=== PATIENT | male | born 1940 | race Caucasian/White ===

== ENCOUNTER 2019-07-13 01:17 | Day surgery (SDC) | payer MEDICARE, SELFPAY ==
[2019-07-11 12:08] VITALS: BMI 30.6
[2019-07-13] VITALS (11 sets, daily range): BP systolic 103–160; BP diastolic 59–97; PULSE 57–80; RESP 15–24; TEMP 36.5; O2SAT 95–100
--- NOTE | 2019-07-13 09:17 | PM.HPGS ---
History of Present Illness History of Present Illness Consent: Risks, benefits, and alternatives have been discussed and questions answered. Patient agrees to proceed with procedure. Chief complaint: Rectal Bleeding Narrative: Tuan Moore is a 78 year old W male undergoing flexible sigmoidoscopy for evaluation of hematochezia. Patient did have a colonoscopy September of 2018 was found to have internal hemorrhoids in addition to radiation proctitis. radiation proctitis is not treated at that time. Patient does have some increased rectal bleeding. No clinical changes since visit in September 2018. [facility] Family History Family History Father Family history of premature coronary heart disease Hypertension Mother Hypertension Family history of coronary artery disease Sibling Malignant neoplasm of prostate Family history of lung cancer Social History Social History Smoking status: Former smoker (Quit 06/14/86) Alcohol intake: current Meds Home Medications and Allergies Home Medications Medication Instructions Recorded Confirmed Type carbamazepine 200 mg 200 mg PO Q12H 05/25/19 07/11/19 History capsule,extended release [id number] levothyroxine 100 mcg PO QAM 07/11/19 07/11/19 History rosuvastatin 20 mg tablet 20 mg PO DAILY #90 tablet 07/11/19 Rx tamsulosin 0.4 mg capsule 0.4 mg PO BID #180 cap 07/11/19 Rx Allergies Allergy/AdvReac Type Severity Reaction Status Date / Time bisacodyl AdvReac Intermediate Nausea Verified 07/13/19 09:00 codeine AdvReac Unknown Agitated Verified 07/13/19 09:00 Vital Signs Vital Signs - 24 hr 07/13/19 09:01 Temperature 36.5 C Pulse Rate 78 Respiratory Rate 16 Blood Pressure 134/68 Pulse Oximetry 98 Exam Const: Orientation/consciousness: patient oriented x3 Resp: Auscultation: clear to auscultation bilaterally Cardio: Rate: regular rate Rhythm: regular rhythm Heart sounds: no murmurs GI: GI Palp: Yes Soft to palpation, No Tenderness to palpation present (GI), Yes No hepatosplenomegaly present and No Palpable mass present Auscultation: normal bowel sounds Neuro: General: patient oriented x3 and no focal motor deficits Extrem: General: no pedal edema Assessment and Plan Additional Plan Flexible sigmoidoscopy possible ablation therapy for radiation proctitis
[2019-07-13] MEDS: LACTATED RINGERS 1,000 ML 150 ML IV CONT (09:22)
--- NOTE | 2019-07-13 09:41 | WPDANESEPPF ---
Anes - Initial Pre Proc Eval Procedure: Operation Date: 07/13/19 10:00 Proposed Procedures p Flexible Sigmoidoscopy - Florentin Perez MD Date/Time: 07/13/19 09:41 Surgeon: Florentin Perez MD Pre Op Diagnosis: Rectal Bleeding Patient Data Age: 78 Gender: M Height: 5 ft 6 in Weight: 82.5 kg Last Vital Signs Temp 97.7 F 07/13/19 09:01 Pulse 78 07/13/19 09:01 Resp 16 07/13/19 09:01 BP 134/68 07/13/19 09:01 Pulse Ox 98 07/13/19 09:01 Allergies Allergy/AdvReac Type Severity Reaction Status Date / Time bisacodyl AdvReac Intermediate Nausea Verified 07/13/19 09:24 codeine AdvReac Unknown Agitated Verified 07/13/19 09:24 Home Medications Medication Instructions Recorded Confirmed Type carbamazepine 200 mg 200 mg PO Q12H 05/25/19 07/13/19 History capsule,extended release [id number] levothyroxine 100 mcg PO QAM 07/11/19 07/13/19 History rosuvastatin 20 mg tablet 20 mg PO DAILY #90 tablet 07/11/19 07/13/19 Rx tamsulosin 0.4 mg capsule 0.4 mg PO BID #180 cap 07/11/19 07/13/19 Rx Patient hx anesthesia problems: none Family hx anesthesia problems: none PMFSH Past Medical History Medical History (Updated 07/13/19 @ 09:41 by Dominic Martin MD) H/O prostate cancer Hypothyroidism Family History Family History Father Family history of premature coronary heart disease Hypertension Mother Hypertension Family history of coronary artery disease Sibling Malignant neoplasm of prostate Family history of lung cancer Social History Social History Smoking status: Former smoker (Quit 06/14/86) Alcohol intake: current Anes - Eval Final PreProcedure Day of Procedure 07/13/19 09:41 Patient weight: obese Heart: regular rate and rhythm Lungs: clear to auscultation Airway: Mallampati scale class II Neurological: alert and oriented Last oral intake: >/= 8 hours ASA classification: III Emergent: no Anesthetic plan: proceed Anesthesia type and monitoring: general GIVS and standard monitoring Informed Consent: The patient's anesthetic plan and its attendant risks and benefits were discussed with the patient/family/POA. Questions were solicited and answers provided to the satisfaction of the patient/family/POA.
--- NOTE | 2019-07-13 11:22 | SUR.PHASEII ---
1119 - Dr. Perez in room following up and speaking with patient and spouse. Spoke with TOM Juarez to D/C patient. Patient verbalized understanding when to call Dr. Perez's office or return to the ER.
== END 2019-07-13 11:36 | disposition home or self-care (01) ==
PROVIDERS: PCP Family Medicine; Visit Provider Internal Medicine Gastroenterology
PROC: 0DJD8ZZ Inspection of Lower Intestinal Tract, Via Natural or Artificial Opening Endoscopic (ICD-10-PCS; CPT 45330; principal; 2019-07-13 10:00)
DX: K62.7 Radiation proctitis (principal); Y84.2 Radiological procedure and radiotherapy as the cause of abnormal reaction of the patient, or of later complication, without mention of misadventure at the time of the procedure; Z87.891 Personal history of nicotine dependence; E03.9 Hypothyroidism, unspecified; Z85.46 Personal history of malignant neoplasm of prostate; E66.9 Obesity, unspecified; Z68.29 Body mass index [BMI] 29.0-29.9, adult
CPT/HCPCS: 45334; J7120

== ENCOUNTER 2019-12-22 11:38 | Outpatient (CLI) | payer MEDICARE, SELFPAY ==
--- NOTE | ~2019-12-22 | XR_ITS ---
XR hip LT 2V w AP pelvis DATE: 12/22/2019 11:54 INDICATION: Left hip pain. TECHNIQUE: AP pelvis. AP and lateral views of left hip. COMPARISON: None FINDINGS: Multi-level degenerative disc disease of lumbar and lumbosacral spine. No pelvic fracture or bone destruction. The pubic symphysis and sacroiliac joints are intact. IMPRESSION: Multi-level degenerative disc disease Negative pelvis and left hip Reviewed, dictated and finalized at location B.
== END 2019-12-22 11:39 | disposition home or self-care (01) ==
PROVIDERS: PCP Family Medicine; Visit Provider Physician Assistant Medical
DX: M25.552 Pain in left hip (principal); M51.36 Other intervertebral disc degeneration, lumbar region
CPT/HCPCS: 73502

== ENCOUNTER 2020-05-05 11:33 | Emergency (ER) | payer MEDICARE, SELFPAY ==
[2020-05-05 11:34] VITALS: BP 148/68; PULSE 78; RESP 14; TEMP 36.1; O2SAT 99
--- NOTE | 2020-05-05 13:26 | ED.MALEGU ---
HPI - Male Genitourinary General Chief complaint: Urogenital-Male Stated complaint: blood in urine Time Seen by Provider: 05/05/20 11:48 Source: patient Limitations: no limitations History of Present Illness HPI Narrative: Patient is 79 years old white male presents with bloody urine since last night. Patient had similar symptoms in the past, does not know what was the underlying reason. Patient does not take blood thinner. History of prostatic cancer managed by [facility] Related Data Home Medications Medication Instructions Recorded Confirmed carbamazepine 200 mg 200 mg PO Q12H 05/25/19 04/10/20 capsule,extended release [id number] Allergies Allergy/AdvReac Type Severity Reaction Status Date / Time bisacodyl AdvReac Intermediate Nausea Verified 05/05/20 12:43 codeine AdvReac Unknown Agitated Verified 05/05/20 12:43 Review of Systems Review of Systems: Narrative: CONSTITUTIONAL: Denies fever, chills, or sweats. EYES: Denies visual changes, redness, or discharge. ENT: Denies rhinorrhea, congestion, sore throat, or otalgia. CARDIOVASCULAR: Denies chest pain, palpitations, or edema. RESPIRATORY: Denies cough or dyspnea. GASTROINTESTINAL: Denies abdominal pain, nausea, vomiting, or diarrhea. GENITOURINARY: Denies dysuria or hematuria. SKIN: Denies rash or itching. MUSCULOSKELETAL: Denies back pain, joint pain, or myalgia. NEUROLOGIC: Denies headache, numbness, or weakness. PSYCHIATRIC: Denies anxiety or depression. PMFSH Past Medical History Medical History H/O prostate cancer Hypothyroidism Family History Family History Father Family history of premature coronary heart disease Hypertension Mother Hypertension Family history of coronary artery disease Sibling Malignant neoplasm of prostate Family history of lung cancer Social History Social History Smoking status: Former smoker (quit approx 25 years ago) Alcohol intake: current Substance use: never Substance use type: does not use Gender identity (if verbalized by the patient): Male Exam Narrative: Exam Narrative: General appearance: Well-developed, well-nourished Skin: Normal color Head: Normocephalic, nontraumatic Eyes: Clear conjunctiva ENT: Oropharynx normal, ears normal, nose normal Neck: Supple, nontender Chest and respiratory: Airway patent, no respiratory distress, no accessory muscle use Heart: Regular rate/rhythm Abdomen: Soft, nontender, no organomegaly, quiet bowel sounds Vascular: Normal peripheral pulses, normal capillary refill. Musculoskeletal: Normal range of motion, nontender back Neurologic: Alert and oriented ?3, GRID TRIMMER is normal as tested, no gross motor deficit Course Course Emergency Course: Stable Vital Signs Vital signs: Vital Signs Temperature 36.1 C L 05/05/20 11:34 Pulse Rate 78 05/05/20 11:34 Respiratory Rate 14 05/05/20 11:34 Blood Pressure 148/68 H 05/05/20 11:34 Pulse Oximetry 99 05/05/20 11:34 Temperature 36.1 C L 05/05/20 11:34 Pulse Rate 78 05/05/20 13:39 Respiratory Rate 16 05/05/20 13:39 Blood Pressure 108/72 05/05/20 13:39 Pulse Oximetry 96 05/05/20 13:39 MDM - Male Genitourinary MDM Narrative Medical decision making narrative: Hematuria. UA, labs ordered. Further plan to follow Urine analysis showed urinary tract infection, Rocephin 1 g IV given, patient will be discharged on Cipro. Lab Data Result diagrams: 05/05/20 14:10 05/05/20 14:10 Labs: Lab Results 05/05/20 05/05/20 05/05/20
[2020-05-05 13:39] VITALS: BP 108/72; PULSE 78; RESP 16; O2SAT 96
[2020-05-05 14:47] LABS: Basophils Percent Auto 0.3 % (0.2-1.2); Eosinophils Absolute Auto 0.1 K/mm3 (0-0.3); Hematocrit 45.1 % (42.0-52.0); Hemoglobin 14.9 g/dL (14.0-18.0); Immature Granulocyte Absolute 0.02 K/mm3 (0.00-0.031); Immature Granulocyte Percent A 0.3 % (0-0.5); Mean Corpuscular Hemoglobin 32.2 pg (26-34); Mean Corpuscular Volume 97.4 fl (80-100); Mean Platelet Volume 10.2 fl (7.4-10.4); Monocytes Absolute Auto 0.7 K/mm3 (0.1-0.6); Monocytes Percent Auto 10.3 % (2.6-8.5); Neutrophils Absolute Auto 5.2 K/mm3 (1.3-6.7); Neutrophils Percent Auto 73.1 % (45.5-73.1); Platelet Count Result 240 k/mm3 (150-375); Red Blood Count 4.63 M/mm3 (4.6-6.20); Red Cell Distribution Width 13.3 % (11.5-14.5); White Blood Count 7.2 K/mm3 (4.5-10.0)
[2020-05-05 15:01] LABS: Alanine Aminotransferase 18 U/L (4-50); Albumin Level 4.1 g/dL (3.5-5.1); Alkaline Phosphatase 112 U/L (38-126); Anion Gap 6 mmol/L (8-16); Aspartate Amino Transferase 24 U/L (17-59); Bilirubin,Total 0.3 mg/dL (0.2-1.3); Blood Urea Nitrogen 15 mg/dL (9-20); Calcium 9.2 mg/dL (8.4-10.2); Carbon Dioxide 30 mmol/L (22-30); Chloride 104 mmol/L (98-107); Estimated CRCL calculation 54 ml/min; Estimated Glomerular Filt Rate > 60; Glucose 95 mg/dL (75-110); Sodium 140 mmol/L (137-145)
[2020-05-05 16:16] LABS: Add Urine Microscopic? YES; Appearance Urine Cloudy (Clear); Bacteria Urine Trace /hpf; Bilirubin Urine Negative (Negative); Blood Urine 3+ (Negative); Color Urine Yellow (Yellow); Glucose Urine UA Negative (Negative); Ketones Urine Negative (Negative); Leukocyte Esterase Ur 3+ LEU/UL (Negative); Nitrate Urine Negative (Negative); Protein Urine 2+ mg/dL (Negative); RBC Urine 21-50 /hpf (0-2); Renal Epithelial Cells Urine Rare /hpf (None Seen); Specific Grav Ur 1.008 (1.001-1.035); Urobilinogen Urine Negative mg/dL (<2.0); WBC Clumps Urine Present /HPF; WBC Urine >75 /hpf
[2020-05-05 16:30] VITALS: BP 139/84; PULSE 82; RESP 16; O2SAT 99
[2020-05-05 18:50] VITALS: BP 139/84; PULSE 80; RESP 16; O2SAT 99
== END 2020-05-05 18:50 | disposition home or self-care (01) ==
PROVIDERS: Emergency Provider Emergency Medicine; PCP Family Medicine
DX: N39.0 Urinary tract infection, site not specified (principal); E03.9 Hypothyroidism, unspecified; Z85.46 Personal history of malignant neoplasm of prostate; Z87.891 Personal history of nicotine dependence
CPT/HCPCS: 36415; 80053; 81001; 85025; 87077; 87086; 87088; 87186; 96365; 99284; J0696

== ENCOUNTER 2021-01-28 05:26 | Emergency (ER) | payer MEDICARE, SELFPAY ==
--- NOTE | ~2021-01-28 | XR_ITS ---
EXAMINATION: XR chest 2V 01/28/2021 06:33 INDICATION: Left-sided chest pain with cough for 2 days PROCEDURE: 2 view chest COMPARISON: Comparison to multiple prior studies sequentially, with oldest reviewed study dated 12/02. FINDINGS: The lungs are clear. The cardiomediastinal silhouette is within normal limits. There are no pleural effusions. There is no pneumothorax suspected. Calcified granuloma left midlung zone. IMPRESSION: 1: NO ACUTE CARDIOPULMONARY DISEASE. Reviewed, dictated and finalized at location A.
[2021-01-28 05:32] VITALS: BP 137/67; PULSE 80; RESP 16; TEMP 37.2; O2SAT 100
--- NOTE | 2021-01-28 05:33 | ECG_ITS ---
Measurements Intervals [place] Rate: 79 P: 36 [place]: 172 QRS: -35 QRSD: 128 T: 106 QT: 388 QTc: 447 Interpretive Statements SINUS RHYTHM LEFT AXIS DEVIATION LEFT BUNDLE BRANCH BLOCK ABNORMAL ECG Electronically Signed On 01-28-2021 5:37:37 CDT by Alexx Wright D.O.
[2021-01-28 05:57] LABS: Basophils Percent Auto 0.4 % (0.2-1.2); Eosinophils Absolute Auto 0.1 K/mm3 (0-0.3); Hematocrit 45.9 % (42.0-52.0); Hemoglobin 14.9 g/dL (14.0-18.0); Immature Granulocyte Absolute 0.01 K/mm3 (0.00-0.031); Immature Granulocyte Percent A 0.1 % (0-0.5); Lymphocytes Absolute Auto 0.74 K/mm3 (0.9-3.2); Lymphocytes Percent Auto 9.6 % (18.3-44.2); Mean Corpuscular HGB Conc 32.5 g/dl (32-36); Mean Corpuscular Hemoglobin 32.1 pg (26-34); Mean Corpuscular Volume 98.9 fl (80-100); Mean Platelet Volume 10.2 fl (7.4-10.4); Monocytes Absolute Auto 0.7 K/mm3 (0.1-0.6); Monocytes Percent Auto 9.5 % (2.6-8.5); Neutrophils Absolute Auto 6.1 K/mm3 (1.3-6.7); Neutrophils Percent Auto 79.4 % (45.5-73.1); Platelet Count Result 238 k/mm3 (150-375); Red Blood Count 4.64 M/mm3 (4.6-6.20); Red Cell Distribution Width 13.5 % (11.5-14.5); White Blood Count 7.7 K/mm3 (4.5-10.0)
--- NOTE | 2021-01-28 06:06 | ED.GENADULT ---
HPI - General Adult General Chief complaint: Chest Pain <Nils Garcia MD - Last Filed: 01/28/21 06:28> Stated complaint: CP/ Back pain <Nils Garcia MD - Last Filed: 01/28/21 06:28> Time Seen by Provider: 01/28/21 05:46 <Nils Garcia MD - Last Filed: 01/28/21 06:28> History of Present Illness HPI narrative: Patient is a 80-year-old gentleman who presents the emergency department with chief complaint of chest pain. The patient reports that he started coughing yesterday has been nonproductive denies fever but reports today that he had some discomfort in his chest. The patient reports that the tightness sensation that is feeling okay right now patient states that it has been bothering him for the last 2days patient denies shortness of breath reports that has been vaccinated for Covid. <Nils Garcia MD - Last Filed: 01/28/21 06:28> Related Data Home medications: Home Medications Medication Instructions Recorded Confirmed Centrum 01/28/21 <Nils Garcia MD - Last Filed: 01/28/21 06:28> Allergies/adverse reactions: Allergies Allergy/AdvReac Type Severity Reaction Status Date / Time bisacodyl AdvReac Intermediate Nausea Verified 01/28/21 05:42 codeine AdvReac Unknown Agitated Verified 01/28/21 05:42 <Nils Garcia MD - Last Filed: 01/28/21 06:28> Review of Systems Review of Systems: A 10 system review of systems was completed on the patient and is negative except for what is stated in the HPI. Nursing and ancillary documentation was reviewed. <Nils Garcia MD - Last Filed: 01/28/21 06:28> PMF Past Medical History Medical History: Medical History BMI (body mass index) 20.0-29.9 H/O prostate cancer Hematuria Hypothyroidism Skin cancer screening Urinary tract infection <Nils Garcia MD - Last Filed: 01/28/21 06:28> Family History Family History: Family History Father Family history of premature coronary heart disease Hypertension Mother Hypertension Family history of coronary artery disease Sibling Malignant neoplasm of prostate Family history of lung cancer <Nils Garcia MD - Last Filed: 01/28/21 06:28> Social History Social History: Social History Smoking status: Never smoker Second hand tobacco smoke exposure: No Alcohol intake: current Substance use: never Substance use type: does not use Gender identity (if verbalized by the patient): Male <Nils Garcia MD - Last Filed: 01/28/21 06:28> Exam Narrative: GENERAL: Well-appearing, well-nourished, and in no acute distress. HEAD: Normocephalic, atraumatic. EYES: PERRLA and EOMI. ENT: Nares clear, no rhinorrhea or epistaxis. Mucous membranes moist. NECK: Supple. CHEST: Clear to auscultation. No respiratory distress. HEART: Regular rate and rhythm. No murmur heard. Normal peripheral pulses. ABDOMEN: Soft, nontender, nondistended, normal active bowel sounds. EXTREMITIES: Normal range of motion. No edema. SKIN: Warm, dry, no rash. NEURO: No focal deficits. Alert and oriented x3. PSYCH: Normal mood and affect. <Nils Garcia MD - Last Filed: 01/28/21 06:28> Course Vital Signs Vital signs: Vital Signs Temperature 37.2 C 01/28/21 05:32 Pulse Rate 80 01/28/21 05:32 Respiratory Rate 16 01/28/21 05:32 Blood Pressure 137/67 01/28/21 05:32 Pulse Oximetry 100 01/28/21 05:32 Temperature 37.2 C 01/28/21 05:32 Pulse Rate 78 01/28/21 09:26 Respiratory Rate 17 01/28/21 09:26 Blood Pressure 120/64 01/28/21 09:26 Pulse Oximetry 98 01/28/21 09:26 <Nils Garcia MD - Last Filed: 01/28/21 06:28>
[2021-01-28 06:10] LABS: Anion Gap 7 mmol/L (8-16); Blood Urea Nitrogen 20 mg/dL (9-20); Calcium 9.4 mg/dL (8.4-10.2); Carbon Dioxide 24 mmol/L (22-30); Chloride 104 mmol/L (98-107); Estimated CRCL calculation 52 ml/min; Estimated Glomerular Filt Rate > 60; Glucose 105 mg/dL (65-110); Potassium 4.2 mmol/L (3.4-5.0); Sodium 135 mmol/L (137-145)
[2021-01-28 06:21] LABS: Troponin I < 0.012 ng/mL (0.000-0.034)
[2021-01-28 06:48] LABS: INR 0.9; Partial Thromboplastin Time 21.8 SECONDS (22.3-36.8); Prothrombin Time 11.9 Seconds (11.1-14.7)
[2021-01-28 06:51] VITALS: BP 135/74; PULSE 76; RESP 18; O2SAT 97
[2021-01-28 07:26] VITALS: PULSE 77
[2021-01-28 08:19] VITALS: BP 131/69; PULSE 76; RESP 22; O2SAT 98
[2021-01-28 09:12] LABS: Troponin I < 0.012 ng/mL (0.000-0.034)
[2021-01-28 09:26] VITALS: BP 120/64; PULSE 78; RESP 17; O2SAT 98
[2021-01-28 09:53] VITALS: BP 117/76; PULSE 77; RESP 16; O2SAT 96
== END 2021-01-28 09:55 | disposition home or self-care (01) ==
PROVIDERS: Emergency Medicine; Emergency Provider Emergency Medicine; PCP Family Medicine
DX: R07.89 Other chest pain (principal); E03.9 Hypothyroidism, unspecified
CPT/HCPCS: 36415; 71046; 80048; 84484; 85025; 85610; 85730; 93005; 99284

== ENCOUNTER 2021-02-28 13:34 | Outpatient (CLI) | payer MEDICARE, SELFPAY ==
--- NOTE | ~2021-02-28 | MR_ITS ---
EXAMINATION: MR brain/brain stem wo con EXAM DATE: 02/28/2021 14:44 INDICATION: G50.0 - Trigeminal neuralgia . TECHNIQUE: Multi-sequential, multiplanar MR images of the brain, brainstem, internal auditory canals were obtained without contrast. Whole brain sagittal T1, axial diffusion, gradient echo (T2*), T1, T 2, FLAIR sequences obtained. High resolution coronal 3-D FIESTA, coronal T1 FSE, axial T1 FSPGR of t he internal auditory canals. Comparison is made to prior examination from 07/09/2016. FINDINGS: No evidence of mastoid or middle ear opacification. The 7th/8th cranial nerve complexes a re symmetric, normal in course and caliber. No cerebellopontine angle masses. Posterior fossa unrem arkable. Both of the superior cerebellar arteries are contiguous to the cisternal segments of the respective t rigeminal nerves bilaterally, without exerting mass effect. Uncertain clinical significance, finding likely commonly seen in asymptomatic people. Segmental Trigeminal nerves and Meckel's caves are symme tric and unremarkable. There are no areas of restricted diffusion to suggest acute infarction. There is no acute hemorrhage seen on the T2*, a hemosiderin sensitive sequence. No intraparenchymal brain mass lesion. 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 There is periventricular and subcortical T 2/FLAIR signal hyperintensity, nonspecific but probably related to small vessel ischemic disease (greg roangiopathy). There is prominence of the sulci and ventricles related to cerebral atrophy. There are no extra-axial collections. Flow voids are seen in the cerebral arteries on the T2-weighted seq uences consistent with their expected patency. The orbits are unremarkable. Soft tissue is unremark able. IMPRESSION: 1. Mild microangiopathy. 2. 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 Reviewed, dictated and finalized at location B.
== END 2021-02-28 13:35 | disposition home or self-care (01) ==
LOC: ANHIMG 13:35
PROVIDERS: PCP Family Medicine; Visit Provider Psychiatry & Neurology Neurology
DX: G50.0 Trigeminal neuralgia (principal); R93.0 Abnormal findings on diagnostic imaging of skull and head, not elsewhere classified
CPT/HCPCS: 70551

== ENCOUNTER 2021-11-03 09:19 | Outpatient (CLI) | payer MEDICARE, SELFPAY ==
--- NOTE | ~2021-11-03 | XR_ITS ---
EXAMINATION: XR lumbar spine 6V w bending DATE: 11/03/2021 09:57 INDICATION: Lumbago with left-sided sciatica. TECHNIQUE: 7 views of lumbar spine including flexion and extension views were obtained. COMPARISON: Lumbar spine MRI 05/16/2014 FINDINGS: There is 10 degrees levoscoliosis of lumbar spine. There is mild kyphosis of upper lumbar s pine. There is no abnormal motion with flexion or extension. Vertebral body heights are normal. There is mildly decreased disc height at L1-L2, severely decreased disc height at L2-L3, mildly decreased disc height at L3-L4, moderately decreased disc height at L4-L5, and severely decreased disc height a t L5-S1 with endplate remodeling. There is multilevel severe facet joint osteoarthritis. IMPRESSION: 1. Severe lumbar spondylosis. 2. Lumbar dextroscoliosis. Reviewed, dictated and finalized at location A.
[2021-11-03 09:37] LABS: Basophils Absolute Auto 0.1 K/mm3 (0.0-0.1); Basophils Percent Auto 0.9 % (0.2-1.2); Eosinophils Absolute Auto 0.2 K/mm3 (0-0.3); Eosinophils Percent Auto 3.3 % (0-4.4); Hematocrit 43.1 % (42.0-52.0); Hemoglobin 13.8 g/dL (14.0-18.0); Immature Granulocyte Absolute 0.01 K/mm3 (0.00-0.031); Immature Granulocyte Percent A 0.2 % (0-0.5); Lymphocytes Absolute Auto 1.17 K/mm3 (0.9-3.2); Lymphocytes Percent Auto 20.4 % (18.3-44.2); Mean Corpuscular Hemoglobin 32.3 pg (26-34); Mean Corpuscular Volume 100.9 fl (80-100); Mean Platelet Volume 9.8 fl (7.4-10.4); Monocytes Absolute Auto 0.6 K/mm3 (0.1-0.6); Neutrophils Absolute Auto 3.7 K/mm3 (1.3-6.7); Neutrophils Percent Auto 64.2 % (45.5-73.1); Platelet Count Result 210 k/mm3 (150-375); Red Blood Count 4.27 M/mm3 (4.6-6.20); Red Cell Distribution Width 13.2 % (11.5-14.5); White Blood Count 5.7 K/mm3 (4.5-10.0)
[2021-11-03 09:46] LABS: Anion Gap 6 mmol/L (8-16); Blood Urea Nitrogen 25 mg/dL (9-20); Calcium 8.4 mg/dL (8.4-10.2); Carbon Dioxide 23 mmol/L (22-30); Chloride 108 mmol/L (98-107); Estimated Glomerular Filt Rate > 60; Glucose 98 mg/dL (65-110); Potassium 4.5 mmol/L (3.4-5.0); Sodium 137 mmol/L (137-145)
[2021-11-03 10:15] LABS: Thyroid Stimulating Hormone 0.875 uIU/mL (0.465-4.680)
== END 2021-11-03 09:20 | disposition home or self-care (01) ==
LOC: ANHLAB 09:22
PROVIDERS: PCP Family Medicine; Visit Provider Family Medicine
DX: M54.42 Lumbago with sciatica, left side (principal); M54.41 Lumbago with sciatica, right side; I10 Essential (primary) hypertension; M47.896 Other spondylosis, lumbar region
CPT/HCPCS: 36415; 72114; 80048; 84443; 85025

== ENCOUNTER 2022-01-27 10:43 | Outpatient (CLI) | payer MEDICARE, SELFPAY ==
--- NOTE | ~2022-01-27 | XR_ITS ---
EXAMINATION: XR shoulder RT min 2V INDICATION: Right shoulder pain TECHNIQUE: Four views of the right shoulder are submitted. COMPARISON: None FINDINGS: Normal alignment. No fracture. There is moderate osteoarthritis of the acromioclavicular yareli int and mild osteoarthritis of the glenohumeral joint. Soft tissues are unremarkable. IMPRESSION: 1. Osteoarthritis without acute osseous abnormality. Reviewed, dictated and finalized at location A.
== END 2022-01-27 10:44 | disposition home or self-care (01) ==
PROVIDERS: PCP Family Medicine; Visit Provider Physician Assistant Medical
DX: M19.011 Primary osteoarthritis, right shoulder (principal)
CPT/HCPCS: 73030

== ENCOUNTER 2022-05-12 08:51 | Outpatient (CLI) | payer MEDICARE, SELFPAY ==
[2022-05-12 09:08] LABS: Basophils Absolute Auto 0.1 K/mm3 (0.0-0.1); Basophils Percent Auto 0.9 % (0.2-1.2); Eosinophils Absolute Auto 0.1 K/mm3 (0-0.3); Eosinophils Percent Auto 2.2 % (0-4.4); Hematocrit 40.8 % (42.0-52.0); Hemoglobin 13.7 g/dL (14.0-18.0); Immature Granulocyte Absolute 0.01 K/mm3 (0.00-0.031); Immature Granulocyte Percent A 0.2 % (0-0.5); Lymphocytes Percent Auto 22.1 % (18.3-44.2); Mean Corpuscular HGB Conc 33.6 g/dl (32-36); Mean Corpuscular Hemoglobin 32.5 pg (26-34); Mean Corpuscular Volume 96.9 fl (80-100); Mean Platelet Volume 9.6 fl (7.4-10.4); Monocytes Absolute Auto 0.6 K/mm3 (0.1-0.6); Monocytes Percent Auto 10.9 % (2.6-8.5); Neutrophils Absolute Auto 3.8 K/mm3 (1.3-6.7); Neutrophils Percent Auto 63.7 % (45.5-73.1); Platelet Count Result 389 k/mm3 (150-375); Red Blood Count 4.21 M/mm3 (4.6-6.20); Red Cell Distribution Width 13.2 % (11.5-14.5); White Blood Count 5.9 K/mm3 (4.5-10.0)
[2022-05-12 09:39] LABS: LDL Cholesterol Direct 104 mg/dL
[2022-05-12 09:41] LABS: Free T4 Free Thyroxine 0.86 ng/mL (0.78-2.19)
[2022-05-12 09:54] LABS: Prostate Specific Antigen < 0.1 ng/mL (< OR = 4.0)
[2022-05-12 10:00] LABS: Alanine Aminotransferase 28 U/L (6-50); Albumin Level 4.1 g/dL (3.5-5.1); Alkaline Phosphatase 103 U/L (38-126); Anion Gap 7 mmol/L (8-16); Aspartate Amino Transferase 22 U/L (17-59); Bilirubin,Total 0.5 mg/dL (0.2-1.3); Blood Urea Nitrogen 16 mg/dL (9-20); Calcium 9.1 mg/dL (8.4-10.2); Carbon Dioxide 26 mmol/L (22-30); Chloride 107 mmol/L (98-107); Cholesterol 217 mg/dL (0-200); Estimated Glomerular Filt Rate > 60; Glucose 101 mg/dL (65-110); HDL Direct 50 mg/dL; Potassium 4.8 mmol/L (3.4-5.0); Sodium 140 mmol/L (137-145); Triglycerides 155 mg/dL (<150)
== END 2022-05-12 08:52 | disposition home or self-care (01) ==
LOC: ANHLAB 08:54
PROVIDERS: PCP Family Medicine; Visit Provider Family Medicine
DX: I10 Essential (primary) hypertension (principal); E03.9 Hypothyroidism, unspecified; E78.2 Mixed hyperlipidemia; Z13.220 Encounter for screening for lipoid disorders; C61 Malignant neoplasm of prostate
CPT/HCPCS: 36415; 80048; 80061; 80076; 84153; 84439; 84443; 85025; G0103

== ENCOUNTER 2022-10-12 08:11 | Outpatient (CLI) | payer MEDICARE, SELFPAY ==
--- NOTE | ~2022-10-12 | MR_ITS ---
EXAMINATION: MR brain/brain stem wo/w con DATE: 10/12/2022 10:04 INDICATION: Trigeminal neuralgia. Right facial pain. TECHNIQUE: Magnetic resonance imaging (MRI) of the brain and brainstem was performed without and with 15 mL MultiHance intravenous contrast. COMPARISON: Brain MRI 02/28/2021 FINDINGS: There are scattered areas of nonspecific increased T2-weighted signal intensity in the cere bral white matter. There is a small old infarct in right cerebellum. There is no intracranial hemorrh age, acute infarction, or abnormal intracranial mass lesion. The ventricles are normal in size. There is mild mucosal thickening in the paranasal sinuses. The orbits are normal. There are small bilatera l mastoid effusions. Right superior cerebellar artery exerts mass effect on the cisternal segment of right trigeminal nerve. IMPRESSION: 1. 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 2. Small old infarct in right cerebellum. 3. Worsened mild nonspecific cerebral white matter disease, which likely represents chronic small ves che ischemic disease. Reviewed, dictated and finalized at location A. IMPRESSION: 1. 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 2. Small old infarct in right cerebellum. 3. Worsened mild nonspecific cerebral white matter disease, which likely repres ents chronic small vessel ischemic disease.
== END 2022-10-12 08:12 | disposition home or self-care (01) ==
PROVIDERS: PCP Family Medicine; Visit Provider Psychiatry & Neurology Neurology
DX: G50.0 Trigeminal neuralgia (principal); R93.0 Abnormal findings on diagnostic imaging of skull and head, not elsewhere classified
CPT/HCPCS: 70553; A9577

== ENCOUNTER 2023-01-19 08:52 | Outpatient (CLI) | payer MEDICARE, SELFPAY ==
[2023-01-19 10:26] LABS: Prostate Specific Antigen < 0.1 ng/mL (< OR = 4.0)
== END 2023-01-19 08:53 | disposition home or self-care (01) ==
PROVIDERS: PCP Family Medicine
DX: C61 Malignant neoplasm of prostate (principal)
CPT/HCPCS: 36415; 84153

== ENCOUNTER 2023-05-28 09:34 | Outpatient (CLI) | payer MEDICARE, SELFPAY ==
[2023-05-28 11:09] LABS: Hematocrit 42.4 % (42.0-52.0); Hemoglobin 13.7 g/dL (14.0-18.0); Mean Corpuscular HGB Conc 32.3 g/dl (32-36); Mean Corpuscular Hemoglobin 31.5 pg (26-34); Mean Corpuscular Volume 97.5 fl (80-100); Mean Platelet Volume 10.4 fl (7.4-10.4); Platelet Count Result 230 k/mm3 (150-375); Red Blood Count 4.35 M/mm3 (4.6-6.20); White Blood Count 4.6 K/mm3 (4.5-10.0)
[2023-05-28 12:23] LABS: Alanine Aminotransferase 14 U/L (6-50); Albumin Level 3.9 g/dL (3.5-5.1); Alkaline Phosphatase 104 U/L (38-126); Anion Gap 6 mmol/L (8-16); Aspartate Amino Transferase 19 U/L (17-59); Bilirubin,Total 0.4 mg/dL (0.2-1.3); Blood Urea Nitrogen 19 mg/dL (9-20); Carbon Dioxide 24 mmol/L (22-30); Chloride 110 mmol/L (98-107); Cholesterol 192 mg/dL (0-200); Estimated Glomerular Filt Rate > 60; Glucose 97 mg/dL (65-110); HDL Direct 59 mg/dL; Potassium 4.1 mmol/L (3.4-5.0); Sodium 140 mmol/L (137-145); Triglycerides 119 mg/dL (<150)
[2023-05-28 12:35] LABS: LDL Cholesterol Direct 97 mg/dL
[2023-05-28 13:00] LABS: T4 Thyroxine 8.17 ug/dL (5.53-11.0)
[2023-05-28 13:13] LABS: Prostate Specific Antigen < 0.1 ng/mL (< OR = 4.0)
== END 2023-05-28 09:35 | disposition home or self-care (01) ==
LOC: ANHLAB 09:36
PROVIDERS: PCP Family Medicine; Visit Provider Nurse Practitioner Family
DX: C61 Malignant neoplasm of prostate (principal); Z79.899 Other long term (current) drug therapy; E03.9 Hypothyroidism, unspecified; E78.2 Mixed hyperlipidemia; I10 Essential (primary) hypertension; Z12.5 Encounter for screening for malignant neoplasm of prostate
CPT/HCPCS: 36415; 80053; 80061; 84153; 84436; 84443; 85027; G0103

== ENCOUNTER 2023-06-03 14:01 | Outpatient (CLI) | payer MEDICARE, SELFPAY ==
--- NOTE | ~2023-06-03 | MR_ITS ---
MRI of the right shoulder Technique: Axial proton-density fat-sat images, coronal proton density fat-sat and T2 fat-sat images, and sagittal T1-weighted and T2 fat-sat images were acquired. Clinical History: Pain Findings: There is severe AC joint degenerative change with bony productive change at the distal clav icle and acromion, with subacromial spur present. Coracoclavicular, coracoacromial, and coracohumeral ligaments are intact. There is moderate to advanced tendinosis of the distal supraspinatus and infraspinatus tendons, witho ut definite partial or full-thickness tear. Subscapularis tendon is intact. Tendon of long head of th e biceps is intact. No definite labral tear identified. Inferior glenohumeral ligament is intact. No significant degenerative change or effusion of the gleno humeral joint. There is minimal fluid in the subacromial/subdeltoid bursa. No muscle atrophy or edema . Impression: Severe AC joint degenerative change. Moderate to advanced rotator cuff tendinosis without definite tear. Reviewed, dictated and finalized at [facility]. 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 Moderate to advanced rotator cuff tendinosis without definite tear.
== END 2023-06-03 14:02 | disposition home or self-care (01) ==
PROVIDERS: PCP Family Medicine; Visit Provider Nurse Practitioner Family
DX: M19.011 Primary osteoarthritis, right shoulder (principal); M75.81 Other shoulder lesions, right shoulder
CPT/HCPCS: 73221

== ENCOUNTER 2023-06-10 11:12 | Inpatient (IN) | payer MEDICARE, SELFPAY ==
[2023-06-10] VITALS (28 sets, daily range): BP systolic 107–139; BP diastolic 53–95; PULSE 68–97; RESP 18–29; TEMP 37.1–38.8; O2SAT 89–97; BMI 29.7
--- NOTE | ~2023-06-10 | CT_ITS ---
EXAMINATION: CT brain wo con DATE: 06/10/2023 12:22 INDICATION: Mental status change TECHNIQUE: Computed tomography (CT) of the head was performed without intravenous contrast. Sagittal and coronal reconstructions were performed. The mA was adjusted according to patient size. Iterative reconstruction technique was employed. The dose-length product was 1362.00 mGy-cm. COMPARISON: Brain MR dated 10/12/2022 FINDINGS: Again seen is a small old infarct in the right cerebellar hemisphere. No acute intracranial hemorrhag e, acute infarction or abnormal extra axial fluid collection. There is mild scattered white matter hy poattenuation consistent with chronic small vessel ischemic disease. Ventricles are normal and symmet patrick. No mass/mass effect. Mild mucosal thickening in the bilateral maxillary sinuses. The orbits are normal. Chronic small right mastoid effusion. Intracranial calcified cerebral atherosclerosis is note d. IMPRESSION: 1. Small old right cerebellar infarct. No acute intracranial process. 2. Mild scattered periventricular predominant white matter hypoattenuation consistent with chronic sm all vessel ischemic disease. Reviewed, dictated and finalized at location [facility] IMPRESSION: 1. Small old right cerebellar infarct. No acute intracranial process. 2. Mild scattered periventricular predominant white matter hypoattenuation cons istent with chronic small vessel ischemic disease.
--- NOTE | ~2023-06-10 | XR_ITS ---
EXAMINATION: XR chest 2V DATE: 06/10/2023 12:31 INDICATION: Cough. TECHNIQUE: Frontal and lateral views of the chest were obtained. COMPARISON: Chest 2 views 01/28/2021 FINDINGS: The lung volumes are small. Calcified lung nodules are consistent with old granulomatous di sease. There are airspace opacities in right lower lung zone and all left lung zones. No pleural effu miesha or pneumothorax. The heart size is normal. IMPRESSION: 1. Small lung volumes with airspace opacities in right lower lung zone and all left lung zones, consi stent with atelectasis versus pneumonia. Reviewed, dictated and finalized at location [facility]. [facility] IMPRESSION: 1. Small lung volumes with airspace opacities in right lower lung zone and all left lung zones, consistent with atelectasis versus pneumonia.
--- NOTE | 2023-06-10 11:26 | ECG_ITS ---
Measurements Intervals [place] Rate: 84 P: 37 MS: 157 QRS: -29 QRSD: 137 T: 68 QT: 352 QTc: 417 Interpretive Statements SINUS RHYTHM LEFT BUNDLE BRANCH BLOCK [120+ ms QRS DURATION, 80+ ms Q/S IN V1/V2, 85+ ms R IN I/aVL/V5/V6] COMPARED TO ECG 01/28/2021 05:36:07 NO SIGNIFICANT CHANGES Electronically Signed On 06-10-2023 15:07:07 SIGNAL CIRCUIT DESIGNER by Jesus Rand M.D.
[2023-06-10 11:47] LABS: Basophils Percent Auto 0.2 % (0.2-1.2); Hemoglobin 13.8 g/dL (14.0-18.0); Immature Granulocyte Absolute 0.02 K/mm3 (0.00-0.031); Immature Granulocyte Percent A 0.4 % (0-0.5); Lymphocytes Absolute Auto 0.46 K/mm3 (0.9-3.2); Lymphocytes Percent Auto 9.7 % (18.3-44.2); Mean Corpuscular HGB Conc 32.9 g/dl (32-36); Mean Corpuscular Hemoglobin 31.7 pg (26-34); Mean Corpuscular Volume 96.3 fl (80-100); Mean Platelet Volume 10.4 fl (7.4-10.4); Monocytes Absolute Auto 0.5 K/mm3 (0.1-0.6); Neutrophils Absolute Auto 3.7 K/mm3 (1.3-6.7); Neutrophils Percent Auto 78.7 % (45.5-73.1); Platelet Count Result 150 k/mm3 (150-375); Red Blood Count 4.36 M/mm3 (4.6-6.20); Red Cell Distribution Width 13.4 % (11.5-14.5); White Blood Count 4.7 K/mm3 (4.5-10.0)
[2023-06-10 11:57] LABS: Prothrombin Time 13.8 Seconds (11.1-14.7)
[2023-06-10 11:58] LABS: Alanine Aminotransferase 19 U/L (6-50); Alkaline Phosphatase 110 U/L (38-126); Anion Gap 9 mmol/L (8-16); Aspartate Amino Transferase 27 U/L (17-59); Bilirubin,Total 0.4 mg/dL (0.2-1.3); Blood Urea Nitrogen 13 mg/dL (9-20); Calcium 8.9 mg/dL (8.4-10.2); Carbon Dioxide 22 mmol/L (22-30); Chloride 105 mmol/L (98-107); Estimated CRCL calculation 50 ml/min; Estimated Glomerular Filt Rate > 60; Glucose 108 mg/dL (65-110); Partial Thromboplastin Time 26.1 SECONDS (22.3-36.8); Potassium 3.7 mmol/L (3.4-5.0); Sodium 136 mmol/L (137-145)
--- NOTE | 2023-06-10 12:09 | ED.AMS ---
HPI - Altered Mental Status General Chief Complaint: Altered Mental Status Stated Complaint: found on floor in kitchen Time Seen by Provider: 06/10/23 12:03 History of Present Illness HPI narrative: Patient is an 82 year old male with history of prior CVA here with confusion and respiratory symptoms. Patient's family notes that they saw him over [place] and he seemed fine. Yesterday he talked with family over the phone and he had been complaining of a sore throat and cough. Last night him and his went to bed around 11 PM. This morning his found him down on the floor of the living room unable to get off of the floor. It is unknown how long he was on the ground for. Family note he was alert, was able to speak with family but too weak to get himself off of the floor. Family notes cough, raspy breathing and confusion. Patient unable to provide history. Related Data Home Medications Medication Instructions Recorded Confirmed vibegron 75 mg tablet (Gemtesa) 75 mg PO DAILY 02/18/21 05/20/23 oxybutynin chloride 5 mg tablet 5 mg PO DAILY 10/06/21 05/20/23 [id number] 300 mcg-K 60 1 tablet PO DAILY 05/19/22 05/20/23 mcg-lycop 600 mcg-lutein 300 mcg tablet (Centrum Silver Ultra Men's) Allergies Allergy/AdvReac Type Severity Reaction Status Date / Time bisacodyl AdvReac Intermediate Nausea Verified 05/20/23 12:55 codeine AdvReac Unknown Agitated Verified 05/20/23 12:55 Review of Systems Review of Systems: ROS unobtainable: Yes unobtainable due to mental status PMFSH Past Medical History Medical History Anemia BMI (body mass index) 20.0-29.9 BMI greater than 30 Bronchitis Dizziness H/O prostate cancer Hematuria Hypothyroidism Skin cancer screening Tinea corporis Urinary tract infection Family History Family History Father Family history of premature coronary heart disease Hypertension Tobacco abuse Mother Hypertension Family history of coronary artery disease Sibling Malignant neoplasm of prostate Family history of lung cancer COVID-19 Social History Social History Smoking status: Former smoker Tobacco type: cigarettes Second hand tobacco smoke exposure: Yes Smoking end date: 06/14/87 Alcohol intake: never Substance use: never Substance use type: does not use Lack of Transportation: No Lack of Food: Never True Current Housing: I Have Housing Concerned About Future Housing: No Difficulty Paying Gas/Electric Bills: No Difficulty Paying for Meds: No Currently Unemployed: No Education: High School Diploma/GED Difficulty w/ Childcare or Family Care: No Living arrangements: with family Occupation/Education: retired Additional occupation/education comments: [employer] Gender identity (if verbalized by the patient): Male Exam Narrative: GENERAL: Ill appearing. HEAD: Normocephalic, atraumatic. EYES: PERRLA and EOMI. ENT: Nares clear. Mucous membranes dry. NECK: Supple. CHEST: Coarse rattling respirations. Moderate increase work of breathing. HEART: Regular rate and rhythm. Normal peripheral pulses. ABDOMEN: Soft, nontender, nondistended. EXTREMITIES: Normal range of motion. No edema. SKIN: Warm, dry, no rash. NEURO: No focal deficits. Alert and oriented x1 Course Course Emergency Course: Chart review performed. Patient here from home with confusion and respiratory symptoms. Triage vitals show normotensive, febrile at 100.7 F. PCP visit note reviewed on 05/20/23, they noted history of prostate cancer, hypothyroidism. Patient seen and evaluated. History assisted by family at bedside. Patient is positive for COVID. CT brain ordered, cardiac workup, septic workup. Tylenol ordered for fever. Lab work and imaging reviewed. No leukocytosis, crea
[2023-06-10 12:24] LABS: Influenza A QL RT-PCR Negative (Negative); Influenza B QL RT-PCR Negative (Negative); RSV RNA, RT-PCR Negative (Negative); SARS-CoV-2 RNA PCR Positive (Negative)
[2023-06-10 12:34] LABS: Troponin I < 0.012 ng/mL (0.000-0.034)
[2023-06-10 12:58] LABS: Appearance Urine Clear (Clear); Bacteria Urine None Seen /hpf; Bilirubin Urine Negative (Negative); Blood Urine Negative (Negative); Color Urine Yellow (Yellow); Glucose Urine UA Negative (Negative); Ketones Urine Trace mg/dL (Negative); Leukocyte Esterase Ur Negative LEU/UL (Negative); Nitrate Urine Negative (Negative); Non Pathogenic Casts 0-2; Protein Urine 1+ mg/dL (Negative); RBC Urine 0-2 /hpf (0-2); Specific Grav Ur 1.024 (1.001-1.035); Squamous Epithelial Cell Urine None seen /hpf (Few); WBC Urine 0-5 /hpf; pH Urine 5.5 (5.0-9.0)
[2023-06-10 13:00] LABS: Add Urine Microscopic? YES
[2023-06-10 13:15] LABS: Creatine Kinase 344 U/L (55-170)
[2023-06-10 13:20] LABS: CRP 7.1 mg/dL (<1.0)
[2023-06-10 13:22] LABS: Lactic Acid Reflex 1.2 mmol/L (0.7-2.0)
[2023-06-10 13:31] LABS: NT Pro B Type Natriuretic Pept 946 pg/mL (19.9-100)
[2023-06-10] MEDS: SODIUM CHLORIDE 0.9% IV 1,000 ML 999 ML IV CONT ×2 (13:53→15:12)
[2023-06-10 14:02] LABS: Procalcitonin 0.2 ng/mL
--- NOTE | 2023-06-10 14:15 | PC.NURSE ---
Pt family called this RN into room stating his IV isn't flowing anymore . This RN adjusted patient arm to help restart flow.
[2023-06-10 14:27] LABS: Thyroid Stimulating Hormone Reflex 0.536 uIU/mL (0.465-4.68)
[2023-06-10] MEDS: REMDESIVIR 200 MG/NS 250 ML 200 MG/250 ML BAG 250 MG IVPB (15:13)
[2023-06-10] MEDS: AZITHROMYCIN 500 MG/NS 250 ML 500 MG/250 ML BAG 250 MG IVPB (15:13)
[2023-06-10 15:42] LABS: Troponin I < 0.012 ng/mL (0.000-0.034)
--- NOTE | 2023-06-10 15:49 | PC.NURSE ---
Pt able to swallow a small sip of water with the tylenol administration however pt continues to spit up pill. Attempted to redirect and educate patient without success. made aware.
[2023-06-10] MEDS: ACETAMINOPHEN 650 MG SUPPOSITORY RECTAL (15:54)
--- NOTE | 2023-06-10 18:47 | PC.NURSE ---
This RN asked patient and family for medication list. Pt does not remember all of his meds. Daughter states she will go home and find his list.
[2023-06-10 19:04] LABS: Troponin I 0.022 ng/mL (0.000-0.034)
--- NOTE | 2023-06-10 20:19 | PC.NURSE ---
Sheila, pt daughter, reachable at [phone] called to give list of patient home meds. This RN will update and enter into system.
--- NOTE | 2023-06-10 20:34 | PM.IMHP ---
H&P: HPI History of Present Illness Date/Time: 06/10/23 20:34 Chief Complaint: AMS, COVID Narrative: 82 y/o M presents here with cough, fever, and presumptive ground-level fall with PMH of anemia, prostate cancer, hypothyroidism, HTN, HLD, and CVA. Patient presented here via EMS from home after found the patient on the floor, unclear how long patient was lying there. he had gone to bed at 11:00 p.m. and he was found in the morning. Reported to his that he was too weak to get up. No obvious signs of trauma at arrival. he has a history of CVA, unclear if he had residual deficits. Arrived to the ED A&Ox1 - self and following commands. Baseline is typically A&Ox4, ambulatory, and acts as primary caregiver for his at home. Per , patient has been experiencing fever, sore throat, and productive cough for the past 2 days. Patient reports new chills, mild shortness of breath, wet upper airway sounds, fatigue, and body aches starting today. Reports cough has been productive and has been yielding white to clear colored sputum. initially reported cough for the past 2 weeks but then changed story to 2 days, also reported 2 weeks of cough to bedside RN. Family was at the bedside earlier today reported that patient seemed well on [place] (06/07) and did not have any complaints at that time. Patient reports only new complaint he has been experiencing recently was some increased right shoulder patient which he reported on 05/20 during a PCP visit. is now alert and orientated to self, type of place, year. Appears to still be experiencing some transient confusion about recent history and which hospital he is at. Review of Systems Review of Systems: Limited due to current cognition All systems reviewed & are unremarkable except as noted in HPI and below PMFSH Past Medical History Medical History Anemia CVA (cerebral vascular accident) Essential (primary) hypertension H/O prostate cancer Hematuria Hypothyroidism Mixed hyperlipidemia Primary osteoarthritis involving multiple joints Family History Family History Father Family history of premature coronary heart disease Hypertension Tobacco abuse Mother Hypertension Family history of coronary artery disease Sibling Malignant neoplasm of prostate Family history of lung cancer COVID-19 Social History Social History Smoking status: Former smoker Second hand tobacco smoke exposure: Yes Alcohol intake: never Substance use: never Substance use type: does not use Do You Feel Safe in your Home?: Yes Lack of Transportation: No Lack of Food: Never True Current Housing: I Have Housing Concerned About Future Housing: No Difficulty Paying Gas/Electric Bills: No Difficulty Paying for Meds: No Currently Unemployed: No Education: High School Diploma/GED Difficulty w/ Childcare or Family Care: No Living arrangements: with family Occupation/Education: retired Additional occupation/education comments: [employer] Gender identity (if verbalized by the patient): Male Spiritual care concerns: No Meds Home Medications and Allergies Home Medications Medication Instructions Recorded Confirmed Type vibegron 75 mg tablet (Gemtesa) 75 mg PO DAILY 02/18/21 06/10/23 History oxybutynin chloride 5 mg tablet 5 mg PO DAILY 10/06/21 06/10/23 History rosuvastatin 20 mg tablet (Crestor) 20 mg PO DAILY #90 tabs 09/28/22 06/10/23 Rx levothyroxine 100 mcg tablet 100 mcg PO DAILY #90 tabs 11/10/22 06/10/23 Rx tamsulosin 0.4 mg capsule (Flomax) 0.4 mg PO BID #180 caps 12/14/22 06/10/23 Rx carbamazepine 200 mg 200 mg PO BID 06/10/23 06/10/23 History capsule,extended release [id number] lactulose 10 gram/15 mL oral 15 ml PO BID PRN Constipation
--- NOTE | 2023-06-10 20:55 | ADMGEN ---
This patient, Tuan Moore, was admitted to 2 Medical Room 256-. Patient/family oriented to hospital policies and general routines including ID bracelet, bed and alarms, visiting hours, pain management, procedures, bathroom and other care routines, personal items, smoking policy, room service/diet, and visiting hours. Information on how to activate the Rapid Response Team has been discussed. Patient/Family are encouraged to report perceived risks to care and to ask questions if they do not understand what they are told or what they should do.
[2023-06-10 22:05] LABS: Ammonia < 9 umol/L (9-30)
[2023-06-10] MEDS: TAMSULOSIN HCL 0.4 MG CAPSULE PO (22:16)
[2023-06-10] MEDS: HEPARIN SODIUM 5,000 UNITS/ML VIAL 5000 UNITS SUB-Q (22:16)
[2023-06-10] MEDS: CARBAMAZEPINE XR 200 MG TAB.ER.12H PO (22:16)
[2023-06-10 22:31] LABS: Erythrocyte Sedimentation Rate 19 mm/hr (0-20)
[2023-06-11] VITALS (19 sets, daily range): BP systolic 118–138; BP diastolic 51–68; PULSE 59–97; RESP 16–20; TEMP 36.2–36.4; O2SAT 94–99
[2023-06-11] MEDS: ALBUTEROL SULFATE NEB 2.5 MG/3 ML INH INHALATION ×4 (02:10→21:05)
[2023-06-11] MEDS: IPRATROPIUM BR 0.02% INH SOLN 0.5 MG/2.5 ML VIAL INHALATION ×4 (02:10→21:05)
[2023-06-11 06:26] LABS: Basophils Percent Auto 0.2 % (0.2-1.2); Hematocrit 40.2 % (42.0-52.0); Hemoglobin 12.6 g/dL (14.0-18.0); Immature Granulocyte Absolute 0.01 K/mm3 (0.00-0.031); Immature Granulocyte Percent A 0.2 % (0-0.5); Lymphocytes Absolute Auto 0.58 K/mm3 (0.9-3.2); Lymphocytes Percent Auto 12.9 % (18.3-44.2); Mean Corpuscular HGB Conc 31.3 g/dl (32-36); Mean Corpuscular Hemoglobin 31.2 pg (26-34); Mean Corpuscular Volume 99.5 fl (80-100); Mean Platelet Volume 11.1 fl (7.4-10.4); Monocytes Absolute Auto 0.5 K/mm3 (0.1-0.6); Monocytes Percent Auto 11.3 % (2.6-8.5); Neutrophils Absolute Auto 3.4 K/mm3 (1.3-6.7); Neutrophils Percent Auto 75.4 % (45.5-73.1); Platelet Count Result 141 k/mm3 (150-375); Red Blood Count 4.04 M/mm3 (4.6-6.20); Red Cell Distribution Width 13.6 % (11.5-14.5); White Blood Count 4.5 K/mm3 (4.5-10.0)
[2023-06-11] MEDS: LEVOTHYROXINE SODIUM 100 MCG TABLET PO (06:32)
[2023-06-11 06:40] LABS: Alanine Aminotransferase 16 U/L (6-50); Albumin Level 3.2 g/dL (3.5-5.1); Alkaline Phosphatase 73 U/L (38-126); Anion Gap 7 mmol/L (8-16); Aspartate Amino Transferase 29 U/L (17-59); Bilirubin,Total 0.5 mg/dL (0.2-1.3); Blood Urea Nitrogen 16 mg/dL (9-20); Calcium 8.2 mg/dL (8.4-10.2); Carbon Dioxide 23 mmol/L (22-30); Chloride 108 mmol/L (98-107); Estimated CRCL calculation 64 ml/min; Estimated Glomerular Filt Rate > 60; Glucose 110 mg/dL (65-110); Magnesium 2.1 mg/dL (1.6-2.3); Potassium 4.7 mmol/L (3.4-5.0); Sodium 138 mmol/L (137-145)
[2023-06-11 06:41] LABS: Lactic Acid Reflex 1.3 mmol/L (0.7-2.0)
--- NOTE | 2023-06-11 07:20 | PM.IMPN ---
Progress Note: A&P Assessment and Plan (1) COVID: Code(s): U07.1 - COVID-19 Status: Acute Assessment and Plan: Patient is still on 2 L of oxygen, will wean oxygen as tolerated -Continue remdesivir, dexamethasone and heparin ppx -Symptom onset - 06/08/23, tested positive for COVID on - 06/10/23 -complicating comorbidities - possible small R lower lobe PNA. no hx of COPD or asthma. -Continue supportive care such as pain medications, albuterol, and zofran -Pt on ceftriaxone and azithromycin since admission to cover bacterial pna (2) Acute encephalopathy: Code(s): G93.40 - Encephalopathy, unspecified Status: Acute Assessment and Plan: Improving -Was A&o x1 at admission now improved -normally A/Ox4 at baseline -TSH and ammonia WNL -No neurological deficits -CTH NAP -likely from above, continue to monitor (3) PNA (pneumonia): Code(s): J18.9 - Pneumonia, unspecified organism Status: Acute Assessment and Plan: Unclear if cough has been present x2 weeks v 2 days -being treated for viral and bacterial as above (4) Elevated creatine kinase: Code(s): R74.8 - Abnormal levels of other serum enzymes Status: Acute Assessment and Plan: CK 344 on admission, suspect this is secondary to laying on floor through the night -Kidney fx WNL -CK slightly more elevated today. Will give 500 cc of fluid and recheck tomorrow (5) Hypothyroidism: Qualifiers: Hypothyroidism type: acquired Qualified Code(s): E03.9 - Hypothyroidism, unspecified Code(s): E03.9 - Hypothyroidism, unspecified Status: Acute Assessment and Plan: TSH at goal, continue Synthroid (6) Anemia: Qualifiers: Anemia type: unspecified type Qualified Code(s): D64.9 - Anemia, unspecified Code(s): D64.9 - Anemia, unspecified Status: Acute Assessment and Plan: Chronic and stable (7) Fall: Qualifiers: Encounter type: initial encounter Qualified Code(s): W19.XXXA - Unspecified fall, initial encounter Code(s): W19.XXXA - Unspecified fall, initial encounter Status: Acute Assessment and Plan: Likely due to weakness as above -Order PT and OT Plan Home Meds/Chronic Conditions - Prostate Cx: continued Ditropan, tamsulosin, Gemtesa - trigeminal neuralgia: continue Tegretol - HLD: hold statin, CK mildly elevated -history of old CVA. Patient will need to be on aspirin at discharge DVT Prophylaxis: Heparin SQ TID Time Spent With Patient Time with patient: 25 - 35 minutes Subjective Date/time seen: 06/11/23 07:20 Interval history: Pt is a 82-year-old male here for COVID pneumonia. Patient was seen today and states he is doing okay. He says he is feeling a little better. He has been eating and drinking without issue. He denies chest pain or shortness of breath but has not been very active admittedly. He does state that he has been told he has a history of a stroke but never had symptoms of that stroke. He is unsure if he had the COVID vaccine. Review of Systems Review of Systems: All systems reviewed & are unremarkable except as noted in HPI and below Exam Narrative: General: Well developed well nourished patient in NAD HEENT: normocephalic Neck: supple Neuro: Alert and oriented x 4 technically but seemed confused with some other questions CV:RRR Resp: Decreased breath sounds bilaterally with some rhonchi. No conversational dyspnea or wheezing Abd: Soft, non distended. No pain to palpation. Positive bowel sounds Extremities: No swelling, erythema, or pain to palpation. Objective Data Vital Signs Vital Signs: Vital Signs - 24 hr 06/10/23 11:12 06/10/23 11:35 06/10/23 11:39 Temperature 100.7 F H Pulse Rate 92 87 Respiratory Rate 20 25 H Blood Pressure 119/73 Pulse Oximetry 96 96 90 Oxygen Delivery Room Air Room
[2023-06-11 07:40] LABS: Creatine Kinase 459 U/L (55-170)
[2023-06-11] MEDS: ROSUVASTATIN 20 MG TABLET BY MOUTH (09:26)
[2023-06-11] MEDS: HEPARIN SODIUM 5,000 UNITS/ML VIAL 5000 UNITS SUB-Q ×3 (09:26→20:33)
[2023-06-11] MEDS: guaiFENesin 12 HR 600 MG TABCR PO ×2 (09:26→20:33)
[2023-06-11] MEDS: oxyBUTYnin CHLORIDE XL 5 MG TAB.ER.24 PO (09:26)
[2023-06-11] MEDS: CARBAMAZEPINE XR 200 MG TAB.ER.12H PO ×2 (09:26→20:33)
[2023-06-11] MEDS: TAMSULOSIN HCL 0.4 MG CAPSULE PO ×2 (09:26→20:34)
[2023-06-11] MEDS: AZITHROMYCIN 500 MG/NS 250 ML 500 MG/250 ML BAG 250 MG IVPB (10:22)
[2023-06-11] MEDS: REMDESIVIR 100 MG/NS 250 ML 100 MG/250 ML BAG 250 MG IVPB (11:36)
[2023-06-11] MEDS: SODIUM CHLORIDE 0.9% IV 500 ML 100 ML IV CONT (13:12)
[2023-06-12] VITALS (14 sets, daily range): BP systolic 145–146; BP diastolic 66–74; PULSE 64–103; RESP 18–20; TEMP 36.1–36.6; O2SAT 94–97
[2023-06-12 05:45] LABS: INR 1.1; Prothrombin Time 15.3 Seconds (11.1-14.7)
[2023-06-12 05:51] LABS: Alanine Aminotransferase 15 U/L (6-50); Alkaline Phosphatase 79 U/L (38-126); Anion Gap 6 mmol/L (8-16); Aspartate Amino Transferase 27 U/L (17-59); Bilirubin,Total 0.3 mg/dL (0.2-1.3); Blood Urea Nitrogen 18 mg/dL (9-20); Calcium 8.2 mg/dL (8.4-10.2); Carbon Dioxide 24 mmol/L (22-30); Chloride 110 mmol/L (98-107); Creatine Kinase 343 U/L (55-170); Estimated CRCL calculation 57 ml/min; Estimated Glomerular Filt Rate > 60; Glucose 106 mg/dL (65-110); Potassium 3.3 mmol/L (3.4-5.0); Sodium 140 mmol/L (137-145)
[2023-06-12 05:53] LABS: Hematocrit 37.9 % (42.0-52.0); Hemoglobin 12.5 g/dL (14.0-18.0); Mean Corpuscular Hemoglobin 31.6 pg (26-34); Mean Corpuscular Volume 95.7 fl (80-100); Platelet Count Result 159 k/mm3 (150-375); Red Blood Count 3.96 M/mm3 (4.6-6.20); Red Cell Distribution Width 13.2 % (11.5-14.5); White Blood Count 5.5 K/mm3 (4.5-10.0)
[2023-06-12] MEDS: LEVOTHYROXINE SODIUM 100 MCG TABLET PO (05:56)
[2023-06-12] MEDS: HEPARIN SODIUM 5,000 UNITS/ML VIAL 5000 UNITS SUB-Q ×3 (05:56→21:00)
--- NOTE | 2023-06-12 07:53 | PM.IMPN ---
Progress Note: A&P Assessment and Plan (1) COVID: Code(s): U07.1 - COVID-19 Status: Acute Assessment and Plan: Breathing easily today and now on room air. - Day 3/5 remdesivir today. - Dexamethasone day 3. - On rocephin/zithromax to cover possible superimposed bacterial pna. Procal was normal, will repeat tomorrow. Could consider early DC of abx therapy. - As improving on current therapy, will continue with vte proph dosing of heparin vs full strength anticoag. - If continues to do well consider discharge upon completion of remdesivir course. (2) Acute encephalopathy: Code(s): G93.40 - Encephalopathy, unspecified Status: Acute Assessment and Plan: Resolved ao4 today. (3) PNA (pneumonia): Code(s): J18.9 - Pneumonia, unspecified organism Status: Acute Assessment and Plan: Treating as per above. (4) Elevated creatine kinase: Code(s): R74.8 - Abnormal levels of other serum enzymes Status: Acute Assessment and Plan: Downtrending. (5) Hypothyroidism: Qualifiers: Hypothyroidism type: acquired Qualified Code(s): E03.9 - Hypothyroidism, unspecified Code(s): E03.9 - Hypothyroidism, unspecified Status: Acute Assessment and Plan: TSH at goal, continue Synthroid (6) Anemia: Qualifiers: Anemia type: unspecified type Qualified Code(s): D64.9 - Anemia, unspecified Code(s): D64.9 - Anemia, unspecified Status: Acute Assessment and Plan: Chronic and stable (7) Fall: Qualifiers: Encounter type: initial encounter Qualified Code(s): W19.XXXA - Unspecified fall, initial encounter Code(s): W19.XXXA - Unspecified fall, initial encounter Status: Acute Assessment and Plan: Likely due to weakness as above - PT/OT ordered. Plan Home Meds/Chronic Conditions - Prostate Cx: continued Ditropan, tamsulosin, Gemtesa - trigeminal neuralgia: continue Tegretol - HLD: hold statin, CK mildly elevated -history of old CVA. Patient will need to be on aspirin at discharge DVT Prophylaxis: Heparin SQ TID Time Spent With Patient Time with patient: 25 - 35 minutes Subjective Date/time seen: 12/30/23 07:53 Interval history: 82 year old male with COVID and AMS. Tuan states he is feeling good today, he has been weaned to room air. He is mentating normally. Review of Systems Review of Systems: All systems reviewed & are unremarkable except as noted in HPI and below Exam Narrative: GENERAL APPEARANCE: Appears to be in no acute distress. HEAD: normocephalic atraumatic EYES: PERRL, EOMI. Vision grossly intact. ENT: Hearing grossly intact, no nasal discharge NECK: Neck supple, trachea midline. CARDIAC: Normal S1/S2. Rhythm is regular. No murmurs, rubs, or gallops. No cyanosis or pallor. Extremities are warm and well perfused. LUNGS: Clear to auscultation without rales, rhonchi, wheezing or diminished breath sounds. Respirations even and unlabored. ABDOMEN: BS positive x 4 quadrants. Soft, nondistended, nontender. No guarding or rebound. MSK: No joint tenderness/swelling, fair strength in all extremities. PERIPHERAL VASCULAR: Peripheral pulses palpable. Normal perfusion, cap refill <2 seconds. No edema. NEURO: Follows commands. No focal deficits. SKIN: [place] without lesions or eruptions. PSYCH: Stable, no paranoia or delusional thinking. Objective Data Vital Signs Vital Signs: Vital Signs - 24 hr 06/11/23 08:20 06/11/23 08:20 06/11/23 08:33 Temperature Pulse Rate 65 97 Respiratory Rate 20 20 Blood Pressure Pulse Oximetry 95 Oxygen Delivery Nasal Cannula Oxygen Flow Rate 2 06/11/23 09:25 06/11/23 13:51 06/11/23 14:08 Temperature Pulse Rate 62 68 74 Respiratory Rate 20 20 Blood Pressure Pulse Oximetry Oxygen Delivery Oxygen Flow Rate 06/11/23 14:00 06/11/23 16:05 06/11/23
[2023-06-12] MEDS: POTASSIUM CHLORIDE 20 MEQ ER TABLET 40 MEQ PO (08:40)
[2023-06-12] MEDS: guaiFENesin 12 HR 600 MG TABCR PO ×2 (08:41→20:49)
[2023-06-12] MEDS: CARBAMAZEPINE XR 200 MG TAB.ER.12H PO ×2 (08:41→20:49)
[2023-06-12] MEDS: oxyBUTYnin CHLORIDE XL 5 MG TAB.ER.24 PO (08:41)
[2023-06-12] MEDS: TAMSULOSIN HCL 0.4 MG CAPSULE PO ×2 (08:41→20:49)
[2023-06-12] MEDS: AZITHROMYCIN 500 MG/NS 250 ML 500 MG/250 ML BAG 250 MG IVPB (08:41)
[2023-06-12] MEDS: IPRATROPIUM BR 0.02% INH SOLN 0.5 MG/2.5 ML VIAL INHALATION ×2 (09:03→20:12)
[2023-06-12] MEDS: ALBUTEROL SULFATE NEB 2.5 MG/3 ML INH INHALATION ×2 (09:03→20:12)
[2023-06-12] MEDS: REMDESIVIR 100 MG/NS 250 ML 100 MG/250 ML BAG 250 MG IVPB (11:04)
--- NOTE | 2023-06-12 18:30 | PC.NURSE ---
Patient to ask family member to bring non-formulary Gemtesa. Unable to get brought in today
[2023-06-13] VITALS (11 sets, daily range): BP systolic 143–166; BP diastolic 68–77; PULSE 64–80; RESP 16–20; TEMP 36.2–36.4; O2SAT 97–100
--- NOTE | 2023-06-13 03:02 | PC.NURSE ---
At 0247 patient displayed new onset of confusion and disorientation. Attempts to reorient were met with failure with the patient getting more agitated and aggressive with time. Dr. Ryan was notified of the change in status and orders for bilateral wrist restraint were entered and placed on the patient after getting the patient back in bed. Restraints assessments will be completed every hour until discontinued.
--- NOTE | 2023-06-13 03:34 | PCRCNOTE ---
Patient stated he was breathing fine and would like to go back to sleep. Updraft treatment to resume at 0800.
[2023-06-13 06:07] LABS: Hematocrit 39.8 % (42.0-52.0); Hemoglobin 12.8 g/dL (14.0-18.0); Mean Corpuscular HGB Conc 32.2 g/dl (32-36); Mean Corpuscular Hemoglobin 31.1 pg (26-34); Mean Corpuscular Volume 96.6 fl (80-100); Mean Platelet Volume 11.1 fl (7.4-10.4); Platelet Count Result 180 k/mm3 (150-375); Red Blood Count 4.12 M/mm3 (4.6-6.20); Red Cell Distribution Width 13.4 % (11.5-14.5); White Blood Count 7.3 K/mm3 (4.5-10.0)
[2023-06-13 06:19] LABS: Alanine Aminotransferase 20 U/L (6-50); Albumin Level 3.4 g/dL (3.5-5.1); Alkaline Phosphatase 82 U/L (38-126); Anion Gap 9 mmol/L (8-16); Aspartate Amino Transferase 31 U/L (17-59); Bilirubin,Total 0.4 mg/dL (0.2-1.3); Blood Urea Nitrogen 17 mg/dL (9-20); Calcium 8.8 mg/dL (8.4-10.2); Carbon Dioxide 24 mmol/L (22-30); Chloride 107 mmol/L (98-107); Estimated CRCL calculation 64 ml/min; Estimated Glomerular Filt Rate > 60; Glucose 100 mg/dL (65-110); Potassium 3.2 mmol/L (3.4-5.0); Sodium 140 mmol/L (137-145)
[2023-06-13] MEDS: IPRATROPIUM BR 0.02% INH SOLN 0.5 MG/2.5 ML VIAL INHALATION ×2 (06:59→12:55)
[2023-06-13] MEDS: ALBUTEROL SULFATE NEB 2.5 MG/3 ML INH INHALATION ×2 (06:59→12:55)
[2023-06-13 07:02] LABS: Procalcitonin 2.2 ng/mL
[2023-06-13] MEDS: oxyBUTYnin CHLORIDE XL 5 MG TAB.ER.24 PO (08:25)
[2023-06-13] MEDS: POTASSIUM CHLORIDE 20 MEQ ER TABLET 40 MEQ PO (08:25)
[2023-06-13] MEDS: CARBAMAZEPINE XR 200 MG TAB.ER.12H PO (08:25)
[2023-06-13] MEDS: guaiFENesin 12 HR 600 MG TABCR PO (08:25)
[2023-06-13] MEDS: TAMSULOSIN HCL 0.4 MG CAPSULE PO (08:26)
[2023-06-13] MEDS: AZITHROMYCIN 500 MG/NS 250 ML 500 MG/250 ML BAG 250 MG IVPB (08:27)
[2023-06-13] MEDS: REMDESIVIR 100 MG/NS 250 ML 100 MG/250 ML BAG 250 MG IVPB (10:40)
--- NOTE | 2023-06-13 11:22 | PM.DS ---
DS: Admitting Diagnosis Discharge Date 06/13/2023 Admitting Diagnosis For COVID-19, acute encephalopathy, pneumonia, elevated creatinine kinase, hypothyroidism, anemia DS: Discharge Diagnosis Discharge Diagnosis (1) COVID: Code(s): U07.1 - COVID-19 Status: Acute (2) Acute encephalopathy: Code(s): G93.40 - Encephalopathy, unspecified Status: Acute (3) PNA (pneumonia): Code(s): J18.9 - Pneumonia, unspecified organism Status: Acute (4) Elevated creatine kinase: Code(s): R74.8 - Abnormal levels of other serum enzymes Status: Acute (5) Hypothyroidism: Qualifiers: Hypothyroidism type: acquired Qualified Code(s): E03.9 - Hypothyroidism, unspecified Code(s): E03.9 - Hypothyroidism, unspecified Status: Acute Assessment and Plan: TSH at goal, continue Synthroid (6) Anemia: Qualifiers: Anemia type: unspecified type Qualified Code(s): D64.9 - Anemia, unspecified Code(s): D64.9 - Anemia, unspecified Status: Acute (7) Fall: Qualifiers: Encounter type: initial encounter Qualified Code(s): W19.XXXA - Unspecified fall, initial encounter Code(s): W19.XXXA - Unspecified fall, initial encounter Status: Acute DS: Summary Hospital Course Reason for hospitalization: COVID pneumonia with weakness and acute encephalopathy Hospital Course: This is an 82-year-old male patient admitted for COVID pneumonia with weakness and acute encephalopathy. Patient initially requiring oxygen started on remdesivir and dexamethasone. He was also treated with Rocephin and azithromycin for possible secondary bacterial pneumonia. By yesterday he was feeling much better and had weaned to room air. Overnight patient had some acute confusion and ended up restrained overnight as he was trying to leave his room. The overnight provider did not want to give any medications only ordered restraints instead. This morning patient states that he had a rough night last night but is otherwise feeling pretty well. He has been walking around the room independently and physical therapy has signed off. I have called and spoke to the family regarding the course of events last night and stated that patient would likely do much better in his home environment than isolation and resulting confusion by remaining in the hospital. He is no longer requiring oxygen. He has received 4 days of remdesivir. Lab values are stable. Procalcitonin did elevate so we will continue treatment with Augmentin and azithromycin on discharge. Status at Discharge Cognitive/behavioral status at discharge: Awake alert minimally confused very pleasant Functional status at discharge: independent ambulation Overall status at discharge: patient is progressing back to baseline Time Spent with Patient Time attestation: Total time spent providing and/or coordinating discharge services: 45 minutes Time spent: Greater than 30 minutes Exam Narrative: GENERAL APPEARANCE: Appears to be in no acute distress. HEAD: normocephalic atraumatic EYES: PERRL, EOMI. Vision grossly intact. ENT: Hearing grossly intact, no nasal discharge NECK: Neck supple, trachea midline. CARDIAC: Normal S1/S2. Rhythm is regular. No murmurs, rubs, or gallops. No cyanosis or pallor. Extremities are warm and well perfused. LUNGS: Clear to auscultation without rales, rhonchi, wheezing or diminished breath sounds. Respirations even and unlabored. ABDOMEN: BS positive x 4 quadrants. Soft, nondistended, nontender. No guarding or rebound. MSK: No joint tenderness/swelling, fair strength in all extremities. PERIPHERAL VASCULAR: Peripheral pulses palpable. Normal perfusion, cap refill <2 seconds. No edema. NEURO: Follows commands. No focal deficits. SKIN: [place] without lesions or eruptions. PSYCH: Stable, no paranoia or delusional thinking. DS: Data Data Completed and Pending Completed studies during hospi
[2023-06-13] MEDS: HEPARIN SODIUM 5,000 UNITS/ML VIAL 5000 UNITS SUB-Q (13:42)
--- NOTE | 2023-06-16 08:56 | PC.NURSE ---
Sputum and Blood cultures are negative.
== END 2023-06-13 16:40 | disposition home or self-care (01) | DRG 177 ==
LOC: ANHED 12:13 → ANH3MEDSUR 15:38 → ANH2MED 20:46
PROVIDERS: Emergency Medicine; Nurse Practitioner Family; Physician Assistant; Student in an Organized Health Care Education/Training Program; Admitting Provider Student in an Organized Health Care Education/Training Program; Emergency Provider Student in an Organized Health Care Education/Training Program; PCP Family Medicine; Visit Provider Nurse Practitioner
DX: U07.1 COVID-19 (principal); J12.82 Pneumonia due to coronavirus disease 2019; J18.9 Pneumonia, unspecified organism; G93.40 Encephalopathy, unspecified; D64.9 Anemia, unspecified; E03.9 Hypothyroidism, unspecified; E78.5 Hyperlipidemia, unspecified; I10 Essential (primary) hypertension; R74.8 Abnormal levels of other serum enzymes; W19.XXXA Unspecified fall, initial encounter; Z86.73 Personal history of transient ischemic attack (TIA), and cerebral infarction without residual deficits; Z85.46 Personal history of malignant neoplasm of prostate; Z87.891 Personal history of nicotine dependence
CPT/HCPCS: 36415; 70450; 71046; 80048; 80053; 80076; 81001; 82140; 82550; 83605; 83735; 83880; 84145; 84443; 84484; 85025; 85027; 85610; 85652; 85730; 86140; 87040; 87070; 87081; 87205; 87637; 93005; 94640; 96365; 97161; 97165; 99285; A9270; J0248; J0456; J0696; J1100; J1644; J7030; J7040

== ENCOUNTER 2023-06-21 14:43 | Outpatient (CLI) | payer MEDICARE, SELFPAY ==
[2023-06-21 15:03] LABS: Basophils Percent Auto 0.6 % (0.2-1.2); Eosinophils Absolute Auto 0.1 K/mm3 (0-0.3); Eosinophils Percent Auto 1.7 % (0-4.4); Hematocrit 43.3 % (42.0-52.0); Hemoglobin 14.3 g/dL (14.0-18.0); Immature Granulocyte Absolute 0.02 K/mm3 (0.00-0.031); Immature Granulocyte Percent A 0.4 % (0-0.5); Lymphocytes Absolute Auto 1.26 K/mm3 (0.9-3.2); Lymphocytes Percent Auto 26.6 % (18.3-44.2); Mean Corpuscular Hemoglobin 31.8 pg (26-34); Mean Corpuscular Volume 96.4 fl (80-100); Mean Platelet Volume 9.8 fl (7.4-10.4); Monocytes Absolute Auto 0.4 K/mm3 (0.1-0.6); Monocytes Percent Auto 8.7 % (2.6-8.5); Neutrophils Absolute Auto 2.9 K/mm3 (1.3-6.7); Platelet Count Result 336 k/mm3 (150-375); Red Blood Count 4.49 M/mm3 (4.6-6.20); Red Cell Distribution Width 13.4 % (11.5-14.5); White Blood Count 4.7 K/mm3 (4.5-10.0)
[2023-06-21 15:14] LABS: Alanine Aminotransferase 30 U/L (6-50); Albumin Level 3.8 g/dL (3.5-5.1); Alkaline Phosphatase 130 U/L (38-126); Anion Gap 6 mmol/L (8-16); Aspartate Amino Transferase 24 U/L (17-59); Bilirubin,Total 0.7 mg/dL (0.2-1.3); Blood Urea Nitrogen 8 mg/dL (9-20); Calcium 8.8 mg/dL (8.4-10.2); Carbon Dioxide 28 mmol/L (22-30); Chloride 104 mmol/L (98-107); Estimated Glomerular Filt Rate > 60; Glucose 102 mg/dL (65-110); Potassium 4.1 mmol/L (3.4-5.0); Sodium 138 mmol/L (137-145)
== END 2023-06-21 14:44 | disposition home or self-care (01) ==
PROVIDERS: PCP Family Medicine; Visit Provider Family Medicine
DX: J18.9 Pneumonia, unspecified organism (principal)
CPT/HCPCS: 36415; 80053; 85025

== ENCOUNTER 2023-09-30 10:00 | Outpatient (CLI) | payer MEDICARE, SELFPAY ==
--- NOTE | ~2023-09-30 | XR_ITS ---
Right Shoulder Technique: AP and axillary views were obtained. Clinical History: Pain Findings: No fracture or dislocation is seen. Osseous alignment is anatomic. The glenohumeral joint i s intact. Moderate AC joint degenerative change. Soft tissues are unremarkable. Impression: Moderate AC joint degenerative change. Reviewed, dictated and finalized at location . Impression: Moderate AC joint degenerative change.
--- NOTE | ~2023-09-30 | XR_ITS ---
EXAMINATION: XR lumbar spine 6V w bending DATE: 09/30/2023 10:31 INDICATION: Low back pain, unspecified. TECHNIQUE: 3 views of lumbar spine including standing views and flexion and extension views were obta ined. COMPARISON: None. FINDINGS: There is 10 degrees dextroscoliosis of lumbar spine. Vertebral body heights are normal. The spine is hypomobile with flexion and extension. There is moderately decreased disc height at L1-L2, severely decreased disc height at L2-L3, moderately decreased disc height at L3-L4, and severely decr eased disc height at L4-L5 and L5-S1. There is multilevel severe facet joint osteoarthritis. IMPRESSION: 1. Severe lumbar spondylosis. 2. Lumbar dextroscoliosis. Reviewed, dictated and finalized at location E.
== END 2023-09-30 10:01 ==
LOC: MICIMG 10:01
PROVIDERS: PCP Family Medicine; Visit Provider Family Medicine
DX: G89.29 Other chronic pain (principal); M25.511 Pain in right shoulder; M54.50 Low back pain, unspecified; M43.06 Spondylolysis, lumbar region; M41.86 Other forms of scoliosis, lumbar region
CPT/HCPCS: 72114; 73030

== ENCOUNTER 2023-10-13 07:11 | Outpatient (CLI) | payer MEDICARE, SELFPAY ==
--- NOTE | ~2023-10-13 | XR_ITS ---
Lumbosacral Spine: AP and lateral views Clinical History: Pain Findings: There is straightening of the normal lumbar lordosis. No fracture or subluxation evident. T here is advanced degenerative disc disease throughout the lumbar spine. There is severe facet arthrop athy throughout the lumbar spine. The sacroiliac joints are normally outlined. Impression: Diffuse, severe degenerative spondylosis, as noted above. Reviewed, dictated and finalized at location M. Impression: Diffuse, severe degenerative spondylosis, as noted above.
--- NOTE | 2023-10-13 07:29 | ECHO_ITS ---
Patient Info Name: Tuan Moore Age: 83 years : 1940 Gender: Male Ht: 65 in Wt: 180 lbs BSA: 1.96 m2 HR: 70 bpm BP: 150 / 88 mmHg Heart Rhythm: Sinus Rhythm Technical Quality: Good Exam Date: 10/13/2023 7:38 AM Exam Location: Echo Lab Patient Status: Outpatient Admit Date: 10/13/2023 Staff Ordering Physician: Gio Nguyễn MD Paint Supervisor: Lanette Larsen RDCS Attending Provider: Gio Nguyễn MD Referring Physician: Gopi FAJARDO; Exam Type: CA echo doppler color flow Study Info Indications - Cerebral infarcttion , unspecified Complete two-dimensional, color flow and Doppler transthoracic echocardiogram is performed. Summary 1. Complete two-dimensional, color flow and Doppler transthoracic echocardiogram is performed. 2. Left ventricular chamber dimension is normal. 3. Left ventricular systolic function is normal, estimated at 55-60%. 4. Left ventricular septal wall motion is abnormal with septal motion related to bundle branch block. 5. The left ventricular diastolic function is grade I diastolic dysfunction. 6. E/e' 16 is elevated. 7. Left atrial chamber dimension is mildly enlarged. 8. There is mild aortic valve sclerosis. 9. There is trace aortic valve regurgitation. 10. There is mild mitral valve regurgitation. 11. There is mild tricuspid valve regurgitation. 12. No pulmonary hypertension, estimated pulmonary arterial systolic pressure is 35 mmHg. 13. There is trace pulmonic regurgitation. Left Ventricle E/e' 16 is elevated. Left ventricular chamber dimension is normal. Left ventricular systolic function is normal, estimated at 55-60%. Left ventricular septal wall motion is abnormal with septal motion related to bundle branch block. The left ventricular diastolic function is grade I diastolic dysfunction. Right Ventricle Right ventricular systolic function is normal and with normal TAPSE 1.9 cm. Right ventricular chamber dimension is normal. Left Atria Left atrial chamber dimension is mildly enlarged. Right Atria Right atrial chamber dimension is normal. Aortic Valve The aortic valve is trileaflet. There is mild aortic valve sclerosis. There is no aortic valve stenosis. There is trace aortic valve regurgitation. Pulmonic Valve There is trace pulmonic regurgitation. Mitral Valve There is no mitral valve stenosis. There is mild mitral valve regurgitation. Tricuspid Valve There is mild tricuspid valve regurgitation. No pulmonary hypertension, estimated pulmonary arterial systolic pressure is 35 mmHg. Pericardium/Pleural There is no pericardial effusion. Inferior Vena Cava Normal inferior vena cava with >50% collapse upon inspiration consistent with normal right atrial pressure, 5 mmHg. Aorta The aortic root size at the sinus of Valsalva is normal. Left Ventricular Outflow Tract Name Value Normal LVOT 2D LVOT Diameter 2.0 cm LVOT Doppler LVOT Peak Gradient 4 mmHg LVOT Mean Gradient 2 mmHg LVOT VTI 18 cm LVOT VTI/AV VTI Ratio 0.7 LVOT Stroke Volume 55 ml LVOT CO
== END 2023-10-13 07:12 | disposition home or self-care (01) ==
PROVIDERS: PCP Family Medicine; Visit Provider Family Medicine
DX: I63.9 Cerebral infarction, unspecified (principal); G89.29 Other chronic pain; M54.50 Low back pain, unspecified; M47.897 Other spondylosis, lumbosacral region
CPT/HCPCS: 72100; 93306

== ENCOUNTER 2023-11-25 13:14 | Outpatient (CLI) | payer MEDICARE, SELFPAY ==
--- NOTE | ~2023-11-25 | US_ITS ---
EXAMINATION: US carotid duplex BI DATE: 11/25/2023 14:36 INDICATION: Cerebral infarction TECHNIQUE: Grayscale, color Doppler, and pulsed Doppler images of the cervical carotid arteries were obtained. The degree of vessel stenosis is placed in one of the following categories: normal, <50%, 5 0-69%, >=70% but less than near-occlusion, near-occlusion, or total occlusion. Note that percent sten osis relative to normal distal artery lumen diameter is indirectly measured from velocity measurement s as described by Michael, et al. Radiology 2003; 229:340-346. Notes: Normal: Peak systolic velocity <125 centimeters/sec and no plaque <50%. Peak systolic velocity <125 ( EDV <40; ICA/CCA PSV ratio <2.0; used these factors only a tandem lesions or low cardiac output or co ntralateral disease) 50-69 %: PSV 125-230 (EDV 40-100; ratio 2-4) >= 70% but less than near occlusion: PSV greater than 230 (EDV > 100; ratio> 4.0) Near Occlusion: PSV that is variable; markedly narrowed lumen Occlusion: Absent flow on color/spectral Doppler and no lumen on harper scale. COMPARISON: None. FINDINGS: RIGHT: The right common carotid artery (CCA) peak systolic velocity (PSV) is 84 cm/s. The right internal car otid artery (ICA) PSV is 67 cm/s. The right ICA end-diastolic velocity (EDV) is 15 cm/s. The right IC A/CCA PSV ratio is 0.8. The external carotid artery (ECA) PSV is 142 cm/s. There is antegrade flow in the right vertebral artery. LEFT: The left CCA PSV is 70 cm/s. The left ICA PSV is 54 cm/s. The left ICA EDV is 19 cm/s. The left ICA/C CA PSV ratio is 0.8. The ECA PSV is 75 cm/s. There is antegrade flow in the left vertebral artery. IMPRESSION: 1. Less than 50% stenosis in the right internal carotid artery by sonographic criteria. 2. Less than 50% stenosis in the left internal carotid artery by sonographic criteria. Reviewed, dictated and finalized at location B. IMPRESSION: 1. Less than 50% stenosis in the right internal carotid artery by sonographic ramana hale. 2. Less than 50% stenosis in the left internal carotid artery by sonographic tom moser.
== END 2023-11-25 13:15 | disposition home or self-care (01) ==
PROVIDERS: PCP Family Medicine; Visit Provider Family Medicine
DX: I65.23 Occlusion and stenosis of bilateral carotid arteries (principal)
CPT/HCPCS: 93880

== ENCOUNTER 2023-12-22 11:38 | Outpatient (CLI) | payer MEDICARE, SELFPAY ==
[2023-12-22 13:58] LABS: Anion Gap 8 mmol/L (4-12); Blood Urea Nitrogen 13 mg/dL (9-20); Calcium 9.3 mg/dL (8.4-10.2); Carbon Dioxide 29 mmol/L (22-30); Chloride 104 mmol/L (98-107); Estimated Glomerular Filt Rate > 60; Glucose 83 mg/dL (65-110); Potassium 4.2 mmol/L (3.4-5.0); Sodium 141 mmol/L (137-145)
[2023-12-22 13:59] LABS: NT Pro B Type Natriuretic Pept 279 pg/mL (19.9-100)
== END 2023-12-22 11:39 | disposition home or self-care (01) ==
PROVIDERS: PCP Family Medicine; Visit Provider Internal Medicine Cardiovascular Disease
DX: I50.33 Acute on chronic diastolic (congestive) heart failure (principal)
CPT/HCPCS: 36415; 80048; 83880

== ENCOUNTER 2024-01-06 14:18 | Outpatient (CLI) | payer MEDICARE, SELFPAY ==
[2024-01-06 14:55] LABS: Basophils Percent Auto 0.5 % (0.2-1.2); Eosinophils Absolute Auto 0.1 K/mm3 (0-0.3); Eosinophils Percent Auto 1.6 % (0-4.4); Hematocrit 42.3 % (42.0-52.0); Immature Granulocyte Absolute 0.02 K/mm3 (0.00-0.031); Immature Granulocyte Percent A 0.4 % (0-0.5); Lymphocytes Absolute Auto 1.13 K/mm3 (0.9-3.2); Lymphocytes Percent Auto 20.4 % (18.3-44.2); Mean Corpuscular HGB Conc 33.1 g/dl (32-36); Mean Corpuscular Hemoglobin 31.9 pg (26-34); Mean Corpuscular Volume 96.4 fl (80-100); Mean Platelet Volume 10.1 fl (7.4-10.4); Monocytes Percent Auto 17.4 % (2.6-8.5); Neutrophils Absolute Auto 3.3 K/mm3 (1.3-6.7); Neutrophils Percent Auto 59.7 % (45.5-73.1); Platelet Count Result 222 k/mm3 (150-375); Red Blood Count 4.39 M/mm3 (4.6-6.20); Red Cell Distribution Width 13.6 % (11.5-14.5); White Blood Count 5.5 K/mm3 (4.5-10.0)
[2024-01-06 16:09] LABS: Thyroid Stimulating Hormone 0.898 uIU/mL (0.465-4.680)
== END 2024-01-06 14:19 | disposition home or self-care (01) ==
LOC: ANHLAB 14:27
PROVIDERS: PCP Family Medicine
DX: R53.83 Other fatigue (principal); E03.9 Hypothyroidism, unspecified; D64.9 Anemia, unspecified
CPT/HCPCS: 36415; 84443; 85025

== ENCOUNTER 2024-04-26 07:22 | Outpatient (CLI) | payer MEDICARE, SELFPAY ==
[2024-04-26 09:20] LABS: Erythrocyte Sedimentation Rate 19 mm/hr (0-20)
[2024-05-01 11:09] LABS: Anti Nuclear Antibody Pattern Cytoplasmic; Anti Nuclear Antibody Titer 1:40 titer
== END 2024-04-26 07:23 | disposition home or self-care (01) ==
PROVIDERS: PCP Family Medicine; Visit Provider Family Medicine
DX: G50.0 Trigeminal neuralgia (principal)
CPT/HCPCS: 36415; 85652; 86038; 86039

== ENCOUNTER 2024-09-21 17:10 | Outpatient (CLI) | payer MEDICARE, SELFPAY ==
--- NOTE | ~2024-09-21 | XR_ITS ---
EXAM/ PROCEDURE: XR cervical spine min 6V - 09/21/2024 17:30 CDT HISTORY: 84 years old Male with M54.2 - Cervicalgia M54.2 - Cervicalgia COMPARISON: None available TECHNIQUE: 6 view(s) FINDINGS/ IMPRESSION: Partial ankylosis of C5-C6. There are no fractures or dislocations.Multilevel degenerative changes are seen. Visualized portion o f lungs are clear. Reviewed, dictated and finalized at location A.
--- OUTSIDE RECORDS SUMMARY | 2024-09-21 17:16 | XMS_ITS | Clinical Summary ---
Author Organization [facility] Address [address] [place] [id number] Care Team Providers Care Outsole Tacker Name Role Phone Gio Nguyễn MD Primary Care Provider [phone] Allergies Active Allergy Reactions Criticality Noted Date Comments Codeine Other (see comment) 04/29/2024 I could crawl up that wall backwards Medications No known medications Social History Tobacco Use Types Packs/Day Years Used Date Smoking Tobacco: Never Assessed Sex and Gender Information Value Date Recorded Sex Assigned at Not on file Legal Sex Male 10:55 AM SHEET SEWER Gender Identity Not on file Sexual Orientation Not on file Last Filed Vital Signs Vital Sign Reading Time Taken Comments Blood Pressure 158/90 04/29/2024 11:01 AM SHEET SEWER Pulse 77 04/29/2024 11:01 AM SHEET SEWER Temperature 36.6 C (97.9 F) 04/29/2024 11:01 AM SHEET SEWER Respiratory Rate 16 04/29/2024 11:01 AM SHEET SEWER Oxygen Saturation 98% 04/29/2024 11:01 AM SHEET SEWER Inhaled Oxygen Concentration - - Weight 79.4 kg (175 lb) 04/29/2024 11:01 AM SHEET SEWER Height 165.1 cm (5' 5 ) 04/29/2024 11:01 AM SHEET SEWER Body Mass Index 29.12 04/29/2024 11:01 AM SHEET SEWER Plan of Treatment Health Maintenance Due Date Last Done Comments DTaP, Tdap and Td Vaccines ( 1 - Tdap) 1959 Annual Medicare Wellness Visit 2006 Zoster Vaccines (2 of 3) 07/11/2013 05/16/2013 RSV Immunization or 60+ Years (1 - 1-dose 75+ series) 2016 Pneumococcal Vaccine: 65+ Years (2 of 2 - PCV) 05/27/2022 05/27/2021 COVID-19 Vaccine (2023-2 5 season) 2024 05/14/2021, 08/30/2020, 08/08/2020 Meningococcal B Vaccine Aged Out No l onger eligible based on patient's age to complete this topic Meningococcal Vaccine Aged Out No sunday julienne eligible based on patient's age to complete this topic RSV Immunizations Under 20 Months Aged Out No longer eligible b ased on patient's age to complete [place] [address] Care Teams Outsole Tacker Relationship Specialty Start Date End Date Gio Nguyễn MD [address] [place] [address] PCP - General FAMILY PRACTICE 04/29/24
--- OUTSIDE RECORDS SUMMARY | 2024-09-21 17:16 | XMS_ITS | Clinical Summary ---
Author Organization [facility] Address [address] [place] [address] Care Team Providers Care Consultant [employer]. Vice President [employer] (Ex ) Name Role Phone Gio Nguyễn MD Primary Care Provider [phone] Source Comments [facility],non-owned Affiliates and Associated Physician Practices is amultiple site organization consisting of ambulatory clinics and hospital sitesin [place], [place], [place] and [place]. This disclosure is being madepursuant to the Care Everywhere program and may not contain all information available regarding this patient. Last updated 18.[facility] Allergies Active Allergy Reactions Criticality Noted Date Comments Codeine 03/25/2017 Medications * Be aware that medications may not be up to date on this document. Alwaysverify current medications with the patient. Medication Sig Dispensed Refills Start Date End Date Status carBAMazepine (TEGretol) 200 MG tablet Take 1 (one) tablet by mouth 2 times daily with morning and evening meal Active pregabalin (Lyrica) 75 MG capsule Take 1 (one) capsule by mouth 2 times daily Active levothyroxine (Synthroid) 100 MCG tablet Take 1 (one) tablet by mouth daily before breakfast Active rosuvastatin (Crestor) 20 MG tablet Take 1 (one) tablet by mouth once daily Active vibegron (Gemtesa) 75 MG tablet Take 1 (one) tablet by mouth once daily Active tamsulosin (Flomax) 0.4 MG capsule Take 2 (two) capsules by mouth at bedtime At the same time every day after a meal. Active lactulose (Chronulac) 10 GM/15ML solution Take 5 mL by mouth as needed for Constipation Active furosemide (Lasix) 20 MG tablet Take 1 (one) tablet by mouth as needed Active multivitamins plus minerals chew tablet Take 1 (one) tablet by mouth daily with food Active aspirin EC (Ecotrin) 325 MG tablet Take 1 (one) tablet by mouth once daily Active Active Problems Problem Noted Date Diagnosed Date Acute on chronic heart failu re with preserved ejection fraction (HFpEF) 12/22/2023 Prostate cancer 04/06/2017 Encounters Date Type Department Care Team Description 09/20/2024 2:00 PM CDT Office Visit [facility] - Neurology [address] [place] [id number] Marina Rand, FRUIT RANCHER-PATCH FINISHER [place] (trigeminal neuralgia) (Primary Dx) 09/20/2024 Travel 08/07/2024 Travel from Last 3 Months Immunizations Name Administration Dates Next Due INFLUENZA VACCINE, HIGH-DOSE , QUADR. (FLUZONE HIGH-DOSE QUADRIVALENT; 65Y+), 0.7 ML (HD-IIV4) 03/25/2017,05/16/2013 ZOSTER VACCINE, LIVE 05/16/2013 Social History Tobacco Use Types Packs/Day Years Used Date Smoking Tobacco: Never Smokeless Tobacco: Never Tobacco Cessation:Counseling Given: Not Answered Alcohol Use Standard Drinks/Week Comments Never 0 (1 standard drink = 0.6 oz pur e alcohol) Sex and Gender Information Value Date Recorded Sex Assigned at Not on file Gender Identity Not on file Sexual Orientation Not on file Last Filed Vital Signs Vital Sign Reading Time Taken Comments Blood Pressure 148/74 09/20/2024 2:10 PM CDT Pulse 80 09/20/2024 2:10 PM CDT Temperature - - Respiratory Rate - - Oxygen Saturation 96% 09/20/2024 2:10 PM CDT Inhaled Oxygen Concentration - - Weight 87.4 kg (192 lb 9.6 oz) 09/20/2024 2:10 P M CDT Height 167.6 cm (5' 6 ) 09/20/2024 2:10 PM CDT Body Mass Index 31.09 09/20/2024 2:10 PM CDT Plan of Treatment Health Maintenance Due Date Last Done Comments DTAP/TDAP/TD VACCINES (1 - Tdap) 1959 PNEUMOCOCCAL VACCINE 50+ (1 of 2 - PCV) 1960 ZOSTER VACCINE (2 of 3) 07/11/2013 05/16/2013 Respiratory Syncytial Virus (RSV) Vaccine Pt: or over 60 yrs (1 - 1-dose 75+ series) 2016 COVID-19 VACCINE (1 - 2023-2 5 season) 2024 DEPRESSION SCREENING 06/14/2024 MEDICARE AWV CALENDAR YEAR 2024 INFLUENZA VACCINE (Season Ended) 2025 03/25/2017, 05/16/2013 HEPATITIS B VACCINE Aged Out No longe r eligible based on patient's age to complete this topic HIB VACCINE Aged Out No longer eligi ble based on patient's age to complete this topic HPV VACCINE Aged Out No longer eligi ble based on patient's age to complete this topic MENINGOCOCCAL (Group B) VACCINE SHARED DECISION-MAKING Aged Out No longer eligible based on patient's age to complete this topic MENINGOCOCCAL GROUPS A/C/Y/W VACCINE Aged Out No longer eligible b ased on patient's age to complete this topic Advance Directives Healthcare Agents on File Name Relationship Healthcare Agent Relationshi p Communication Sheila Wetzel Daughter Power of Kiln Repairer (POA) Care Teams Consultant [employer]. Vice President [employer] (Ex ) Relationship Specialty Start Date End Date Gio Nguyễn MD [address] [place] [address] PCP - General Family Medicine 03/25/17
--- OUTSIDE RECORDS SUMMARY | 2024-09-21 17:16 | XMS_ITS | Clinical Summary ---
Author Organization [place] [address] [facility] Address [facility] [place] [address] Care Team Providers Care Embedded Linux Developer Name Role Phone Gio Nguyễn MD Primary Care Provider [phone] Veto Soria MD Unavailable [phone] Ryan Meyers MD Unavailable [phone] Gosia Lee NP Unavailable Johnnie Marie MD Unavailable Dolores Garduno RN Unavailable Unavailable Gosia Roy RN Unavailable Unavailab le Allergies Active Allergy Reactions Criticality Noted Date Comments Codeine Other (See comments) Low 03/25/2017 Medications carBAMazepine ER (CARBATROL) 200 mg 12 hr capsule Take 1 capsule (200 mg total) by mouth 2 (two) times a day 8 Active ketoconazole (NIZORAL) 2 % cream ABE BID TO FACE 2 8 Active rosuvastatin (CRESTOR) 20 mg tablet 8 Active lactulose solution 10 gram/15mL lactulose 10 gram/15 mL oral solution TK 15 ML PO BID Active tamsulosin (FLOMAX) 0.4 mg extended release capsule tamsulosin 0.4 mg capsule TK 1 TO 2 CS PO D FOR URINARY RELIEF Active Gemtesa 75 mg tablet Take 1 tablet by mouth daily 1 Active Synthroid 100 mcg tablet Take 1 tablet (100 mcg total) by mouth daily 1 Active metroNIDAZOLE (METROGEL) 1 % gelIndications: Acne Rosacea Apply topically daily Active oxyBUTYnin XL (DITROPAN-XL) 5 mg 24 hr tablet Take 1 tablet (5 mg total) by mouth daily 3 Active furosemide (Lasix) 20 mg tablet Take 1 tablet (20 mg total) by mouth daily 30 tablet 11 4 11/22/19 25 Active pregabalin (LYRICA) 75 mg capsule 2 5 Active Active Problems Problem Noted Date Diagnosed Date Acute on chronic heart failu re with preserved ejection fraction (HFpEF) 12/22/2023 Prostate cancer 04/06/2017 Cancer Staging:Clinical stage from 04/06/2017: cT1c, cN0, cM0, PSA: 4.9 - Signed by Alma Pike MD on 12/14/2017 Encounters Date Type Department Care Team Description 08/07/2024 11:30 AM C WEB DEVELOPER Lab [facility] [address] [place] [phone] Prostate CA (HCC) 08/07/2024 10:00 AM C WEB DEVELOPER Office Visit [facility] Radiation Oncology [address] [place] [address] [place] [address] Gosia Lee, DECOMMISSIONING WELL SITE MANAGER Prostate CA (HCC) (Primary Dx) from Last 3 Months Immunizations Immunization Administration Dates Next Due Influenza, Quadrivalent, Hig h Dose, Preservative Free, Intrr 05/14/2020 Influenza, Trivalent, High D ose, Split, Preservative Free, Intramuscular 03/25/2017,05/16/2013 ZOSTER LIVE 05/16/2013 Surgical History Surgery Date Site/Laterality Comments WRIST SURGERY Wrist Surgery - (Added by TW Conv) NOSE SURGERY Nose Surgery - (Added by TW Conv) Medical History Medical History Date Comments Personal history of other di seases of the digestive system History of constipation - (A dded by TW Conv) Personal history of urinary calculi History of nephrolithiasis - (Added by TW Conv) Personal history of other di seases of the musculoskeletal system and connective tissue History of back pain - (Adde d by TW Conv) Personal history of other en docrine, nutritional and metabolic disease History of thyroid d isorder - (Added by TW Conv) Cancer (HCC) Family History Medical History Relation Name Comments Brain Aneurysm Brother 1 Prostate cancer Brother 1 Family histo ry of prostate cancer - (Added by TW Conv) Prostate cancer Brother 2 Coronary artery disease Father Fami ly history of coronary artery disease - (Added by TW Conv) Hypertension Father Family history of hypertension - (Added by TW Conv) Prostate cancer Father Hypertension Mother Family history of hypertension - (Added by TW Conv) Relation Name Status Comments Brother 1 Brother 2 Alive Father Mother Social History Tobacco Use Types Packs/Day Years Used Date Smoking Tobacco: Former Cigarettes 1.5 34 1 956 - 1990 Smokeless Tobacco: Never Tobacco Cessation:Counseling Given: Not Answered AUDIT-C Answer Date Recorded Q1: How often do you have a drink containing alc ohol? Never 11/12/2022 Average Number of Drinks Not on file 023 Q3: How often do you have si x or more drinks on one occasion? 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 Not on file Not on file Not on file Obstetrics History Last Filed Vital Signs Vital Sign Reading Time Taken Comments Blood Pressure 129/77 11/22/2023 2:43 PM CDT Pulse 72 11/22/2023 2:43 PM CDT Temperature - - Respiratory Rate - - Oxygen Saturation 97% 11/22/2023 2:43 PM CDT Inhaled Oxygen Concentration - - Weight 87.2 kg (192 lb 3.2 oz) 08/07/2024 9:37 A M C WEB DEVELOPER Height 165.1 cm (5' 5 ) 11/22/2023 2:43 PM CDT Body Mass Index 31.98 11/22/2023 2:43 PM CDT Plan of Treatment Health Maintenance Due Date Last Done Comments Depression Screening 1940 Fall Risk Assessment 1940 DTaP/Tdap/Td Vaccine (1 - Tdap) 1952 Hepatitis B Screening 08[birth year]15/1959 Pneumococcal vaccine 65+ (1 of 2 - PCV) 1960 Well Visit 65+ 2006 Zoster Vaccine (2 of 3) 07/11/2013 05/16/2013 Influenza Vaccine (Season Ended) 2025 05/14/2020, 03/25/2017, 05/16/2013 Procedures Procedure Name Priority Date/Time Associated Diagnosis Comments PSA DIAGNOSTIC Routine 08/07/2024 10:53 AM C WEB DEVELOPER Prostate CA (HCC) from Last 3 Months Results * PSA diagnostic (08/07/2024 10:53 AM C WEB DEVELOPER) PSA-Total <0.02 <=6.20 ng/mL Comment: Interpretive Data AGE SEX REFERENCE INTERVAL 0 minutes-150 years Female None 0 minutes-49 years Male None 50-59 years Male 0-3.90 60-69 years Male 0-5.40 70-79 years Male 0-6.20 80-150 years Male 0-6.20 The Jesús PSA Total assay procedure was used. Results from different manufacturers or methods may not be comparable. Serial testing should be performed using the same method. Current interpretive data last revised 21. Blood 08/07/2024 10:5 3 AM C WEB DEVELOPER 08/07/2024 11:18 AM C WEB DEVELOPER us Gosia Lee DECOMMISSIONING WELL SITE MANAGER LAB BLOOD ORDERABLES Final Result Performing Organization Address City/State/[facility] Co de Phone Number [facility] [place] [address] from Last 3 Months Insurance MEDICARE [facility] MEDICARE ADVANTAGE MEDICARE ADVANTAGE Care Teams Embedded Linux Developer Relationship Specialty Start Date End Date Gio Nguyễn MD PCP - General 1/2/18 Veto Soria MD [address] [place] [address] Radiation Oncologist Radiation Oncology 12/14/17 Ryan Meyers MD [address] [place] [address] Urologist Urology 12/14/17 Gosia Lee NP [address] [place] [address] Nurse Practitioner Radiation Oncology 03/01/18 Johnnie Marie MD [address] [place] [address] Referring Physician Cardiology 11/22/23 Dolores Garduno, administrative dietitian Failure Coordinator Cardiology 11/22/23 Gosia Roy RN Heart Failure Coordinator Cardiology 11/22/23
--- OUTSIDE RECORDS SUMMARY | 2024-09-21 17:16 | XMS_ITS | Encounter Summary ---
Author Organization [facility] Address [address] [facility] [place] [address] Care Team Providers Care Final Inspector Balance Wheel Name Role Phone Gio Nguyễn MD Primary Care Provider Encounter Details Date Type Department Care Team (Latest Contact Info) Description 09/20/2024 Travel Social History Tobacco Use Types Packs/Day Years Used Date Smoking Tobacco: Never Smokeless Tobacco: Never Alcohol Use Standard Drinks/Week Comments Never 0 (1 standard drink = 0.6 oz pur e alcohol) Sex and Gender Information Value Date Recorded Sex Assigned at Not on file Gender Identity Not on file Sexual Orientation Not on file documented as of this encounter Plan of Treatment Not on file documented as of this encounter Visit Diagnoses Not on filedocumented in this encounter Care Teams Final Inspector Balance Wheel Relationship Specialty Start Date End Date Gio Nguyễn MD [address] [place] [address] PCP - General Family Medicine 03/25/17 documented as of this encounter
--- OUTSIDE RECORDS SUMMARY | 2024-09-21 17:16 | XMS_ITS | Encounter Summary ---
Author Organization [facility] Health Address [facility] [place] [address] Care Team Providers Care Lumber Bearer Name Role Phone Gio Nguyễn MD Primary Care Provider [phone] Reason for Visit * Reason Comments Establish Care Encounter Details Date Type Department Care Team (Late st Contact Info) Description 09/20/2024 2:00 PM CDT Office Visit [facility] - Neurology [address] [place] [address], [facility] [place] [address] Marina Rand, PHYSICAL PLANT MANAGER-PER DIEM REGISTERED NURSE [address] [place] [address] [place] [address] [place] (trigeminal neuralgia) (Primary Dx) Social History Tobacco Use Types Packs/Day Years [...] on file documented as of this encounter Last Filed Vital Signs Vital Sign Reading [...] Mass Index 31.09 09/20/2024 2:10 PM CDT documented in this encounter Patient Instructions * Patient Instructions* Marina Rand APRN-CNP - 09/20/2024 3:04 PM CDT - Can try carbamazepine 200 mg in am, 100 mg in afternoon and 200 mg at night instead 250 mg twice a day. - Follow up with Neurosurgery for surgical options. You have seen following doctor on 11/12/2022. Or inform me if you would like to see Neurosurgery at [facility]. [facility] Neurosurgery [address] [facility] 6th [place] [address] [place] [address] [place] [address] documented in this encounter Progress Notes * Marina Rand APRN-CNP - 09/20/2024 2:17 PM CDT Neurology - Headache Clinic Note Date of Encounter: 09/20/2024 Tuan Moore Age: [age] year old Date of : 1940 Referring Physician: Gio Nguyễn MD [address] [place] [address] Reason for Office Visit: Trigeminal neuralgia Accompanied with- son Information obtained from : Chart review, son and patient History of Present Illness: Tuan Moore is a 84 year old male with past medical history of : Past Medical History: Diagnosis Date Heart failure (HCC) HLD (hyperlipidemia) Hypothyroidism Overactive bladder Prostate cancer (HCC) Previous Neurologist - Dr. Santo Current Treatments: Carbamazepine 250 mg bid (higher dose caused side effects of dizziness) Lyrica 75 mg bid Previously tried treatments: None - Patient with chronic h/o Trigeminal Neuralgia for 25+ yrs. He has been medically managed by Carbamazepine and Lyrica. Sees Local Neurologist Dr. Santo who has referred him to [facility] for surgical eval. Carbamazepine dose was increased from 200 mg bid to 250 mg bid in Jun 2024. He was not able to tolerate 300 mg bid dose caused him dizziness. Lyrica was increased from 50 mg to 75 mg bid in Jun 2024. Reported cold sensation with tingling pain on rt side of the face, sometimes worse by chewing or combing hair. Reports sharp shooting pain that can last up to an hr, sometimes wakes up from sleep. - He has seen [facility] Neurosurgery for in November 2022. Symptoms were stable. Surgical options were discussed. 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 Denies any new neurological problems today. ROS: ONSTITUTIONAL: The patient's weight has not changed recently and appetite has been fair. EYES: no double vision, no blurred vision ENT: no dental or swallowing problems CARD/VASC: no chest pain RESP: no shortness of breath GI: no abdominal pain or change in bowel habits : no change in bladder habits NEUROLOGIC: As discussed in the history of present illness PSYCHIATRIC: Mood stable Allergies: Allergies Allergen Reactions Codeine Home Medications: Current Outpatient Medications Medication Sig aspirin EC (Ecotrin) 325 MG tablet Take 1 (one) tablet by mouth once daily carBAMazepine (TEGretol) 200 MG tablet Take 1 (one) tablet by mouth 2 times daily with morning and evening meal furosemide (Lasix) 20 MG tablet Take 1 (one) tablet by mouth as needed lactulose (Chronulac) 10 GM/15ML solution Take 5 mL by mouth as needed for Constipation levothyroxine (Synthroid) 100 MCG tablet Take 1 (one) tablet by mouth daily before breakfast multivitamins plus minerals chew tablet Take 1 (one) tablet by mouth daily with food pregabalin (Lyrica) 75 MG capsule Take 1 (one) capsule by mouth 2 times daily rosuvastatin (Crestor) 20 MG tablet Take 1 (one) tablet by mouth once daily tamsulosin (Flomax) 0.4 MG capsule Take 2 (two) capsules by mouth at bedtime At the same time everyday after a meal. vibegron (Gemtesa) 75 MG tablet Take 1 (one) tablet by mouth once daily No current facility-administered medications for this visit. Patient Active Problem List: Acute on chronic heart failure with preserved ejection fraction (HFpEF) (HCC) Prostate cancer (HCC) Family History: No family history on file. Social History: Social History Socioeconomic History Marital status: Unknown Spouse name: Not on file Number of children: Not on file Years of education: Not on file Highest education level: Not on file Occupational History Not on file Tobacco Use Smoking status: Never Smokeless tobacco: Never Vaping Use Vaping status: Never Used Substance and Sexual Activity Alcohol use: Never Drug use: Never Sexual activity: Not on file Other Topics Concern Not on file Social History Narrative Not on file Social Determinants of Health Financial Resource Strain: Not on file Food Insecurity: Not on file Transportation Needs: Not on file Stress: Not on file Housing Stability: Not on file Physical Exam: Vitals: 09/20/24 1410 BP: 148/74 Pulse: 80 SpO2: 96% Weight: 87.4 kg (192 lb 9.6 oz) Height: 1.676 m (5' 6 ) General: The patient's weight has not changed recently and appetite has been fair. HEENT: Head normocephalic and atraumatic Cortical Function: MS: Awake, Alert, Follows Commands Oriented to Person, Place and Time Language: Fluent, Coherent, Repetition Intact Cranial Nerves: Pupils 3 mm BRTL, Full EOM No ptosis or nystagmus, No facial palsy Motor: Abnormal Movements: None Bulk: Normal Tone: Normal Strength: Appropriate for Age Examination of Sensation: Touch: wnl Cerebellar Coordination : Finger/Nose: intact Gait: Normal stride and stance Data Review/Other Information CBC: No results for input(s): WBC , HGB , PLTCOUNT in the last 52185 hours. BMP: No results for input(s): NA , CO2 , CREATININE in the last 03949 hours. LFT: No results for input(s): AST , ALT in the last 80246 hours. VITAMIN D: No results for input(s): ELAK46KE in the last 04873 hours. Imaging: [facility] 05/09/2024 IMPRESSION: 1. No CT evidence of an acute intracranial abnormality. 2. Old right cerebellar infarct. 3. Moderate global cerebral volume loss. Assessment/ Recommendations: TN - Therapeutic options discussed with patient. Side effects discussed at length. - Can try carbamazepine 200 mg in am, 100 mg in afternoon and 200 mg at night instead 250 mg twice a day. - Follow up with Neurosurgery for surgical options. He has seen NSG at [facility] on 11/12/2022. [facility]. Advised to inform me if you would like to see Neurosurgery at [facility]. Call if any questions arise. All pertinent questions were answered to patient's satisfaction during this clinical visit. Patient is to closely follow up with the primary physician for medical needs. -Follow up PRN. I spent a total of 60 minutes face to face with this patient. Greater than 50% of the time was spent in provision of counseling and educational content regarding symptom and diagnosis pathophysiology, risk factors, indications for treatment, risks and benefits of medications and potential side effects, advertising statistical clerk interactions, nonpharmacologic management, and lifestyle recommendations. Signed Electronically Marina Rand, MSN, SUPERVISOR FRAME SAMPLE AND PATTERN-C Department of Neurology Nurse Practitioner, [facility] Neurology Electronically signed by Marina Rand, PHYSICAL PLANT MANAGER-PER DIEM REGISTERED NURSE at 09/21/2024 1:18 PM CDT documented in this encounter Plan of Treatment Not on file documented as of this encounter Visit Diagnoses Diagnosis TN (trigeminal neuralgia)- Primary Trigeminal neuralgia documented in this encounter Care Teams Lumber Bearer Relationship Specialty Start Date End Date Gio Nguyễn MD [address] [place] [id number] PCP - General Family Medicine 03/25/17 documented as of this encounter
--- OUTSIDE RECORDS SUMMARY | 2024-09-21 17:16 | XMS_ITS | Encounter Summary ---
Author Organization [facility] Address [address] [place] [address] Phone Care Team Providers Care Hide Trimmer Name Role Phone Gio Nguyễn MD Primary Care Provider + [phone] Veto Soria MD Unavailable [phone] Ryan Meyers MD Unavailable [phone] Gosia Lee NP Unavailable [phone] Johnnie Marie MD Unavailable [phone] Dolores Garduno RN Unavailable Unavailable Gosia Roy RN Unavailable Unavailab le Encounter Details Date Type Department Care Team (Late st Contact Info) Description 10/12/2022 Telephone [facility] Scheduling [address] [place] [address] Lanette Momin Social History Tobacco Use Types Packs/Day Years Used Date Smoking Tobacco: Former Smokeless Tobacco: Never AUDIT-C Answer Date Recorded Q1: How often do you have a drink containing alc ohol? Never 11/12/2022 Average Number of Drinks Not on file 023 Q3: How often do you have si x or more drinks on one occasion? Never 11/12/2022 Sex and Gender Information Value Date Recorded Sex Assigned at Not on file Legal Sex Male 3:50 AM SUPERVISOR MATTRESS AND BOXSPRINGS Gender Identity Not on file Sexual Orientation Not on file documented as of this encounter Functional Status documented as of this encounter Miscellaneous Notes * Telephone Encounter - Minerva Brumfield - 09/21/2024 9:00 AM CDT Pts daughter Sheila called Passed HIPAA Wanted to check up date of consultation and name of Neurosurgeon * Telephone Encounter - Ray Tan - 10/30/2022 8:58 AM CDT MRI report scanned to chart. * Telephone Encounter - Angella Shields - 10/13/2022 8:42 AM CDT Department of Neurological Surgery at [facility] Cranial Intake Sheet 10/13/22 Tuan Moore 1940 [id number] Gio Nguyễn MD Referring physician PCP Referred to: First Available: Second Opinion: No Diagnosis: Trigeminal Neuralgia NO Imaging Required Insurance: Yes: Type of insurance [employer] Has the patient had brain surgery within the last year? No Blurred Vision: No Loss of Sight: No Weakness on one side of body or a particular area: No Loss of bowel or bladder control: No Duration of symptoms: a few years Prior brain surgery within last 10 years: No Location: FAX Records Requested: No Destination Medicine: No Imaging Done within Last Year: No List ALL Imaging Location: FAX Records Requested: N/a Does the patient have any metal in their body? Like a stent or cardiac device? Yes 3 pieces metal in prostate (cancer patient) Reason for visit: New Pt Appt Date: 11/12/2022 Time: 11:30am [facility]: [facility] Provider Dr. Amos Routed: ALEXANDER Amos * Telephone Encounter - Estiven Ellison - 10/12/2022 4:30 PM CDT Referral to neurosurgery scanned into chart Trigeminal Neuralgia documented in this encounter Plan of Treatment Not on file documented as of this encounter Visit Diagnoses Not on filedocumented in this encounter Care Teams Hide Trimmer Relationship Specialty Start Date End Date Gio Nguyễn MD PCP - General 06/15/17 Veto Soria MD [address] [place] [address] Radiation Oncologist Radiation Oncology 12/14/17 Ryan Meyers MD [address] [place] [address] Urologist Urology 12/14/17 Gosia Lee NP [address] [place] [address] Nurse Practitioner Radiation Oncology 03/01/18 Johnnie Marie MD [address] [place] [address] Referring Physician Cardiology 11/22/23 Dolores Garduno, data analytics architect Failure Coordinator Cardiology 11/22/23 Gosia Roy RN Heart Failure Coordinator Cardiology 11/22/23 documented as of this encounter
--- OUTSIDE RECORDS SUMMARY | 2024-09-21 17:16 | XMS_ITS | Encounter Summary ---
Author Organization [facility] Address [address] [place], [place] [address] [address] Care Team Providers Care Cattle Care Worker Name Role Phone Gio Nguyễn MD Primary Care Provider [phone] Encounter Details Date Type Department Care Team (Late st Contact Info) Description 03/09/2018 Lab Requisition [facility] [address] [facility], [place] [address] Krupa Strong MD [address] [facility] 3 [place] [address] Social History Tobacco Use Types Packs/Day Years Used Date Smoking Tobacco: Never Assessed Sex and Gender Information Value Date Recorded Sex Assigned at Not on file Gender Identity Not on file Sexual Orientation Not on file documented as of this encounter Plan of Treatment Not on file documented as of this encounter Procedures Procedure Name Priority Date/Time Associated Diagnosis Comments DERMATOPATH TECHNICAL REPORT Routine 03/08/2018 12:00 AM CDT documented in this encounter Results * DERMATOPATH TECHNICAL REPORT (03/08/2018 12:00 AM CDT) Case Report Dermatopathology Report Case: [id number] Authorizing Provider: Krupa Strong MD Collected: 03/08/2018 12:00 AM Pathologist: Sheyla Oliveros MD Received: 03/09/2018 05:59 AM Specimen: Skin, mid upper back 2:02 PM CDT DERMATOPATHOLOGY LABORATORY Clinical History Nevus. Irritated. 2:02 PM CDT DERMATOPATHOLOGY LABORATORY Gross Description Specimen A: Received is one formalin filled container labeled with the patient's name and designated mid upper back. The specimen consists of a shave measuring [id number]. Jar 0. [facility] Dermatopathology Laboratory performed the technical component only. 2:02 PM CDT DERMATOPATHOLOGY LABORATORY Embedded Images 2:02 PM CDT DERMATOPATHOLOGY LABORATORY DISCLAIMER An external and internal positive and negative controls are appropriate for the histochemical, immunohistochemical and immunofluorescence stain(s) in this case (if any), except where stated explicitly. The performance characteristics of the stain(s) cited in this report were developed and its performance characteristic determined by the Dermatopathology Laboratory at [facility]. These tests need not be, and therefore are not, approved by the [place] Food and Drug Administration. The tests are used for clinical purposes. 2:02 PM T DERMATOPATHOLOGY LABORATORY Pathology/Cytolog y TISSUE SPECIMEN FROM SKIN / Unknown 03/08/2018 03/09/2018 5:59 AM CDT Krupa Strong MD LAB - PATHOLOGY/CYT OLOGY ORDERABLES DERMATOPATHOLOGY LABORATORY [facility] - Department of Dermatology [address] [facility], 5th Floor Lab [address] [phone] documented in this encounter Visit Diagnoses Not on filedocumented in this encounter Care Teams Cattle Care Worker Relationship Specialty Start Date End Date Gio Nguyễn MD [address] [place] [address] PCP - General Family Medicine 03/25/17 documented as of this encounter
--- OUTSIDE RECORDS SUMMARY | 2024-09-21 17:16 | XMS_ITS | CONTINUITY OF CARE DOCUMENT ---
Author Name jan montoya Address Unknown Organization [facility] Address [address] [facility] [address] [place] [address] Phone [phone] Care Team Providers Care Tank Tender Name Role Phone SOLA PRATER, RITA F Unavailable [phone] SOLA PRATER, RITA F Unavailable INSURANCE PROVIDERS Payer name Policy type / Coverage type Regina red democrat ID BLUE PREFERRED [facility] [id number] 0
--- OUTSIDE RECORDS SUMMARY | 2024-09-21 17:16 | XMS_ITS | Continuity of Care Document ---
Author Organization [facility] Address [address] [facility] [address] [place] [address] Phone Care Team Providers Care Fireperson Name Role Phone Ana Diaz Unavailable Unavailable Procedures Procedure Date [facility] Advance Directives Directive Yes / No Effective Date File Name No Information Encounters Encounter Description Practice Location Reason(s) For Visit Diagnoses Date Provider Providers Copied on Encounter Office/outpat ient Visit, [facility], [address], [place], [place], [id number], [place] tel:[phone] [address] [facility] No Information [phone] Emily Perez. [address] [facility] , [address], [place], [address], [place]. tel:[phone] Family History Family Member Type Diagnosis Age At Onset No Information Payers Payer name Insurance type Covered green party ID Authoriza tion(s) No Information Social History [...]
--- OUTSIDE RECORDS SUMMARY | 2024-09-21 17:16 | XMS_ITS | Referral Summary ---
Author Organization [address] Address [facility] [place] [address] Care Team Providers Care Veneer Sorter Name Role Phone Gio Nguyễn MD Primary Care Provider + [phone] Veto Soria MD Unavailable [phone] Ryan Meyers MD Unavailable [phone] Gosia Lee NP Unavailable [phone] Johnnie Marie MD Unavailable [phone] Dolores Garduno RN Unavailable Unavailable Gosia Roy RN Unavailable Unavailab le Encounters Date Type Department Care Team Description 08/07/2024 11:30 AM SHELL MAKER LOCKSTITCH Lab [facility] [address] [place] [address] Prostate CA (HCC) 08/07/2024 10:00 AM SHELL MAKER LOCKSTITCH Office Visit [facility] Medicine Radiation Oncology [address] [place] [address] [place] [address] Gosia Lee, CAMPBELL Prostate CA (HCC) (Primary Dx) from Last 3 Months Allergies Active Allergy Reactions Criticality Noted Date [...] Signed by Alma Pike MD on 12/14/2017 Immunizations Immunization Administration Dates Next Due Influenza, Quadrivalent, Hig h Dose, Preservative Free, Intrr 05/14/2020 Influenza, Trivalent, High D ose, Split, Preservative Free, Intramuscular 03/25/2017,05/16/2013 ZOSTER LIVE 05/16/2013 Social History Tobacco Use Types [...] on file Legal Sex Male 3:50 AM SHELL MAKER LOCKSTITCH Gender Identity Not on file Sexual Orientation Not on file 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 Not on file Not on file Last Filed Vital Signs Vital Sign Reading Time Taken Comments Blood Pressure 129/77 11/22/2023 2:43 PM CDT Pulse 72 11/22/2023 2:43 PM CDT Temperature - - Respiratory Rate - - Oxygen Saturation 97% 11/22/2023 2:43 PM CDT Inhaled Oxygen Concentration - - Weight 87.2 kg (192 lb 3.2 oz) 08/07/2024 9:37 A M SHELL MAKER LOCKSTITCH Height 165.1 cm (5' 5 ) 11/22/2023 2:43 PM CDT Body Mass Index 31.98 11/22/2023 2:43 PM CDT Plan of Treatment Not on file Procedures Procedure Name Priority Date/Time Associated Diagnosis Comments PSA DIAGNOSTIC Routine 08/07/2024 10:53 AM SHELL MAKER LOCKSTITCH Prostate CA (HCC) from Last 3 Months Results * PSA diagnostic (08/07/2024 10:53 AM SHELL MAKER LOCKSTITCH) PSA-Total <0.02 <=6.20 ng/mL Comment: Interpretive Data [...] revised 21. Blood 08/07/2024 10:5 3 AM SHELL MAKER LOCKSTITCH 08/07/2024 11:18 AM SHELL MAKER LOCKSTITCH us Gosia Lee RADIO REPAIRER DOMESTIC LAB BLOOD ORDERABLES Final Result [facility] [address] [place] [address] from Last 3 Months Insurance MEDICARE [facility] MEDICARE ADVANTAGE [facility] MEDICARE ADVANTAGE [facility] MEDICARE ADVANTAGE Care Teams Veneer Sorter Relationship Specialty Start Date End Date Gio Nguyễn MD PCP - General 06/15/17 Veto Soria MD [address] [place] [address] Radiation Oncologist Radiation Oncology 12/14/17 Ryan Meyers MD [address] [place] [address] Urologist Urology 12/14/17 Gosia Lee NP [address] [place] [address] Nurse Practitioner Radiation Oncology 03/01/18 Johnnie Marie MD [address] [place] [address] Referring Physician Cardiology 11/22/23 Dolores Garduno, warehouse distribution manager Failure Coordinator Cardiology 11/22/23 Gosia Roy RN Heart Failure Coordinator Cardiology 11/22/23
--- OUTSIDE RECORDS SUMMARY | 2024-09-21 17:16 | XMS_ITS ---
Author Organization [place] [address] [facility] Address [facility] [place] [address] Care Team Providers Care House Painter Name Role Phone Gio Nguyễn MD Primary Care Provider + [phone] Veto Soria MD Unavailable [phone] Ryan Meyers MD Unavailable [phone] Gosia Lee NP Unavailable [phone] Johnnie Marie MD Unavailable [phone] Dolores Garduno RN Unavailable Unavailable Gosia Roy RN Unavailable Unavailab le Active Problems Problem Noted Date Diagnosed Date Acute on chronic heart failu re with preserved ejection fraction (HFpEF) 12/22/2023 Prostate cancer 04/06/2017 Cancer Staging:Clinical stage from 04/06/2017: cT1c, cN0, cM0, PSA: 4.9 - Signed by Alma Pike MD on 12/14/2017 Current Treatment and Therapy Plans No current plan information found. Past Treatment and Therapy Plans No past plan information found. Radiation Treatments * Course C1_[id number]_2018 09/08/2017 - 10/19/2017 Treatment Period Energy Fraction Dose Fractions Total Dose Plans Planned PROSTATE 09/08/2017 - 10/19/2017 250 28 / 7,000 Reference Points Delivered [id number] 09/08/2017 - 10/19/2017 7,000 Treatment Summaries Prostate cancer (HCC)* This Survivorship Care Plan is a cancer treatment summary and follow-up plan and is provided to youto keep with your health care records and to share with your primary care provider or any of your doctors and nurses. This summary is a brief record of major aspects of your cancer treatment not a detailed or comprehensive record of your care. You should review this with your cancer provider. Treatment Summary and Survivorship Care Plan for Prostate Cancer Provided by Gosia Lee RN, DNP, ANP on 03/15/2018 General Information Patient name Tuan Moore (home) Date of 1940 Health Care Providers (Including Names, Institutions) Provider Name: Contact Information: Primary Care Physician Gio Nguyễn [phone] Surgeon Radiation Oncologist Veto Soria MD [phone] Urologist Ryan Meyers MD [phone] Treatment Summary Cancer Diagnosis Information Diagnosis Prostate cancer (CMS/HCC), left prostate Diagnosis date 04/06/2017 Staging information Cancer Staging No matching staging information was found for the patient. Roosevelt Score 7 PSA at diagnosis 4.94 Treatment Completed Surgery No Radiation Radiation Treatments Active Patient's record has no active radiation treatments documented. Historical Plans PROSTATE Most recent treatment: 250 (fraction 28) on 10/19/2017 Total planned: 7,000 Elapsed Course Treatment Days: 42 Reference Points [id number] Most recent treatment: 250 on 10/19/2017 Total given: 7,000 Elapsed Course Treatment Days: 42 Chemotherapy Summary None Research Studies MULTI-SITE REGISTRY FOR PROTON BEAM RADIATION THERAPY Status On study Start Date 07/26/17 NCT [id number] PARTIQOL Status On follow up Start Date 07/26/17 NCT [id number] Treatment Ongoing Additional Treatment Start Date Planned Duration Possible Side Effects Follow-up Care Plan Your follow-up care plan is design to inform you and primary care providers regarding the recommended and required follow-up, cancer screening and routine health maintenance that is needed to maintain optimal health. Schedule of Clinical Visits Coordinating Provider When/How often Ryan Meyers MD Yearly Veto Soria MD Every 3 months for 2 years, then every 6 months for 2 years, then yearly Cancer Surveillance or other Recommended Tests Coordinating Provider Test How Often Veto Soria MD PSA Every 3 months for year 3 - 5 Possible late- and long-term effects that someone with this type of cancer and treatment may experience: ??? Decreased sex drive * ??? Enlarging breast tissue * ??? Erectile dysfunction * ??? Fatigue * ??? Hair loss * ??? Hot flashes * ??? Incontinence ??? Increased body fat * ??? Metabolic syndrome (increased blood pressure, blood sugar, cholesterol) * ??? Blood in urine or stool ??? Mood swings* ??? Osteoporosis* ??? Painful urination ??? Urinary frequency ??? Shortening of the penis ??? Loss of muscle mass* ??? Sterility* ??? Tiredness* ??? Trouble voiding or passing urine (urinary retention) ??? Swelling (lymphedema) ??? Other If these occur beyond 3 months from treatment, bring it to the attention of your health care provider. *These side effects may be associated with androgen deprivation (hormone) therapy. Please continue to see your primary care provider for all general health care recommended for a patient your age, including cancer screening tests. Any symptoms should be brought to the attention of your provider: 1. Anything that represents a brand new symptom; 2. Anything that represents a persistent symptom; 3. Anything you are worried about that might be related to the cancer coming back. Cancer survivors may experience issues with the areas listed below. If you have any concerns in these or other areas, please speak with your doctors or nurses to find out how you can get help with them. ?? Anxiety and depression ?? Emotional and mental health ?? Fatigue ?? Fertility ?? Financial advice or assistance ?? Insurance ?? Memory or concentration loss ?? Parenting ?? Physical functioning ?? School/work ?? Sexual functioning ?? Stopping smoking ?? Weight changes ?? Other A number of lifestyle/behaviors can affect your ongoing health, including the risk for the cancer coming back or developing another cancer. Discuss these recommendations with your doctor or nurse: 1. Eat a healthy diet: focus on lean meats and proteins, more fruits, vegetables and whole grains and low in sugars and fats. Limit red meat and avoid processed meat. 2. Maintain a healthy weight; avoid being overweight. Aim for a normal body mass index (BMI) of 18.5-24.9. Help learning to eat healthier, call the registered pharmacist at: [facility] for [facility] [phone]. 3. Have an active lifestyle, strive for 30 minutes of moderate exercise 5 times a week and strengthor resistance training at least twice a week. 4. Use broad-spectrum (UVA+UVB) sunscreen with SPF 30 or greater, is water resistant, limit time spent in the sun (10 am-4pm), wear hat, wear UV protective clothing, wear sunglasses. Never use a tanning bed. Skin that was irradiated may be more sensitive over your lifetime. 5. Do not smoke or chew tobacco; participate in a smoking cessation program. 6. Limit alcohol intake, 1 drink per day for a woman and 2 drinks per day for a man. Resources you may be interested in: ?? [facility] [place] A National Cancer [place] [facility] http://www.[facility]/ [facility] 1st floor of [facility] 386.719.7454. Computer access, educational material, counseling services (FREE) ?? Cancer Resources: www.cancer.net ?? The [facility] [facility] www.Urologyhealth.org ?? [employer]: https://survivorship.cancer.gov/ an online tool for cancer survivors and caregivers created by the [place] [employer] and the National Cancer [place]. It provides: ?? Information on dealing with side effects from cancer and treatment ?? Caregivers with support and resources ?? Practical advice about talking to friends and family about cancer ?? Questions to ask their health care team Other comments:
[2024-09-21 17:59] LABS: Anion Gap 6 mmol/L (4-12); Blood Urea Nitrogen 20 mg/dL (9-20); Calcium 8.9 mg/dL (8.4-10.2); Carbon Dioxide 30 mmol/L (22-30); Chloride 107 mmol/L (98-107); Estimated Glomerular Filt Rate > 60; Glucose 78 mg/dL (65-110); Potassium 3.9 mmol/L (3.4-5.0); Sodium 143 mmol/L (137-145)
== END 2024-09-21 17:11 | disposition home or self-care (01) ==
PROVIDERS: PCP Family Medicine; Visit Provider Family Medicine
DX: M45.2 Ankylosing spondylitis of cervical region (principal); M47.892 Other spondylosis, cervical region; I10 Essential (primary) hypertension
CPT/HCPCS: 36415; 72052; 80048

== ENCOUNTER 2025-03-10 15:10 | Observation (INO) | payer MEDICARE, SELFPAY ==
--- NOTE | ~2025-03-10 | MR_ITS ---
EXAMINATION: MR brain/brain stem wo con COMPARISON: None HISTORY: Slurred speech TECHNIQUE: Sagittal T1, axial T1, T2, FLAIR, diffusion, coronal T1 sequences of the brain were obtained without contrast. FINDINGS: Cerebellar tonsils are normal in location. No abnormal signal in the clivus of the cervical spine. Pituitary does not appear enlarged No acute infarct or hemorrhage Moderate probable chronic periventricular ischemic changes Remote right cerebellar lacunar infarcts No hydrocephalus or midline shift. No extra-axial fluid collections. Appropriate flow voids are maintained. Nonspecific right mastoid effusion. Sinuses and orbits unremarkable. IMPRESSION: No acute infarct or hemorrhage Reviewed, dictated and finalized at location P.
--- NOTE | ~2025-03-10 | CT_ITS ---
EXAMINATION: CT brain wo alex, 03/10/2025 15:30 CDT HISTORY: Weakness COMPARISON: No comparisons available. Technique: Axial images obtained of the brain without contrast. One or more of the following dose reduction techniques were used: automated exposure control, adjustment of the mA and/or kV according to patient size, use of iterative reconstruction technique. Findings: No acute infarct or parenchymal hemorrhage. No abnormal mass or mass effect. No midline shift. No extra-axial fluid collections. No hydrocephalus. Mastoid air cells unremarkable. Sinuses and orbits unremarkable. No acute fracture. No significant facial or scalp soft tissue swelling evident. No radiopaque foreign body is seen. Impression: 1.No acute intracranial abnormality. Reviewed, dictated and finalized at location P. Impression: 1.No acute intracranial abnormality.
--- NOTE | ~2025-03-10 | CT_ITS ---
EXAMINATION: CTA brain carotid, 03/10/2025 16:00 CDT HISTORY: Acute CVA COMPARISON: No comparisons available. TECHNIQUE: CTA scan with 3D Reconstructions of the brain and neck was performed with contrast Isovue 300, 92cc injected IV. One or more of the following dose reduction techniques were used: automated exposure control, adjustment of the mA and/or kV according to patient size, use of iterative reconstruction technique. Unless otherwise stated, incidental findings do not require dedicated follow up imaging FINDINGS: CTA brain: Visualized brain parenchyma appears unremarkable. The visualized optic globes and soft tissues are unremarkable Basilar artery unremarkable. Right posterior cerebral artery unremarkable. Left posterior cerebral artery unremarkable. The right petrous and cavernous ICA segments unremarkable. The right M1 and M2 segments unremarkable. The right A1 and A2 segments unremarkable Left petrous and cavernous ICA segments unremarkable. Left M1 and M2 segments unremarkable. Left A1 and A2 segments unremarkable. CTA NECK: No sclerotic or lytic lesions. No significant sinusitis. Visualized parotid and submandibular glands unremarkable. Soft tissues unremarkable. Lung apices chronic changes. Cervical segments of the vertebral arteries are unremarkable Right CCA unremarkable. Right ICA unremarkable Left CCA unremarkable. Left ICA unremarkable IMPRESSION: No critical stenosis, aneurysm or occlusion identified. Reviewed, dictated and finalized at location P.
--- NOTE | ~2025-03-10 | XR_ITS ---
EXAMINATION: XR chest 1V, 03/10/2025 16:10 CDT HISTORY: Weakness COMPARISON: No comparisons available. Technique: Single view. Findings: The lungs are clear, no effusion. No pneumothorax. Heart is normal size. Mediastinal and hilar contours are within normal limits. Bony thorax no acute abnormality. Impression: No acute cardiopulmonary abnormality. Reviewed, dictated and finalized at location P. Impression: No acute cardiopulmonary abnormality.
--- NOTE | 2025-03-10 15:15 | ED_ITS ---
HPI - General Adult General Chief complaint: Weakness Stated complaint: Weakness Time Seen by Provider: 03/10/25 15:14 Source: EMS Mode of arrival: EMS History of Present Illness HPI narrative: 84 years old white male came from home by ambulance because of lower extremity weakness mainly left 1, multiple falls up to 4 times today. Patient last time was seen by his who have dementia and his neighbor yesterday. According to the neighbor patient looks little bit of, slightly slow slurred speech, answer questions slowly. Patient denies any fever, chills, nausea, vomiting, shortness of breath, chest pain or headache. 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 Related Data Home Medications ?Medication ?Instructions ?Recorded ?Confirmed ?Last Taken ?Type aspirin 325 mg tablet 325 mg PO DAILY 05/22/2403/10/25 08:00 History 325 mg multivitamin with minerals-folic 1 tablet PO DAILY 03/0703/10/25 03/10/25 08:00 History acid 80 mcg chewable tablet 1 tablet (Centrum Adult 50 Plus) mirabegron 50 mg tablet,extended 50 mg PO DAILY 03/10/25 03/09/25 08:00 History release 24 hr 50 mg carbamazepine 100 mg See Rx Instructions .Route . COMPLEX 03/10/25 03/10/25 03/10/25 08:00 History tablet,extended release,12 hr 250 (Tegretol XR) tamsulosin 0.4 mg capsule See Rx Instructions .Route . COMPLEX 03/10/25 03/10/25 03/09/25 20:00 History Allergies Allergy/AdvReac Type Severity Reaction Status Date / Time bisacodyl AdvReac Intermediate Nausea Verified 03/10/25 22:53 codeine AdvReac Unknown Agitated Verified 03/10/25 22:53 Review of Systems 2 Review of Systems: All systems reviewed & are unremarkable except as noted in HPI and below PMFSH Past Medical History Medical History (Updated 03/11/25 @ 08:52 by Gosia Robles, MUSEUM DIRECTOR) Diastolic dysfunction Aortic stenosis Onychomycosis Lumbago Paroxysmal hemicrania, chronic Atypical facial pain Trigeminal neuralgia of right side of face MRI the brain 2022 demonstrated 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 Pruritic rash Spondylosis of lumbar joint Cerebellar infarct Old Punctate right cerebellar and left basal ganglia infarcts noted on MRI has far back as 2020 Expressive aphasia CVA (cerebral vascular accident) Anemia Hematuria H/O prostate cancer Essential (primary) hypertension Hypothyroidism TSH 0.898 on 01/06/2024 Mixed hyperlipidemia Primary osteoarthritis involving multiple joints Surgical History Surgical History Hx of hernia repair Hx of prostatectomy Family History Family History Father Family history of premature coronary heart disease Hypertension Tobacco abuse Mother Hypertension Family history of coronary artery disease Sibling Malignant neoplasm of prostate Family history of lung cancer COVID-19 Social History Social History (Updated 03/10/25 @ 21:07 by Marilee Mcgee DO) Social History: Patient lives with his who has dementia. Code status: [facility] power of assistant attorney general: Sheila Wetzel (daughter) and Clayjalil Moore (son) Smoking status: Former smoker (quit 40 years ago) Second hand tobacco smoke exposure: Yes Alcohol intake: never Substance use: never Substance use type: does not use Do You Feel Safe in your Home?: Yes Lack of Transportation: No Lack of Food: Never True Current Housing: I Have Housing Concerned About Future Housing: No Difficulty Paying Gas/Electric Bills: No Difficulty Paying for Meds: No Currently Unemployed: No Education: High School Diploma/GED Difficulty w/ Childcare or Family Care: No Living arrangements: with family Occupation/Education: retired Additional occupation/education comments: [employer] Gender identity (if verbalized by the patient): Male Spiritual care concerns: No Exam 2 Narrative: General appearance: Well-developed, well-nourished Skin: Normal color Head: Normocephalic, nontraumatic Eyes: Clear conjunctiva ENT: Oropharynx normal, ears normal, nose normal Neck: Supple, nontender Chest and respiratory: Airway patent, no respiratory distress, no accessory muscle use Heart: Regular rate/rhythm Abdomen: Soft, nontender, no organomegaly, quiet bowel sounds Vascular: Normal peripheral pulses, normal capillary refill. Musculoskeletal: Normal range of motion, nontender back Neurologic: Alert and oriented ?3,, shaking, slurred speech, slight weakness of the left lower extremity Course Vital Signs Vital signs: Vital Signs Temperature 36.6 C 03/10/25 15:18 Pulse Rate 79 03/10/25 15:18 Respiratory Rate 13 03/10/25 15:18 Blood Pressure 160/96 H 03/10/25 15:18 Pulse Oximetry 98 03/10/25 15:18 Oxygen Delivery Room Air 03/10/25 15:18 Temperature 36.1 C L 03/11/25 05:59 Pulse Rate 69 03/11/25 12:00 Respiratory Rate 18 03/11/25 05:59 Blood Pressure 160/74 H 03/11/25 06:05 Pulse Oximetry 99 03/11/25 05:59 Oxygen Delivery Room Air 03/11/25 08:00 Medical Decision Making MDM Narrative Medical decision making narrative: Patient came to the ED by ambulance from home with multiple falls and weakness of the lower extremities noticed this morning. Vital signs showing blood pressure 160/96 otherwise within normal limit Physical examination showing a patient with slow response to question, slightly aphasic and slurred speech, weakness left lower extremity DIFFERENTIAL DIAGNOSIS ACUTE CVA, DEPRESSION, DRUG INDUCED NEUROLOGIC ABNORMALITY, ELECTROLYTE IMBALANCE, DEHYDRATION, PNEUMONIA BLOOD WORKUP TODAY INCLUDES CBC, CMP, TROPONIN, PROBNP SHOWED INSIGNIFICANT ABNORMALITY URINE DRUG SCREEN SHOWED NO ABNORMALITY CHEST X-RAY SHOWED NO ACUTE ABNORMALITY CT SCAN OF THE HEAD WITHOUT CONTRAST SHOWED NO ACUTE ABNORMALITY, CTA HEAD AND NECK SHOWED NO ACUTE ABNORMALITIES STROKE SCALE IS 6 ADMIT TO HOSPITALIST, CONSULT NEUROLOGIST. Differential Diagnosis Differential Diagnosis: ABOVE Vital Signs Vital Signs: Vital Signs Temperature 36.6 C 03/10/25 15:18 Pulse Rate 79 03/10/25 15:18 Respiratory Rate 13 03/10/25 15:18 Blood Pressure 160/96 H 03/10/25 15:18 Pulse Oximetry 98 03/10/25 15:18 Oxygen Delivery Room Air 03/10/25 15:18 Temperature 36.1 C L 03/11/25 05:59 Pulse Rate 69 03/11/25 12:00 Respiratory Rate 18 03/11/25 05:59 Blood Pressure 160/74 H 03/11/25 06:05 Pulse Oximetry 99 03/11/25 05:59 Oxygen Delivery Room Air 03/11/25 08:00 Lab Data 03/10/25 15:29 03/10/25 15:30 Labs: Lab Results 03/10/25 03/10/25 03/10/25 Range/Units 15:29 15:30 15:35 WBC 5.6 (4.5-10.0) K/mm3 RBC 4.02 L (4.6-6.20) M/mm3 Hgb 13.0 L (14.0-18.0) g/dL Hct 39.4 L (42.0-52.0) % MCV 98.0 (80-100) fl MCH 32.3 (26-34) pg MCHC 33.0 (32-36) g/dl RDW 13.5 (11.5-14.5) % Plt Count 209 (150-375) k/mm3 MPV 10.0 (7.4-10.4) fl Immature Gran % (Auto) 0.5 (0-0.5) % Neut % (Auto) 55.4 (45.5-73.1) % Lymph % (Auto) 27.5 (18.3-44.2) % [place] % (Auto) 10.7 H (2.6-8.5) % Eos % (Auto) 4.8 H (0-4.4) % Baso % (Auto) 1.1 (0.2-1.2) % Lymph # (Auto) 1.55 (0.9-3.2) K/mm3 [place] # (Auto) 0.6 (0.1-0.6) K/mm3 Eos # (Auto) 0.3 (0-0.3) K/mm3 Baso # (Auto) 0.1 (0.0-0.1) K/mm3 Abs Immat Gran (auto) 0.03 (0.00-0.031) K/mm3 Absolute Neuts (auto) 3.1 (1.3-6.7) K/mm3 Absolute Nucleated RBC 0.000 (0.0-0.012) K/mm3 Nucleated RBC % 0.0 (0.0-0.2) % PT 13.0 (11.1-14.7) Seconds INR 1.0 APTT 22.1 L (22.3-36.8) Seconds Sodium 136 L (137-145) mmol/L Potassium 4.0 (3.4-5.0) mmol/L Chloride 105 (98-107) mmol/L Carbon Dioxide 27 (22-30) mmol/L Anion Gap 4 (4-12) mmol/L BUN 18 (9-20) mg/dL Creatinine 1.00 (0.7-1.3) mg/dL Estim Creat Clear Calc 52 ml/min Estimated GFR > 60 (59 - ) Glucose 95 (65-110) mg/dL POC Capillary Glucose 89 (65-105) mg/dl Calcium 8.6 (8.4-10.2) mg/dL Total Bilirubin 0.4 (0.2-1.3) mg/dL AST 26 (17-59) U/L ALT 20 (6-50) U/L Alkaline Phosphatase 90 (38-126) U/L Troponin I < 0.012 (0.000-0.034) ng/mL Total Protein 6.4 (6.3-8.2) g/dL Albumin 3.9 (3.5-5.1) g/dL Urine Opiates Screen (Negative) Urine Methadone Screen (Negative) Ur Barbiturates Screen (Negative) Ur Phencyclidine Scrn (Negative) Ur Amphetamine Screen (Negative) U Benzodiazepines Scrn (Negative) Urine Cocaine Screen (Negative) U Cannabinoids Screen (Negative) Ethyl Alcohol < 10 (<10) mg/dL 03/10/25 Range/Units 17:10 WBC (4.5-10.0) K/mm3 RBC (4.6-6.20) M/mm3 Hgb (14.0-18.0) g/dL Hct (42.0-52.0) % MCV (80-100) fl MCH (26-34) pg MCHC (32-36) g/dl RDW (11.5-14.5) % Plt Count (150-375) k/mm3 MPV (7.4-10.4) fl Immature Gran % (Auto) (0-0.5) % Neut % (Auto) (45.5-73.1) % Lymph % (Auto) (18.3-44.2) % [place] % (Auto) (2.6-8.5) % Eos % (Auto) (0-4.4) % Baso % (Auto) (0.2-1.2) % Lymph # (Auto) (0.9-3.2) K/mm3 [place] # (Auto) (0.1-0.6) K/mm3 Eos # (Auto) (0-0.3) K/mm3 Baso # (Auto) (0.0-0.1) K/mm3 Abs Immat Gran (auto) (0.00-0.031) K/mm3 Absolute Neuts (auto) (1.3-6.7) K/mm3 Absolute Nucleated RBC (0.0-0.012) K/mm3 Nucleated RBC % (0.0-0.2) % PT (11.1-14.7) Seconds INR APTT (22.3-36.8) Seconds Sodium (137-145) mmol/L Potassium (3.4-5.0) mmol/L Chloride (98-107) mmol/L Carbon Dioxide (22-30) mmol/L Anion Gap (4-12) mmol/L BUN (9-20) mg/dL Creatinine (0.7-1.3) mg/dL Estim Creat Clear Calc ml/min Estimated GFR (59 - ) Glucose (65-110) mg/dL POC Capillary Glucose (65-105) mg/dl Calcium (8.4-10.2) mg/dL Total Bilirubin (0.2-1.3) mg/dL AST (17-59) U/L ALT (6-50) U/L Alkaline Phosphatase (38-126) U/L Troponin I (0.000-0.034) ng/mL Total Protein (6.3-8.2) g/dL Albumin (3.5-5.1) g/dL Urine Opiates Screen Negative (Negative) Urine Methadone Screen Negative (Negative) Ur Barbiturates Screen Negative (Negative) Ur Phencyclidine Scrn Negative (Negative) Ur Amphetamine Screen Negative (Negative) U Benzodiazepines Scrn Negative (Negative) Urine Cocaine Screen Negative (Negative) U Cannabinoids Screen Negative (Negative) Ethyl Alcohol (<10) mg/dL Imaging Data Radiologist's impression: Impressions Head CT 03/10/25 15:54 Impression: 1.No acute intracranial abnormality. Chest X-Ray 03/10/25 16:21 Impression: No acute cardiopulmonary abnormality. Head/Neck CTA 03/10/25 16:24 IMPRESSION: No critical stenosis, aneurysm or occlusion identified. Critical Care Time Critical Care Time Critical Care Time: Yes Total Critical Care Time: 30 Discharge Plan Discharge Clinical Impression: Acute CVA (cerebrovascular accident), Weakness Patient Disposition: Still a Patient Condition: Stable Quality Stroke Scale Stroke Scale 1: 1a Level of consciousness: alert-0 1b Level of consciousness questions: answers both correctly-0 1c Level of consciousness commands: obeys both correctly-0 2 Best gaze: normal-0 3 Visual: no visual loss-0 4 Facial palsy: minor paralysis-1 5a Motor: left arm: no drift-0 5b Motor: right arm: no drift-0 6a Motor: left leg: drift-1 6b Motor: right leg: no drift-0 7 Limb ataxia: present in two limbs-2 8 Sensory: normal-0 9 Best language: some loss of fluency-1 10 Dysarthria: slurs some words-1 11 Extinction and inattention: no abnormality-0 Level:: 6
[2025-03-10 15:18] VITALS: BP 160/96; PULSE 79; RESP 13; TEMP 36.6; O2SAT 98
[2025-03-10 15:24] VITALS: PULSE 83
--- NOTE | 2025-03-10 15:25 | ECG_ITS ---
Test Date: 2025-03-10 15:29:16 Measurements Intervals [place] Rate: 80 P: 35 DE: 174 QRS: -38 QRSD: 152 T: 99 QT: 401 QTc: 464 Interpretive Statements SINUS RHYTHM LEFT BUNDLE BRANCH BLOCK Electronically Signed On 03-11-2025 20:45:26 CDT by Tomy Okeefe D.O
[2025-03-10 15:39] LABS: Hematocrit 39.4 % (42.0-52.0); Hemoglobin 13.0 g/dL (14.0-18.0); Immature Granulocyte Percent A 0.5 % (0-0.5); Lymphocytes Absolute Auto 1.55 K/mm3 (0.9-3.2); Mean Corpuscular HGB Conc 33.0 g/dl (32-36); Mean Corpuscular Hemoglobin 32.3 pg (26-34); Mean Corpuscular Volume 98.0 fl (80-100); Nucleated Red Blood Cells Absolute Auto 0.000 K/mm3 (0.0-0.012); Nucleated Red Blood Cells Perc 0.0 % (0.0-0.2); Platelet Count Result 209 k/mm3 (150-375); Red Blood Count 4.02 M/mm3 (4.6-6.20); White Blood Count 5.6 K/mm3 (4.5-10.0)
--- OUTSIDE RECORDS SUMMARY | 2025-03-10 15:48 | XMS_ITS | Encounter Summary ---
Author Organization [facility] Address [facility] [place] [address] Care Team Providers Care Clockmaker Apprentice Name Role Phone Gio Nguyễn MD Primary Care Provider [phone] Encounter Details Date Type Department Care Team (Late st Contact Info) Description 03/09/2018 Lab Requisition [facility] [address] [facility] [place] [address] Krupa Strong MD [address] [facility] [address] [place] [address] Social History Tobacco Use Types Packs/Day Years Used Date Smoking Tobacco: Never Assessed Sex and Gender Information Value Date Recorded Sex Assigned at Not on file Legal Sex Male 2:03 PM CDT Gender Identity Not on file Sexual Orientation Not on file documented as of this encounter Plan of Treatment Not on file documented as of this encounter Procedures Procedure Name Priority Date/Time Associated Diagnosis Comments DERMATOPATH TECHNICAL REPORT Routine 03/08/2018 12:00 AM CDT documented in this encounter Results * DERMATOPATH TECHNICAL REPORT (03/08/2018 12:00 AM CDT) Case Report Dermatopathology Report Case: [id number] Authorizing Provider: Krupa Strong MD Collected: 03/08/2018 12:00 AM Pathologist: Sheyla Oliveros MD Received: 03/09/2018 05:59 AM Specimen: Skin, mid upper back 2:02 PM CDT DERMATOPATHOLOGY LABORATORY Clinical History Nevus. Irritated. 2:02 PM CDT DERMATOPATHOLOGY LABORATORY Gross Description Specimen A: Received is one formalin filled container labeled with the patient's name and designated mid upper back. The specimen consists of a shave measuring [id number]. Jar 0. [facility] Dermatopathology Laboratory performed the technical component only. [...] characteristic determined by the Dermatopathology Laboratory at [facility]. These tests need not be, and therefore are not, approved by the [place] Food and Drug Administration. The tests are used for clinical purposes. 2:02 PM CDT DERMATOPATHOLOGY LABORATORY at 1402 CDT Pathology/Cytolog y TISSUE SPECIMEN FROM SKIN / Unknown 03/08/2018 03/09/2018 5:59 AM CDT Krupa Strong MD LAB - PATHOLOGY/CYTOLOGY OR DERABLES Final Result DERMATOPATHOLOGY LABORATORY [facility] - Department of Dermatology [address] [place] [address], 5th [place] [address], [facility] [phone] documented in this encounter Visit Diagnoses Not on filedocumented in this encounter Care Teams Clockmaker Apprentice Relationship Specialty Start Date End Date Gio Nguyễn MD [address] [place] [address] PCP - General Family Medicine 03/25/17 documented as of this encounter
--- OUTSIDE RECORDS SUMMARY | 2025-03-10 15:48 | XMS_ITS ---
Author Organization [place] [id number] [facility] Address [facility] [place] [address] Care Team Providers Care Nurses Director Name Role Phone Gio Nguyễn MD Primary Care Provider + [phone] Veto Soria MD Unavailable [phone] Ryan Meyers MD Unavailable [phone] Gosia Lee NP Unavailable [phone] Johnnie Marie MD Unavailable [phone] Dolores Garduno RN Unavailable Unavailable Gosia Roy RN Unavailable Unavailab Francisco Alejo Unavailable Unavailable Active Problems Problem Noted Date Diagnosed Date [...] 250 28 / 7,000 Reference Points Delivered [id number] 09/08/2017 - 10/19/2017 7,000 Treatment Summaries Prostate [...] Contact Information: Primary Care Physician Gio Nguyễn [phone] Surgeon Radiation Oncologist Veto Soria MD [phone] Urologist Ryan Meyers MD [phone] Treatment Summary Cancer Diagnosis Information Diagnosis Prostate cancer (CMS/[facility]), left prostate Diagnosis date 04/06/2017 Staging information Cancer Staging No matching staging information was found for the patient. Jaqueline Score 7 PSA at diagnosis 4.94 Treatment Completed Surgery No Radiation Radiation Treatments Active Patient's record has no active radiation treatments documented. Historical Plans PROSTATE Most recent treatment: 250 (fraction 28) on 10/19/2017 Total planned: 7,000 Elapsed Course Treatment Days: 42 Reference Points [id number] Most recent treatment: 250 on 10/19/2017 Total given: 7,000 Elapsed Course Treatment Days: 42 Chemotherapy Summary None Research Studies MULTI-SITE REGISTRY FOR PROTON BEAM RADIATION THERAPY Status On study Start Date 07/26/17 NCT [id number] PARTIQOL Status On follow up Start Date 07/26/17 NCT [id number] Treatment Ongoing Additional Treatment Start Date Planned [...] Help learning to eat healthier, call the marketing operations analyst at: [facility] for [facility] [phone]. 3. Have an active lifestyle, strive for [...] Resources you may be interested in: ?? [facility] [place] [facility] [place] [email or web address]/ [facility] Information Center 1st floor of [facility] [phone]. Computer access, educational material, counseling services (FREE) ?? Cancer Resources: www.cancer.net ?? The [facility] www.Urologyhealth.org ?? [employer] Cancer: https://survivorship.cancer.gov/ an online tool for cancer survivors and caregivers created by the [place] [employer] and the National Cancer [place]. It provides: ?? Information on dealing with side effects from cancer and treatment ?? Caregivers with support and resources ?? Practical advice about talking to friends and family about cancer ?? Questions to ask their health care team Other comments:
--- OUTSIDE RECORDS SUMMARY | 2025-03-10 15:48 | XMS_ITS | Clinical Summary ---
Author Organization [place] [id number] [facility] Address [facility] [place] [address] Care Team Providers Care Solar Installation Supervisor Name Role Phone Gio Nguyễn MD Primary Care Provider + [phone] Veto Soria MD Unavailable [phone] Ryan Meyers MD Unavailable [phone] Gosia Lee NP Unavailable [phone] Johnnie Marie MD Unavailable [phone] Dolores Garduno RN Unavailable Unavailable Gosia Roy RN Unavailable Unavailab Francisco Alejo Unavailable Unavailable Allergies Active Allergy Reactions Criticality Noted Date [...] by mouth daily 30 tablet 11 4 Active pregabalin (LYRICA) 75 mg capsule 2 5 Active aspirin 325 mg enteric coated tablet Take 1 tablet (325 mg total) by mouth daily Active mirabegron ER (MYRBETRIQ) 50 mg tablet extended release 24 hr Take 1 tablet (50 mg total) by mouth nightly at bedtime. 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 Not on file Not on file Not on file Obstetrics History Last Filed Vital Signs Vital Sign Reading Time Taken Comments Blood Pressure 135/73 11/20/2024 2:51 PM CDT Pulse 81 11/20/2024 2:51 PM CDT Temperature - - Respiratory Rate - - Oxygen Saturation 96% 11/20/2024 2:51 PM CDT Inhaled Oxygen Concentration - - Weight 88.5 kg (195 lb) 11/20/2024 2:51 PM CDT Height 165.1 cm (5' 5) 11/20/2024 2:51 PM CDT Body Mass Index 32.45 11/20/2024 2:51 PM CDT Plan of Treatment Health Maintenance Due Date Last Done Comments Depression Screening 1941 Fall Risk Assessment 1941 DTaP/Tdap/Td Vaccine (1 - Tdap) 1952 Hepatitis B Screening 08/15/1959 Pneumococcal vaccine 65+ (1 of 2 - PCV) 1960 Well Visit 65+ 2006 Zoster Vaccine (2 of 3) 07/11/2013 05/16/2013 Influenza Vaccine (#1) 2025 0, 03/25/2017, 05/16/2013 Insurance MEDICARE [facility] MEDICARE ADVANTAGE [facility] MEDICARE ADVANTAGE [facility] MEDICARE ADVANTAGE Care Teams Solar Installation Supervisor Relationship Specialty Start Date End Date Gio Nguyễn MD PCP - General 06/15/17 Veto Soria MD [address] [place] [address] Radiation Oncologist Radiation Oncology 12/14/17 Ryan Meyers MD [address] [place] [address] Urologist Urology 12/14/17 Gosia Lee NP [address] [place] [address] Nurse Practitioner Radiation Oncology 03/01/18 Johnnie Marie MD [address] [place] [address] Referring Physician Cardiology 11/22/23 Dolores Garduno, child psychologist Failure Coordinator Cardiology 11/22/23 Gosia Roy, child psychologist Failure Coordinator Cardiology 11/22/23 Francisco Ferrell Primary Transplant Surgeon 03/01/25
--- OUTSIDE RECORDS SUMMARY | 2025-03-10 15:48 | XMS_ITS | Clinical Summary ---
Author Organization [facility] Address [address] [place] [address] Care Team Providers Care Communications Executive Name Role Phone Gio Nguyễn MD Primary Care Provider [phone] Source Comments [facility],non-owned Affiliates and Associated Physician Practices is amultiple site organization consisting of ambulatory clinics and hospital sitesin [place], [place], [place] and [place]. This disclosure is being madepursuant to the Care Everywhere program and may not contain all information available regarding this patient. Last updated 18.[facility] Allergies Active Allergy Reactions Criticality Noted Date Comments Codeine 03/25/2017 Medications * Be aware that medications may not be up to date on this document. Alwaysverify current medications with the patient. carBAMazepine (TEGretol) 200 MG tablet Take 1 [...] ejection fraction (HFpEF) 12/22/2023 Prostate cancer 04/06/2017 Immunizations Immunization Administration Dates Next Due INFLUENZA VACCINE, HIGH-DOSE [...] P M CDT Height 167.6 cm (5' 6) 09/20/2024 2:10 PM CDT Body Mass Index 31.09 09/20/2024 2:10 PM CDT Plan of Treatment Health Maintenance Due Date Last Done Comments DTAP/TDAP/TD VACCINES (1 - Tdap) 1960 PNEUMOCOCCAL VACCINE 50+ (1 of 2 - PCV) 1960 ZOSTER VACCINE (2 of 3) 07/11/2013 05/16/2013 Respiratory Syncytial Virus (RSV) Vaccine Pt: or over 60 yrs (1 - 1-dose 75+ series) 2016 DEPRESSION SCREENING 06/14/2024 MEDICARE AWV CALENDAR YEAR 2024 COVID-19 VACCINE ( - 2023-2 5 season) 2025 INFLUENZA VACCINE (#1) 2025 7, 05/16/2013 HEPATITIS B VACCINE Aged Out No [...] patient's age to complete this topic Insurance [facility] MANAGED MEDICARE ADV Advance Directives Documents on File Type Date Recorded Patient Extractor Filler Expl anation Adv Directive/Living Will/POA 09/25/2024 1:45 PM POA Healthcare Agents on File Name Relationship Healthcare Agent Relationshi p Communication Sheila Wetzel Daughter Power of Beach Attendant (POA) Care Teams Communications Executive Relationship Specialty Start Date End Date Gio Nguyễn MD [address] [place] [id number] PCP - General Family Medicine 03/25/17
[2025-03-10 15:49] LABS: INR 1.0; Prothrombin Time 13.0 Seconds (11.1-14.7)
--- OUTSIDE RECORDS SUMMARY | 2025-03-10 15:49 | XMS_ITS | Clinical Summary ---
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 Gender Identity Not on file Sexual Orientation Not on file Last Filed Vital Signs Vital Sign Reading Time Taken Comments Blood Pressure 158/90 04/29/2024 11:01 AM SPUDDER Pulse 77 04/29/2024 11:01 AM SPUDDER Temperature 36.6 C (97.9 F) 04/29/2024 11:01 AM SPUDDER Respiratory Rate 16 04/29/2024 11:01 AM SPUDDER Oxygen Saturation 98% 04/29/2024 11:01 AM SPUDDER Inhaled Oxygen Concentration - - Weight 79.4 kg (175 lb) 04/29/2024 11:01 AM SPUDDER Height 165.1 cm (5' 5) 04/29/2024 11:01 AM SPUDDER Body Mass Index 29.12 04/29/2024 11:01 AM SPUDDER Plan of Treatment Health Maintenance Due Date Last Done Comments DTaP, Tdap and Td Vaccines ( 1 - Tdap) 1959 Annual Medicare Wellness Visit 2006 Zoster Vaccines (2 of 3) 07/11/2013 05/16/2013 RSV Immunization or 60+ Years (1 - 1-dose 75+ series) 2016 Pneumococcal Vaccine: 50+ Years (2 of 2 - PCV) 05/27/2022 05/27/2021 COVID-19 Vaccine (4 - 2024-2 6 season) 2025 05/14/2021, 08/30/2020, 08/08/2020 Meningococcal B Vaccine Aged Out No l onger eligible based on patient's age to complete this topic Meningococcal Vaccine Aged Out No sunday julienne eligible based on patient's age to complete this topic RSV Immunizations Under 20 Months Aged Out No longer eligible b ased on patient's age to complete this topic [place] [address] Care Teams Client Administrator Relationship Specialty Start Date End Date Gio Nguyễn MD [address] [address] PCP - General FAMILY PRACTICE 04/29/24
[2025-03-10 15:50] LABS: Partial Thromboplastin Time 22.1 Seconds (22.3-36.8)
[2025-03-10 15:55] LABS: Alanine Aminotransferase 20 U/L (6-50); Albumin Level 3.9 g/dL (3.5-5.1); Alkaline Phosphatase 90 U/L (38-126); Anion Gap 4 mmol/L (4-12); Aspartate Amino Transferase 26 U/L (17-59); Bilirubin,Total 0.4 mg/dL (0.2-1.3); Blood Urea Nitrogen 18 mg/dL (9-20); Calcium 8.6 mg/dL (8.4-10.2); Carbon Dioxide 27 mmol/L (22-30); Chloride 105 mmol/L (98-107); Estimated CRCL calculation 52 ml/min; Estimated Glomerular Filt Rate > 60; Glucose 95 mg/dL (65-110); Potassium 4.0 mmol/L (3.4-5.0); Sodium 136 mmol/L (137-145); Total Protein 6.4 g/dL (6.3-8.2)
[2025-03-10 16:06] LABS: Troponin I < 0.012 ng/mL (0.000-0.034)
[2025-03-10 16:40] VITALS: PULSE 78; RESP 14; O2SAT 96
[2025-03-10 17:46] LABS: Cannabinoid Screen Urine Negative (Negative)
[2025-03-10 17:57] VITALS: BP 156/82; PULSE 73; RESP 19; O2SAT 99
[2025-03-10 20:30] VITALS: BMI 32.4
--- NOTE | 2025-03-10 20:43 | P.HP_ITS ---
H&P: HPI History of Present Illness Date/Time: 03/10/25 23:55 Chief Complaint: Multiple falls Narrative: 84-year-old a male with a past medical history of trigeminal neuralgia, prior CVA with residual expressive aphasia, hypothyroidism, hypertension hyperlipidemia who presented to the ER from home via EMS after having multiple falls. The patient lives with his who has dementia. The patient's neighbor reported to the ER staff that the patient seemed a little out of it. The patient does answer questions slowly but it is unclear how much of this is new versus result of his chronic expressive aphasia. He reported to the ER staff that he had fallen at least 4 times today. He feels generally weak when he tries to get up. According to patient's primary care visit note patient has been having chronic weakness of bilateral lower extremities and has chronic ataxia with difficulty with balance. The symptoms have been slowly becoming progressively worse. The patient was evaluated in January due to worsening back pain and had decreased activity due to that as well. He reports that the back pain is in his low back and in his SI joints bilaterally. He reports cramping pain in bilateral calf that intermittent and also in his bilateral feet. It usually gets better after he has been up and walking. He has chronic neuropathy in decreased sensation to his hands and feet bilaterally but more so in his bilateral feet but this seems unchanged from baseline. He reports that his legs are intermittently shaky when he tries to get up. He has bilateral lower extremity edema. He reports that it he noticed that is been worse for the last 3 or 4 months. He also reports that his weakness has been worse for the last 3 or 4 months. He has been having normal bowel movements and denies any bowel incontinence. He reports that for the last several weeks he feels like he can not manager process improvement things well with his hands. He states that he has noticed that his memory has not been as good as it used to be but it is not acutely changed in the last couple of days. He has not had any change in his chronic trigeminal neuralgia symptoms. He states that he has been taking his medications as directed. He has not been having any fevers, chills, dysuria, nausea or vomiting. He has chronic urinary frequency with occasional urinary incontinence unchanged from baseline He has not had any recent medication changes. Workup in the ER did not demonstrate any evidence of infection and CT was negative for acute intercranial process. EKG demonstrated chronic left bundle-branch block with regular rate. Review of Systems 2 Review of Systems: 12 systems were reviewed with pertinent positives and negatives per HPI. Except as documented in the HPI, all other systems were reviewed and are negative. 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 Pruritic rash Spondylosis of lumbar joint Cerebellar infarct Old Punctate right cerebellar and left basal ganglia infarcts noted on MRI has far back as 2020 Expressive aphasia CVA (cerebral vascular accident) Anemia Hematuria H/O prostate cancer Essential (primary) hypertension Hypothyroidism TSH 0.898 on 01/06/2024 Mixed hyperlipidemia Primary osteoarthritis involving multiple joints Surgical History Surgical History Hx of hernia repair Hx of prostatectomy Family History Family History Father Family history of premature coronary heart disease Hypertension Tobacco abuse Mother Hypertension Family history of coronary artery disease Sibling Malignant neoplasm of prostate Family history of lung cancer COVID-19 Social History Social History (Updated 03/10/25 @ 21:07 by Marilee Mcgee DO) Social History: Patient lives with his who has dementia. Code status: Healthcare power of assistant county attorney: Sheila Wetzel (daughter) and Clay Moore (son) Smoking status: Former smoker (quit 40 years ago) Second hand tobacco smoke exposure: Yes Alcohol intake: never Substance use: never Substance use type: does not use Do You Feel Safe in your Home?: Yes Lack of Transportation: No Lack of Food: Never True Current Housing: I Have Housing Concerned About Future Housing: No Difficulty Paying Gas/Electric Bills: No Difficulty Paying for Meds: No Currently Unemployed: No Education: High School Diploma/GED Difficulty w/ Childcare or Family Care: No Living arrangements: with family Occupation/Education: retired Additional occupation/education comments: [employer] Gender identity (if verbalized by the patient): Male Spiritual care concerns: No Meds Home Medications and Allergies Home Medications ?Medication ?Instructions ?Recorded ?Confirmed ?Type aspirin 325 mg tablet 325 mg PO DAILY 05/22/24 History multivitamin with minerals-folic 1 tablet PO DAILY 03/0703/10/25 History acid 80 mcg chewable tablet (Centrum Adult 50 Plus) furosemide 20 mg tablet (Lasix) 20 mg PO QAM #90 tabs 09/21/24 03/10/25 Rx levothyroxine 100 mcg tablet 100 mcg PO DAILY #90 tabs 11/01/24 03/10/25 Rx mirabegron 50 mg tablet,extended 50 mg PO DAILY 03/10/25 History release 24 hr rosuvastatin 20 mg tablet (Crestor) 20 mg PO DAILY #90 tabs 01/16/25 03/10/25 Rx indomethacin 25 mg capsule 25 mg PO TID #90 caps 01/2303/10/25 Rx pregabalin 75 mg capsule 75 mg PO BID #60 caps 03/10/25 Rx carbamazepine 100 mg See Rx Instructions .Route . COMPLEX 03/10/25 03/10/25 History tablet,extended release,12 hr (Tegretol XR) tamsulosin 0.4 mg capsule See Rx Instructions .Route . COMPLEX 03/10/25 03/10/25 History Allergies Allergy/AdvReac Type Severity Reaction Status Date / Time bisacodyl AdvReac Intermediate Nausea Verified 03/10/25 22:53 codeine AdvReac Unknown Agitated Verified 03/10/25 22:53 Vital Signs Vital Signs - 24 hr 03/10/25 15:18 03/10/25 15:24 03/10/25 16:40 Temperature 97.8 F Pulse Rate 79 83 78 Respiratory Rate 13 14 Blood Pressure 160/96 H Pulse Oximetry 98 96 Oxygen Delivery Room Air 03/10/25 17:57 Temperature Pulse Rate 73 Respiratory Rate 19 Blood Pressure 156/82 H Pulse Oximetry 99 Oxygen Delivery Exam 2 Narrative: Weight 90.7 kg BMI 32.3 H&P: Results Labs Labs: Laboratory Tests 03/10/25 15:29 03/10/25 15:30 03/10/25 03/10/25 03/10/25 15:29 15:30 15:35 WBC 5.6 RBC 4.02 L Hgb 13.0 L Hct 39.4 L MCV 98.0 MCH 32.3 MCHC 33.0 RDW 13.5 Plt Count 209 MPV 10.0 Immature Gran % (Auto) 0.5 Neut % (Auto) 55.4 Lymph % (Auto) 27.5 Cassia % (Auto) 10.7 H Eos % (Auto) 4.8 H Baso % (Auto) 1.1 Lymph # (Auto) 1.55 Cassia # (Auto) 0.6 Eos # (Auto) 0.3 Baso # (Auto) 0.1 Abs Immat Gran (auto) 0.03 Absolute Neuts (auto) 3.1 Absolute Nucleated RBC 0.000 Nucleated RBC % 0.0 PT 13.0 INR 1.0 APTT 22.1 L Sodium 136 L Potassium 4.0 Chloride 105 Carbon Dioxide 27 Anion Gap 4 BUN 18 Creatinine 1.00 Estim Creat Clear Calc 52 Estimated GFR > 60 Glucose 95 POC Capillary Glucose 89 Calcium 8.6 Total Bilirubin 0.4 AST 26 ALT 20 Alkaline Phosphatase 90 Troponin I < 0.012 Total Protein 6.4 Albumin 3.9 Urine Opiates Screen Urine Methadone Screen Ur Barbiturates Screen Ur Phencyclidine Scrn Ur Amphetamine Screen U Benzodiazepines Scrn Urine Cocaine Screen U Cannabinoids Screen Ethyl Alcohol < 10 03/10/25 17:10 WBC RBC Hgb Hct MCV MCH MCHC RDW Plt Count MPV Immature Gran % (Auto) Neut % (Auto) Lymph % (Auto) Cassia % (Auto) Eos % (Auto) Baso % (Auto) Lymph # (Auto) Cassia # (Auto) Eos # (Auto) Baso # (Auto) Abs Immat Gran (auto) Absolute Neuts (auto) Absolute Nucleated RBC Nucleated RBC % PT INR APTT Sodium Potassium Chloride Carbon Dioxide Anion Gap BUN Creatinine Estim Creat Clear Calc Estimated GFR Glucose POC Capillary Glucose Calcium Total Bilirubin AST ALT Alkaline Phosphatase Troponin I Total Protein Albumin Urine Opiates Screen Negative Urine Methadone Screen Negative Ur Barbiturates Screen Negative Ur Phencyclidine Scrn Negative Ur Amphetamine Screen Negative U Benzodiazepines Scrn Negative Urine Cocaine Screen Negative U Cannabinoids Screen Negative Ethyl Alcohol Impressions Head CT 03/10/25 15:54 Impression: 1.No acute intracranial abnormality. Chest X-Ray 03/10/25 16:21 Impression: No acute cardiopulmonary abnormality. Head/Neck CTA 03/10/25 16:24 IMPRESSION: No critical stenosis, aneurysm or occlusion identified. EKG: Sinus rhythm rate of 80, chronic left bundle-branch block, QTC 464, left axis deviation Assessment and Plan Assessment and plan (1) Weakness: Code(s): R53.1 - Weakness Status: Acute (2) Multiple falls: Code(s): R29.6 - Repeated falls Status: Acute (3) Expressive aphasia: Code(s): R47.01 - Aphasia Status: Acute (4) Ataxia: Code(s): R27.0 - Ataxia, unspecified Status: Acute (5) Hypothyroidism: Qualifiers: Hypothyroidism type: acquired Qualified Code(s): E03.9 - Hypothyroidism, unspecified Code(s): E03.9 - Hypothyroidism, unspecified Status: Acute (6) Essential (primary) hypertension: Code(s): I10 - Essential (primary) hypertension Status: Acute Plan Patient presents with multiple falls in increased lower extremity weakness. On my evaluation patient does not seem to have any significant asymmetric appearance to his lower extremities strength and mildly slowed speech/slurred speech could be related to his chronic expressive aphasia. I am less suspicious of a acute CVA but given the patient's history of prior CVAs will still obtain MRI to rule out since I have never seen the patient before do not know his exact baseline. Patient has not had a TSH performed in our computer system since 2023 he does have a history of hypothyroidism will check TSH to rule out possible worsening of hypothyroidism that could be contributing to the patient's symptoms. The patient also does has had increased lower back pain over recent months and this is resulted in decreased overall activity which is probably resulted in increasing muscle weakness and gait instability. Will consult PT and OT for evaluation. Will check orthostatics to rule out component of orthostatic hypotension. Patient has been admitted as observation status. MEDICAL DECISION MAKING NARRATIVE -Spoke with the ED provider in detail regarding patient's evaluation, workup and management -Patient seen and examined at bedside -Collaborated with patient's nurse at the bedside in detail and addressed all concerns -Labs, electrolytes, radiology, investigations and test results personally reviewed and interpreted unless otherwise specified -ED/Consult/Nursing/Ancilliary notes on the chart reviewed and appreciated -Spoke with patient at bedside and diagnosis and plan of care was discussed. All questions answered. Quality VTE Prophylaxis VTE prophylaxis: mechanical ordered (SCDs) If No VTE Prophylaxis Answer both mechanical and pharmacologic: Reason no pharmacologic proph: medical contraindication Hospitalist [facility] [place] [place] Advance Care Plan I have confirmed that the patient's Advanced Care Plan is present, code status is documented, or surrogate decision maker is listed in patient medical record.: Yes Medication Reconciliation I have utilized all available resources to obtain, update and review the patients current medications (includes all prescriptions, OTC, herbals, cannabis, and nutritional supplements).: Yes
[2025-03-10 21:04] VITALS: BP 143/75; PULSE 81; RESP 16; TEMP 36.5; O2SAT 95
[2025-03-10 21:40] VITALS: PULSE 79
[2025-03-10 22:57] LABS: Thyroid Stimulating Hormone Reflex 18.000 uIU/mL (0.465-4.68)
[2025-03-10] MEDS: CARBAMAZEPINE XR 100 MG TAB.SR.12H 200 MG PO (23:00)
[2025-03-10] MEDS: TAMSULOSIN HCL 0.4 MG CAPSULE 0.8 MG PO (23:00)
[2025-03-10] MEDS: carBAMazepine CHEW 50 MG CHEW PO (23:03)
[2025-03-10] MEDS: PREGABALIN (*CRX) 75 MG CAPSULE PO (23:03)
[2025-03-11] VITALS (7 sets, daily range): BP systolic 131–160; BP diastolic 71–81; PULSE 68–85; RESP 18; TEMP 36.1; O2SAT 99
[2025-03-11 03:04] LABS: Free T4 Free Thyroxine Reflex 1.38 ng/dL (0.78-2.19)
[2025-03-11 04:30] LABS: Total Triiodothyronine (T3) 0.30 NG/ML (0.82-1.58)
[2025-03-11] MEDS: LEVOTHYROXINE SODIUM 125 MCG TABLET PO (05:38)
--- NOTE | 2025-03-11 08:34 | P.PNIM_ITS ---
Progress Note: A&P Assessment and Plan (1) Expressive aphasia: Code(s): R47.01 - Aphasia Status: Acute Assessment and Plan: patient presented to emergency department to 2 neighbor reporting behavior insert speech. patient with history aphasia from previous CVA. CT head and CTA with no acute findings. patient does follow with Dr. Morrow neurology outpatient for his trigeminal neuralgia of the right side. * neurology consulted for any further recommendations appreciated * MRI pending to rule out acute CVA (2) Ataxia: Code(s): R27.0 - Ataxia, unspecified Status: Acute Assessment and Plan: See Above #1 (3) Trigeminal neuralgia of right side of face: Code(s): G50.0 - Trigeminal neuralgia Status: Acute Assessment and Plan: Follows with Dr. 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 * neurology consulted for any further recommendations or medication changes (4) Weakness: Code(s): R53.1 - Weakness Status: Acute Assessment and Plan: this may be secondary to patient's worsening hypothyroidism or worsening lumbar spondylosis * PT/OT evaluation * levothyroxine was increased to 125 mcg (5) Multiple falls: Code(s): R29.6 - Repeated falls Status: Acute Assessment and Plan: * PT / OT evaluation for inpatient rehab versus outpatient (6) Hypothyroidism: Qualifiers: Hypothyroidism type: acquired Qualified Code(s): E03.9 - Hypothyroidism, unspecified Code(s): E03.9 - Hypothyroidism, unspecified Status: Acute Assessment and Plan: * TSH greater than 18 * increase patient's levothyroxine from 100 mcg to 125 mcg * will need follow-up in 3 months for TSH (7) H/O prostate cancer: Code(s): Z85.46 - Personal history of malignant neoplasm of prostate Status: Acute Assessment and Plan: * continue patient's Flomax and mirabegron * monitor for any urinary retention (8) Spondylosis of lumbar joint: Code(s): M47.816 - Spondylosis without myelopathy or radiculopathy, lumbar region Status: Acute Assessment and Plan: patient with history of osteoarthritis and spondylosis * recently started on indomethacin 25 mg daily * last lumbar x-ray 10/2024 * added Flexeril 10 mg p.r.n. for muscle spasms * recommend follow-up outpatient with ortho/spine or pain management (9) Cerebellar infarct: Code(s): I63.9 - Cerebral infarction, unspecified Status: Chronic Assessment and Plan: * continue patient's aspirin 325 and atorvastatin (10) Essential (primary) hypertension: Code(s): I10 - Essential (primary) hypertension Status: Acute Assessment and Plan: patient reports history of hypertension but denied appear to be on any current medication been hypertensive during hospitalization systolics 160s * started low-dose losartan at 25 mg * monitor BP make adjustments as needed Plan Code status: Full code per patient DVT prophylaxis: SCDs Stress ulcer prophylaxis: NA PT/OT notes: PT/OT evaluation Disposition: patient admitted to the medical unit for evaluation slurred speech and worsening ataxia MRI pending and Neurology consulted with PT/ OT evaluation for discharge planning needs. Time Spent With Patient Time with patient: 15 - 25 minutes Subjective Date/time seen: 03/11/25 08:34 Interval history: Patient is an 84-year-old male who was admitted to the medical unit for further evaluation and treatment slurred speech and ataxia with frequent falls at home plans for MRI consult Neurology out acute CVA. patient with hypothyroidism and elevated TSH at which time levothyroxine has been increased 125 mcg. PT / OT evaluation pending 03/11/2025: Patient with no complaints today says he feels as though he is back to is baseline. No new neurological deficits noted. Patient denied any CP, SOB, dizziness, N/V or visual changes. Review of Systems Review of Systems: All systems reviewed & are unremarkable except as noted in HPI and below Exam Const: General: comfortable and no acute distress HENMT: Mouth: Yes moist mucous membranes Eyes: General: appearance normal, both eyes and all related structures Pupils: Equal, round and reactive pupils present Neck: Neck: supple Resp: Effort & Inspection: normal respiratory effort Auscultation: clear to auscultation bilaterally Cardio: Rate: regular rate Rhythm: regular rhythm GI: GI Palp: Yes Soft to palpation Auscultation: normal bowel sounds Skin: General skin exam: normal color and no rashes or lesions noted Wounds: no wounds Neuro: Motor exam (neuro): 5/5 motor strength present throughout and Motor abnormalites present Sensory Exam: normal sensation Other: HX of Aphasia Extrem: General: normal to inspection Psych: Mental Status: mental status grossly normal Affect: normal affect Objective Data Vital Signs Vital Signs: Vital Signs - 24 hr 03/10/25 15:18 03/10/25 15:24 03/10/25 16:40 Temperature 97.8 F Pulse Rate 79 83 78 Respiratory Rate 13 14 Blood Pressure 160/96 H Pulse Oximetry 98 96 Oxygen Delivery Room Air 03/10/25 17:57 03/10/25 21:04 03/10/25 21:40 Temperature 97.7 F Pulse Rate 73 81 79 Respiratory Rate 19 16 Blood Pressure 156/82 H 143/75 H Pulse Oximetry 99 95 Oxygen Delivery 03/10/25 22:03 03/10/25 22:21 03/11/25 00:00 Temperature Pulse Rate 77 Respiratory Rate Blood Pressure Pulse Oximetry Oxygen Delivery Room Air Room Air 03/11/25 04:00 03/11/25 05:59 03/11/25 05:59 Temperature 97 F L Pulse Rate 78 68 68 Respiratory Rate 18 Blood Pressure 134/81 134/81 Pulse Oximetry 99 Oxygen Delivery 03/11/25 06:02 03/11/25 06:05 Temperature Pulse Rate 78 85 Respiratory Rate Blood Pressure 131/71 160/74 H Pulse Oximetry Oxygen Delivery Intake/Output Intake/Output: Intake & Output 03/08/25 03/09/25 03/10/25 03/11/25 23:59 23:59 23:59 23:59 Intake Total 200 Balance 200 Meds/Results Medications: Active Medications Generic Name Dose Route Start Last Admin Trade Name Freq PRN Reason Stop Dose Admin Acetaminophen 650 mg 03/10/25 18:44 Acetaminophen 325 Mg Tablet PO Q4H PRN Mild Pain (1-3) or Fever Aspirin 325 mg 03/11/25 09:00 Aspirin 325 Mg Tablet PO DAILY [facility] Calcium Carbonate 200 mg 03/10/25 23:18 Calcium Carbonate (Tums) 500 Mg (200 Mg Elemental) PO Q6H PRN Indigestion Carbamazepine 200 mg 03/10/25 22:40 03/10/25 23:00 Carbamazepine Xr 100 Mg Tab.Sr.12h PO 200 mg Q12HR EZEQUIEL Administration Carbamazepine 50 mg 03/10/25 22:45 03/10/25 23:03 Carbamazepine Chew 50 Mg Chew PO 50 mg Q12HR EZEQUIEL Administration Docusate Sodium 100 mg 03/10/25 23:18 Docusate Sodium 100 Mg Capsule PO Q12H PRN Constipation Indomethacin 25 mg 03/11/25 09:00 Indomethacin 25 Mg Capsule PO TID [facility] Levothyroxine Sodium 125 mcg 03/11/25 06:30 03/11/25 05:38 Levothyroxine Sodium 125 Mcg Tablet PO 125 mcg DAILY@0630 [facility] Administration Mirabegron 50 mg 03/11/25 09:00 Mirabegron 50 Mg Er Tablet PO DAILY [facility] Multivitamins/Minerals 1 tablet 03/11/25 09:00 Multivits W-Fe,Min Chewable Tablet PO DAILY [facility] Pregabalin 75 mg 03/10/25 21:20 03/10/25 23:03 Pregabalin (*Crx) 75 Mg Capsule PO 75 mg BID [facility] Administration Tamsulosin HCl 0.8 mg 03/10/25 21:05 03/10/25 23:00 Tamsulosin Hcl 0.4 Mg Capsule PO 0.8 mg HS EZEQUIEL Administration Radiology Results: ITS Impressions Head CT 03/10/25 15:54 Impression: 1.No acute intracranial abnormality. Chest X-Ray 03/10/25 16:21 Impression: No acute cardiopulmonary abnormality. Head/Neck CTA 03/10/25 16:24 IMPRESSION: No critical stenosis, aneurysm or occlusion identified. Labs Labs: Laboratory Results - last 24 hr 03/10/25 03/10/25 03/10/25 15:29 15:30 15:35 WBC 5.6 RBC 4.02 L Hgb 13.0 L Hct 39.4 L MCV 98.0 MCH 32.3 MCHC 33.0 RDW 13.5 Plt Count 209 MPV 10.0 Immature Gran % (Auto) 0.5 Neut % (Auto) 55.4 Lymph % (Auto) 27.5 [place] % (Auto) 10.7 H Eos % (Auto) 4.8 H Baso % (Auto) 1.1 Lymph # (Auto) 1.55 [place] # (Auto) 0.6 Eos # (Auto) 0.3 Baso # (Auto) 0.1 Abs Immat Gran (auto) 0.03 Absolute Neuts (auto) 3.1 Absolute Nucleated RBC 0.000 Nucleated RBC % 0.0 PT 13.0 INR 1.0 APTT 22.1 L Sodium 136 L Potassium 4.0 Chloride 105 Carbon Dioxide 27 Anion Gap 4 BUN 18 Creatinine 1.00 Estim Creat Clear Calc 52 Estimated GFR > 60 Glucose 95 POC Capillary Glucose 89 Calcium 8.6 Total Bilirubin 0.4 AST 26 ALT 20 Alkaline Phosphatase 90 Troponin I < 0.012 Total Protein 6.4 Albumin 3.9 TSH (Reflex) Free T4 Total T3 Urine Opiates Screen Urine Methadone Screen Ur Barbiturates Screen Ur Phencyclidine Scrn Ur Amphetamine Screen U Benzodiazepines Scrn Urine Cocaine Screen U Cannabinoids Screen Ethyl Alcohol < 10 03/10/25 03/10/25 17:10 21:11 WBC RBC Hgb Hct MCV MCH MCHC RDW Plt Count MPV Immature Gran % (Auto) Neut % (Auto) Lymph % (Auto) [place] % (Auto) Eos % (Auto) Baso % (Auto) Lymph # (Auto) [place] # (Auto) Eos # (Auto) Baso # (Auto) Abs Immat Gran (auto) Absolute Neuts (auto) Absolute Nucleated RBC Nucleated RBC % PT INR APTT Sodium Potassium Chloride Carbon Dioxide Anion Gap BUN Creatinine Estim Creat Clear Calc Estimated GFR Glucose POC Capillary Glucose Calcium Total Bilirubin AST ALT Alkaline Phosphatase Troponin I Total Protein Albumin TSH (Reflex) 18.000 H Free T4 1.38 Total T3 0.30 L Urine Opiates Screen Negative Urine Methadone Screen Negative Ur Barbiturates Screen Negative Ur Phencyclidine Scrn Negative Ur Amphetamine Screen Negative U Benzodiazepines Scrn Negative Urine Cocaine Screen Negative U Cannabinoids Screen Negative Ethyl Alcohol Quality VTE Prophylaxis VTE prophylaxis: mechanical ordered -Patient's previous records reviewed on admission -ER notes reviewed in detail on admission -discussed all findings and current treatment plan with patient/Family/POA -Consultations reviewed for recommendations -Patient's disposition for safe discharge discussed with rn case manager -radiology imaging, EKG and test results I have personally reviewed and int erpreted unless otherwise specified Dictation performed by [employer] direct speech recognition software, therefore hydraulic operator variants and typographical errors may occur. Hospitalist MIPS Advance Care Plan I have confirmed that the patient's Advanced Care Plan is present, code status is documented, or surrogate decision maker is listed in patient medical record.: Yes Medication Reconciliation I have utilized all available resources to obtain, update and review the patients current medications (includes all prescriptions, OTC, herbals, cannabis, and nutritional supplements).: Yes The patient is not eligible for med reconciliation; the patient is in a emergent medical situation where delaying treatment would jeopardize the patients health.: No
[2025-03-11] MEDS: INDOMETHACIN 25 MG CAPSULE PO ×2 (09:49→13:05)
[2025-03-11] MEDS: PREGABALIN (*CRX) 75 MG CAPSULE PO (09:49)
[2025-03-11] MEDS: ASPIRIN 325 MG TABLET PO (09:49)
[2025-03-11] MEDS: CARBAMAZEPINE XR 100 MG TAB.SR.12H 200 MG PO (09:49)
[2025-03-11] MEDS: MULTIVITS W-FE,MIN CHEWABLE TABLET 1 TABLET PO (09:49)
[2025-03-11] MEDS: MIRABEGRON 50 MG ER TABLET PO (09:50)
[2025-03-11] MEDS: carBAMazepine CHEW 50 MG CHEW PO (09:51)
[2025-03-11] MEDS: LOSARTAN POTASSIUM 25 MG TABLET PO (09:56)
--- NOTE | 2025-03-11 13:01 | PCPTNOTE ---
Awaiting MRI to r/o acute stroke process and neurology consult.
--- NOTE | 2025-03-11 14:46 | P.DS_ITS ---
DS: Admitting Diagnosis Discharge Date 03/11/2025 Admitting Diagnosis Unteady gait/Falls/Slurred speech/HTN/hypothyroidism DS: Discharge Diagnosis Discharge Diagnosis (1) Expressive aphasia: Code(s): R47.01 - Aphasia Status: Acute Assessment and Plan: patient presented to emergency department to 2 neighbor reporting behavior insert speech. patient with history aphasia from previous CVA. CT head and CTA with no acute findings. patient does follow with Dr. Morrow neurology ou tpatient for his trigeminal neuralgia of the right side. * neurology consulted for any further recommendations appreciated * MRI pending to rule out acute CVA (2) Ataxia: Code(s): R27.0 - Ataxia, unspecified Status: Acute Assessment and Plan: See Above #1 (3) Trigeminal neuralgia of right side of face: Code(s): G50.0 - Trigeminal neuralgia Status: Acute Assessment and Plan: Follows with Dr. 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 * neurology consulted for any further recommendations or medication changes (4) Weakness: Code(s): R53.1 - Weakness Status: Acute Assessment and Plan: this may be secondary to patient's worsening hypothyroidism or worsening john mbar spondylosis * PT/OT evaluation * levothyroxine was increased to 125 mcg (5) Multiple falls: Code(s): R29.6 - Repeated falls Status: Acute Assessment and Plan: * PT / OT evaluation for inpatient rehab versus outpatient (6) Hypothyroidism: Qualifiers: Hypothyroidism type: acquired Qualified Code(s): E03.9 - H ypothyroidism, unspecified Code(s): E03.9 - Hypothyroidism, unspecified Status: Acute Assessment and Plan: * TSH greater than 18 * increase patient's levothyroxine from 100 mcg to 125 mcg * will need follow-up in 3 months for TSH (7) H/O prostate cancer: Code(s): Z85.46 - Personal history of malignant neoplasm of prostate Status: Acute Assessment and Plan: * continue patient's Flomax and mirabegron * monitor for any urinary retention (8) Spondylosis of lumbar joint: Code(s): M47.816 - Spondylosis without myelopathy or radiculopathy, lumbar region Status: Acute Assessment and Plan: patient with history of osteoarthritis and spondylosis * recently started on indomethacin 25 mg daily * last lumbar x-ray 10/2024 * added Flexeril 10 mg p.r.n. for muscle spasms * recommend follow-up outpatient with ortho/spine or pain management (9) Cerebellar infarct: Code(s): I63.9 - Cerebral infarction, unspecified Status: Chronic Assessment and Plan: * continue patient's aspirin 325 and atorvastatin (10) Essential (primary) hypertension: Code(s): I10 - Essential (primary) hypertension Status: Acute Assessment and Plan: patient reports history of hypertension but denied appear to be on any current medication been hypertensive during hospitalization systolics 160s * started low-dose losartan at 25 mg * monitor BP make adjustments as needed DS: Summary Hospital Course Reason for hospitalization: Unteady gait/Falls/Slurred speech/HTN/hypothyroidism Hospital Course: Admission: Patient was a 84-year-old a male with a past medical history of trigeminal neuralgia, prior CVA with residual expressive aphasia, hypothyroidism, hypertension hyperlipidemia who presented to the ER from home via EMS after having multiple falls. The patient lives with his who has dementia. The patient's neighbor reported to the ER staff that the patient seemed a little out of it. The patient does answer questions slowly but it is unclear how much of this is new versus result of his chronic expressive aphasia. He reported to the ER staff that he had fallen at least 4 times today. He feels generally weak when he tries to get up. According to patient's primary care visit note patient has been having chronic weakness of bilateral lower extremities and has chronic ataxia with difficulty with balance. The symptoms have been slowly becoming progressively worse. The patient was evaluated in January due to worsening back pain and had decreased activity due to that as well. He reports that the back pain is in his low back and in his SI joints bilaterally. He reports cramping pain in bilateral calf that intermittent and also in his bilateral feet. It usually gets better after he has been up and walking. He has chronic neuropathy in decreased sensation to his hands and feet bilaterally but more so in his bilateral feet but this seems unchanged from baseline. He reports that his legs are intermittently shaky when he tries to get up. He has bilateral lower extremity edema. He reports that it he noticed that is been worse for the last 3 or 4 months. He also reports that his weakness has been worse for the last 3 or 4 months. He has been having normal bowel movements and denies any bowel incontinence. 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 He states that he has noticed that his memory has not been as good as it used to be but it is not acutely changed in the last couple of days. He has not had any change in his chronic trigeminal neuralgia symptoms. He states that he has been taking his medications as directed. In the ED: Workup in the ER did not demonstrate any evidence of infection and CT was negative for acute intercranial process. EKG demonstrated chronic left bundle-branch block with regular rate. Hospital Course: Patient was admitted and evaluated for multiple falls in increased lower extremity weakness, slurred speech per neighbor. Patient with history of CVA chronic aphasia. Patient with MRI to rule out acute stroke which was negative for any acute abnormalities. Patient presented to emergency department to 2 neighbor reporting behavior insert speech. patient with history aphasia from previous CVA. CT head and CTA with no acute findings. patient does follow with Dr. Morrow neurology outpatient for his trigeminal neuralgia of the right side. Trigeminal neuralgia of right side of face Neurology also recommended consult to Neurosurgery outpatient for possible surgical intervention however per reports he has been reluctant surgical procedures. Patient with history of hypothyroidism TSH was elevated 18 currently 100 mcg which time we increased to 125 mcg could be a contributing factor to with weakness. Patient also being seen outpatient for spondylosis of the lumbar recently started indomethacin 25 mg daily I went ahead and added Flexeril 10 mg p.r.n. for muscle spasm encourage patient after discharge follow-up with Ortho Spine doctor for further pain management. Initially had a PT/OT evaluation however patient requests nuchal with as son states he is at his baseline nursing reported patient has been ambulatory with just standby assist. Patient's labs stable he did have some hypertension admission so I did start patient on 25 mg of losartan daily follow- up with primary care physician for follow-up BP monitoring. Patient discharged home Status at Discharge Functional status at discharge: independent ambulation Overall status at discharge: patient is back to baseline Time Spent with Patient Time attestation: Total time spent providing and/or coordinating discharge services: Time spent: Greater than 30 minutes Exam Narrative: Weight 90.7 kg BMI 32.3 Const: General: comfortable and no acute distress HENMT: Mouth: Yes moist mucous membranes Eyes: General: appearance normal, both eyes and all related structures Pupils: Equal, round and reactive pupils present Neck: Neck: supple Resp: Effort & Inspection: normal respiratory effort Auscultation: clear to auscultation bilaterally Cardio: Rate: regular rate Rhythm: regular rhythm GI: Auscultation: normal bowel sounds Skin: General skin exam: normal color and no rashes or lesions noted Wounds : no wounds Neuro: Cranial nerves: Yes Equal, round and reactive pupils present Motor exam (neuro): 5/5 motor strength present throughout and Motor abnormalites present Sensory Exam: normal sensation Other: HX of Aphasia Extrem: General: normal to inspection Psych: Mental Status: mental status grossly normal Affect: normal affect DS: Data Data Completed and Pending Labs on day of discharge: Labs from last 24 hours 0903/10/25 03/10/25 21:11 17:10 15:35 WBC RBC Hgb Hct MCV MCH MCHC RDW Plt Count MPV Immature Gran % (Auto) Neut % (Auto) Lymph % (Auto) Warren % (Auto) Eos % (Auto) Baso % (Auto) Lymph # (Auto) Warren # (Auto) Eos # (Auto) Baso # (Auto) Abs Immat Gran (auto) Absolute Neuts (auto) Absolute Nucleated RBC Nucleated RBC % PT INR APTT Sodium Potassium Chloride Carbon Dioxide Anion Gap BUN Creatinine Estim Creat Clear Calc Estimated GFR Glucose POC Capillary Glucose 89 Calcium Total Bilirubin AST ALT Alkaline Phosphatase Troponin I Total Protein Albumin TSH (Reflex) 18.000 H Free T4 1.38 Total T3 0.30 L Urine Opiates Screen Negative Urine Methadone Screen Negative Ur Barbiturates Screen Negative Ur Phencyclidine Scrn Negative Ur Amphetamine Screen Negative U Benzodiazepines Scrn Negative Urine Cocaine Screen Negative U Cannabinoids Screen Negative Ethyl Alcohol 03/10/25 03/10/25 15:30 15:29 WBC 5.6 RBC 4.02 L Hgb 13.0 L Hct 39.4 L MCV 98.0 MCH 32.3 MCHC 33.0 RDW 13.5 Plt Count 209 MPV 10.0 Immature Gran % (Auto) 0.5 Neut % (Auto) 55.4 Lymph % (Auto) 27.5 Warren % (Auto) 10.7 H Eos % (Auto) 4.8 H Baso % (Auto) 1.1 Lymph # (Auto) 1.55 Warren # (Auto) 0.6 Eos # (Auto) 0.3 Baso # (Auto) 0.1 Abs Immat Gran (auto) 0.03 Absolute Neuts (auto) 3.1 Absolute Nucleated RBC 0.000 Nucleated RBC % 0.0 PT 13.0 INR 1.0 APTT 22.1 L Sodium 136 L Potassium 4.0 Chloride 105 Carbon Dioxide 27 Anion Gap 4 BUN 18 Creatinine 1.00 Estim Creat Clear Calc 52 Estimated GFR > 60 Glucose 95 POC Capillary Glucose Calcium 8.6 Total Bilirubin 0.4 AST 26 ALT 20 Alkaline Phosphatase 90 Troponin I < 0.012 Total Protein 6.4 Albumin 3.9 TSH (Reflex) Free T4 Total T3 Urine Opiates Screen Urine Methadone Screen Ur Barbiturates Screen Ur Phencyclidine Scrn Ur Amphetamine Screen U Benzodiazepines Scrn Urine Cocaine Screen U Cannabinoids Screen Ethyl Alcohol < 10 Imaging Radiologist's impression: Radiology Results: ITS Impressions Head CT 03/10/25 15:54 Impression: 1.No acute intracranial abnormality. Chest X-Ray 03/10/25 16:21 Impression: No acute cardiopulmonary abnormality. Head/Neck CTA 03/10/25 16:24 IMPRESSION: No critical stenosis, aneurysm or occlusion identified. EXAMINATION: MR brain/brain stem wo con COMPARISON: None HISTORY: Slurred speech TECHNIQUE: Sagittal T1, axial T1, T2, FLAIR, diffusion, coronal T1 sequences of the brain were obtained without contrast. FINDINGS: Cerebellar tonsils are normal in location. No abnormal signal in the clivus of the cervical spine. Pituitary does not appear enlarged No acute infarct or hemorrhage Moderate probable chronic periventricular ischemic changes Remote right cerebellar lacunar infarcts No hydrocephalus or midline shift. No extra-axial fluid collections. Appropriate flow voids are maintained. Nonspecific right mastoid effusion. Sinuses and orbits unremarkable. IMPRESSION: No acute infarct or hemorrhage Discharge Plan Discharge Attending physician on discharge: Nils Hull Consulting providers: Jessica Morrow; Gosia Robles Discharging Clinician: Gosia Robles Anticipated Discharge Date/Time: 03/11/25 14:38 Patient Disposition: Home Activity: as tolerated Diet: heart healthy Discharge Instructions: 1). Unsteady Gait * MRI was negative for CVA * Follow-up neurology outpatient as scheduled * recommend PT/OT outpatient for gait and strength training 2). Hypothyroidism * Your TSH levels were elevated I have increased your your levothyroxine to 125 mcg * To will need a follow-up TSH level and 3 months 3). Spondylosis * Recommend NSAIDs can continue your indomethacin * A did add Flexeril p.r.n. for muscle spasm * I would follow-up with Ortho/Spine her painter helper outpatient How can you care for yourself at home? ? Keep track of any new symptoms or changes in your symptoms. ? Rest until you feel better. ? Be safe with medicines. Take your medicines exactly as prescribed. Call your doctor if you think you are having a problem with your medicine. ? Do not drive after taking a prescription pain medicine. ? Ensure to follow-up with primary care physician as indicated and provide updated medication list provided to you at discharge. When should you call for help? Call 911 anytime you think you may need emergency care. For example, call if: ? You passed out (lost consciousness). Call your doctor now or seek immediate medical care if: ? You have new symptoms like fever, difficulty breathing, Chest pain, vomiting, or rash. ? You have new or different pain. ? You are confused and are having trouble thinking clearly. ? Your symptoms are getting worse. Watch closely for changes in your health, and be sure to contact your doctor if: ? You do not get better as expected. Patient Instructions: Antibiotic Form, Pain Management (GEN), Hypothyroidism (DC), Fall Prevention for Older Adults (DC), Weakness (DC) Patient Language: [place] Citizen Stand Alone Forms: General Discharge Information Follow-up/Referrals: Jessica Morrow MD [Physician, Neurology] - Keep Reg. Scheduled Appt. Gio Nguyễn MD [Primary Care Provider, Family Practice] - 2 Weeks Discharge Medications: New cyclobenzaprine 10 mg Tablet 10 mg PO Q8H PRN (Reason: Muscle Spasm) Qty: 90 0RF levothyroxine [Synthroid] 125 mcg Tablet 125 mcg PO DAILY@0630 Qty: 30 0RF losartan 25 mg Tablet 25 mg PO DAILY Qty: 30 0RF Continued mirabegron 50 mg tablet extended release 24 hr 50 mg PO DAILY furosemide [Lasix] 20 mg tablet 20 mg PO QAM Qty: 90 1RF Centrum Adult 50 Plus 80 mcg tablet,chewable 1 tablet PO DAILY aspirin 325 mg tablet 325 mg PO DAILY carbamazepine [Tegretol XR] 100 mg tablet extended release 12 hr See Rx Instructions .ROUTE .COMPLEX Rx Instructions: 200 MG + 50 MG; ORALY Q 12 HR tamsulosin 0.4 mg capsule See Rx Instructions .ROUTE .COMPLEX Rx Instructions: TAKE 2 CAPSULE BY MOUTH HS rosuvastatin [Crestor] 20 mg tablet 20 mg PO DAILY Qty: 90 3RF pregabalin 75 mg capsule 75 mg PO BID Qty: 60 5RF indomethacin 25 mg capsule 25 mg PO TID Qty: 90 1RF Rx Instructions: administer with food or milk Discontinued levothyroxine 100 mcg tablet 100 mcg PO DAILY Qty: 90 3RF Date of admission: 03/10/25 18:44 Primary Care Provider: Gio Nguyễn Admitting Provider: Nils Hull Attending physician on admission: Nils Hull Condition: Stable Quality VTE Prophylaxis VTE prophylaxis: mechanical ordered -Patient's previous records reviewed on admission -ER notes reviewed in detail on admission -discussed all findings and current treatment plan with patient/Family/POA -Consultations reviewed for recommendations -Patient's disposition for safe discharge discussed with child welfare caseworker -radiology imaging, EKG and test results I have personally reviewed and interpreted unless otherwise specified Dictation performed by [employer] direct speech recognition software, therefore chef manager variants and typographical errors may occur. Hospitalist MIPS Heart Failure (Exclusion) Patient has history of Heart Transplant or Left Ventricular Assistive Device?: No IF YES, STOP HERE Heart Failure (Qualifier) Patient has current or prior documentation of LVEF less than or equal to 40%, or mod/servere depressed LVSF?: No IF NO, STOP HERE
--- NOTE | 2025-03-11 15:15 | WPDNEURCNPN ---
Assessment and Plan Assessment and plan (1) Multiple falls: Code(s): R29.6 - Repeated falls Status: Acute (2) Trigeminal neuralgia of right side of face: Code(s): G50.0 - Trigeminal neuralgia Status: Acute (3) Cerebellar infarct: Code(s): I63.9 - Cerebral infarction, unspecified Status: Chronic (4) Essential (primary) hypertension: Code(s): I10 - Essential (primary) hypertension Status: Acute (5) Positive KOURTNEY (antinuclear antibody): Code(s): R76.8 - Other specified abnormal immunological findings in serum Status: Acute Plan The patient in general able to walk by himself and does not have much problem. His has Alzheimer's disease. Patient is on medication that can also cause ataxia but he is not on a high dose and he has been on the same medications for quite some time. He still continues to complain of pain in the face and apparently she did it has never responded to the medication. I discussed with him that today if increase the dose of Lyrica it may increase the chance of his falls. I have advised to return to my office for follow-up regarding the facial pain. I reviewed the results of the testing such as CT scan of brain and CT angiogram head and neck and MRI of the brain myself and agree with the findings. There is some periventricular hypodensity around the ventricle suggestive chronic ischemic changes. A very small infarct in the right cerebellar area. No other lesions were seen. No new findings were noted. The etiology for fall may well be effect of medications or lower back pain besides many unknown possibilities given history of cerebrovascular disease. This may include possibility of vertebrobasilar insufficiency however CT angiogram of the head and neck did not show any significant abnormal findings. Hence he may continue the same medications. I shall be glad to see him for follow-up in my office in 6 weeks time. Consult date: 03/11/25 HPI: Tuan Moore is a 84 year old male With history of trigeminal neuralgia affecting mostly the right side of the face in the maxillary division has been seen at my office presented to the hospital with having 4 falls within a matter of few minutes. He was in the and a he states that he got up and he fell when he got up and fell 4 times he does not know what happened. Did not feel lightheaded or have any vertigo or any other symptoms. He thought his legs were just about giving away. He has been on Tegretol or carbamazepine extended release 250 mg twice a day and a pregabalin 75 mg twice a day. He has been to [facility] for an opinion from a neurosurgeon who offered that if he wishes he can do the surgery or he may leave it off and he decided to leave it off. Patient also has chronic lower back pain. His KOURTNEY was mildly positive but the titers only 1 in 40. Today he is feeling well and is able to go to the bathroom and walk by himself and has no symptoms at all. He did undergo some testing yesterday and today which included CT scan of the brain and CT angiogram of the head and neck and MRI of the brain. These show periventricular white matter changes and old infarct in the right cerebellar area. I do not find much in the way of aphasia there is a history of previous stroke per patient hard of hearing. He denies any propria or weakness in upper lower limbs. Pain in the lower back and some problem with the balance has been chronic problem some extent there is no history of diabetes mellitus. 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 Pruritic rash Spondylosis of lumbar joint Cerebellar infarct Old Punctate right cerebellar and left basal ganglia infarcts noted on MRI has far back as 2020 Expressive aphasia CVA (cerebral vascular accident) Anemia Hematuria H/O prostate cancer Essential (primary) hypertension Hypothyroidism TSH 0.898 on 01/06/2024 Mixed hyperlipidemia Primary osteoarthritis involving multiple joints Surgical History Surgical History Hx of hernia repair Hx of prostatectomy Family History Family History Father Family history of premature coronary heart disease Hypertension Tobacco abuse Mother Hypertension Family history of coronary artery disease Sibling Malignant neoplasm of prostate Family history of lung cancer COVID-19 Social History Social History (Updated 03/10/25 @ 21:07 by Mrailee Mcgee, ) Social History: Patient lives with his who has dementia. Code status: Healthcare power of collections attorney: Shiela Wetzel (daughter) and Clay Moore (son) Smoking status: Former smoker (quit 40 years ago) Second hand tobacco smoke exposure: Yes Alcohol intake: never Substance use: never Substance use type: does not use Do You Feel Safe in your Home?: Yes Lack of Transportation: No Lack of Food: Never True Current Housing: I Have Housing Concerned About Future Housing: No Difficulty Paying Gas/Electric Bills: No Difficulty Paying for Meds: No Currently Unemployed: No Education: High School Diploma/GED Difficulty w/ Childcare or Family Care: No Living arrangements: with family Occupation/Education: retired Additional occupation/education comments: [employer] Gender identity (if verbalized by the patient): Male Spiritual care concerns: No Meds Home Medications and Allergies Home Medications ?Medication ?Instructions ?Recorded ?Confirmed ?Type aspirin 325 mg tablet 325 mg PO DAILY 05/22/24 03/10/25 History multivitamin with minerals-folic 1 tablet PO DAILY 05/22/24 03/10/25 History acid 80 mcg chewable tablet (Centrum Adult 50 Plus) furosemide 20 mg tablet (Lasix) 20 mg PO QAM #90 tabs 09/21/24 03/10/25 Rx mirabegron 50 mg tablet,extended 50 mg PO DAILY 12/27/24 03/10/25 History release 24 hr rosuvastatin 20 mg tablet (Crestor) 20 mg PO DAILY #90 tabs 01/16/25 03/10/25 Rx indomethacin 25 mg capsule 25 mg PO TID #90 caps 01/23/25 03/10/25 Rx pregabalin 75 mg capsule 75 mg PO BID #60 caps 01/23/25 03/10/25 Rx carbamazepine 100 mg See Rx Instructions .Route .COMPLEX 03/10/25 03/10/25 History tablet,extended release,12 hr (Tegretol XR) tamsulosin 0.4 mg capsule See Rx Instructions .Route .COMPLEX 03/10/25 03/10/25 History cyclobenzaprine 10 mg tablet 10 mg PO Q8H PRN Muscle Spasm #90 03/11/25 Rx tabs levothyroxine 125 mcg tablet 125 mcg PO DAILY@0630 #30 tabs 03/11/25 Rx (Synthroid) losartan 25 mg tablet 25 mg PO DAILY #30 tabs 03/11/25 Rx Allergies Allergy/AdvReac Type Severity Reaction Status Date / Time bisacodyl AdvReac Intermediate Nausea Verified 03/10/25 22:53 codeine AdvReac Unknown Agitated Verified 03/10/25 22:53 Vital Signs Vital Signs - 24 hr 03/10/25 15:18 03/10/25 15:24 03/10/25 16:40 Temperature 97.8 F Pulse Rate 79 83 78 Respiratory Rate 13 14 Blood Pressure 160/96 H Pulse Oximetry 98 96 Oxygen Delivery Room Air 03/10/25 17:57 03/10/25 21:04 03/10/25 21:40 Temperature 97.7 F Pulse Rate 73 81 79 Respiratory Rate 19 16 Blood Pressure 156/82 H 143/75 H Pulse Oximetry 99 95 Oxygen Delivery 03/10/25 22:03 03/10/25 22:21 03/11/25 00:00 Temperature Pulse Rate 77 Respiratory Rate Blood Pressure Pulse Oximetry Oxygen Delivery Room Air Room Air 03/11/25 04:00 03/11/25 05:59 03/11/25 05:59 Temperature 97 F L Pulse Rate 78 68 68 Respiratory Rate 18 Blood Pressure 134/81 134/81 Pulse Oximetry 99 Oxygen Delivery 03/11/25 06:02 03/11/25 06:05 03/11/25 08:00 Temperature Pulse Rate 78 85 80 Respiratory Rate Blood Pressure 131/71 160/74 H Pulse Oximetry Oxygen Delivery 03/11/25 08:00 03/11/25 12:00 Temperature Pulse Rate 69 Respiratory Rate Blood Pressure Pulse Oximetry Oxygen Delivery Room Air Exam Const: General: cooperative, healthy appearing and comfortable HENMT: Head: atraumatic Mouth: Yes oropharynx normal Eyes: Alignment and Position: alignment normal and position normal EOM: EOMs intact bilaterally Neck: Neck: normal visual inspection and supple Resp: Effort & Inspection: normal respiratory effort Skin: General skin exam: normal color Neuro: Cranial nerves: Yes CN's II-XII intact bilaterally, Yes facial symmetry and Yes Midline tongue present Cognition (Neuro): normal cognition Speech: normal speech Gait exam (Neuro): Normal gait present Motor exam (neuro): 5/5 motor strength present throughout and Normal motor muscle tone present throughout Sensory Exam: normal sensation Coordination: [id number] test normal and Normal rapid alternating movements of the distal upper extremity present (Neuro) Other: Deep tendon reflexes are 1 over 4 at the knee and 0/4 at the ankles and 1 to 2/4 at biceps triceps and supinator. No significant asymmetry. No distal sensory loss noted in the lower limbs. He was able to get up independently and go to the bathroom and come back and get back in the bed. No nystagmus was seen. Extrem: General: normal to inspection Psych: Appearance: well kempt Mental Status: mental status grossly normal Speech and movement: Normal speech and movement present Affect: normal affect Thought process: Normal thought process present Thought content: Yes Normal thought content present Insight: Good insight present (Psych) Judgement: Good judgement present (Psych) Results Labs 03/10/25 15:29 03/10/25 15:30 Labs: Short CBC 03/10/25 Range/Units 15:29 WBC 5.6 (4.5-10.0) K/mm3 Hgb 13.0 L (14.0-18.0) g/dL Hct 39.4 L (42.0-52.0) % Plt Count 209 (150-375) k/mm3 BMP 03/10/25 15:30 Sodium 136 L Potassium 4.0 Chloride 105 Carbon Dioxide 27 BUN 18 Creatinine 1.00 Glucose 95 Calcium 8.6 Cardiac Enzymes 03/10/25 Range/Units 15:30 Troponin I < 0.012 (0.000-0.034) ng/mL Liver Function 03/10/25 Range/Units 15:30 Total Bilirubin 0.4 (0.2-1.3) mg/dL AST 26 (17-59) U/L ALT 20 (6-50) U/L Alkaline Phosphatase 90 (38-126) U/L Albumin 3.9 (3.5-5.1) g/dL
== END 2025-03-11 16:00 | disposition home or self-care (01) ==
LOC: ANHED 18:54 → ANH3MEDSUR 19:34 → ANH2MED 19:51
PROVIDERS: Internal Medicine; Admitting Provider Internal Medicine; Emergency Provider Emergency Medicine; PCP Family Medicine; Visit Provider Internal Medicine
DX: R27.0 Ataxia, unspecified (principal); G50.0 Trigeminal neuralgia; R53.1 Weakness; R29.6 Repeated falls; I69.320 Aphasia following cerebral infarction; G89.29 Other chronic pain; R76.8 Other specified abnormal immunological findings in serum; I10 Essential (primary) hypertension; M47.816 Spondylosis without myelopathy or radiculopathy, lumbar region; Z85.46 Personal history of malignant neoplasm of prostate; E03.9 Hypothyroidism, unspecified; E78.2 Mixed hyperlipidemia; Z90.79 Acquired absence of other genital organ(s); Z87.891 Personal history of nicotine dependence
CPT/HCPCS: 36415; 70450; 70496; 70498; 70551; 71045; 80053; 80307; 82077; 82948; 84439; 84443; 84480; 84484; 85025; 85610; 85730; 93005; 99285; A9270; G0378; Q9967

== ENCOUNTER 2025-04-11 16:26 | Outpatient (CLI) | payer MEDICARE, SELFPAY ==
--- OUTSIDE RECORDS SUMMARY | 2006-07-08 04:10 | XMS_ITS | Continuity of Care Document ---
Author Organization [facility] Address [address] [place] [address] Phone Care Team Providers Care Department Administrator Name Role Phone Ana Diaz Unavailable Unavailable Procedures Procedure Date Office/outpatient Visit, [facility] Advance Directives Directive Yes / No Effective Date File Name No Information Encounters Encounter Description Practice Location Reason(s) For Visit Diagnoses Date Provider Providers Copied on Encounter [place] [facility] [place] [address], [place], [place], [id number], [place] tel:[phone] SEC [facility] No Information 5-200 [address] Emily Perez. [address] , [address], [place], [address], [place]. tel:[phone] Family History Family Member Type Diagnosis Age At Onset No Information Payers Payer name Insurance type Covered republican ID Authoriza tion(s) No Information Social History Type Description Quantity Date Captured Comments Sex Male Smoking Status No Information Chief Complaint And Reason For Visit No Information Reason For Referral Reason For Referral No Information History Of Present Illness Encounter Date Complaint History Of Prese nt Illness No Information Functional Status Date Functional Assessmen t No Information Instructions Date Instruction Additional Infor mation No Information Assessments Type Assessment Date No Information Patient Care Teams Name Effective Dates (start - stop) Status Members No Information
[2025-04-11 17:35] LABS: CRP < 0.5 mg/dL (<1.0)
--- OUTSIDE RECORDS SUMMARY | 2025-04-11 17:56 | XMS_ITS | Clinical Summary ---
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 Not on file Not on file Not [...] (#1) 2025 0, 03/25/2017, 05/16/2013 Insurance MEDICARE [facility] MEDIC[facility] Address: [address] [address] [place] [address] [facility] MEDICARE [facility] Address: [address] [address] [place] [address] [facility] MEDICARE [facility] Address: [place] [id number] [place] [address] Care Teams Sample Stitcher Relationship Specialty Start Date End Date Gio Nguyễn MD PCP - General 06/15/17 Veto Soria MD [address] [place] [address] Radiation Oncologist Radiation Oncology 12/14/17 Ryan Meyers MD [address] [place] [address] Urologist Urology 12/14/17 Gosia Lee NP [address] [place] [address] Nurse Practitioner Radiation Oncology 03/01/18 Johnnie Marie MD [address] [place] [address] Referring Physician Cardiology 11/22/23 Dolores Garduno, community outreach specialist Failure Coordinator Cardiology 11/22/23 Gosia Roy, community outreach specialist Failure Coordinator Cardiology 11/22/23 Francisco Ferrell Primary Abalone Fisherman 03/01/25
--- OUTSIDE RECORDS SUMMARY | 2025-04-11 17:56 | XMS_ITS | Clinical Summary ---
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 Gender Identity Not on file Sexual Orientation Not on file Last Filed Vital Signs Vital Sign Reading Time Taken Comments Blood Pressure 158/90 04/29/2024 11:01 AM WHEAT SHIPPER Pulse 77 04/29/2024 11:01 AM WHEAT SHIPPER Temperature 36.6 C (97.9 F) 04/29/2024 11:01 AM WHEAT SHIPPER Respiratory Rate 16 04/29/2024 11:01 AM WHEAT SHIPPER Oxygen Saturation 98% 04/29/2024 11:01 AM WHEAT SHIPPER Inhaled Oxygen Concentration - - Weight 79.4 kg (175 lb) 04/29/2024 11:01 AM WHEAT SHIPPER Height 165.1 cm (5' 5) 04/29/2024 11:01 AM WHEAT SHIPPER Body Mass Index 29.12 04/29/2024 11:01 AM WHEAT SHIPPER Plan of Treatment Health Maintenance Due Date Last Done Comments DTaP, Tdap and Td Vaccines (1 - Tdap) 1959 Annual Medicare Wellness Visit 2006 Zoster Vaccines (2 of 3) 07/11/2013 05/16/2013 RSV Immunization or 60+ Years (1 - 1-dose 75+ series) 2016 Pneumococcal Vaccine: 50+ Years (2 of 2 - PCV) 05/27/2022 05/27/2021 COVID-19 Vaccine ( season) 2025 05/14/2021, 08/30/2020, 08/08/2020 Influenza Adult (#1) 2025 05/27/2021, 05/14/2020, 03/25/2017, Additional history exists Hepatitis A Vaccines Aged Out No long er eligible based on patient's age to complete this topic Meningococcal B Vaccine Aged Out No l onger eligible based on patient's age to complete this topic Meningococcal Vaccine Aged Out No sunday julienne eligible based on patient's age to complete this topic RSV Immunizations Under 20 Months Aged Out No longer eligible based on patient's age to complete this topic Insurance MEDICARE Care Teams Csr Technician Relationship Specialty Start Date End Date Gio Nguyễn MD [address] [address] PCP - General FAMILY PRACTICE 04/29/24
--- OUTSIDE RECORDS SUMMARY | 2025-04-11 17:56 | XMS_ITS | Encounter Summary ---
Author Organization [facility] Address [facility] [place] [address] Care Team Providers Care Business Liaison Manager Name Role Phone Gio Nguyễn MD Primary Care Provider [phone] Encounter Details Date Type Department Care Team (Late st Contact Info) Description 03/09/2018 Lab Requisition [facility] [address] [facility], [place] [address] Krupa Strong MD [address] [facility] [address] [place] [address] Social History Tobacco Use Types Packs/Day Years [...] AM CDT) Case Report Dermatopathology Report Case: [id number] Authorizing Provider: Krupa Strong MD Collected: 03/08/2018 12:00 AM Pathologist: Sheyla Oliveros MD Received: 03/09/2018 05:59 AM Specimen: Skin, mid upper back 2:02 PM CDT DERMATOPATHOLOGY LABORATORY Clinical History Nevus. Irritated. 2:02 PM CDT DERMATOPATHOLOGY LABORATORY Gross Description Specimen A: Received is one formalin filled container labeled with the patient's name and designated mid upper back. The specimen consists of a shave measuring [id number]. Jar 0. [facility] Dermatopathology Laboratory performed the technical component [...] characteristic determined by the Dermatopathology Laboratory at [facility]. These tests need not be, and therefore are not, approved by the [place] Food and Drug Administration. The tests are used for clinical purposes. 2:02 PM CDT DERMATOPATHOLOGY LABORATORY at 1402 CDT Pathology/Cytolog y TISSUE SPECIMEN FROM SKIN / Unknown 03/08/2018 03/09/2018 5:59 AM CDT Krupa Strong MD LAB - PATHOLOGY/CYTOLOGY OR DERABLES Final Result DERMATOPATHOLOGY LABORATORY [facility] - Department of Dermatology [address] [place] [address], 5th [place] [address], [facility] [phone] documented in this encounter Visit Diagnoses Not on filedocumented in this encounter Care Teams Business Liaison Manager Relationship Specialty Start Date End Date Gio Nguyễn MD [address] [place] [address] PCP - General Family Medicine 03/25/17 documented as of this encounter
--- OUTSIDE RECORDS SUMMARY | 2025-04-11 17:56 | XMS_ITS | Clinical Summary ---
Author Organization [facility] Address [address] [facility] [address] Care Team Providers Care Coppersmith Apprentice Name Role Phone Gio Nguyễn MD Primary Care Provider [phone] Source Comments [facility],non-owned Affiliates and Associated Physician Practices is amultiple site organization consisting of ambulatory clinics and hospital sitesin [place], [place] and [place]. This disclosure is being madepursuant to the Care Everywhere program and may not contain all information available regarding this patient. Last updated 18.[facility] Allergies Active Allergy Reactions Criticality [...] patient's age to complete this topic Insurance [facility] MANAGED MEDICARE ADV Advance Directives Documents on File Type Date Recorded Patient Veterans Adviser Expl anation Adv Directive/Living Will/POA 09/25/2024 1:45 PM POA Healthcare Agents on File Name Relationship Healthcare Agent Relationshi p Communication Sheila Wetzel Daughter Power of Trailhead Maintenance Worker (POA) Care Teams Coppersmith Apprentice Relationship Specialty Start Date End Date Gio Nguyễn MD [address] [place] [id number] PCP - General Family Medicine 03/25/17
--- OUTSIDE RECORDS SUMMARY | 2025-04-11 17:56 | XMS_ITS ---
Author Organization [place] [id number] [facility] Address [facility] [place] [address] Care Team Providers Care Food And Beverage Server Name Role Phone Gio Nguyễn MD Primary Care Provider + [phone] Veto Soria MD Unavailable [phone] Ryan Meyers MD Unavailable [phone] Gosia Lee NP Unavailable [phone] Johnnie Marie MD Unavailable [phone] Dolores Garduno RN Unavailable Unavailable Gosia Roy [...] 250 28 / 7,000 Reference Points Delivered [id number] 09/08/2017 - 10/19/2017 7,000 Treatment Summaries Prostate [...] Contact Information: Primary Care Physician Gio Nguyễn [phone] Surgeon Radiation Oncologist Veto Soria MD [phone] Urologist Ryan Meyers MD [phone] Treatment Summary Cancer Diagnosis Information Diagnosis Prostate cancer (CMS/[facility]), left prostate Diagnosis date 04/06/2017 Staging information Cancer Staging No matching staging information was found for the patient. Jaqueline Score 7 PSA at diagnosis 4.94 Treatment Completed Surgery No Radiation Radiation Treatments Active Patient's record has no active radiation treatments documented. Historical Plans PROSTATE Most recent treatment: 250 (fraction 28) on 10/19/2017 Total planned: 7,000 Elapsed Course Treatment Days: 42 Reference Points [id number] Most recent treatment: 250 on 10/19/2017 Total given: 7,000 Elapsed Course Treatment Days: 42 Chemotherapy Summary None Research Studies MULTI-SITE REGISTRY FOR PROTON BEAM RADIATION THERAPY Status On study Start Date 07/26/17 NCT [id number] PARTIQOL Status On follow up Start Date 07/26/17 NCT [id number] Treatment Ongoing Additional Treatment Start Date Planned [...] Help learning to eat healthier, call the emergency medicine medical director at: [facility] for [facility] [phone]. 3. Have an active lifestyle, strive for [...] Resources you may be interested in: ?? [facility] [place] [facility] [email or web address] [facility] 1st floor of [facility] [phone]. Computer access, educational material, counseling services (FREE) ?? Cancer Resources: www.cancer.net ?? [facility] www.Urologyhealth.org ?? [employer]: https://survivorship.cancer.gov/ an online tool for cancer survivors and caregivers created by the [employer] and the National Cancer [place]. It provides: ?? Information on dealing with side effects from cancer and treatment ?? Caregivers with support and resources ?? Practical advice about talking to friends and family about cancer ?? Questions to ask their health care team Other comments:
== END 2025-04-11 16:27 | disposition home or self-care (01) ==
LOC: ANHLAB 16:27
PROVIDERS: PCP Family Medicine; Visit Provider Psychiatry & Neurology Neurology
DX: G50.0 Trigeminal neuralgia (principal); G44.049 Chronic paroxysmal hemicrania, not intractable
CPT/HCPCS: 36415; 86140

== ENCOUNTER 2025-05-09 16:37 | Observation (INO) | payer MEDICARE, SELFPAY ==
--- NOTE | ~2025-05-09 | CT_ITS ---
EXAMINATION: CT brain wo con DATE: 05/09/2025 17:31 INDICATION: Altered mental status. fall. TECHNIQUE: Computed tomography (CT) of the head was performed without intravenous contrast. The mA was adjusted according to patient size. Iterative reconstruction technique was employed. The dose-length product was 605.33 mGy-cm. COMPARISON: MRI brain dated 03/11/2025 CT brain dated 03/10/2025. FINDINGS: No evidence of acute intracranial bleed. No evidence of ventriculomegaly. Chronic ischemic change of periventricular white matter. No acute cranial fracture is seen. IMPRESSION: 1. Limited noncontrast CT head shows no acute intracranial lesions. Chronic changes as described above. Reviewed, dictated and finalized at location T. [facility] IMPRESSION: 1. Limited noncontrast CT head shows no acute intracranial lesions. Chronic magen nges as described above.
--- OUTSIDE RECORDS SUMMARY | 2025-05-09 16:40 | XMS_ITS | Clinical Summary ---
Author Organization [facility] Address [facility] [place] [address] Care Team Providers Care Oil Change Technician Name Role Phone Gio Nguyễn MD Primary Care Provider [phone] Allergies Active Allergy Reactions Criticality Noted Date Comments Codeine Other (see comment) 04/29/2024 I could crawl up that wall backwards Medications No known medications Encounters Date Type Department Care Team Description 04/28/2025 3:02 PM COLD WORK OPERATOR - 04/28/2025 8:16 PM COLD WORK OPERATOR Emergency [facility] [place] [address] Jaquan Marrufo MD Altered Mental Status Discharge Disposition: Home or Self Care (Routine Discharge) 04/28/2025 Travel from Last 3 Months Social History Tobacco Use Types Packs/Day Years Used Date Smoking Tobacco: Former Cigarettes Smokeless Tobacco: Never Tobacco Cessation:Counseling Given: Not Answered Alcohol Use Standard Drinks/Week Comments Never 0 (1 standard drink = 0.6 oz pur e alcohol) Sex and Gender Information Value Date Recorded Sex Assigned at Not on file Legal Sex Male 10:55 AM COLD WORK OPERATOR Gender Identity Not on file Sexual Orientation Not on file Last Filed Vital Signs Vital Sign Reading Time Taken Comments Blood Pressure 162/88 04/28/2025 7:30 PM COLD WORK OPERATOR Pulse 78 04/28/2025 7:30 PM COLD WORK OPERATOR Temperature 36.2 C (97.1 F) 04/28/2025 2:10 PM COLD WORK OPERATOR Respiratory Rate 15 04/28/2025 7:30 PM COLD WORK OPERATOR Oxygen Saturation 93% 04/28/2025 7:30 PM COLD WORK OPERATOR Inhaled Oxygen Concentration - - Weight 79.4 kg (175 lb) 04/28/2025 2:10 PM COLD WORK OPERATOR Height 165.1 cm (5' 5) 04/28/2025 2:10 PM COLD WORK OPERATOR Body Mass Index 29.12 04/28/2025 2:10 PM COLD WORK OPERATOR Plan of Treatment Health Maintenance Due Date Last Done Comments Annual Medicare Wellness Visit 2006 Zoster Vaccines (2 of 3) 07/11/2013 05/16/2013 RSV Immunization or 60+ Years (1 - 1-dose 75+ series) 2016 DTaP, Tdap and Td Vaccines (2 - Td or Tdap) 04/30/2024 04/30/2014 COVID-19 Vaccine ( - season) 2025 05/14/2021, 08/30/2020, 08/08/2020 Influenza Adult (#1) 2025 05/27/2021, 05/14/2020, 03/25/2017, Additional history exists Pneumococcal Vaccine: 50+ Years Completed 05/27/2021, 05/03/2015 Hepatitis A Vaccines Aged Out No long [...] on patient's age to complete this topic Procedures Procedure Name Priority Date/Time Associated Diagnosis Comments URINALYSIS, AUTO, COMPLETE STAT 04/28/2025 5:23 PM COLD WORK OPERATOR XR CHEST PORTABLE STAT 04/28/2025 3:5 8 PM COLD WORK OPERATOR RESPIRATORY PCR PNL LIMITED STAT 04/28/2025 3:12 PM COLD WORK OPERATOR THYROXINE, FREE (FT4) STAT 04/28/2025 3:12 PM COLD WORK OPERATOR THYROID STIM HORMONE TSH STAT 04/28/2025 3:12 PM COLD WORK OPERATOR MAGNESIUM STAT 04/28/2025 3:12 PM COLD WORK OPERATOR TROPONIN, QUANT STAT 04/28/2025 3:12 PM COLD WORK OPERATOR COMPREHENSIVE METABOLIC PANEL STAT 04/28/2025 3:12 PM COLD WORK OPERATOR HC CBC AUTO W/AUTO DIFF STAT 04/28/2025 3:12 PM COLD WORK OPERATOR BLOOD GAS, ARTERIAL LAB STAT 04/28/2025 3:10 PM COLD WORK OPERATOR ECG 12-LEAD STAT 04/28/2025 3:09 [address] COLD WORK O[address] CT HEAD WO CON STAT 04/28/2025 2:48 PM COLD WORK OPERATOR POCT GLUCOSE - DOCKED DEVICE Routine 04/28/2025 2:18 PM COLD WORK OPERATOR from Last 3 Months Results * (ABNORMAL) URINALYSIS, AUTO, COMPLETE (04/28/2025 5:23 PM COLD WORK OPERATOR) SPECIMEN TYPE URINE CLEAN CATCH 04/28/2025 5:22 PM COLD WORK OPERATOR [facility] COLOR (U) YELLOW 04/28/2025 5:45 PM COLD WORK OPERATOR [facility] TRANSPARENCY CLEAR 04/28/2025 5:45 PM COLD WORK OPERATOR [facility] SPECIFIC GRAVITY (U) 1.017 1.001 - 1.030 04/28/2025 5:45 PM COLD WORK OPERATOR [facility] U PH 5.0 5.0 - 9.0 04/28/2025 5:45 PM COLD WORK OPERATOR [facility] LEUKOCYTES (U) NEGATIVE NEGATIVE 04/28/2025 5:45 PM COLD WORK OPERATOR [facility] NITRITES NEGATIVE NEGATIVE 04/28/2025 5:45 PM COLD WORK OPERATOR [facility] PROTEIN RANDOM (U) NEGATIVE <30 MG/DL 04/28/2025 5:45 PM COLD WORK OPERATOR [facility] GLUCOSE (U) NORMAL NORMAL MG/DL 04/28/2025 5:45 PM COLD WORK OPERATOR [facility] KETONES MG/DL (U) TRACE(A) NEGATIVE MG/DL 04/28/2025 5:45 PM COLD WORK OPERATOR [facility] UROBILINOGEN NORMAL NORMAL MG/DL 04/28/2025 5:45 PM COLD WORK OPERATOR [facility] BILIRUBIN (U) NEGATIVE NEGATIVE MG/DL 04/28/2025 5:45 PM COLD WORK OPERATOR [facility] BLOOD (U) NEGATIVE NEGATIVE 04/28/2025 5:45 PM COLD WORK OPERATOR [facility] MUCUS RARE /LPF 04/28/2025 5:45 PM COLD WORK OPERATOR [facility] HYALINE CASTS FEW /LPF 04/28/2025 5:45 PM COLD WORK OPERATOR [facility] WBC/HPF 2 <6 /HPF 04/28/2025 5:45 PM COLD WORK OPERATOR [facility] RBC/HPF <1 <6 /HPF 04/28/2025 5:45 PM COLD WORK OPERATOR [facility] URINE URINE SPECIMEN OBTAINED BY CLEAN CATCH PROCEDURE / Unknown 04/28/2025 5:23 PM COLD WORK OPERATOR us Michelle MCDANIEL URINE ORDERABLES Final Res ult [facility] [address] [place] [address], [place] [phone] * XR CHEST PORTABLE (04/28/2025 3:58 PM COLD WORK OPERATOR) Anatomical Region Laterality Modality Chest Fluoroscopy 04/28/2025 4:06 PM COLD WORK OPERATOR Impressions 04/28/2025 4:06 PM COLD WORK OPERATOR Impression: No acute findings. Referred By: Interpreted By: Pepe De La O MD, 04/28/2025 4:06 PM Narrative 04/28/2025 4:06 PM COLD WORK OPERATOR [address] [address] Examination: Chest 1 view portable History: Cough and confusion DATE/TIME: 04/28/2025 2:56 PM Comparison: None Technique: AP upright portable view of the chest was obtained. Findings: Heart size, mediastinal contours and pulmonary vasculature are within normal limits. No pulmonary consolidation, pleural effusion or pneumothorax. No acute osseous abnormality. Calcified bilateral pulmonary granulomas. Procedure Note Pepe De La O MD - 04/28/[address] [address] Examination: Chest 1 view portable History: Cough and confusion DATE/TIME: 04/28/2025 2:56 PM Comparison: None Technique: AP upright portable view of the chest was obtained. Findings: Heart size, mediastinal contours and pulmonary vasculature arewithin normal limits. No pulmonary consolidation, pleural effusion orpneumothorax. No acute osseous abnormality. Calcified bilateral pulmonarygranulomas. Impression: No acute findings. Referred By: Interpreted By: Pepe De La O MD, 04/28/2025 4:06 PM Michelle MCDANIEL GENERAL IMAGING Final Resu lt * TROPONIN, QUANT (04/28/2025 3:12 PM COLD WORK OPERATOR) TROPONIN I HIGH SENSITIVITY <3 <79 ng/L 04/28/2025 3:58 PM COLD WORK OPERATOR [facility] Comment: HIGH DOSES OF BIOTIN, TROPONIN-SPECIFIC AUTOANTIBODIES, AND ANTIBODY THERAPY CONTAINING HAMA MAY INTERFERE WITH THIS TEST RESULT. CORRELATION TO CLINICAL HISTORY AND PRESENTATION RECOMMENDED. BLOOD VENOUS BLOOD SPECIMEN / Unknown 04/28/2025 3:12 PM COLD WORK OPERATOR Michelle MCDANIEL LABORATORY Final Resu lt [facility] [address] [place] [address], * THYROXINE, FREE (FT4) (04/28/2025 3:12 PM COLD WORK OPERATOR) FREE T4 0.82 0.76 - 1.46 NG/DL 04/28/2025 6:38 PM COLD WORK OPERATOR [facility] BLOOD VENOUS BLOOD SPECIMEN / Unknown 04/28/2025 3:12 PM COLD WORK OPERATOR Jaquan Marrufo MD LABORATORY Final R esult Performing Organization Address [facility] Co de Phone Number [facility] [address] [place] [address], * (ABNORMAL) THYROID STIM HORMONE TSH (04/28/2025 3:12 PM COLD WORK OPERATOR) TSH 10.500(H) 0.358 - 3.74 uIU/ML 04/28/2025 3:58 PM COLD WORK OPERATOR [facility] Comment: HIGH DOSES OF BIOTIN MAY INTERFERE WITH THIS TEST RESULT. CORRELATION TO CLINICAL HISTORY AND PRESENTATION RECOMMENDED. BLOOD VENOUS BLOOD SPECIMEN / Unknown 04/28/2025 3:12 PM COLD WORK OPERATOR Michelle MCDANIEL LABORATORY Final Resu lt Performing Organization Address City/[facility]/ZIP Co de Phone Number [facility] [address] [place] [address], * (ABNORMAL) MAGNESIUM (04/28/2025 3:12 PM COLD WORK OPERATOR) MAGNESIUM 2.5(H) 1.8 - 2.4 MG/DL 04/28/2025 3:58 PM COLD WORK OPERATOR [facility] BLOOD VENOUS BLOOD SPECIMEN / Unknown 04/28/2025 3:12 PM COLD WORK OPERATOR us Michelle MCDANIEL LABORATORY Final Resu lt [facility] [address] [place] [address], [place] [phone] * (ABNORMAL) COMPREHENSIVE METABOLIC PANEL (04/28/2025 3:12 PM COLD WORK OPERATOR) [facility] GLUCOSE 98 70 - 99 MG/DL 04/28/2025 3:58 PM COLD WORK OPERATOR [facility] BUN 29(H) 7 - 18 MG/DL 04/28/2025 3:58 PM COLD WORK OPERATOR [facility] CREATININE S/P/B 1.73(H) 0.7 - 1.3 MG/DL 04/28/2025 3:58 PM COLD WORK OPERATOR [facility] SODIUM S/P/B 137 136 - 145 MMOL/L 04/28/2025 3:58 PM COLD WORK OPERATOR [facility] POTASSIUM S/P/B 3.7 3.5 - 5.1 MMOL/L 04/28/2025 3:58 PM COLD WORK OPERATOR [facility] CHLORIDE S/P/B 105 97 - 115 MMOL/L 04/28/2025 3:58 PM COLD WORK OPERATOR [facility] CO2 25.6 21 - 32 MMOL/L 04/28/2025 3:58 PM COLD WORK OPERATOR [facility] CALCIUM S/P/B 9.2 8.5 - 10.1 MG/DL 04/28/2025 3:58 PM COLD WORK OPERATOR [facility] BILIRUBIN TOTAL S/P/B 0.5 0.2 - 1.2 MG/DL 04/28/2025 3:58 PM COLD WORK OPERATOR [facility] Comment: THIS ASSAY IS NOT RECOMMENDED FOR PATIENTS UNDERGOING TREATMENT WITH ELTROMBOPAG DUE TO THE POTENTIAL FOR FALSELY ELEVATED RESULTS. TOTAL PROTEIN S/P/B 7.2 6.4 - 8.2 G/DL 04/28/2025 3:58 PM COLD WORK OPERATOR [facility] ALBUMIN S/P/B 4.0 3.4 - 5.0 G/DL 04/28/2025 3:58 PM COLD WORK OPERATOR [facility] AST 24 15 - 37 U/L 04/28/2025 3:58 PM COLD WORK OPERATOR [facility] ALT 32 16 - 60 U/L 04/28/2025 3:58 PM COLD WORK OPERATOR [facility] ALKALINE PHOSPHATASE S/P/B 121 50 - 136 U/L 04/28/2025 3:58 PM COLD WORK OPERATOR [facility] ANION GAP 6.4 2 - 10 MMOL/L 04/28/2025 3:58 PM COLD WORK OPERATOR [facility] BUN CREATININE RATIO 16.8 6 - 26 04/28/2025 3:58 PM COLD WORK OPERATOR [facility] A/G RATIO 1.2 1.0 - 2.0 RATIO 04/28/2025 3:58 PM COLD WORK OPERATOR [facility] GFR ESTIMATE 39(L) >90 ML/MIN/1.7 3 M2 04/28/2025 3:58 PM COLD WORK OPERATOR [facility] Comment: NOTE: eGFR is not calculated for patients <18 years of age or gender unknown. This is an estimated GFR calculation using the new CKD EPI creatinine equation without race and so does not require a correction factor for race. This estimated GFR should not be used for calculating drug doses. BLOOD VENOUS BLOOD SPECIMEN / Unknown 04/28/2025 3:12 PM COLD WORK OPERATOR us Michelle MCDANIEL LABORATORY Final Resu lt [facility] [address] [place] [address], * (ABNORMAL) CBC W/DIFF (04/28/2025 3:12 PM COLD WORK OPERATOR) [facility] WBC 6.28 4.5 - 11.0 x10'3/uL 04/28/2025 3:37 PM COLD WORK OPERATOR [facility] RBC 4.35(L) 4.70 - 6.10 x10'6/uL 04/28/2025 3:37 PM COLD WORK OPERATOR [facility] HGB 14.1 14.0 - 18.0 G/DL 04/28/2025 3:37 PM [facility] HCT 42.7(L) 43.0 - 54.0 % 04/28/2025 3:37 PM [facility] MCV 98.2(H) 80.0 - 94.0 FL 04/28/2025 3:37 PM [facility] MCH 32.4(H) 27.0 - 31.0 PG 04/28/2025 3:37 PM [facility] MCHC 33.0 32.0 - 36.0 G/DL 04/28/2025 3:37 PM [facility] RDW 13.3 11.5 - 14.5 % 04/28/2025 3:37 PM [facility] PLT 240 130 - 400 x10'3/uL 04/28/2025 3:37 PM [facility] MPV 10.5 9.3 - 12.2 FL 04/28/2025 3:37 PM [facility] DIFFERENTIAL TYPE AUTOMATED DIFFERENTIAL 04/28/2025 3:37 PM [facility] NEUTROPHILS % 49.2 % 04/28/2025 3:37 PM [facility] LYMPHOCYTES % 34.7 % 04/28/2025 3:37 PM [facility] MONOCYTES % 10.7 % 04/28/2025 3:37 PM COLD WORK OPERATOR [facility] EOSINOPHILS 4.1 % 04/28/2025 3:37 PM COLD WORK OPERATOR [facility] BASOPHILS 1.0 % 04/28/2025 3:37 PM COLD WORK OPERATOR [facility] IMMATURE GRANS % 0.3 % 04/28/20 3:37 PM COLD WORK OPERATOR [facility] ABS. NEUTROPHILS 3.09 1.80 - 7.70 x10'3/uL 04/28/2025 3:37 PM COLD WORK OPERATOR [facility] ABS. LYMPHOCYTES 2.18 1.00 - 4.80 x10'3/uL 04/28/2025 3:37 PM COLD WORK OPERATOR [facility] ABS. MONOCYTES 0.67 0.30 - 0.82 x10'3/uL 04/28/2025 3:37 PM COLD WORK OPERATOR [facility] ABS. EOSINOPHILS 0.26 0.04 - 0.54 x10'3/uL 04/28/2025 3:37 PM COLD WORK OPERATOR [facility] ABS. BASOPHILS 0.06 0.01 - 0.08 x10'3/uL 04/28/2025 3:37 PM COLD WORK OPERATOR [facility] ABS. IMMATURE GRANULOCYTES 0.02 0.00 - 0.49 x10'3/uL 04/28/2025 3:37 PM COLD WORK OPERATOR [facility] BLOOD VENOUS BLOOD SPECIMEN / Unknown 04/28/2025 3:12 PM COLD WORK OPERATOR us Michelle MCDANIEL LABORATORY Final Resu lt [facility] [address] [place] [address], [place] [phone] * RESPIRATORY PCR PNL LIMITED (04/28/2025 3:12 PM COLD WORK OPERATOR) SPEC DESCRIPTION NASOPHARYNGEAL SWAB 04/28/2025 3:13 PM COLD WORK OPERATOR [facility] CORONAVIRUS SARS COV 2 PCR (RESP) NEGATIVE NEGATIVE 04/28/2025 4:00 PM COLD WORK OPERATOR [facility] INFLUENZA A PCR (RESP) NEGATIVE NEGATIVE 04/28/2025 4:00 PM COLD WORK OPERATOR [facility] INFLUENZA B PCR (RESP) NEGATIVE NEGATIVE 04/28/2025 4:00 PM COLD WORK OPERATOR [facility] RSV PCR (RESP) NEGATIVE NEGATIVE 04/28/2025 4:00 PM COLD WORK OPERATOR [facility] SWAB NASOPHARYNGEAL STRUCTURE / Unknown 04/28/2025 3:12 PM COLD WORK OPERATOR us Michelle MCDANIEL MICROBIOLOGY - GENERAL ORD ERABLES Final Result [facility] [address] [place] [address], * (ABNORMAL) ARTERIAL BLOOD GAS (04/28/2025 3:10 PM COLD WORK OPERATOR) PH ARTERIAL 7.39 7.35 - 7.45 04/28/2025 5:30 PM COLD WORK OPERATOR [facility] PCO2 39.0 35.0 - 45.0 MMHG 04/28/2025 5:30 PM [facility] PO2 79.0(L) 83.0 - 108.0 MMHG 04/28/2025 5:30 PM [facility] TOTAL CO2 ARTERIAL 24.8(H) 19.0 - 24.0 MMOL/L 04/28/2025 5:30 PM [facility] BASE DEFICIT 1.2 0.0 - 3.0 MMOL/L 04/28/2025 5:30 PM [facility] O2 SATURATION 95 94.0 - 98.0 % 04/28/2025 5:30 PM COLD WORK OPERATOR [facility] BICARB ARTERIAL 23.6 21.0 - 28.0 MMOL/L 04/28/2025 5:30 PM COLD WORK OPERATOR [facility] VELIA TEST VELIA TEST PERFORMED 04/28/2025 3:14 PM COLD WORK OPERATOR [facility] O2 ADMIN ARTERIAL 21 04/28/2025 3:14 PM COLD WORK OPERATOR [facility] DRAW SITE ARTERIAL RT RADIAL 04/28/2025 3:14 PM COLD WORK OPERATOR [facility] BLOOD ARTERIAL BLOOD SPECIMEN / Unknown 04/28/2025 3:10 PM COLD WORK OPERATOR Michelle MCDANIEL LABORATORY Final Resu lt [facility] [address] [place] [address], * ECG 12 lead (04/28/2025 3:09 PM COLD WORK OPERATOR) ECG QT 423 [facility] RAD ECG QTC 478 [facility] 04/28/2025 3:09 PM COLD WORK OPERATOR Narrative [facility] RAD - 04/29/2025 3:23 PM COLD WORK OPERATOR [address] Test Date: 2025-04-28 Pat Name: TUAN MOORE Department: 41 Room: POMPEII Gender: Male 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: [id number] : 1940 Requested By: MICHELLE OLIVIER Order Number: [id number] Ma[place] MD: David Madden Measurements Intervals [place] Rate: 76 P: 27 NE: 162 QRS: -45 QRSD: 154 T: 132 QT: 423 QTc: 478 Interpretive Statements SINUS RHYTHM WITH SINUS ARRHYTHMIA LEFT AXIS DEVIATION [QRS AXIS < -30] LEFT BUNDLE BRANCH BLOCK [120+ ms QRS DURATION, 80+ ms Q/S IN V1/V2, 85+ ms R IN I/aVL/V5/V6] No previous ECG available for comparison WORK OPERATOR Procedure Note David Madden MD - 04/29/[address] [place] Test Date: 2025-04-28 Pat Name: TUAN MOORE Department: 41 Room: POMPEII Gender: Male Precision 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: [id number] : 1940 Requested By: MICHELLE OLIVIER Order Number: [id number] [place] MD: David Madden Measurements Intervals [place] Rate: 76 P: 27 NE: 162 QRS: -45 QRSD: 154 T: 132 QT: 423 QTc: 478 Interpretive Statements SINUS RHYTHM WITH SINUS ARRHYTHMIA LEFT AXIS DEVIATION [QRS AXIS < -30] LEFT BUNDLE BRANCH BLOCK [120+ ms QRS DURATION, 80+ ms Q/S IN V1/V2, 85+ms R IN I/aVL/V5/V6] No previous ECG available for comparison WORK OPERATOR us Michelle Olivier PA ECG ORDERABLES Final Resu lt [facility]) RAD * CT HEAD WO CON (04/28/2025 2:48 PM COLD WORK OPERATOR) Anatomical Region Laterality Modality Head Computed Tomogra phy 04/28/2025 2:54 PM COLD WORK OPERATOR Impressions 04/28/2025 3:07 PM COLD WORK OPERATOR IMPRESSION: 1. No definite CT evidence for acute intracranial abnormality. 2. Chronic senescent changes. Please note that CT has limited sensitivity for the detection of acute ischemia Referred By: Interpreted By: Pepe De La O MD, 04/28/2025 2:54 PM Narrative 04/28/2025 3:07 PM COLD WORK OPERATOR [place] [id number] EXAMINATION: CT of the head CLINICAL HISTORY: Confusion COMPARISON: 04/29/2024 TECHNIQUE: CT examination of the head without contrast was performed with axial images obtained. A radiation dose lowering technique was used for this procedure, which may include, but is not limited to, dose reduction technique, automated exposure control, the use of iterative reconstruction, ALARA (As Low As Reasonably Achievable) techniques, and Image Gently techniques. FINDINGS: There is no evidence of acute intracranial hemorrhage, abnormal extra-axial collections, intracranial mass effect, or midline shift. There is moderate volume loss with enlargement of the ventricles and extra-axial/subarachnoid spaces. There are multiple bilateral foci of periventricular and deep white matter hypoattenuation, probably related to chronic small vessel ischemic disease. Atherosclerotic calcifications of the intracranial arterial vasculature are evident. There is no definite CT evidence to suggest acute territorial infarction. The calvarium is unremarkable, without evidence of acute fracture. The visualized mastoid air cells, paranasal sinuses, and orbits are grossly unremarkable. Procedure Note Pepe De La O MD - 04/28/[address] [address] EXAMINATION: CT of the head CLINICAL HISTORY: Confusion COMPARISON: 04/29/2024 TECHNIQUE: CT examination of the head without contrast was performed withaxial images obtained. A radiation dose lowering technique was used forthis procedure, which may include, but is not limited to, dose reductiontechnique, automated exposure control, the use of iterativereconstruction, ALARA (As Low As Reasonably Achievable) techniques, andImage Gently techniques. FINDINGS: There is no evidence of acute intracranial hemorrhage, abnormalextra-axial collections, intracranial mass effect, or midline shift. Thereis moderate volume loss with enlargement of the ventricles andextra-axial/subarachnoid spaces. There are multiple bilateral foci ofperiventricular and deep white matter hypoattenuation, probably related tochronic small vessel ischemic disease. Atherosclerotic calcifications ofthe intracranial arterial vasculature are evident. There is no definite CTevidence to suggest acute territorial infarction. The calvarium isunremarkable, without evidence of acute fracture. The visualized mastoidair cells, paranasal sinuses, and orbits are grossly unremarkable. IMPRESSION: 1. No definite CT evidence for acute intracranial abnormality. 2. Chronic senescent changes. Please note that CT has limited sensitivity for the detection of acuteischemia Referred By: Interpreted By: Pepe De La O MD, 04/28/2025 2:[address] Final Resu lt * POCT glucose (04/28/2025 2:18 PM COLD WORK OPERATOR) [facility] GLUCOSE POC 98 70 - 99 mg/dL 04/28/2025 2:19 PM COLD WORK OPERATOR [facility] 04/28/2025 2:18 PM COLD WORK OPERATOR Attending Physician Emergency MD POCT ORDERABLES - DEVICE Final Result [facility] [address] [place] [address], [place] [phone] from Last 3 Months Insurance [place] [address] Care Teams Oil Change Technician Relationship Specialty Start Date End Date Gio Nguyễn MD [address] [address] PCP - General FAMILY PRACTICE 04/29/24
--- OUTSIDE RECORDS SUMMARY | 2025-05-09 16:40 | XMS_ITS ---
Author Organization [place] [id number] [facility] Address [facility] [place] [address] Care Team Providers Care Marine Cargo Surveyor Name Role Phone Gio Nguyễn MD Primary Care Provider [phone] Veto Soria MD Unavailable [phone] Ryan Meyers MD Unavailable [phone] Gosia Lee NP Unavailable [phone] Johnnie Marie MD Unavailable [phone] Dolores Garduno RN Unavailable Unavailable Gosia Roy [...] 250 28 / 7,000 Reference Points Delivered [id number] 09/08/2017 - 10/19/2017 7,000 Treatment Summaries Prostate [...] Contact Information: Primary Care Physician Gio Nguyễn [phone] Surgeon Radiation Oncologist Veto Soria MD [phone] Urologist Ryan Meyers MD [phone] Treatment Summary Cancer Diagnosis Information Diagnosis Prostate cancer ([facility]), left prostate Diagnosis date 04/06/2017 Staging information Cancer Staging No matching staging information was found for the patient. [place] Score 7 PSA at diagnosis 4.94 Treatment Completed Surgery No Radiation Radiation Treatments Active Patient's record has no active radiation treatments documented. Historical Plans PROSTATE Most recent treatment: 250 (fraction 28) on 10/19/2017 Total planned: 7,000 Elapsed Course Treatment Days: 42 Reference Points [id number] Most recent treatment: 250 on 10/19/2017 Total given: 7,000 Elapsed Course Treatment Days: 42 Chemotherapy Summary None Research Studies MULTI-SITE REGISTRY FOR PROTON BEAM RADIATION THERAPY Status On study Start Date 07/26/17 NCT [id number] PARTIQOL Status On follow up Start Date 07/26/17 NCT [id number] Treatment Ongoing Additional Treatment Start Date Planned [...] Help learning to eat healthier, call the band reamer machine operator at: [facility] [facility] [phone]. 3. Have an active lifestyle, strive for [...] Resources you may be interested in: ?? [facility] [place] [facility] [place] [facility] [email or web address]/ [facility] 1st floor of [facility] [phone]. Computer access, educational material, counseling services (FREE) ?? Cancer Resources: www.cancer.net ?? [facility] www.Urologyhealth.org ?? [employer]: https://survivorship.cancer.gov/ an online tool for cancer survivors and caregivers created by the [place] [employer] and the National Cancer [place]. It provides: ?? Information on dealing with side effects from cancer and treatment ?? Caregivers with support and resources ?? Practical advice about talking to friends and family about cancer ?? Questions to ask their health care team Other comments:
--- OUTSIDE RECORDS SUMMARY | 2025-05-09 16:40 | XMS_ITS | Clinical Summary ---
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 Not on file Not [...] Depression Screening 1941 Fall Risk Assessment 1940 Hepatitis B Screening 08/15/1958 Well Visit 65+ 2006 Zoster Vaccine (2 of 3) 07/11/2013 05/16/2013 DTaP/Tdap/Td Vaccine (2 - Td or Tdap) 04/30/2024 04/30/2014 Influenza Vaccine (#1) 2025 , 05/14/2020, 03/25/2017, Additional history exists Pneumococcal vaccine 65+ Completed 05/27/2021, 04/15 Insurance MEDICARE [facility] MEDICARE [facility] Address: [address] [address] [place] [address] [facility] MEDICARE [facility] Address: [address] [address] [place] [address] [facility] MEDICARE [facility] Address: [facility] [address] [place] [address] Care Teams Pedodontist Relationship Specialty Start Date End Date Gio Nguyễn MD PCP - General 06/15/17 Veto Soria MD [address] [place] [address] Radiation Oncologist Radiation Oncology 12/14/17 Ryan Meyers MD [address] [place] [address] Urologist Urology 12/14/17 Gosia Lee NP [address] [place] [address] Nurse Practitioner Radiation Oncology 03/01/18 Johnnie Marie MD [address] [place] [address] Referring Physician Cardiology 11/22/23 Dolores Garduno, office administrative assistant Failure Coordinator Cardiology 11/22/23 Gosia Roy RN Heart Failure Coordinator Cardiology 11/22/23 Francisco Ferrell Primary Supervisor Testing 03/01/25
--- OUTSIDE RECORDS SUMMARY | 2025-05-09 16:40 | XMS_ITS | Clinical Summary ---
Author Organization [facility] Address [address] [facility] [place] [address] Care Team Providers Care Baker Bread Name Role Phone Gio Nguyễn MD Primary Care Provider [phone] Source Comments [facility],non-owned Affiliates and Associated Physician Practices is amultiple site organization consisting of ambulatory clinics and hospital sitesin [place], [place], [place] and [place]. This disclosure is being madepursuant to the Care Everywhere program and may not contain all information available regarding this patient. Last updated 18.[facility] Allergies Active Allergy Reactions Criticality Noted [...] MEDICARE AWV CALENDAR YEAR 2024 COVID-19 VACCINE (2024-2 6 season) 2025 INFLUENZA VACCINE (#1) 2025 7, [...] patient's age to complete this topic Insurance [employer] MANAGED MEDICARE ADV Advance Directives Documents on File Type Date Recorded Patient Security Assistant Expl anation Adv Directive/Living Will/POA 09/25/2024 1:45 PM POA Healthcare Agents on File Name Relationship Healthcare Agent Relationshi p Communication Sheila Wetzel Daughter Power of Loss Prevention Consultant (POA) Care Teams Baker Bread Relationship Specialty Start Date End Date Gio Nguyễn MD [address] [place] [address] PCP - General Family Medicine 03/25/17
--- OUTSIDE RECORDS SUMMARY | 2025-05-09 16:40 | XMS_ITS | Encounter Summary ---
Author Organization [facility] Address [address] [facility] [place] [address] Care Team Providers Care Cutter Brake Lining Name Role Phone Gio Nguyễn MD Primary Care Provider [phone] Encounter Details Date Type Department Care Team (Late st Contact Info) Description 03/09/2018 Lab Requisition [facility] [address] [facility] [place] [address] Krupa Strong MD [address] [facility] [address] [place] [address] Social History Tobacco Use Types Packs/Day Years [...] AM CDT) Case Report Dermatopathology Report Case: [id number] Authorizing Provider: Krupa Strong MD Collected: 03/08/2018 12:00 AM Pathologist: Sheyla Oliveros MD Received: 03/09/2018 05:59 AM Specimen: Skin, mid upper back 2:02 PM CDT DERMATOPATHOLOGY LABORATORY Clinical History Nevus. Irritated. 2:02 PM CDT DERMATOPATHOLOGY LABORATORY Gross Description Specimen A: Received is one formalin filled container labeled with the patient's name and designated mid upper back. The specimen consists of a shave measuring [id number]. Jar 0. [facility] Dermatopathology Laboratory performed the technical component only. [...] characteristic determined by the Dermatopathology Laboratory at [facility]. These tests need not be, and therefore are not, approved by the [place] Food and Drug Administration. The tests are used for clinical purposes. 2:02 PM CDT DERMATOPATHOLOGY LABORATORY at 1402 CDT Pathology/Cytolog y TISSUE SPECIMEN FROM SKIN / Unknown 03/08/2018 03/09/2018 5:59 AM CDT Krupa Strong MD LAB - PATHOLOGY/CYTOLOGY OR DERABLES Final Result DERMATOPATHOLOGY LABORATORY [facility] - Department of Dermatology [address] [place] [address], [address]th [place] [address], [facility] [phone] documented in this encounter Visit Diagnoses Not on filedocumented in this encounter Care Teams Cutter Brake Lining Relationship Specialty Start Date End Date Gio Nguyễn MD [address] [place] [address] PCP - General Family Medicine 03/25/17 documented as of this encounter
--- NOTE | 2025-05-09 16:45 | ECG_ITS ---
Test Date: 2025-05-09 16:52:05 Measurements Intervals [place] Rate: 81 P: 40 FL: 166 QRS: -31 QRSD: 165 T: 101 QT: 431 QTc: 502 Interpretive Statements SINUS RHYTHM LEFT AXIS DEVIATION [QRS AXIS < -30] LEFT BUNDLE BRANCH BLOCK [120+ ms QRS DURATION, 80+ ms Q/S IN V1/V2, 85+ ms R IN I/aVL/V5/V6] ABNORMAL ECG Compared to ECG 03/10/2025 15:29:16 Left-axis deviation now present Electronically Signed On 05-09-2025 17:42:49 FIELD SUPERINTENDENT by Marcos Castaneda M.D.
[2025-05-09 16:46] VITALS: BP 185/96; PULSE 83; RESP 18; TEMP 36.6; O2SAT 95
[2025-05-09 17:00] LABS: Hematocrit 43.9 % (42.0-52.0); Hemoglobin 14.6 g/dL (14.0-18.0); Immature Granulocyte Percent A 0.3 % (0-0.5); Lymphocytes Absolute Auto 1.87 K/mm3 (0.9-3.2); Mean Corpuscular HGB Conc 33.3 g/dl (32-36); Mean Corpuscular Hemoglobin 32.6 pg (26-34); Mean Corpuscular Volume 98.0 fl (80-100); Nucleated Red Blood Cells Absolute Auto 0.000 K/mm3 (0.0-0.012); Nucleated Red Blood Cells Perc 0.0 % (0.0-0.2); Platelet Count Result 261 k/mm3 (150-375); Red Blood Count 4.48 M/mm3 (4.6-6.20); White Blood Count 6.4 K/mm3 (4.5-10.0)
[2025-05-09 17:09] LABS: INR 0.9; Prothrombin Time 12.3 Seconds (11.1-14.7)
[2025-05-09 17:10] LABS: Partial Thromboplastin Time 22.2 Seconds (22.3-36.8)
[2025-05-09 17:36] LABS: Alanine Aminotransferase 26 U/L (6-50); Albumin Level 4.4 g/dL (3.5-5.1); Alkaline Phosphatase 100 U/L (38-126); Anion Gap 5 mmol/L (4-12); Aspartate Amino Transferase 41 U/L (17-59); Bilirubin,Total 0.5 mg/dL (0.2-1.3); Blood Urea Nitrogen 19 mg/dL (9-20); Calcium 9.2 mg/dL (8.4-10.2); Carbon Dioxide 29 mmol/L (22-30); Chloride 104 mmol/L (98-107); Estimated CRCL calculation 45 ml/min; Estimated Glomerular Filt Rate > 60; Glucose 92 mg/dL (65-110); Potassium 4.2 mmol/L (3.4-5.0); Sodium 138 mmol/L (137-145); Total Protein 7.0 g/dL (6.3-8.2)
[2025-05-09 18:14] LABS: Add Urine Microscopic? NO; Appearance Urine Clear (Clear); Glucose Urine UA Negative (Negative); Leukocyte Esterase Ur Negative LEU/UL (Negative); Nitrate Urine Negative (Negative); Specific Grav Ur 1.010 (1.001-1.035)
[2025-05-09] MEDS: LACTATED RINGERS 1,000 ML 999 ML IV CONT (18:45)
--- NOTE | 2025-05-09 18:58 | PM.IMHP ---
H&P: HPI History of Present Illness Date/Time: 05/09/25 18:58 Chief Complaint: AMS Narrative: 84 y/o M with PMH of trigeminal neuralgia (R side), CVA, expressive aphasia, diastolic dysfunction, anemia, prostate cancer s/p prostatectomy, hypertension, hyperlipidemia, and hypothyroidism presents here with altered mental status/delusions. The patient presents here from home via a neighbor for further evaluation of altered mental status/delusions. HPI largely obtained through family as the patient is currently a poor historian and orientated to year and self. Per family, they have seen a drastic change in his behavior over the last 1-2 weeks. They report he is no longer taking care of himself and has had poor hygiene, no longer making meals for he and his who has dementia, and has developed some paranoid delusions. Upon arrival he reported that his is trying to poison me stating that she made food for them 3 days ago and they have all become sick. However he is now denying nausea, vomiting, diarrhea, fever, chills, body aches, chest pain, shortness of breath or any symptoms. He currently feels fine. He is alert and orientated to self, year, and is where he is at the hospital, otherwise not able to provide any additional history. Per family, they have have a daily medication pill box for him but despite them trying to over see/monitor his medication compliance he likely only takes his medications 30-40% of the time. Initial VS at presentation: 97.9? F, HR 83, R 18, 185/96, and 95% on RA. ED workup showed: No leukocytosis, no anemia, normal coags, no significant electrolyte derangements, creatinine 1.13 and GFR >60, glucose 92, UA unremarkable. Head CT limited noncontrast showed no acute intracranial lesions, chronic changes noted. 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 infarct Old Punctate right cerebellar and left basal ganglia infarcts noted on MRI has far back as 2020 Expressive aphasia CVA (cerebral vascular accident) Anemia H/O prostate cancer Essential (primary) hypertension Hypothyroidism TSH 0.898 on 01/06/2024 Mixed hyperlipidemia Primary osteoarthritis involving multiple joints Surgical History Surgical History Hx of hernia repair Hx of prostatectomy Family History Family History Father Family history of premature coronary heart disease Hypertension Tobacco abuse Mother Hypertension Family history of coronary artery disease Sibling Malignant neoplasm of prostate Family history of lung cancer COVID-19 Social History Social History Social History: Patient lives with his who has dementia. Code status: [facility] power of residential lawn specialist: Sheilatesfaye Wetzel (daughter) and Clay Sepulvedaston (son) Smoking status: Former smoker Tobacco type: cigarettes Second hand tobacco smoke exposure: No Alcohol intake: former Substance use: never Substance use type: does not use Lack of Transportation: No Lack of Food: Never True Current Housing: I Have Housing Concerned About Future Housing: No Difficulty Paying Gas/Electric Bills: No Difficulty Paying for Meds: No Currently Unemployed: No Education: High School Diploma/GED Difficulty w/ Childcare or Family Care: No Living arrangements: with family Occupation/Education: retired 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[employer] Gender identity (if verbalized by the patient): Male Spiritual care concerns: No Meds Home Medications and Allergies Home Medications ?Medication ?Instructions ?Recorded ?Confirmed ?Type aspirin 325 mg tablet 325 mg PO DAILY 05/22/24 05/09/25 History multivitamin with minerals-folic 1 tablet PO DAILY 05/22/24 05/09/25 History acid 80 mcg chewable tablet (Centrum Adult 50 Plus) furosemide 20 mg tablet (Lasix) 20 mg PO QAM #90 tabs 09/21/24 05/09/25 Rx mirabegron 50 mg tablet,extended 50 mg PO DAILY 12/27/24 05/09/25 History release 24 hr rosuvastatin 20 mg tablet (Crestor) 20 mg PO DAILY #90 tabs 01/16/25 05/09/25 Rx tamsulosin 0.4 mg capsule See Rx Instructions .Route .COMPLEX 03/10/25 05/09/25 History levothyroxine 125 mcg tablet 125 mcg PO DAILY@0630 #90 tabs 04/03/25 05/09/25 Rx (Synthroid) losartan 25 mg tablet 25 mg PO DAILY #90 tabs 04/03/25 05/09/25 Rx pregabalin 75 mg capsule 75 mg PO Q8H #90 caps 04/11/25 05/09/25 Rx mirtazapine 15 mg tablet (Remeron) 15 mg PO QHS #90 tabs 05/08/25 05/09/25 Rx carbamazepine 200 mg 200 mg PO TID 05/09/25 05/09/25 History capsule,extended release [id number] (Carbatrol) lactulose 10 gram/15 mL oral 15 ml PO DAILY PRN constipation 05/09/25 05/09/25 History solution (Constulose) Allergies Allergy/AdvReac Type Severity Reaction Status Date / Time bisacodyl AdvReac Intermediate Nausea Verified 05/09/25 21:15 codeine AdvReac Unknown Agitated Verified 05/09/25 21:15 Vital Signs Vital Signs - 24 hr 05/09/25 16:46 Temperature 97.9 F Pulse Rate 83 Respiratory Rate 18 Blood Pressure 185/96 H Pulse Oximetry 95 Oxygen Delivery Room Air Exam Const: General: comfortable and no acute distress Other: , male, nontoxic appearance, elderly HENMT: Face/Nose/Sinus: Normal nares present Mouth: Yes moist mucous membranes Eyes: General: appearance normal, both eyes and all related structures Sclera: sclerae normal Pupils: Equal, round and reactive pupils present EOM: EOMs intact bilaterally Resp: Effort & Inspection: normal respiratory effort Auscultation: clear to auscultation bilaterally Cardio: Rate: regular rate Rhythm: regular rhythm Other: S1-S2 present without murmur, rub, ectopy GI: Other: Abdomen soft, nondistended, nontender. Normoactive bowel sounds in all quadrants. Skin: General skin exam: normal color and no rashes or lesions noted Wounds: no wounds Neuro: Speech: normal speech Motor exam (neuro): 5/5 motor strength present throughout Sensory Exam: normal sensation Other: A&O to self, year, and is aware he is at the hospital but not sure which. Not able to provide situational history. Extrem: General: normal to inspection Psych: Other: poor insight and judgement at present. +paranoid delusions. no agitation on exam. H&P: Results Labs Labs: Short CBC 05/09/25 Range/Units 16:55 WBC 6.4 (4.5-10.0) K/mm3 Hgb 14.6 (14.0-18.0) g/dL Hct 43.9 (42.0-52.0) % Plt Count 261 (150-375) k/mm3 BMP 05/09/25 17:11 Sodium 138 Potassium 4.2 Chloride 104 Carbon Dioxide 29 BUN 19 Creatinine 1.13 Glucose 92 Calcium 9.2 Liver Function 05/09/25 Range/Units 17:11 Total Bilirubin 0.5 (0.2-1.3) mg/dL AST 41 (17-59) U/L ALT 26 (6-50) U/L Alkaline Phosphatase 100 (38-126) U/L Albumin 4.4 (3.5-5.1) g/dL Urine 05/09/25 Range/Units 18:03 Urine Color Yellow (Yellow) Urine Appearance Clear (Clear) Urine pH 5.5 (5.0-9.0) Ur Specific [place] 1.010 (1.001-1.035) Urine Protein Negative (Negative) mg/dL Urine Glucose (UA) Negative (Negative) mg/dL Assessment and Plan Assessment and plan (1) Paranoid delusion: Code(s): F22 - Delusional disorders Status: Acute Assessment and Plan: Patient here with new delusions. Upon arrival to the emergency department reported that his with significant dementia had tried to poison him. Collateral information obtained through family. They report noticing a mash filter cloth changer the past 1-2 weeks. Reports he is at poor hygiene, no longer making meals for he and his demented , and not making sense. Patient typically oversees his on medications, however they do monitor his pillbox. This may only takes his medication 30-40% of the time. Reviewed his home medications, on Synthroid and carbamazepine. New onset psychosis could be related to abrupt withdrawal from carbamazepine, checking levels. Given he is not compliant with his Synthroid, could be hyperthyroidism. No acute findings on head CT. No focal findings on exam concerning for stroke. Workup largely benign, no indicators for infection. No systemic symptoms endorsed by patient, however he is a poor historian at present. - check TSH w/reflex and carbamazepine levels. Resume Synthroid and carbamazepine to assess if this improves patient's mental status. - check viral PCR, B12, Folic acid, B1 - care coordination consulted - neurology consulted (2) Trigeminal neuralgia of right side of face: Code(s): G50.0 - Trigeminal neuralgia Status: Chronic Assessment and Plan: History of chronic trigeminal neuralgia of the right face. Previously has followed with Urology, last visit with Dr. Morrow on 03/11/25. Previously on carbamazepine XR 250 mg twice a day and a pregabalin 75 mg twice a day increased at that visit to pregabalin 75 mg 3 times a day and carbamazepine to 200 mg 3 times a day, added mirtazapine 15 mg HS. Referred to [place] [facility] for further evaluation. - check carbamazepine levels - continue carbamazepine, pregabalin, mirtazapine (3) Hypothyroidism: Qualifiers: Hypothyroidism type: acquired Qualified Code(s): E03.9 - Hypothyroidism, unspecified Code(s): E03.9 - Hypothyroidism, unspecified Status: Chronic Assessment and Plan: - check TSH - continue Synthroid 125 mcg daily (4) Essential (primary) hypertension: Code(s): I10 - Essential (primary) hypertension Status: Chronic Assessment and Plan: - chronic, currently 132/83, stable. - continue home medications: Losartan - monitor Plan Diet: heart healthy GI Prophylaxis: n/a DVT Prophylaxis: SCDs IV fluids: 1L bolus Lines/Tubes: pIV Code Status: DNR Quality VTE Prophylaxis VTE prophylaxis: mechanical ordered Hospitalist MIPS Advance Care Plan I have confirmed that the patient's Advanced Care Plan is present, code status is documented, or surrogate decision maker is listed in patient medical record.: Yes Medication Reconciliation I have utilized all available resources to obtain, update and review the patients current medications (includes all prescriptions, OTC, herbals, cannabis, and nutritional supplements).: Yes
--- NOTE | 2025-05-09 19:38 | ED.AMS ---
HPI - Altered Mental Status General Chief Complaint: Altered Mental Status Stated Complaint: I think my poisoned me Time Seen by Provider: 05/09/25 16:48 History of Present Illness HPI narrative: Patient presenting here with possible altered mental status, he is convinced that his and tried to poison him a few days ago when she cooked dinner, he says that everyone got sick including the dog. She has Alzheimer's and has not cook in years. His symptoms are that he is shaky, cannot walk without falling. Related Data Home Medications ?Medication ?Instructions ?Recorded ?Confirmed ?Last Taken ?Type aspirin 325 mg tablet 325 mg PO DAILY 05/22/24 04/11/25 03/10/25 08:00 History 325 mg multivitamin with minerals-folic 1 tablet PO DAILY 05/22/24 04/11/25 03/10/25 08:00 History acid 80 mcg chewable tablet 1 tablet (Centrum Adult 50 Plus) mirabegron 50 mg tablet,extended 50 mg PO DAILY 12/27/24 04/11/25 03/09/25 08:00 History release 24 hr 50 mg tamsulosin 0.4 mg capsule See Rx Instructions .Route .COMPLEX 03/10/25 04/11/25 03/09/25 20:00 History Allergies Allergy/AdvReac Type Severity Reaction Status Date / Time bisacodyl AdvReac Intermediate Nausea Verified 05/09/25 16:50 codeine AdvReac Unknown Agitated Verified 05/09/25 16:50 Review of Systems Review of Systems: 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 noted on MRI has far back as 2020 Expressive aphasia CVA (cerebral vascular accident) Anemia H/O prostate cancer Essential (primary) hypertension Hypothyroidism TSH 0.898 on 01/06/2024 Mixed hyperlipidemia Primary osteoarthritis involving multiple joints Surgical History Surgical History Hx of hernia repair Hx of prostatectomy Family History Family History Father Family history of premature coronary heart disease Hypertension Tobacco abuse Mother Hypertension Family history of coronary artery disease Sibling Malignant neoplasm of prostate Family history of lung cancer COVID-19 Social History Social History Social History: Patient lives with his who has dementia. Code status: Healthcare power of personal injury attorney: Sheila Wetzel (daughter) and Clay Moore (son) Smoking status: Former smoker (quit 40 years ago) Second hand tobacco smoke exposure: Yes Alcohol intake: never Substance use: never Substance use type: does not use Lack of Transportation: No Lack of Food: Never True Current Housing: I Have Housing Concerned About Future Housing: No Difficulty Paying Gas/Electric Bills: No Difficulty Paying for Meds: No Currently Unemployed: No Education: High School Diploma/GED Difficulty w/ Childcare or Family Care: No Living arrangements: with family Occupation/Education: retired Additional occupation/education comments: [employer] Gender identity (if verbalized by the patient): Male Spiritual care concerns: No Exam Narrative: EXAMINATION OF ORGAN SYSTEMS/BODY AREAS: Constitutional: Vital signs per nursing GENERAL:[No acute distress, non-toxic appearing.] HEAD: Normal with no signs of head trauma. EYES: EOMI, conjunctiva normal ENT: Hearing grossly intact LUNGS: Nonlabored breathing. HEART: [Regular rate and rhythm] ABD: [Soft], [nontender to palpation] EXT: Normal range of motion SKIN: [No rashes or lesions.] NEURO: [Alert. No gross focal sensory or strength deficits.] PSYCH: Normal affect Course Vital Signs Vital signs: Vital Signs Temperature 97.9 F 05/09/25 16:46 Pulse Rate 83 05/09/25 16:46 Respiratory Rate 18 05/09/25 16:46 Blood Pressure 185/96 H 05/09/25 16:46 Pulse Oximetry 95 05/09/25 16:46 Oxygen Delivery Room Air 05/09/25 16:46 Temperature 97.9 F 05/09/25 16:46 Pulse Rate 83 05/09/25 16:46 Respiratory Rate 18 05/09/25 16:46 Blood Pressure 185/96 H 05/09/25 16:46 Pulse Oximetry 95 05/09/25 16:46 Oxygen Delivery Room Air 05/09/25 16:46 MDM - Altered Mental Status MDM Narrative Medical decision making narrative: Patient presenting here with potential altered mental status, he is given that his tried to poison him, since he ate the meal 3 days ago he says that he has been falling more often. On exam he has normal neurologic exam other than his persistent delusion about his poison him, I did speak with his family, his sons and daughters have multiple caries in the house and they report that for the last 2 weeks they noticed he has been acting very differently, he has stopped preparing food for them, he will say at the kitchen table and shuffle papers around for 8 hours straight, he is often missing his medications, they do not see any signs of his having poisoned him and she does have Alzheimer's and he is her title searcher. Extensive workup here including CT brain is unremarkable. This point had discussions family, they do not feel he can go home safely and I do agree. Discussed with hospitalist for admission. Lab Data 05/09/25 16:55 05/09/25 17:11 Labs: Lab Results 05/09/25 05/09/25 05/09/25 Range/Units 16:54 16:55 17:11 WBC 6.4 (4.5-10.0) K/mm3 RBC 4.48 L (4.6-6.20) M/mm3 Hgb 14.6 (14.0-18.0) g/dL Hct 43.9 (42.0-52.0) % MCV 98.0 (80-100) fl MCH 32.6 (26-34) pg MCHC 33.3 (32-36) g/dl RDW 13.6 (11.5-14.5) % Plt Count 261 (150-375) k/mm3 MPV 10.0 (7.4-10.4) fl Immature Gran % (Auto) 0.3 (0-0.5) % Neut % (Auto) 52.1 (45.5-73.1) % Lymph % (Auto) 29.2 (18.3-44.2) % [place] % (Auto) 11.7 H (2.6-8.5) % Eos % (Auto) 5.9 H (0-4.4) % Baso % (Auto) 0.8 (0.2-1.2) % Lymph # (Auto) 1.87 (0.9-3.2) K/mm3 [place] # (Auto) 0.8 H (0.1-0.6) K/mm3 Eos # (Auto) 0.4 H (0-0.3) K/mm3 Baso # (Auto) 0.1 (0.0-0.1) K/mm3 Abs Immat Gran (auto) 0.02 (0.00-0.031) K/mm3 Absolute Neuts (auto) 3.3 (1.3-6.7) K/mm3 Absolute Nucleated RBC 0.000 (0.0-0.012) K/mm3 Nucleated RBC % 0.0 (0.0-0.2) % PT 12.3 (11.1-14.7) Seconds INR 0.9 APTT 22.2 L (22.3-36.8) Seconds Sodium 138 (137-145) mmol/L Potassium 4.2 (3.4-5.0) mmol/L Chloride 104 (98-107) mmol/L Carbon Dioxide 29 (22-30) mmol/L Anion Gap 5 (4-12) mmol/L BUN 19 (9-20) mg/dL Creatinine 1.13 (0.7-1.3) mg/dL Estim Creat Clear Calc 45 ml/min Estimated GFR > 60 (59 - ) Glucose 92 (65-110) mg/dL Calcium 9.2 (8.4-10.2) mg/dL Total Bilirubin 0.5 (0.2-1.3) mg/dL AST 41 (17-59) U/L ALT 26 (6-50) U/L Alkaline Phosphatase 100 (38-126) U/L Total Protein 7.0 (6.3-8.2) g/dL Albumin 4.4 (3.5-5.1) g/dL TSH (Reflex) Pending Urine Color (Yellow) Urine Appearance (Clear) Urine pH (5.0-9.0) Ur Specific [place] (1.001-1.035) Urine Protein (Negative) mg/dL Urine Glucose (UA) (Negative) mg/dL Urine Ketones (Negative) mg/dL Ur Blood (Man) (Negative) Urine Nitrate (Negative) Urine Bilirubin (Negative) Urine Urobilinogen (<2.0) mg/dL Leukocyte Esterase Rfl (Negative) FCO/UL Carbamazepine Pending 05/09/25 Range/Units 18:03 WBC (4.5-10.0) K/mm3 RBC (4.6-6.20) M/mm3 Hgb (14.0-18.0) g/dL Hct (42.0-52.0) % MCV (80-100) fl MCH (26-34) pg MCHC (32-36) g/dl RDW (11.5-14.5) % Plt Count (150-375) k/mm3 MPV (7.4-10.4) fl Immature Gran % (Auto) (0-0.5) % Neut % (Auto) (45.5-73.1) % Lymph % (Auto) (18.3-44.2) % [place] % (Auto) (2.6-8.5) % Eos % (Auto) (0-4.4) % Baso % (Auto) (0.2-1.2) % Lymph # (Auto) (0.9-3.2) K/mm3 [place] # (Auto) (0.1-0.6) K/mm3 Eos # (Auto) (0-0.3) K/mm3 Baso # (Auto) (0.0-0.1) K/mm3 Abs Immat Gran (auto) (0.00-0.031) K/mm3 Absolute Neuts (auto) (1.3-6.7) K/mm3 Absolute Nucleated RBC (0.0-0.012) K/mm3 Nucleated RBC % (0.0-0.2) % PT (11.1-14.7) Seconds INR APTT (22.3-36.8) Seconds Sodium (137-145) mmol/L Potassium (3.4-5.0) mmol/L Chloride (98-107) mmol/L Carbon Dioxide (22-30) mmol/L Anion Gap (4-12) mmol/L BUN (9-20) mg/dL Creatinine (0.7-1.3) mg/dL Estim Creat Clear Calc ml/min Estimated GFR (59 - ) Glucose (65-110) mg/dL Calcium (8.4-10.2) mg/dL Total Bilirubin (0.2-1.3) mg/dL AST (17-59) U/L ALT (6-50) U/L Alkaline Phosphatase (38-126) U/L Total Protein (6.3-8.2) g/dL Albumin (3.5-5.1) g/dL TSH (Reflex) Urine Color Yellow (Yellow) Urine Appearance Clear (Clear) Urine pH 5.5 (5.0-9.0) Ur Specific [place] 1.010 (1.001-1.035) Urine Protein Negative (Negative) mg/dL Urine Glucose (UA) Negative (Negative) mg/dL Urine Ketones Negative (Negative) mg/dL Ur Blood (Man) Negative (Negative) Urine Nitrate Negative (Negative) Urine Bilirubin Negative (Negative) Urine Urobilinogen 0.2 (<2.0) mg/dL Leukocyte Esterase Rfl Negative (Negative) FCO/UL Carbamazepine Discharge Plan Discharge Clinical Impression: Paranoid delusion Patient Disposition: Still a Patient Condition: Stable
[2025-05-09 19:58] VITALS: BP 132/83; PULSE 78; RESP 22; O2SAT 95
--- NOTE | 2025-05-09 20:00 | WPCEDHO ---
ED Hand Off Checklist All vitals saved:yes IV Site documented:yes All med administrations documented:yes Triage Note Triage Note Brought to ed by neighbor. Pt 05/09/25 16:46 states My is trying to poison me. Pt states he has been falling at home. Oriented to place, person and time. Poor historian. Allergies bisacodyl Adverse Reaction (Intermediate, Verified 05/09/25 16:50) Nausea FEELING HOT, NAUSEA codeine Adverse Reaction (Unknown, Verified 05/09/25 16:50) Agitated Family History (Last Reviewed 05/09/25 @ 19:02 by Tessie Townsend APRN) Father Family history of premature coronary heart disease Hypertension Tobacco abuse Mother Hypertension Family history of coronary artery disease Sibling Malignant neoplasm of prostate Family history of lung cancer COVID-19 Administered/Completed Medications Discontinued Medications Lactated Ringer's (Lr - Lactated Ringers Iv) 1,000 mls @ 999 mls/hr IV CONT .Q1H1M STA Stop: 05/09/25 19:32 Last Infusion: 05/09/25 19:58 Dose: Infused Documented By: Admin: 05/09/25 18:45 Dose: 999 mls/hr Documented By: DARIANA Interventions/Assessments IV / Saline Lock, Insert Start: 05/09/25 16:45 Freq: STAT Status: Active Protocol: Document 05/09/25 16:59 KLZach (Rec: 05/09/25 17:00 KEYON [id number]) IV Assessment Peripheral Access Right Antecubital IV Catheter Access Initiated IV Insertion Date 05/09/25 IV Insertion Time 17:00 Catheter Gauge 18 IV Insertion 1 Attempts IV Site Assessment WNL IV Care and WNL Maintenance PA: Neurological Assessment Start: 05/09/25 16:38 Freq: Status: Active Protocol: Document 05/09/25 19:59 YU (Rec: 05/09/25 19:59 KEYON [id number]) Neurological Assessment Level of Alert,Awake Consciousness Arousable to Verbal Orientation Oriented to Person,Oriented to Place,Oriented to Time Neurological Confusion,Frequent Falls Symptoms Hallucination Type None Behavior Appropriate,Cooperative Patient Able to Comprehend Comprehension Memory Description Intact Last Vital Signs Temperature 97.9 F 05/09/25 16:46 Pulse Rate 78 05/09/25 19:58 Respiratory Rate 22 H 05/09/25 19:58 Pulse Oximetry 95 05/09/25 19:58 Blood Pressure 132/83 05/09/25 19:58 Blood Pressure Mean 99 05/09/25 19:58 Blood Pressure Position Supine 05/09/25 16:46 Oxygen Delivery Room Air 05/09/25 16:46 Weight 85 kg 05/09/25 16:46 Last Result - Abnormals Only RBC 4.48 M/mm3 (4.6-6.20) L 05/09/25 16:55 [place] % (Auto) 11.7 % (2.6-8.5) H 05/09/25 16:55 Eos % (Auto) 5.9 % (0-4.4) H 05/09/25 16:55 [place] # (Auto) 0.8 K/mm3 (0.1-0.6) H 05/09/25 16:55 Eos # (Auto) 0.4 K/mm3 (0-0.3) H 05/09/25 16:55 APTT 22.2 Seconds (22.3-36.8) L 05/09/25 16:55
[2025-05-09 20:01] LABS: Thyroid Stimulating Hormone Reflex 12.000 uIU/mL (0.465-4.68)
[2025-05-09 20:29] LABS: Free T4 Free Thyroxine Reflex 1.42 ng/dL (0.78-2.19)
--- NOTE | 2025-05-09 21:09 | ADMGEN ---
This patient, Tuan Moore, was admitted to Medical Room 344-01.Arrived to unit @2033. Patient/family oriented to hospital policies and general routines including ID bracelet, bed and alarms, visiting hours, pain management, procedures, bathroom and other care routines, personal items, smoking policy, room service/diet, and visiting hours. Information on how to activate the Rapid Response Team has been discussed. Patient/Family are encouraged to report perceived risks to care and to ask questions if they do not understand what they are told or what they should do.
[2025-05-09 21:10] VITALS: BMI 30.9
[2025-05-09 22:02] LABS: Total Triiodothyronine (T3) 0.88 NG/ML (0.82-1.58)
[2025-05-09 22:07] VITALS: BP 136/89; PULSE 86; RESP 18; TEMP 36.3; O2SAT 96
[2025-05-09] MEDS: MIRTAZAPINE 15 MG TABLET PO (23:00)
[2025-05-09] MEDS: TAMSULOSIN HCL 0.4 MG CAPSULE 0.8 MG PO (23:00)
[2025-05-09] MEDS: PREGABALIN (*CRX) 75 MG CAPSULE PO (23:00)
[2025-05-10 04:43] LABS: Hematocrit 42.2 % (42.0-52.0); Hemoglobin 13.7 g/dL (14.0-18.0); Immature Granulocyte Percent A 0.4 % (0-0.5); Lymphocytes Absolute Auto 1.59 K/mm3 (0.9-3.2); Mean Corpuscular HGB Conc 32.5 g/dl (32-36); Mean Corpuscular Hemoglobin 32.9 pg (26-34); Mean Corpuscular Volume 101.4 fl (80-100); Nucleated Red Blood Cells Absolute Auto 0.000 K/mm3 (0.0-0.012); Nucleated Red Blood Cells Perc 0.0 % (0.0-0.2); Platelet Count Result 215 k/mm3 (150-375); Red Blood Count 4.16 M/mm3 (4.6-6.20); White Blood Count 5.5 K/mm3 (4.5-10.0)
[2025-05-10 05:09] LABS: Anion Gap 5 mmol/L (4-12); Blood Urea Nitrogen 16 mg/dL (9-20); Calcium 8.7 mg/dL (8.4-10.2); Carbon Dioxide 24 mmol/L (22-30); Chloride 108 mmol/L (98-107); Estimated CRCL calculation 48 ml/min; Estimated Glomerular Filt Rate > 60; Glucose 89 mg/dL (65-110); Potassium 3.9 mmol/L (3.4-5.0); Sodium 137 mmol/L (137-145)
[2025-05-10] MEDS: PREGABALIN (*CRX) 75 MG CAPSULE PO ×2 (05:31→17:07)
[2025-05-10] MEDS: LEVOTHYROXINE SODIUM 125 MCG TABLET PO (05:31)
[2025-05-10 06:00] VITALS: BP 131/88; PULSE 77; RESP 16; TEMP 36.2; O2SAT 95
[2025-05-10 06:35] LABS: Influenza A QL RT-PCR Negative (Negative); Influenza B QL RT-PCR Negative (Negative); RSV RNA, RT-PCR Negative (Negative); SARS-CoV-2 RNA PCR Negative (Negative)
[2025-05-10 08:08] LABS: Carbamazepine (Tegretol) 12.5 ug/mL (4.0-12.0)
[2025-05-10] MEDS: ASPIRIN 325 MG TABLET PO (08:13)
[2025-05-10] MEDS: MULTIVITS W-FE,MIN CHEWABLE TABLET 1 TABLET PO (08:13)
[2025-05-10] MEDS: FUROSEMIDE 20 MG TABLET PO (08:13)
[2025-05-10] MEDS: LOSARTAN POTASSIUM 25 MG TABLET PO (08:13)
[2025-05-10] MEDS: MIRABEGRON 50 MG ER TABLET PO (08:13)
[2025-05-10] MEDS: ROSUVASTATIN 20 MG TABLET PO (08:13)
--- NOTE | 2025-05-10 08:55 | PM.IMPN ---
Progress Note: A&P Assessment and Plan (1) Paranoid delusion: Code(s): F22 - Delusional disorders Status: Acute Assessment and Plan: Patient here with new delusions. Upon arrival to the emergency department reported that his with significant dementia had tried to poison him. Per chart review, patient typically oversees his on medications, however family does monitor his pillbox. May only take his medication 30-40% of the time. No focal findings on exam concerning for stroke. No findings concerning for infection causing metabolic encephalopathy Chronic trigeminal neuralgia, followed by neuro Dr. Morrow last seen on 04/11 with recent increase to pregabalin and carbamazepine - TSH elevated at 12, however T4 and T3 WNL. Will resume home synthroid dose as per patient family patient has not been regularly taking medications. - carbamazepine level 12.5, resume carbamazepine to assess if this improves patient's mental status. - check viral PCR negative, B12, B1, and Folic acid pending - UDS negative - No acute findings on head CT. - care coordination consulted - neurology consulted Reduce dose of pregabalin to 75 mg twice a day Stop carbamazepine and Remeron Started on Depakote low dose of 250 mg daily, may be increased if necessary. (2) Trigeminal neuralgia of right side of face: Code(s): G50.0 - Trigeminal neuralgia Status: Chronic Assessment and Plan: History of chronic trigeminal neuralgia of the right face. Followed by neurology Dr. Morrow last seen on 04/11 with recent increase to pregabalin and carbamazepine Previously referred to neurosurgeon at [facility] where he was offered an option for surgery but the patient declined Neurology consulted Reduce dose of pregabalin to 75 mg twice a day Stop carbamazepine and Remeron Started on Depakote low dose of 250 mg daily, may be increased if necessary. (3) Hypothyroidism: Qualifiers: Hypothyroidism type: acquired Qualified Code(s): E03.9 - Hypothyroidism, unspecified Code(s): E03.9 - Hypothyroidism, unspecified Status: Chronic Assessment and Plan: TSH elevated at 12, however T4 and T3 WNL. Will resume home synthroid dose as per patient family patient has not been regularly taking medications. - continue Synthroid 125 mcg daily (4) Essential (primary) hypertension: Code(s): I10 - Essential (primary) hypertension Status: Chronic Assessment and Plan: - chronic, continue losartan 25 mg daily - blood pressures reviewed and remain stable, continue to monitor - monitor Plan Diet: heart healthy GI Prophylaxis: n/a DVT Prophylaxis: SCDs IV fluids: 1L bolus Lines/Tubes: pIV Code Status: DNR Time Spent With Patient Time with patient: 25 - 35 minutes Subjective Date/time seen: 05/10/25 08:55 Interval history: 84 y/o M with PMH of trigeminal neuralgia (R side), CVA, expressive aphasia, diastolic dysfunction, anemia, prostate cancer s/p prostatectomy, hypertension, hyperlipidemia, and hypothyroidism presents here with altered mental status/delusions. Patient is pleasant lying comfortably in bed. He continues to be confused on assessment but is following commands. He has no complaints denying chest pain, shortness a breath, palpitations, nausea/vomiting, and abdominal pain however unsure how accurate review of systems are given patient's mental status. Review of Systems Review of Systems: ROS obtained however unsure how accurate given mental status. All systems reviewed & are unremarkable except as noted in HPI and below Exam Narrative: AF HR 77 RR 16 SpO2 95 BP 131/88 General: male in no acute respiratory distress who is nontoxic appearing, lying semi recumbent in bed. HEENT: Normocephalic. Atraumatic. PERRLA. Extraocular movement intact. Sclera clear and anicteric. No facial asymmetry. Chest: Lungs are clear to auscultation bilaterally. No wheezes or crackles. CV: Heart was regular rate and rhythm. Abd: Abdomen was soft. Nontender. Nondistended. Positive bowel sounds. Ext: No clubbing, cyanosis, or edema. DP pulses bilaterally. Neuro: Patient is alert. Strength is 5/5 in both upper and lower extremities. Cranial nerves 2-12 are intact. Speech is clear. Objective Data Vital Signs Vital Signs: Vital Signs - 24 hr 05/09/25 16:46 05/09/25 19:58 05/09/25 22:07 Temperature 97.9 F 97.3 F L Pulse Rate 83 78 86 Respiratory Rate 18 22 H 18 Blood Pressure 185/96 H 132/83 136/89 Pulse Oximetry 95 95 96 Oxygen Delivery Room Air 05/10/25 06:00 05/10/25 08:00 Temperature 97.1 F L Pulse Rate 77 Respiratory Rate 16 Blood Pressure 131/88 Pulse Oximetry 95 Oxygen Delivery Room Air Intake/Output Intake/Output: Intake & Output 05/07/25 05/08/25 05/09/25 05/10/25 23:59 23:59 23:59 23:59 Intake Total 1000 240 Output Total 400 800 Balance 600 -560 Meds/Results Medications: Active Medications Generic Name Dose Route Start Last Admin Trade Name Freq PRN Reason Stop Dose Admin Acetaminophen 650 mg 05/09/25 20:03 Acetaminophen 325 Mg Tablet PO Q4H PRN Mild Pain (1-3) or Fever Aspirin 325 mg 05/10/25 08:00 05/10/25 08:13 Aspirin 325 Mg Tablet PO 325 mg DAILY@0800 EZEQUIEL Administration Carbamazepine 200 mg 05/09/25 22:30 05/10/25 08:13 Carbamazepine Xr 200 Mg Tab.Er.12h PO 200 mg Q12HR EZEQUIEL Administration Furosemide 20 mg 05/10/25 09:00 05/10/25 08:13 Furosemide 20 Mg Tablet PO 20 mg QAM EZEQUIEL Administration Lactulose 10 gm 05/09/25 22:07 Lactulose 20 Gm/30 Ml Udc PO DAILY PRN Constipation Levothyroxine Sodium 125 mcg 05/10/25 06:30 05/10/25 05:31 Levothyroxine Sodium 125 Mcg Tablet PO 125 mcg DAILY@0630 EZEQUIEL Administration Losartan Potassium 25 mg 05/10/25 09:00 05/10/25 08:13 Losartan Potassium 25 Mg Tablet PO 25 mg DAILY EZEQUIEL Administration Mirabegron 50 mg 05/10/25 09:00 05/10/25 08:13 Mirabegron 50 Mg Er Tablet PO 50 mg DAILY EZEQUIEL Administration Mirtazapine 15 mg 05/09/25 22:15 05/09/25 23:00 Mirtazapine 15 Mg Tablet PO 15 mg QHS EZEQUIEL Administration Multivitamins/Minerals 1 tablet 05/10/25 09:00 05/10/25 08:13 Multivits W-Fe,Min Chewable Tablet PO 1 tablet DAILY EZEQUIEL Administration Ondansetron HCl 4 mg 05/09/25 20:03 Ondansetron Inj 4 Mg/2 Ml Vial IV PUSH Q6H PRN Nausea And Vomiting Polyethylene Glycol 17 gm 05/09/25 20:03 Polyethylene Glycol 3350 17 Gm Powd.Pack PO QAM PRN Constipation Pregabalin 75 mg 05/09/25 22:10 05/10/25 05:31 Pregabalin (*Crx) 75 Mg Capsule PO 75 mg Q8HR EZEQUIEL Administration Rosuvastatin Calcium 20 mg 05/10/25 09:00 05/10/25 08:13 Rosuvastatin 20 Mg Tablet PO 20 mg DAILY EZEQUIEL Administration Tamsulosin HCl 0.8 mg 05/09/25 22:10 05/09/25 23:00 Tamsulosin Hcl 0.4 Mg Capsule PO 0.8 mg HS EZEQUIEL Administration Radiology Results: ITS Impressions Head CT 05/09/25 17:38 IMPRESSION: 1. Limited noncontrast CT head shows no acute intracranial lesions. Chronic changes as described above. Labs Labs: Laboratory Results - last 24 hr 05/09/25 05/09/25 05/09/25 16:54 16:55 17:11 WBC 6.4 RBC 4.48 L Hgb 14.6 Hct 43.9 MCV 98.0 MCH 32.6 MCHC 33.3 RDW 13.6 Plt Count 261 MPV 10.0 Immature Gran % (Auto) 0.3 Neut % (Auto) 52.1 Lymph % (Auto) 29.2 [place] % (Auto) 11.7 H Eos % (Auto) 5.9 H Baso % (Auto) 0.8 Lymph # (Auto) 1.87 [place] # (Auto) 0.8 H Eos # (Auto) 0.4 H Baso # (Auto) 0.1 Abs Immat Gran (auto) 0.02 Absolute Neuts (auto) 3.3 Absolute Nucleated RBC 0.000 Nucleated RBC % 0.0 PT 12.3 INR 0.9 APTT 22.2 L Sodium 138 Potassium 4.2 Chloride 104 Carbon Dioxide 29 Anion Gap 5 BUN 19 Creatinine 1.13 Estim Creat Clear Calc 45 Estimated GFR > 60 Glucose 92 Calcium 9.2 Total Bilirubin 0.5 AST 41 ALT 26 Alkaline Phosphatase 100 Total Protein 7.0 Albumin 4.4 TSH (Reflex) 12.000 H Free T4 1.42 Total T3 0.88 Urine Color Urine Appearance Urine pH Ur Specific [place] Urine Protein Urine Glucose (UA) Urine Ketones Ur Blood (Man) Urine Nitrate Urine Bilirubin Urine Urobilinogen Leukocyte Esterase Rfl Carbamazepine 12.5 H Influenza A (RT-PCR) Influenza B (RT-PCR) RSV (RT-PCR) SARS-CoV-2 RNA (RT-PCR) 05/09/25 05/10/2505/10/25 18:03 04:34 05:54 WBC 5.5 RBC 4.16 L Hgb 13.7 L Hct 42.2 MCV 101.4 H MCH 32.9 MCHC 32.5 RDW 13.6 Plt Count 215 MPV 10.1 Immature Gran % (Auto) 0.4 Neut % (Auto) 52.0 Lymph % (Auto) 28.9 [place] % (Auto) 11.8 H Eos % (Auto) 6.2 H Baso % (Auto) 0.7 Lymph # (Auto) 1.59 [place] # (Auto) 0.7 H Eos # (Auto) 0.3 Baso # (Auto) 0.0 Abs Immat Gran (auto) 0.02 Absolute Neuts (auto) 2.9 Absolute Nucleated RBC 0.000 Nucleated RBC % 0.0 PT INR APTT Sodium 137 Potassium 3.9 Chloride 108 H Carbon Dioxide 24 Anion Gap 5 BUN 16 Creatinine 1.03 Estim Creat Clear Calc 48 Estimated GFR > 60 Glucose 89 Calcium 8.7 Total Bilirubin AST ALT Alkaline Phosphatase Total Protein Albumin TSH (Reflex) Free T4 Total T3 Urine Color Yellow Urine Appearance Clear Urine pH 5.5 Ur Specific [place] 1.010 Urine Protein Negative Urine Glucose (UA) Negative Urine Ketones Negative Ur Blood (Man) Negative Urine Nitrate Negative Urine Bilirubin Negative Urine Urobilinogen 0.2 Leukocyte Esterase Rfl Negative Carbamazepine Influenza A (RT-PCR) Negative Influenza B (RT-PCR) Negative RSV (RT-PCR) Negative SARS-CoV-2 RNA (RT-PCR) Negative Quality VTE Prophylaxis VTE prophylaxis: mechanical ordered
[2025-05-10 10:29] LABS: Cannabinoid Screen Urine Negative (Negative)
--- NOTE | 2025-05-10 11:17 | WPDNEURCNPN ---
Assessment and Plan Assessment and plan (1) Trigeminal neuralgia of right side of face: Code(s): G50.0 - Trigeminal neuralgia Status: Chronic (2) Paranoid delusion: Code(s): F22 - Delusional disorders Status: Acute Assessment and Plan: The patient presents as a new symptom of paranoid ideation but he thinks that his 's 20 twice in him. His has dementia Alzheimer's type and has not been able to cook for last 4 years. The been for 65 years. Possibility of underlying dementia with the new symptoms is in the consideration. (3) Hypothyroidism: Qualifiers: Hypothyroidism type: acquired Qualified Code(s): E03.9 - Hypothyroidism, unspecified Code(s): E03.9 - Hypothyroidism, unspecified Status: Chronic (4) Positive KOURTNEY (antinuclear antibody): Code(s): R76.8 - Other specified abnormal immunological findings in serum Status: Acute (5) Multiple falls: Code(s): R29.6 - Repeated falls Status: Acute Plan I would suggest to reduce the dose of pregabalin to 75 mg twice a day and stop carbamazepine. His carbamazepine level was 12.5 however this was blood draws in afternoon yesterday and hence is not trough level since the reference range is for the trough levels. Nevertheless he complains that his pain is on around the right eye. I have seen him in the past in my office and also on the previous hospitalization. He was referred to see a neurosurgeon at [facility] where he was offered an option for surgery but the patient declined. He used to have more pain in the right maxillary area however now is confined mostly to the right eye. He was given a trial of indomethacin with the consideration of possible benign paroxysmal hemicrania however he did not respond to indomethacin. We have added Remeron on the previous visit that also has some anticholinergic side effects and can cause confusional state. I will suggest to hold off any of the medications. If he complaints of pain we can put him on Depakote Add low dose of 250 mg daily and it may be increased if necessary. This is a mood stabilizer and also used for pain or even trigeminal neuralgia. So far he has not shown any other metabolic problems such as UTI or pneumonia. Possibility of underlying depression could be a consideration. Eventually he probably require either Aricept or Namenda but we shall follow him clinically to see how he does. He has had MRI of the brain on 03/11/2025 which I reviewed and did not show any significant abnormalities. CT angiogram of the head and neck was also performed on 03/10/2025 did not show any significant abnormalities. He has had problem with the balance however anticonvulsants can also lead to imbalance although he has been on low-dose. The previous admission was on account of falls. He also has complaints of pain in the lower back. He has a fair amount of investigation at the time and did not show any significant abnormal findings. To explain his symptoms. I would suggest to check supine and standing blood pressure since he is on Flomax which is alpha malena and can sometimes contribute to postural hypertension. Consult date: 05/10/25 HPI: Tuan Moore is a 84 year old male With history of trigeminal neuralgia affecting the right maxillary division for past 20 years presented to the hospital with the paranoid delusion thinking that his was trying to poison him. He in fact told me the same thing this morning when I was seeing him along with the hospitalist. The patient is a to his for 65 years and apparently does not cook for last 4 years since he has Alzheimer's disease. Patient has been noted to be confused by the nursing staff also. His TSH was high at 12.0. He has a tendency to fall he has been seen by me on 04/11/2025 and where he view of the complaints of pain in the her around the right eye being increase the dose of Tegretol 232 mg 3 times a day and a pregabalin to 75 mg 3 times a day and added Remeron 15 mg at bedtime Review of Systems Review of Systems: patient denies any headache or diplopia or weakness in upper lower limbs. No passing out spell. The remainder of the symptoms are discussed as above. 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 noted on MRI has far back as 2020 Expressive aphasia CVA (cerebral vascular accident) Anemia H/O prostate cancer Essential (primary) hypertension Hypothyroidism TSH 0.898 on 01/06/2024 Mixed hyperlipidemia Primary osteoarthritis involving multiple joints Surgical History Surgical History Hx of hernia repair Hx of prostatectomy Family History Family History Father Family history of premature coronary heart disease Hypertension Tobacco abuse Mother Hypertension Family history of coronary artery disease Sibling Malignant neoplasm of prostate Family history of lung cancer COVID-19 Social History Social History Social History: Patient lives with his who has dementia. Code status: [facility] power of county extension agent: Sheilatesfaye Wetzel (daughter) and Clayjalil Moore (son) Smoking status: Former smoker Tobacco type: cigarettes Second hand tobacco smoke exposure: No Alcohol intake: former Substance use: never Substance use type: does not use Lack of Transportation: No Lack of Food: Never True Current Housing: I Have Housing Concerned About Future Housing: No Difficulty Paying Gas/Electric Bills: No Difficulty Paying for Meds: No Currently Unemployed: No Education: High School Diploma/GED Difficulty w/ Childcare or Family Care: No Living arrangements: with family Occupation/Education: retired Additional occupation/education comments: [employer] Gender identity (if verbalized by the patient): Male Spiritual care concerns: No Meds Home Medications and Allergies Home Medications ?Medication ?Instructions ?Recorded ?Confirmed ?Type aspirin 325 mg tablet 325 mg PO DAILY 05/22/24 05/09/25 History multivitamin with minerals-folic 1 tablet PO DAILY 05/22/24 05/09/25 History acid 80 mcg chewable tablet (Centrum Adult 50 Plus) furosemide 20 mg tablet (Lasix) 20 mg PO QAM #90 tabs 09/21/24 05/09/25 Rx mirabegron 50 mg tablet,extended 50 mg PO DAILY 12/27/24 05/09/25 History release 24 hr rosuvastatin 20 mg tablet (Crestor) 20 mg PO DAILY #90 tabs 01/16/25 05/09/25 Rx tamsulosin 0.4 mg capsule See Rx Instructions .Route .COMPLEX 03/10/25 05/09/25 History levothyroxine 125 mcg tablet 125 mcg PO DAILY@0630 #90 tabs 04/03/25 05/09/25 Rx (Synthroid) losartan 25 mg tablet 25 mg PO DAILY #90 tabs 04/03/25 05/09/25 Rx pregabalin 75 mg capsule 75 mg PO Q8H #90 caps 04/11/25 05/09/25 Rx mirtazapine 15 mg tablet (Remeron) 15 mg PO QHS #90 tabs 05/08/25 05/09/25 Rx carbamazepine 200 mg 200 mg PO TID 05/09/25 05/09/25 History capsule,extended release [id number] (Carbatrol) lactulose 10 gram/15 mL oral 15 ml PO DAILY PRN constipation 05/09/25 05/09/25 History solution (Constulose) Allergies Allergy/AdvReac Type Severity Reaction Status Date / Time bisacodyl AdvReac Intermediate Nausea Verified 05/09/25 21:15 codeine AdvReac Unknown Agitated Verified 05/09/25 21:15 Vital Signs Vital Signs - 24 hr 05/09/25 16:46 05/09/25 19:58 05/09/25 22:07 Temperature 97.9 F 97.3 F L Pulse Rate 83 78 86 Respiratory Rate 18 22 H 18 Blood Pressure 185/96 H 132/83 136/89 Pulse Oximetry 95 95 96 Oxygen Delivery Room Air 05/10/25 06:00 05/10/25 08:00 Temperature 97.1 F L Pulse Rate 77 Respiratory Rate 16 Blood Pressure 131/88 Pulse Oximetry 95 Oxygen Delivery Room Air Exam Const: General: cooperative and comfortable Other: Speech is fluent and articulate however he made mistake in the month and the year and appears to have no idea of this being . He does talk about that his was trying to poison him and the been for 65 years. No aphasia or dysarthria. HENMT: Head: atraumatic Mouth: Yes oropharynx normal Other: Mallampati score was 2 to 3/4 Eyes: Alignment and Position: alignment normal and position normal EOM: EOMs intact bilaterally Neck: Neck: normal visual inspection and supple Resp: Effort & Inspection: normal respiratory effort Skin: General skin exam: normal color Neuro: Cranial nerves: Yes CN's II-XII intact bilaterally, Yes facial symmetry and Yes Midline tongue present Speech: normal speech Sensory Exam: normal sensation Coordination: [id number] test normal and Normal rapid alternating movements of the distal upper extremity present (Neuro) Other: no cogwheeling or involuntary movements are seen. Extrem: General: normal to inspection Results Labs 05/10/25 04:34 05/10/25 04:34 Labs: Short CBC 05/09/25 05/10/25 Range/Units 16:55 04:34 WBC 6.4 5.5 (4.5-10.0) K/mm3 Hgb 14.6 13.7 L (14.0-18.0) g/dL Hct 43.9 42.2 (42.0-52.0) % Plt Count 261 215 (150-375) k/mm3 BMP 05/09/25 05/10/25 17:11 04:34 Sodium 138 137 Potassium 4.2 3.9 Chloride 104 108 H Carbon Dioxide 29 24 BUN 19 16 Creatinine 1.13 1.03 Glucose 92 89 Calcium 9.2 8.7 Liver Function 05/09/25 Range/Units 17:11 Total Bilirubin 0.5 (0.2-1.3) mg/dL AST 41 (17-59) U/L ALT 26 (6-50) U/L Alkaline Phosphatase 100 (38-126) U/L Albumin 4.4 (3.5-5.1) g/dL Urine 05/09/25 Range/Units 18:03 Urine Color Yellow (Yellow) Urine Appearance Clear (Clear) Urine pH 5.5 (5.0-9.0) Ur Specific Hinkley 1.010 (1.001-1.035) Urine Protein Negative (Negative) mg/dL Urine Glucose (UA) Negative (Negative) mg/dL
[2025-05-10 14:00] VITALS: BP 111/69; PULSE 78; RESP 14; TEMP 36.5; O2SAT 97
[2025-05-10 20:42] VITALS: BP 125/77; PULSE 82; RESP 16; TEMP 36.6; O2SAT 96
[2025-05-10] MEDS: TAMSULOSIN HCL 0.4 MG CAPSULE 0.8 MG PO (20:43)
[2025-05-11 05:06] VITALS: BP 105/61; PULSE 71; RESP 18; TEMP 36.5; O2SAT 97
[2025-05-11] MEDS: LEVOTHYROXINE SODIUM 125 MCG TABLET PO (06:58)
[2025-05-11 07:45] VITALS: O2SAT 97
--- NOTE | 2025-05-11 08:19 | P.PNIM_ITS ---
Progress Note: A&P Assessment and Plan (1) Paranoid delusion: Code(s): F22 - Delusional disorders Status: Acute Assessment and Plan: Patient here with new delusions. Upon arrival to the emergency department re ported that his with significant dementia had tried to poison him. Per chart review, patient typically oversees his on medications, however family does monitor his pillbox. May only take his medication 30-40% of the time. No focal findings on exam concerning for stroke. No findings concerning for infection causing metabolic encephalopathy Chronic trigeminal neuralgia, followed by neuro Dr. Morrow last seen on 04/11 with recent increase to pregabalin and carbamazepine - TSH elevated at 12, however T4 and T3 WNL. Will resume home synthroid dose as per patient family patient has not been regularly taking medications. - carbamazepine level 12.5, resume carbamazepine to assess if this improves patient's mental status. - check viral PCR negative, B12, B1, and Folic acid pending - UDS negative - No acute findings on head CT. - care coordination consulted - PT/OT consulted for discharge recommendations - neurology consulted Reduce dose of pregabalin to 75 mg twice a day Stop carbamazepine and Remeron Started on Depakote low dose of 250 mg daily, may be increased if necessary. AOx3 on assessment, following commands. (2) Trigeminal neuralgia of right side of face: Code(s): G50.0 - Trigeminal neuralgia Status: Chronic Assessment and Plan: History of chronic trigeminal neuralgia of the right face. Followed by neurology Dr. Morrow last seen on 04/11 with recent increase to pregabalin and carbamazepine Previously referred to neurosurgeon at [facility] where he was offered an option for surgery but the patient declined Neurology consulted Reduce dose of pregabalin to 75 mg twice a day Stop carbamazepine and Remeron Started on Depakote low dose of 250 mg daily, may be increased if necessary. States pain well controlled. Denies any vision changes. (3) Hypothyroidism: Qualifiers: Hypothyroidism type: acquired Qualified Code(s): E03.9 - Hypothyroidism, unspecified Code(s): E03.9 - Hypothyroidism, unspecified Status: Chronic Assessment and Plan: TSH elevated at 12, however T4 and T3 WNL. Will resume home synthroid dose as per patient family patient has not been regularly taking medications. - continue Synthroid 125 mcg daily (4) Essential (primary) hypertension: Code(s): I10 - Essential (primary) hypertension Status: Chronic Assessment and Plan: - chronic, continue losartan 25 mg daily - blood pressures reviewed and remain stable, continue to monitor - monitor Plan Diet: heart healthy GI Prophylaxis: n/a DVT Prophylaxis: SCDs, lovenox Lines/Tubes: pIV Code Status: DNR Time Spent With Patient Time with patient: 25 - 35 minutes Subjective Date/time seen: 05/11/25 08:19 Interval history: 84 y/o M with PMH of trigeminal neuralgia (R side), CVA, expressive aphasia, diastolic dysfunction, anemia, prostate cancer s/p prostatectomy, hypertension, hyperlipidemia, and hypothyroidism presents here with altered mental status/delusions. Patient is pleasant lying comfortably in bed. On assessment he is alert and oriented x3. He is tearful throughout the exam stating that he misses his but otherwise has no complaints. He denies any chest pain, shortness a breath, palpitations, nausea/vomiting, abdominal pain, facial pain or vision changes. Attempted to contact patient's daughter however the current number is unavailable. Care coordination following to have further discussions with family. Review of Systems Review of Systems: All systems reviewed & are unremarkable except as noted in HPI and below Exam Narrative: AF HR 71 RR 18 SpO2 97 BP 105/61 General: male in no acute respiratory distress who is nontoxic appearing, sitting up in bed. HEENT: Normocephalic. Atraumatic. Extraocular movement intact. Sclera clear and anicteric. No facial asymmetry. Chest: Lungs are clear to auscultation bilaterally. No wheezes or crackles. CV: Heart was regular rate and rhythm. Abd: Abdomen was soft. Nontender. Nondistended. Positive bowel sounds. Ext: No clubbing, cyanosis, or edema. DP pulses bilaterally. Neuro: Patient is alert and oriented x3, following commands. Tearful on exam stating he misses his . Strength is 5/5 in both upper and lower extremities. Speech is clear. Objective Data Vital Signs Vital Signs: Vital Signs - 24 hr 05/10/25 14:00 05/10/25 20:00 05/10/25 20:42 Temperature 97.7 F 97.9 F Pulse Rate 78 82 Respiratory Rate 14 16 Blood Pressure 111/69 125/77 Pulse Oximetry 97 96 Oxygen Delivery Room Air 11/28/25 05:06 05/11/25 07:45 Temperature 97.7 F Pulse Rate 71 Respiratory Rate 18 Blood Pressure 105/61 Pulse Oximetry 97 97 Oxygen Delivery Room Air Intake/Output Intake/Output: Intake & Output 05/08/25 05/09/25 05/10/25 05/11/25 23:59 23:59 23:59 23:59 Intake Total 1000 1510 350 Output Total 400 1380 Balance 600 130 350 Meds/Results Medications: Active Medications Generic Name Dose Route Start Last Admin Trade Name Freq PRN Reason Stop Dose Admin Acetaminophen 650 mg 05/09/25 20:03 Acetaminophen 325 Mg Tablet PO Q4H PRN Mild Pain (1-3) or Fever Aspirin 325 mg 05/10/25 08:00 05/10/25 08:13 Aspirin 325 Mg Tablet PO 325 mg DAILY@0800 EZEQUIEL Administration Divalproex Sodium 250 mg 05/11/25 08:00 Divalproex Sodium Er 250 Mg Tab.24h PO DAILY@0800 [facility] Furosemide 20 mg 05/10/25 09:00 05/10/25 08:13 Furosemide 20 Mg Tablet PO 20 mg QAM [facility] Administration Lactulose 10 gm 05/09/25 22:07 Lactulose 20 Gm/30 Ml Udc PO DAILY PRN Constipation Levothyroxine Sodium 125 mcg 05/10/25 06:30 05/11/25 06:58 Levothyroxine Sodium 125 Mcg Tablet PO 125 mcg DAILY@0630 EZEQUIEL Administration Losartan Potassium 25 mg 05/10/25 09:00 05/10/25 08:13 Losartan Potassium 25 Mg Tablet PO 25 mg DAILY EZEQUIEL Administration Mirabegron 50 mg 05/10/25 09:00 05/10/25 08:13 Mirabegron 50 Mg Er Tablet PO 50 mg DAILY EZEQUIEL Administration Multivitamins/Minerals 1 tablet 05/10/25 09:00 05/10/25 08:13 Multivits W-Fe,Min Chewable Tablet PO 1 tablet DAILY EZEQUIEL Administration Ondansetron HCl 4 mg 05/09/25 20:03 Ondansetron Inj 4 Mg/2 Ml Vial IV PUSH Q6H PRN Nausea And Vomiting Polyethylene Glycol 17 gm 05/09/25 20:03 Polyethylene Glycol 3350 17 Gm Powd.Pack PO QAM PRN Constipation Pregabalin 75 mg 05/10/25 17:00 05/10/25 17:07 Pregabalin (*Crx) 75 Mg Capsule PO 75 mg BID EZEQUIEL Administration Rosuvastatin Calcium 20 mg 05/10/25 09:00 05/10/25 08:13 Rosuvastatin 20 Mg Tablet PO 20 mg DAILY EZEQUIEL Administration Tamsulosin HCl 0.8 mg 05/09/25 22:10 05/10/25 20:43 Tamsulosin Hcl 0.4 Mg Capsule PO 0.8 mg HS EZEQUIEL Administration Radiology Results: ITS Impressions Head CT 05/09/25 17:38 IMPRESSION: 1. Limited noncontrast CT head shows no acute intracranial lesions. Chronic changes as described above. Labs Labs: Laboratory Results - last 24 hr 05/09/25 18:02 Urine Opiates Screen Negative Urine Methadone Screen Negative Ur Barbiturates Screen Negative Ur Phencyclidine Scrn Negative Ur Amphetamine Screen Negative U Benzodiazepines Scrn Negative Urine Cocaine Screen Negative U Cannabinoids Screen Negative Quality VTE Prophylaxis VTE prophylaxis: pharmacologic ordered
[2025-05-11 09:16] LABS: Hematocrit 41.0 % (42.0-52.0); Hemoglobin 13.4 g/dL (14.0-18.0); Mean Corpuscular HGB Conc 32.7 g/dl (32-36); Mean Corpuscular Hemoglobin 32.4 pg (26-34); Mean Corpuscular Volume 99.3 fl (80-100); Platelet Count Result 224 k/mm3 (150-375); Red Blood Count 4.13 M/mm3 (4.6-6.20); White Blood Count 4.4 K/mm3 (4.5-10.0)
[2025-05-11] MEDS: ASPIRIN 325 MG TABLET PO (09:35)
[2025-05-11] MEDS: LOSARTAN POTASSIUM 25 MG TABLET PO (09:35)
[2025-05-11] MEDS: FUROSEMIDE 20 MG TABLET PO (09:35)
[2025-05-11] MEDS: MIRABEGRON 50 MG ER TABLET PO (09:35)
[2025-05-11] MEDS: MULTIVITS W-FE,MIN CHEWABLE TABLET 1 TABLET PO (09:35)
[2025-05-11] MEDS: ROSUVASTATIN 20 MG TABLET PO (09:35)
[2025-05-11] MEDS: DIVALPROEX SODIUM ER 250 MG TAB.24H PO (09:35)
[2025-05-11] MEDS: PREGABALIN (*CRX) 75 MG CAPSULE PO ×2 (09:35→16:48)
[2025-05-11 09:39] LABS: Anion Gap 2 mmol/L (4-12); Blood Urea Nitrogen 18 mg/dL (9-20); Calcium 9.0 mg/dL (8.4-10.2); Carbon Dioxide 31 mmol/L (22-30); Chloride 106 mmol/L (98-107); Estimated CRCL calculation 44 ml/min; Estimated Glomerular Filt Rate > 60; Glucose 104 mg/dL (65-110); Potassium 4.1 mmol/L (3.4-5.0); Sodium 139 mmol/L (137-145)
[2025-05-11 14:00] VITALS: BP 120/70; PULSE 86; RESP 18; TEMP 36.5; O2SAT 100
[2025-05-11 14:29] LABS: Vitamin B12 637.0 pg/mL (239-931)
[2025-05-11 20:52] VITALS: BP 114/72; PULSE 77; RESP 18; TEMP 36.5; O2SAT 98
[2025-05-11] MEDS: TAMSULOSIN HCL 0.4 MG CAPSULE 0.8 MG PO (20:55)
[2025-05-11 21:46] VITALS: RESP 96; O2SAT 96
[2025-05-12 04:22] VITALS: BP 120/78; PULSE 86; RESP 18; TEMP 36.2; O2SAT 96
[2025-05-12 06:06] LABS: Hematocrit 40.2 % (42.0-52.0); Hemoglobin 13.2 g/dL (14.0-18.0); Mean Corpuscular HGB Conc 32.8 g/dl (32-36); Mean Corpuscular Hemoglobin 32.3 pg (26-34); Mean Corpuscular Volume 98.3 fl (80-100); Platelet Count Result 231 k/mm3 (150-375); Red Blood Count 4.09 M/mm3 (4.6-6.20); White Blood Count 4.8 K/mm3 (4.5-10.0)
[2025-05-12 06:21] LABS: Anion Gap 3 mmol/L (4-12); Blood Urea Nitrogen 22 mg/dL (9-20); Calcium 9.2 mg/dL (8.4-10.2); Carbon Dioxide 31 mmol/L (22-30); Chloride 103 mmol/L (98-107); Estimated CRCL calculation 40 ml/min; Estimated Glomerular Filt Rate 55; Glucose 101 mg/dL (65-110); Potassium 4.1 mmol/L (3.4-5.0); Sodium 137 mmol/L (137-145)
[2025-05-12] MEDS: LEVOTHYROXINE SODIUM 125 MCG TABLET PO (06:25)
--- NOTE | 2025-05-12 06:55 | PM.IMPN ---
Progress Note: A&P Assessment and Plan (1) Paranoid delusion: Code(s): F22 - Delusional disorders Status: Acute Assessment and Plan: Patient here with new delusions. Upon arrival to the emergency department reported that his with significant dementia had tried to poison him. Per chart review, patient typically oversees his on medications, however family does monitor his pillbox. May only take his medication 30-40% of the time. No focal findings on exam concerning for stroke. No findings concerning for infection causing metabolic encephalopathy Chronic trigeminal neuralgia, followed by neuro Dr. Morrow last seen on 04/11 with recent increase to pregabalin and carbamazepine - TSH elevated at 12, however T4 and T3 WNL. Will resume home synthroid dose as per patient family patient has not been regularly taking medications. - carbamazepine level 12.5, resume carbamazepine to assess if this improves patient's mental status. - check viral PCR negative, B12, B1, and Folic acid pending - UDS negative - No acute findings on head CT. - neurology consulted Reduce dose of pregabalin to 75 mg twice a day Stop carbamazepine and Remeron Started on Depakote low dose of 250 mg daily, may be increased if necessary. AOx3 on assessment, following commands. - PT/OT consulted, recommending SNF placement - care coordination working on placement (2) Trigeminal neuralgia of right side of face: Code(s): G50.0 - Trigeminal neuralgia Status: Chronic Assessment and Plan: History of chronic trigeminal neuralgia of the right face. Followed by neurology Dr. Morrow last seen on 04/11 with recent increase to pregabalin and carbamazepine Previously referred to neurosurgeon at [facility] where he was offered an option for surgery but the patient declined Neurology consulted Reduce dose of pregabalin to 75 mg twice a day Stop carbamazepine and Remeron Started on Depakote low dose of 250 mg daily, may be increased if necessary. States pain well controlled. Denies any vision changes. (3) Hypothyroidism: Qualifiers: Hypothyroidism type: acquired Qualified Code(s): E03.9 - Hypothyroidism, unspecified Code(s): E03.9 - Hypothyroidism, unspecified Status: Chronic Assessment and Plan: TSH elevated at 12, however T4 and T3 WNL. Will resume home synthroid dose as per patient family patient has not been regularly taking medications. - continue Synthroid 125 mcg daily (4) Essential (primary) hypertension: Code(s): I10 - Essential (primary) hypertension Status: Chronic Assessment and Plan: - chronic, continue losartan 25 mg daily - blood pressures reviewed and remain stable, continue to monitor Plan Diet: heart healthy Bowel regimen: miralax daily DVT Prophylaxis: SCDs, lovenox Lines/Tubes: PIV Code Status: DNR Time Spent With Patient Time with patient: 25 - 35 minutes Subjective Date/time seen: 05/12/25 06:55 Interval history: 84 y/o M with PMH of trigeminal neuralgia (R side), CVA, expressive aphasia, diastolic dysfunction, anemia, prostate cancer s/p prostatectomy, hypertension, hyperlipidemia, and hypothyroidism presents here with altered mental status/delusions. Patient is pleasant sitting comfortably on the side his bed. He remains alert and oriented x3 at time of assessment. He has no acute events overnight. He states he has not had a bowel movement since admission. He notes he typically goes several days before having a BM. He denies any nausea/vomiting/ abdominal pain, is tolerating a diet well and is passing flatus. Started on bowel regimen. He denies any chest pain, shortness a breath, palpitations, dizziness/lightheadedness. Review of Systems Review of Systems: All systems reviewed & are unremarkable except as noted in HPI and below Exam Narrative: AF HR 86 RR 18 Spo2 96 BP 120/78 General: male in no acute respiratory distress who is nontoxic appearing, sitting up on side of bed. HEENT: Normocephalic. Atraumatic. Extraocular movement intact. Sclera clear and anicteric. No facial asymmetry. Chest: Lungs are clear to auscultation bilaterally. No wheezes or crackles. CV: Heart was regular rate and rhythm. Abd: Abdomen was soft. Nontender. Nondistended. Positive bowel sounds. Ext: No clubbing, cyanosis, or edema. DP pulses bilaterally. Neuro: Patient is alert and oriented x3, following commands. Strength is 5/5 in both upper and lower extremities. Speech is clear. Objective Data Vital Signs Vital Signs: Vital Signs - 24 hr 05/11/25 07:45 05/11/25 08:00 05/11/25 11:52 Temperature Pulse Rate Respiratory Rate Blood Pressure Pulse Oximetry 97 Oxygen Delivery Room Air Room Air Room Air 05/11/25 13:23 05/11/25 14:00 05/11/25 20:00 Temperature 97.7 F Pulse Rate 86 Respiratory Rate 18 Blood Pressure 120/70 Pulse Oximetry 100 Oxygen Delivery Room Air Room Air 05/11/25 20:52 05/11/25 21:46 05/12/25 04:22 Temperature 97.7 F 97.2 F L Pulse Rate 77 86 Respiratory Rate 18 96 H 18 Blood Pressure 114/72 120/78 Pulse Oximetry 98 96 96 Oxygen Delivery Room Air Intake/Output Intake/Output: Intake & Output 05/09/25 05/10/25 05/11/25 05/12/25 23:59 23:59 23:59 23:59 Intake Total 1000 1510 1310 300 Output Total 400 1380 1400 Balance 600 130 -90 300 Meds/Results Medications: Active Medications Generic Name Dose Route Start Last Admin Trade Name Freq PRN Reason Stop Dose Admin Acetaminophen 650 mg 05/09/25 20:03 Acetaminophen 325 Mg Tablet PO Q4H PRN Mild Pain (1-3) or Fever Aspirin 325 mg 05/10/25 08:00 05/11/25 09:35 Aspirin 325 Mg Tablet PO 325 mg DAILY@0800 E[facility] Administration Divalproex Sodium 250 mg 05/11/25 08:00 05/11/25 09:35 Divalproex Sodium Er 250 Mg Tab.24h PO 250 mg DAILY@0800 E[facility]QU[facility] Administration Enoxaparin Sodium 40 mg 05/12/25 09:00 Enoxaparin 40 Mg/0.4 Ml Syringe SUB-Q DAILY [facility] Furosemide 20 mg 05/10/25 09:00 05/11/25 09:35 Furosemide 20 Mg Tablet PO 20 mg QAM [facility] Administration Lactulose 10 gm 05/09/25 22:07 Lactulose 20 Gm/30 Ml Udc PO DAILY PRN Constipation Levothyroxine Sodium 125 mcg 05/10/25 06:30 05/12/25 06:25 Levothyroxine Sodium 125 Mcg Tablet PO 125 mcg DAILY@0630 E[facility]QU[facility]EL Administration Losartan Potassium 25 mg 05/10/25 09:00 05/11/25 09:35 Losartan Potassium 25 Mg Tablet PO 25 mg DAILY [facility] Administration Mirabegron 50 mg 05/10/25 09:00 05/11/25 09:35 Mirabegron 50 Mg Er Tablet PO 50 mg DAILY [facility] Administration Multivitamins/Minerals 1 tablet 05/10/25 09:00 05/11/25 09:35 Multivits W-Fe,Min Chewable Tablet PO 1 tablet DAILY [facility] Administration Ondansetron HCl 4 mg 05/09/25 20:03 Ondansetron Inj 4 Mg/2 Ml Vial IV PUSH Q6H PRN Nausea And Vomiting Polyethylene Glycol 17 gm 05/09/25 20:03 Polyethylene Glycol 3350 17 Gm Powd.Pack PO QAM PRN Constipation Pregabalin 75 mg 05/10/25 17:00 05/11/25 16:48 Pregabalin (*Crx) 75 Mg Capsule PO 75 mg BID [facility] Administration Rosuvastatin Calcium 20 mg 05/10/25 09:00 05/11/25 09:35 Rosuvastatin 20 Mg Tablet PO 20 mg DAILY [facility] Administration Tamsulosin HCl 0.8 mg 05/09/25 22:10 05/11/25 20:55 Tamsulosin Hcl 0.4 Mg Capsule PO 0.8 mg HS E[facility]QU[facility]EL Administration Radiology Results: ITS Impressions Head CT 05/09/25 17:38 IMPRESSION: 1. Limited noncontrast CT head shows no acute intracranial lesions. Chronic changes as described above. Labs Labs: Laboratory Results - last 24 hr 05/10/25 05/11/25 05/12/25 04:34 09:03 05:51 WBC 4.4 L 4.8 RBC 4.13 L 4.09 L Hgb 13.4 L 13.2 L Hct 41.0 L 40.2 L MCV 99.3 98.3 MCH 32.4 32.3 MCHC 32.7 32.8 RDW 13.3 13.4 Plt Count 224 231 MPV 9.7 10.0 Sodium 139 137 Potassium 4.1 4.1 Chloride 106 103 Carbon Dioxide 31 H 31 H Anion Gap 2 L 3 L BUN 18 22 H Creatinine 1.14 1.25 Estim Creat Clear Calc 44 40 Estimated GFR > 60 55 L Glucose 104 101 Calcium 9.0 9.2 Vitamin B12 637.0 Folate 17.9 Quality VTE Prophylaxis VTE prophylaxis: pharmacologic ordered
[2025-05-12] MEDS: PREGABALIN (*CRX) 75 MG CAPSULE PO ×2 (09:30→16:54)
[2025-05-12] MEDS: ASPIRIN 325 MG TABLET PO (09:30)
[2025-05-12] MEDS: DIVALPROEX SODIUM ER 250 MG TAB.24H PO (09:30)
[2025-05-12] MEDS: MULTIVITS W-FE,MIN CHEWABLE TABLET 1 TABLET PO (09:30)
[2025-05-12] MEDS: ENOXAPARIN 40 MG/0.4 ML SYRINGE SUB-Q (09:30)
[2025-05-12] MEDS: ROSUVASTATIN 20 MG TABLET PO (09:30)
[2025-05-12] MEDS: MIRABEGRON 50 MG ER TABLET PO (09:30)
[2025-05-12] MEDS: LOSARTAN POTASSIUM 25 MG TABLET PO (09:30)
[2025-05-12] MEDS: FUROSEMIDE 20 MG TABLET PO (09:30)
[2025-05-12 14:00] VITALS: BP 94/66; PULSE 95; RESP 18; TEMP 36.3; O2SAT 94
[2025-05-12] MEDS: TAMSULOSIN HCL 0.4 MG CAPSULE 0.8 MG PO (19:56)
[2025-05-12 20:04] VITALS: BP 116/71; PULSE 73; RESP 18; TEMP 36.4; O2SAT 96
[2025-05-12 20:53] VITALS: O2SAT 92
[2025-05-13] MEDS: LEVOTHYROXINE SODIUM 125 MCG TABLET PO (05:30)
[2025-05-13 05:42] LABS: Hematocrit 39.7 % (42.0-52.0); Hemoglobin 13.2 g/dL (14.0-18.0); Mean Corpuscular HGB Conc 33.2 g/dl (32-36); Mean Corpuscular Hemoglobin 32.4 pg (26-34); Mean Corpuscular Volume 97.5 fl (80-100); Platelet Count Result 221 k/mm3 (150-375); Red Blood Count 4.07 M/mm3 (4.6-6.20); White Blood Count 5.0 K/mm3 (4.5-10.0)
[2025-05-13 05:51] VITALS: BP 106/67; PULSE 80; RESP 16; TEMP 36.3; O2SAT 95
[2025-05-13 06:03] LABS: Anion Gap 3 mmol/L (4-12); Blood Urea Nitrogen 21 mg/dL (9-20); Calcium 9.2 mg/dL (8.4-10.2); Carbon Dioxide 29 mmol/L (22-30); Chloride 105 mmol/L (98-107); Estimated CRCL calculation 41 ml/min; Estimated Glomerular Filt Rate 57; Glucose 104 mg/dL (65-110); Potassium 3.9 mmol/L (3.4-5.0); Sodium 137 mmol/L (137-145)
--- NOTE | 2025-05-13 08:15 | PM.IMPN ---
Progress Note: A&P Assessment and Plan (1) Paranoid delusion: Code(s): F22 - Delusional disorders Status: Acute Assessment and Plan: Patient here with new delusions. Upon arrival to the emergency department reported that his with significant dementia had tried to poison him. Per chart review, patient typically oversees his on medications, however family does monitor his pillbox. May only take his medication 30-40% of the time. No focal findings on exam concerning for stroke. No findings concerning for infection causing metabolic encephalopathy Chronic trigeminal neuralgia, followed by neuro Dr. Morrow last seen on 04/11 with recent increase to pregabalin and carbamazepine - TSH elevated at 12, however T4 and T3 WNL. Will resume home synthroid dose as per patient family patient has not been regularly taking medications. - carbamazepine level 12.5, resume carbamazepine to assess if this improves patient's mental status. - check viral PCR negative, B12, B1, and Folic acid pending - UDS negative - No acute findings on head CT. - neurology consulted Reduce dose of pregabalin to 75 mg twice a day Stop carbamazepine and Remeron Started on Depakote low dose of 250 mg daily, may be increased if necessary. AOx3 on assessment, following commands. - PT/OT consulted, recommending SNF placement - care coordination working on placement (2) Trigeminal neuralgia of right side of face: Code(s): G50.0 - Trigeminal neuralgia Status: Chronic Assessment and Plan: History of chronic trigeminal neuralgia of the right face. Followed by neurology Dr. Morrow last seen on 04/11 with recent increase to pregabalin and carbamazepine Previously referred to neurosurgeon at [facility] where he was offered an option for surgery but the patient declined Neurology consulted Reduce dose of pregabalin to 75 mg twice a day Stop carbamazepine and Remeron Started on Depakote low dose of 250 mg daily, may be increased if necessary. States pain well controlled. Denies any vision changes. Neurology is following (3) Hypothyroidism: Qualifiers: Hypothyroidism type: acquired Qualified Code(s): E03.9 - Hypothyroidism, unspecified Code(s): E03.9 - Hypothyroidism, unspecified Status: Chronic Assessment and Plan: TSH elevated at 12, however T4 and T3 WNL. Will resume home synthroid dose as per patient family patient has not been regularly taking medications. - continue Synthroid 125 mcg daily (4) Essential (primary) hypertension: Code(s): I10 - Essential (primary) hypertension Status: Chronic Assessment and Plan: - chronic, continue losartan 25 mg daily - blood pressures reviewed and remain stable, continue to monitor Plan Diet: heart healthy Bowel regimen: miralax daily DVT Prophylaxis: SCDs, lovenox Lines/Tubes: PIV Code Status: DNR Time Spent With Patient Time with patient: 25 - 35 minutes Subjective Date/time seen: 05/13/25 08:15 Interval history: 84 y/o M with PMH of trigeminal neuralgia (R side), CVA, expressive aphasia, diastolic dysfunction, anemia, prostate cancer s/p prostatectomy, hypertension, hyperlipidemia, and hypothyroidism presents here with altered mental status/delusions. Patient is seen and examined.He is up in a chair, pleasant, remains alert and oriented x3 at time of assessment. He has no acute events overnight. He denies any nausea/vomiting/ abdominal pain, is tolerating a diet well and is passing flatus. Continue bowel regimen. No chest pain, shortness a breath, palpitations, dizziness/lightheadedness. Review of Systems Review of Systems: ROS obtained however unsure how accurate given mental status. All systems reviewed & are unremarkable except as noted in HPI and below Exam Narrative: General: male in no acute respiratory distress who is nontoxic appearing, sitting up on side of bed. HEENT: Normocephalic. Atraumatic. Extraocular movement intact. Sclera clear and anicteric. No facial asymmetry. Chest: Lungs are clear to auscultation bilaterally. No wheezes or crackles. CV: Heart was regular rate and rhythm. Abd: Abdomen was soft. Nontender. Nondistended. Positive bowel sounds. Ext: No clubbing, cyanosis, or edema. DP pulses bilaterally. Neuro: Patient is alert and oriented x3, following commands. Strength is 5/5 in both upper and lower extremities. Speech is clear. Const: General: comfortable and no acute distress Other: , male, nontoxic appearance, elderly HENMT: Face/Nose/Sinus: Normal nares present Mouth: Yes moist mucous membranes Eyes: General: appearance normal, both eyes and all related structures Sclera: sclerae normal Pupils: Equal, round and reactive pupils present EOM: EOMs intact bilaterally Resp: Effort & Inspection: normal respiratory effort Auscultation: clear to auscultation bilaterally Cardio: Rate: regular rate Rhythm: regular rhythm Other: S1-S2 present without murmur, rub, ectopy GI: Other: Abdomen soft, nondistended, nontender. Normoactive bowel sounds in all quadrants. Skin: General skin exam: normal color and no rashes or lesions noted Wounds: no wounds Neuro: Cranial nerves: Yes Equal, round and reactive pupils present Speech: normal speech Motor exam (neuro): 5/5 motor strength present throughout Sensory Exam: normal sensation Other: A&O to self, year, and is aware he is at the hospital but not sure which. Not able to provide situational history. Extrem: General: normal to inspection Psych: Other: poor insight and judgement at present. +paranoid delusions. no agitation on exam. Objective Data Vital Signs Vital Signs: Vital Signs - 24 hr 05/12/25 14:00 05/12/25 20:00 05/12/25 20:04 Temperature 97.3 F L 97.6 F Pulse Rate 95 73 Respiratory Rate 18 18 Blood Pressure 94/66 L 116/71 Pulse Oximetry 94 96 Oxygen Delivery Room Air 05/12/25 20:53 05/13/25 05:51 Temperature 97.4 F L Pulse Rate 80 Respiratory Rate 16 Blood Pressure 106/67 Pulse Oximetry 92 95 Oxygen Delivery Room Air Intake/Output Intake/Output: Intake & Output 05/10/25 05/11/25 05/12/25 05/13/25 23:59 23:59 23:59 23:59 Intake Total 1510 1310 1520 550 Output Total 1380 1400 Balance 130 -90 1520 550 Meds/Results Medications: Active Medications Generic Name Dose Route Start Last Admin Trade Name Freq PRN Reason Stop Dose Admin Acetaminophen 650 mg 05/09/25 20:03 Acetaminophen 325 Mg Tablet PO Q4H PRN Mild Pain (1-3) or Fever Aspirin 325 mg 05/10/25 08:00 05/12/25 09:30 Aspirin 325 Mg Tablet PO 325 mg DAILY@0800 EZEQUI[facility] Administration Divalproex Sodium 250 mg 05/11/25 08:00 05/12/25 09:30 Divalproex Sodium Er 250 Mg Tab.24h PO 250 mg DAILY@0800 [facility]QU[facility] Administration Enoxaparin Sodium 40 mg 05/12/25 09:00 05/12/25 09:30 Enoxaparin 40 Mg/0.4 Ml Syringe SUB-Q 40 mg DAILY [facility] Administration Furosemide 20 mg 05/10/25 09:00 05/12/25 09:30 Furosemide 20 Mg Tablet PO 20 mg QAM [facility] Administration Lactulose 10 gm 05/09/25 22:07 Lactulose 20 Gm/30 Ml Udc PO DAILY PRN Constipation Levothyroxine Sodium 125 mcg 05/10/25 06:30 05/13/25 05:30 Levothyroxine Sodium 125 Mcg Tablet PO 125 mcg DAILY@0630 [facility] Administration Losartan Potassium 25 mg 05/10/25 09:00 05/12/25 09:30 Losartan Potassium 25 Mg Tablet PO 25 mg DAILY [facility] Administration Mirabegron 50 mg 05/10/25 09:00 05/12/25 09:30 Mirabegron 50 Mg Er Tablet PO 50 mg DAILY [facility] Administration Multivitamins/Minerals 1 tablet 05/10/25 09:00 05/12/25 09:30 Multivits W-Fe,Min Chewable Tablet PO 1 tablet DAILY [facility] Administration Ondansetron HCl 4 mg 05/09/25 20:03 Ondansetron Inj 4 Mg/2 Ml Vial IV PUSH Q6H PRN Nausea And Vomiting Polyethylene Glycol 17 gm 05/13/25 09:00 Polyethylene Glycol 3350 17 Gm Powd.Pack PO QAM [facility] Pregabalin 75 mg 05/10/25 17:00 05/12/25 16:54 Pregabalin (*Crx) 75 Mg Capsule PO 75 mg BID [facility] Administration Rosuvastatin Calcium 20 mg 05/10/25 09:00 05/12/25 09:30 Rosuvastatin 20 Mg Tablet PO 20 mg DAILY [facility] Administration Tamsulosin HCl 0.8 mg 05/09/25 22:10 05/12/25 19:56 Tamsulosin Hcl 0.4 Mg Capsule PO 0.8 mg HS [facility] Administration Radiology Results: ITS Impressions Head CT 05/09/25 17:38 IMPRESSION: 1. Limited noncontrast CT head shows no acute intracranial lesions. Chronic changes as described above. Labs Labs: Laboratory Results - last 24 hr 05/13/25 05:28 WBC 5.0 RBC 4.07 L Hgb 13.2 L Hct 39.7 L MCV 97.5 MCH 32.4 MCHC 33.2 RDW 13.2 Plt Count 221 MPV 10.1 Sodium 137 Potassium 3.9 Chloride 105 Carbon Dioxide 29 Anion Gap 3 L BUN 21 H Creatinine 1.21 Estim Creat Clear Calc 41 Estimated GFR 57 L Glucose 104 Calcium 9.2 Quality VTE Prophylaxis VTE prophylaxis: pharmacologic ordered
[2025-05-13] MEDS: MULTIVITS W-FE,MIN CHEWABLE TABLET 1 TABLET PO (08:23)
[2025-05-13] MEDS: ROSUVASTATIN 20 MG TABLET PO (08:23)
[2025-05-13] MEDS: DIVALPROEX SODIUM ER 250 MG TAB.24H PO (08:23)
[2025-05-13] MEDS: PREGABALIN (*CRX) 75 MG CAPSULE PO ×2 (08:23→17:04)
[2025-05-13] MEDS: FUROSEMIDE 20 MG TABLET PO (08:23)
[2025-05-13] MEDS: MIRABEGRON 50 MG ER TABLET PO (08:23)
[2025-05-13] MEDS: LOSARTAN POTASSIUM 25 MG TABLET PO (08:24)
[2025-05-13] MEDS: ENOXAPARIN 40 MG/0.4 ML SYRINGE SUB-Q (08:24)
[2025-05-13] MEDS: ASPIRIN 325 MG TABLET PO (08:24)
[2025-05-13 14:00] VITALS: BP 122/62; PULSE 82; RESP 18; TEMP 36.1; O2SAT 100
[2025-05-13] MEDS: TAMSULOSIN HCL 0.4 MG CAPSULE 0.8 MG PO (20:45)
[2025-05-13 21:43] VITALS: BP 115/78; PULSE 76; RESP 18; TEMP 36.4; O2SAT 99
[2025-05-14 06:00] VITALS: BP 102/54; PULSE 72; RESP 20; TEMP 36.8; O2SAT 96
[2025-05-14 06:02] LABS: Hematocrit 40.4 % (42.0-52.0); Hemoglobin 13.2 g/dL (14.0-18.0); Mean Corpuscular HGB Conc 32.7 g/dl (32-36); Mean Corpuscular Hemoglobin 32.6 pg (26-34); Mean Corpuscular Volume 99.8 fl (80-100); Platelet Count Result 230 k/mm3 (150-375); Red Blood Count 4.05 M/mm3 (4.6-6.20); White Blood Count 5.2 K/mm3 (4.5-10.0)
[2025-05-14] MEDS: LEVOTHYROXINE SODIUM 125 MCG TABLET PO (06:05)
[2025-05-14 06:39] LABS: Anion Gap 3 mmol/L (4-12); Blood Urea Nitrogen 28 mg/dL (9-20); Calcium 9.1 mg/dL (8.4-10.2); Carbon Dioxide 29 mmol/L (22-30); Chloride 105 mmol/L (98-107); Estimated CRCL calculation 38 ml/min; Estimated Glomerular Filt Rate 52; Glucose 102 mg/dL (65-110); Potassium 3.9 mmol/L (3.4-5.0); Sodium 137 mmol/L (137-145)
[2025-05-14] MEDS: MIRABEGRON 50 MG ER TABLET PO (10:00)
[2025-05-14] MEDS: ROSUVASTATIN 20 MG TABLET PO (10:00)
[2025-05-14] MEDS: LOSARTAN POTASSIUM 25 MG TABLET PO (10:00)
[2025-05-14] MEDS: ASPIRIN 325 MG TABLET PO (10:00)
[2025-05-14] MEDS: FUROSEMIDE 20 MG TABLET PO (10:00)
[2025-05-14] MEDS: DIVALPROEX SODIUM ER 250 MG TAB.24H PO (10:00)
[2025-05-14] MEDS: MULTIVITS W-FE,MIN CHEWABLE TABLET 1 TABLET PO (10:00)
[2025-05-14] MEDS: PREGABALIN (*CRX) 75 MG CAPSULE PO ×2 (10:00→17:39)
[2025-05-14] MEDS: ENOXAPARIN 40 MG/0.4 ML SYRINGE SUB-Q (10:01)
--- NOTE | 2025-05-14 10:35 | P.PNNEUR_ITS ---
Progress Note: A&P Assessment and Plan (1) Trigeminal neuralgia of right side of face: Code(s): G50.0 - Trigeminal neuralgia Status: Chronic (2) Paranoid delusion: Code(s): F22 - Delusional disorders Status: Acute Plan 1. With regard to the pain in the right eye I have advised him to have an examination by the eye doctor since there is some redness around the inner canthus of the right eye. However he has a longstanding history of pain in the right face but now this is localized more in the right eye. He did have an MRI of the brain in February and CT scan of the brain this on this admission which did not show any significant abnormal finding specifically nothing around the right eye or optic globe. He is currently on Depakote ER 250 mg once a day and pregabalin 75 mg twice a day. We will reduce the dose of the pregabalin and be of take him off carbamazepine. I would suggest increase the dose of Depakote ER to 500 mg at bedtime and I shall be glad to follow him in my office in 6-8 weeks time. 2. With regard to the paranoid delusion he may require some follow-up since the could be underlying dementia which may manifest eventually and I shall follow it up in my office. Currently seems to be stable I noted that his TSH was slightly high at 12.0 but his serum B12 folic acid level were normal. Subjective Date/time seen: 05/14/25 10:35 Interval history: The patient is 84-year-old with the trigeminal neuralgia and changes in mental status. He was seen for follow-up. He reports that his the right eye is hurting since yesterday although he was little better in the past couple of days. He also thinks that the right eye is getting red. He is feeling fair about the mental confusion he had regarding his and he thinks that he should be easy on her. His has dementia Alzheimer's type and has not cooked for last 4 years but when he came in he thought that she was trying to poison him. Review of Systems Review of Systems: All systems reviewed & are unremarkable except as noted in HPI and below Exam Const: General: cooperative and comfortable HENMT: Head: atraumatic Mouth: Yes oropharynx normal Eyes: Alignment and Position: alignment normal and position normal Pupils: Equal, round and reactive pupils present EOM: EOMs intact bilaterally Other: Mild redness along the inner canthus of the right eye. Extraocular movements were intact. Neck: Neck: normal visual inspection Resp: Effort & Inspection: normal respiratory effort Skin: General skin exam: normal color Neuro: Cranial nerves: Yes CN's II-XII intact bilaterally, Yes facial symmetry and Yes Midline tongue present Cognition (Neuro): normal cognition Speech: normal speech Psych: Mental Status: mental status grossly normal Speech and movement: Normal speech and movement present Affect: normal affect Insight: Good insight present (Psych) Objective Data Vital Signs Vital Signs: Vital Signs - 24 hr 05/13/25 14:00 05/13/25 20:00 05/13/25 21:43 Temperature 97.0 F L 97.5 F L Pulse Rate 82 76 Respiratory Rate 18 18 Blood Pressure 122/62 115/78 Pulse Oximetry 100 99 Oxygen Delivery Room Air 05/14/25 06:00 05/14/25 07:40 Temperature 98.2 F Pulse Rate 72 Respiratory Rate 20 Blood Pressure 102/54 L Pulse Oximetry 96 Oxygen Delivery Room Air Intake/Output Intake/Output: Intake & Output 05/11/25 05/12/25 05/13/25 05/14/25 23:59 23:59 23:59 23:59 Intake Total 1310 1520 2020 390 Output Total 1400 Balance -90 1520 2020 390 Meds/Results Medications: Active Medications Generic Name Dose Route Start Last Admin Trade Name Freq PRN Reason Stop Dose Admin Acetaminophen 650 mg 05/09/25 20:03 Acetaminophen 325 Mg Tablet PO Q4H PRN Mild Pain (1-3) or Fever Aspirin 325 mg 05/10/25 08:00 05/14/25 10:00 Aspirin 325 Mg Tablet PO 325 mg DAILY@0800 [facility] Administration Divalproex Sodium 250 mg 05/11/25 08:00 05/14/25 10:00 Divalproex Sodium Er 250 Mg Tab.24h PO 250 mg DAILY@0800 [facility] Administration Enoxaparin Sodium 40 mg 05/12/25 09:00 05/14/25 10:01 Enoxaparin 40 Mg/0.4 Ml Syringe SUB-Q 40 mg DAILY [facility] Administration Furosemide 20 mg 05/10/25 09:00 05/14/25 10:00 Furosemide 20 Mg Tablet PO 20 mg QAM [facility] Administration Lactulose 10 gm 05/09/25 22:07 Lactulose 20 Gm/30 Ml Udc PO DAILY PRN Constipation Levothyroxine Sodium 125 mcg 05/10/25 06:30 05/14/25 06:05 Levothyroxine Sodium 125 Mcg Tablet PO 125 mcg DAILY@0630 [facility] Administration Losartan Potassium 25 mg 05/10/25 09:00 05/14/25 10:00 Losartan Potassium 25 Mg Tablet PO 25 mg DAILY [facility] Administration Mirabegron 50 mg 05/10/25 09:00 05/14/25 10:00 Mirabegron 50 Mg Er Tablet PO 50 mg DAILY [facility] Administration Multivitamins/Minerals 1 tablet 05/10/25 09:00 05/14/25 10:00 Multivits W-Fe,Min Chewable Tablet PO 1 tablet DAILY [facility] Administration Ondansetron HCl 4 mg 05/09/25 20:03 Ondansetron Inj 4 Mg/2 Ml Vial IV PUSH Q6H PRN Nausea And Vomiting Polyethylene Glycol 17 gm 05/13/25 09:00 05/14/25 10:01 Polyethylene Glycol 3350 17 Gm Powd.Pack PO Not Given QAM [facility] Pregabalin 75 mg 05/10/25 17:00 05/14/25 10:00 Pregabalin (*Crx) 75 Mg Capsule PO 75 mg BID [facility] Administration Rosuvastatin Calcium 20 mg 05/10/25 09:00 05/14/25 10:00 Rosuvastatin 20 Mg Tablet PO 20 mg DAILY [facility] Administration Tamsulosin HCl 0.8 mg 05/09/25 22:10 05/13/25 20:45 Tamsulosin Hcl 0.4 Mg Capsule PO 0.8 mg HS [facility] Administration Radiology Results: ITS Impressions Head CT 05/09/25 17:38 IMPRESSION: 1. Limited noncontrast CT head shows no acute intracranial lesions. Chronic changes as described above. Labs Labs: Laboratory Results - last 24 hr 05/14/25 05:18 WBC 5.2 RBC 4.05 L Hgb 13.2 L Hct 40.4 L MCV 99.8 MCH 32.6 MCHC 32.7 RDW 13.2 Plt Count 230 MPV 10.4 Sodium 137 Potassium 3.9 Chloride 105 Carbon Dioxide 29 Anion Gap 3 L BUN 28 H Creatinine 1.31 H Estim Creat Clear Calc 38 Estimated GFR 52 L Glucose 102 Calcium 9.1
--- NOTE | 2025-05-14 13:38 | PM.IMPN2 ---
Subjective Date/time seen: 05/14/25 13:38 Interval history: Patient doing well with no complaints. Waiting for placement per care coordination. Exam Narrative: GENERAL: Comfortable, no acute distress HENMT: moist mucous membranes EYES: EOM intact b/l RESPIRATORY: clear to auscultation, no increased respiratory effort CARDIO: Regular rate and rhythm SKIN/EXTREMITIES: no rashes, no edema, no redness or tenderness Objective Data Vital Signs Vital Signs: Vital Signs - 24 hr 05/13/25 14:00 05/13/25 20:00 05/13/25 21:43 Temperature 97.0 F L 97.5 F L Pulse Rate 82 76 Respiratory Rate 18 18 Blood Pressure 122/62 115/78 Pulse Oximetry 100 99 Oxygen Delivery Room Air 05/14/25 06:00 05/14/25 07:40 Temperature 98.2 F Pulse Rate 72 Respiratory Rate 20 Blood Pressure 102/54 L Pulse Oximetry 96 Oxygen Delivery Room Air Intake/Output Intake/Output: Intake & Output 05/11/25 05/12/25 05/13/25 05/14/25 23:59 23:59 23:59 23:59 Intake Total 1310 1520 2020 630 Output Total 1400 Balance -90 1520 2020 630 Meds/Results Medications: Active Medications Generic Name Dose Route Start Last Admin Trade Name Freq PRN Reason Stop Dose Admin Acetaminophen 650 mg 05/09/25 20:03 Acetaminophen 325 Mg Tablet PO Q4H PRN Mild Pain (1-3) or Fever Aspirin 325 mg 05/10/25 08:00 05/14/25 10:00 Aspirin 325 Mg Tablet PO 325 mg DAILY@0800 EZEQUIEL Administration Divalproex Sodium 250 mg 05/11/25 08:00 05/14/25 10:00 Divalproex Sodium Er 250 Mg Tab.24h PO 250 mg DAILY@0800 EZEQUIEL Administration Enoxaparin Sodium 40 mg 05/12/25 09:00 05/14/25 10:01 Enoxaparin 40 Mg/0.4 Ml Syringe SUB-Q 40 mg DAILY EZEQUIEL Administration Furosemide 20 mg 05/10/25 09:00 05/14/25 10:00 Furosemide 20 Mg Tablet PO 20 mg QAM EZEQUIEL Administration Lactulose 10 gm 05/09/25 22:07 Lactulose 20 Gm/30 Ml Udc PO DAILY PRN Constipation Levothyroxine Sodium 125 mcg 05/10/25 06:30 05/14/25 06:05 Levothyroxine Sodium 125 Mcg Tablet PO 125 mcg DAILY@0630 EZEQUIEL Administration Losartan Potassium 25 mg 05/10/25 09:00 05/14/25 10:00 Losartan Potassium 25 Mg Tablet PO 25 mg DAILY EZEQUIEL Administration Mirabegron 50 mg 05/10/25 09:00 05/14/25 10:00 Mirabegron 50 Mg Er Tablet PO 50 mg DAILY EZEQUIEL Administration Multivitamins/Minerals 1 tablet 05/10/25 09:00 05/14/25 10:00 Multivits W-Fe,Min Chewable Tablet PO 1 tablet DAILY EZEQUIEL Administration Ondansetron HCl 4 mg 05/09/25 20:03 Ondansetron Inj 4 Mg/2 Ml Vial IV PUSH Q6H PRN Nausea And Vomiting Polyethylene Glycol 17 gm 05/13/25 09:00 05/14/25 10:01 Polyethylene Glycol 3350 17 Gm Powd.Pack PO Not Given QAM EZEQUIEL Pregabalin 75 mg 05/10/25 17:00 05/14/25 10:00 Pregabalin (*Crx) 75 Mg Capsule PO 75 mg BID EZEQUIEL Administration Rosuvastatin Calcium 20 mg 05/10/25 09:00 05/14/25 10:00 Rosuvastatin 20 Mg Tablet PO 20 mg DAILY EZEQUIEL Administration Tamsulosin HCl 0.8 mg 05/09/25 22:10 05/13/25 20:45 Tamsulosin Hcl 0.4 Mg Capsule PO 0.8 mg HS EZEQUIEL Administration Radiology Results: ITS Impressions Head CT 05/09/25 17:38 IMPRESSION: 1. Limited noncontrast CT head shows no acute intracranial lesions. Chronic changes as described above. Labs Labs: Laboratory Results - last 24 hr 05/14/25 05:18 WBC 5.2 RBC 4.05 L Hgb 13.2 L Hct 40.4 L MCV 99.8 MCH 32.6 MCHC 32.7 RDW 13.2 Plt Count 230 MPV 10.4 Sodium 137 Potassium 3.9 Chloride 105 Carbon Dioxide 29 Anion Gap 3 L BUN 28 H Creatinine 1.31 H Estim Creat Clear Calc 38 Estimated GFR 52 L Glucose 102 Calcium 9.1 Assessment and Plan Assessment and Plan (1) Paranoid delusion: Code(s): F22 - Delusional disorders Status: Acute Assessment and Plan: -Patient here with new delusions. Upon arrival to the emergency department reported that his with significant dementia had tried to poison him. -Per chart review, patient typically oversees his on medications, however family does monitor his pillbox. May only take his medication 30-40% of the time. -No focal findings on exam concerning for stroke. No findings concerning for infection causing metabolic encephalopathy -Chronic trigeminal neuralgia, followed by neuro Dr. Morrow last seen on 04/11 with recent increase to pregabalin and carbamazepine - check viral PCR negative, B12, B1, and Folic acid pending - UDS negative - No acute findings on head CT. - neurology consulted Reduce dose of pregabalin to 75 mg twice a day Stop carbamazepine and Remeron Started on Depakote low dose of 250 mg daily, may be increased if necessary. - PT/OT consulted, recommending SNF placement - Care coordination working on placement (2) Trigeminal neuralgia of right side of face: Code(s): G50.0 - Trigeminal neuralgia Status: Chronic Assessment and Plan: -History of chronic trigeminal neuralgia of the right face. -Followed by neurology Dr. Morrow last seen on 04/11 with recent increase to pregabalin and carbamazepine -Previously referred to neurosurgeon at [facility] where he was offered an option for surgery but the patient declined -Neurology consulted Reduce dose of pregabalin to 75 mg twice a day Stop carbamazepine and Remeron Started on Depakote low dose of 250 mg daily, may be increased if necessary. (3) Hypothyroidism: Qualifiers: Hypothyroidism type: acquired Qualified Code(s): E03.9 - Hypothyroidism, unspecified Code(s): E03.9 - Hypothyroidism, unspecified Status: Chronic Assessment and Plan: TSH elevated at 12, however T4 and T3 WNL. Will resume home Synthroid dose as per patient family patient has not been regularly taking medications. - continue Synthroid 125 mcg daily (4) Essential (primary) hypertension: Code(s): I10 - Essential (primary) hypertension Status: Chronic Assessment and Plan: - chronic, continue losartan 25 mg daily - blood pressures reviewed and remain stable, continue to monitor Plan Diet: heart healthy Bowel regimen: miralax daily DVT Prophylaxis: SCDs, lovenox Lines/Tubes: PIV Code Status: DNR
[2025-05-14 13:54] VITALS: BP 118/60; PULSE 83; RESP 16; TEMP 36.8; O2SAT 99
[2025-05-14 20:25] VITALS: BP 92/58; PULSE 76; RESP 16; TEMP 36.1; O2SAT 96
[2025-05-14] MEDS: TAMSULOSIN HCL 0.4 MG CAPSULE 0.8 MG PO (20:26)
[2025-05-15] MEDS: ACETAMINOPHEN 325 MG TABLET 650 MG PO (02:00)
[2025-05-15 04:45] VITALS: BP 125/61; PULSE 112; RESP 16; TEMP 36.4; O2SAT 98
[2025-05-15 05:22] LABS: Hematocrit 40.7 % (42.0-52.0); Hemoglobin 13.4 g/dL (14.0-18.0); Mean Corpuscular HGB Conc 32.9 g/dl (32-36); Mean Corpuscular Hemoglobin 32.8 pg (26-34); Mean Corpuscular Volume 99.5 fl (80-100); Platelet Count Result 253 k/mm3 (150-375); Red Blood Count 4.09 M/mm3 (4.6-6.20); White Blood Count 6.0 K/mm3 (4.5-10.0)
[2025-05-15] MEDS: LEVOTHYROXINE SODIUM 125 MCG TABLET PO (06:11)
[2025-05-15] MEDS: FUROSEMIDE 20 MG TABLET PO (08:12)
[2025-05-15] MEDS: MULTIVITS W-FE,MIN CHEWABLE TABLET 1 TABLET PO (08:12)
[2025-05-15] MEDS: ASPIRIN 325 MG TABLET PO (08:12)
[2025-05-15] MEDS: MIRABEGRON 50 MG ER TABLET PO (08:12)
[2025-05-15] MEDS: ENOXAPARIN 40 MG/0.4 ML SYRINGE SUB-Q (08:12)
[2025-05-15] MEDS: LOSARTAN POTASSIUM 25 MG TABLET PO (08:12)
[2025-05-15] MEDS: DIVALPROEX SODIUM ER 250 MG TAB.24H PO (08:12)
[2025-05-15] MEDS: ROSUVASTATIN 20 MG TABLET PO (08:12)
[2025-05-15] MEDS: PREGABALIN (*CRX) 75 MG CAPSULE PO ×2 (08:12→17:32)
--- NOTE | 2025-05-15 08:52 | PM.IMPN2 ---
Assessment and Plan Assessment and Plan (1) Paranoid delusion: Code(s): F22 - Delusional disorders Status: Acute Assessment and Plan: -Patient here with new delusions. Upon arrival to the emergency department reported that his with significant dementia had tried to poison him. -Per chart review, patient typically oversees his on medications, however family does monitor his pillbox. May only take his medication 30-40% of the time. -No focal findings on exam concerning for stroke. No findings concerning for infection causing metabolic encephalopathy -Chronic trigeminal neuralgia, followed by neuro Dr. Morrow last seen on 04/11 with recent increase to pregabalin and carbamazepine - check viral PCR negative, B12, B1, and Folic acid pending - UDS negative - No acute findings on head CT. - neurology consulted Reduce dose of pregabalin to 75 mg twice a day Stop carbamazepine and Remeron Started on Depakote low dose of 250 mg daily, may be increased if necessary. Remains AOx3 on assessment. PT/OT consulted, recommending SNF placement Care coordination working on placement (2) Trigeminal neuralgia of right side of face: Code(s): G50.0 - Trigeminal neuralgia Status: Chronic Assessment and Plan: -History of chronic trigeminal neuralgia of the right face. -Followed by neurology Dr. Morrow last seen on 04/11 with recent increase to pregabalin and carbamazepine -Previously referred to neurosurgeon at [facility] where he was offered an option for surgery but the patient declined -Neurology consulted Reduce dose of pregabalin to 75 mg twice a day Stop carbamazepine and Remeron Started on Depakote low dose of 250 mg daily, may be increased if necessary. Patient denies any facial/eye pain at this time. (3) Hypothyroidism: Qualifiers: Hypothyroidism type: acquired Qualified Code(s): E03.9 - Hypothyroidism, unspecified Code(s): E03.9 - Hypothyroidism, unspecified Status: Chronic Assessment and Plan: TSH elevated at 12, however T4 and T3 WNL. Will resume home Synthroid dose as per patient family patient has not been regularly taking medications. - continue Synthroid 125 mcg daily (4) Essential (primary) hypertension: Code(s): I10 - Essential (primary) hypertension Status: Chronic Assessment and Plan: - chronic - several episodes of soft BP on current home dose of 25 mg losartan, will decrease to 12.5 mg daily and continue to monitor Plan Diet: heart healthy Bowel regimen: miralax daily DVT Prophylaxis: SCDs, lovenox Lines/Tubes: PIV Code Status: DNR Medical Record Review I have reviewed the following patient records and this information was taken into consideration when formulating the assessment and plan.: previous labs Time Spent With Patient Time with patient: 15 - 25 minutes Subjective Date/time seen: 05/15/25 08:52 Interval history: 84 y/o M with PMH of trigeminal neuralgia (R side), CVA, expressive aphasia, diastolic dysfunction, anemia, prostate cancer s/p prostatectomy, hypertension, hyperlipidemia, and hypothyroidism presents here with altered mental status/delusions. Patient is pleasant sitting up comfortably in his chair visiting with his . He remains alert and oriented x3 at time of assessment. He has no complaints denying chest pain, shortness a breath, palpitations, nausea/vomiting, abdominal pain, and dizziness/lightheadedness with ambulation. Review of Systems Review of Systems: All systems reviewed & are unremarkable except as noted in HPI and below Exam Narrative: AF HR82 RR 20 SpO2 99 BP 91/63 General: male in no acute respiratory distress who is nontoxic appearing, sitting up on in chair visiting with HEENT: Normocephalic. Atraumatic. Extraocular movement intact. Sclera clear and anicteric. No facial asymmetry. Chest: Lungs are clear to auscultation bilaterally. No wheezes or crackles. CV: Heart was regular rate and rhythm. Abd: Abdomen was soft. Nontender. Nondistended. Positive bowel sounds. Ext: No clubbing, cyanosis, or edema. DP pulses bilaterally. Neuro: Patient is alert and oriented x3, following commands. Strength is 5/5 in both upper and lower extremities. Speech is clear. Objective Data Vital Signs Vital Signs: Vital Signs - 24 hr 05/14/25 13:54 05/14/25 20:00 05/14/25 20:25 Temperature 98.2 F 97.0 F L Pulse Rate 83 76 Respiratory Rate 16 16 Blood Pressure 118/60 92/58 L Pulse Oximetry 99 96 Oxygen Delivery Room Air 05/15/25 04:45 Temperature 97.5 F L Pulse Rate 112 H Respiratory Rate 16 Blood Pressure 125/61 Pulse Oximetry 98 Oxygen Delivery Intake/Output Intake/Output: Intake & Output 05/12/25 05/13/25 05/14/25 05/15/25 23:59 23:59 23:59 23:59 Intake Total 1519 2019 1420 200 Balance 1519 2019 142 200 Meds/Results Medications: Active Medications Generic Name Dose Route Start Last Admin Trade Name Freq PRN Reason Stop Dose Admin Acetaminophen 650 mg 05/09/25 20:03 05/15/25 02:00 Acetaminophen 325 Mg Tablet PO 650 mg Q4H PRN Administration Mild Pain (1-3) or Fever Aspirin 325 mg 05/10/25 08:00 05/15/25 08:12 Aspirin 325 Mg Tablet PO 325 mg DAILY@0800 EZEQUIEL Administration Divalproex Sodium 250 mg 05/11/25 08:00 05/15/25 08:12 Divalproex Sodium Er 250 Mg Tab.24h PO 250 mg DAILY@0800 EZEQUIEL Administration Enoxaparin Sodium 40 mg 05/12/25 09:00 05/15/25 08:12 Enoxaparin 40 Mg/0.4 Ml Syringe SUB-Q 40 mg DAILY EZEQUIEL Administration Furosemide 20 mg 05/10/25 09:00 05/15/25 08:12 Furosemide 20 Mg Tablet PO 20 mg QAM EZEQUIEL Administration Lactulose 10 gm 05/09/25 22:07 Lactulose 20 Gm/30 Ml Udc PO DAILY PRN Constipation Levothyroxine Sodium 125 mcg 05/10/25 06:30 05/15/25 06:11 Levothyroxine Sodium 125 Mcg Tablet PO 125 mcg DAILY@0630 EZEQUIEL Administration Losartan Potassium 25 mg 05/10/25 09:00 05/15/25 08:12 Losartan Potassium 25 Mg Tablet PO 25 mg DAILY EZEQUIEL Administration Mirabegron 50 mg 05/10/25 09:00 05/15/25 08:12 Mirabegron 50 Mg Er Tablet PO 50 mg DAILY EZEQUIEL Administration Multivitamins/Minerals 1 tablet 05/10/25 09:00 05/15/25 08:12 Multivits W-Fe,Min Chewable Tablet PO 1 tablet DAILY EZEQUIEL Administration Ondansetron HCl 4 mg 05/09/25 20:03 Ondansetron Inj 4 Mg/2 Ml Vial IV PUSH Q6H PRN Nausea And Vomiting Polyethylene Glycol 17 gm 05/13/25 09:00 05/15/25 08:12 Polyethylene Glycol 3350 17 Gm Powd.Pack PO 17 gm QAM EZEQUIEL Administration Pregabalin 75 mg 05/10/25 17:00 05/15/25 08:12 Pregabalin (*Crx) 75 Mg Capsule PO 75 mg BID EZEQUIEL Administration Rosuvastatin Calcium 20 mg 05/10/25 09:00 05/15/25 08:12 Rosuvastatin 20 Mg Tablet PO 20 mg DAILY EZEQUIEL Administration Tamsulosin HCl 0.8 mg 05/09/25 22:10 05/14/25 20:26 Tamsulosin Hcl 0.4 Mg Capsule PO 0.8 mg HS EZEQUIEL Administration Radiology Results: ITS Impressions Head CT 05/09/25 17:38 IMPRESSION: 1. Limited noncontrast CT head shows no acute intracranial lesions. Chronic changes as described above. Labs Labs: Laboratory Results - last 24 hr 05/15/25 04:53 WBC 6.0 RBC 4.09 L Hgb 13.4 L Hct 40.7 L MCV 99.5 MCH 32.8 MCHC 32.9 RDW 13.2 Plt Count 253 MPV 10.3
[2025-05-15 14:00] VITALS: BP 91/63; PULSE 85; RESP 20; TEMP 36.6; O2SAT 99
[2025-05-15 14:20] VITALS: PULSE 82
[2025-05-15] MEDS: TAMSULOSIN HCL 0.4 MG CAPSULE 0.8 MG PO (20:14)
[2025-05-15 20:29] VITALS: BP 148/73; PULSE 92; RESP 16; TEMP 36.2; O2SAT 98
[2025-05-16 05:51] LABS: Hematocrit 42.6 % (42.0-52.0); Hemoglobin 14.0 g/dL (14.0-18.0); Mean Corpuscular HGB Conc 32.9 g/dl (32-36); Mean Corpuscular Hemoglobin 32.6 pg (26-34); Mean Corpuscular Volume 99.1 fl (80-100); Platelet Count Result 245 k/mm3 (150-375); Red Blood Count 4.30 M/mm3 (4.6-6.20); White Blood Count 5.9 K/mm3 (4.5-10.0)
[2025-05-16 06:00] VITALS: BP 119/66; PULSE 70; RESP 18; TEMP 36.1; O2SAT 97
[2025-05-16 06:14] LABS: Alanine Aminotransferase 26 U/L (6-50); Albumin Level 4.3 g/dL (3.5-5.1); Alkaline Phosphatase 92 U/L (38-126); Anion Gap 4 mmol/L (4-12); Aspartate Amino Transferase 34 U/L (17-59); Bilirubin,Total 0.4 mg/dL (0.2-1.3); Blood Urea Nitrogen 27 mg/dL (9-20); Calcium 9.6 mg/dL (8.4-10.2); Carbon Dioxide 26 mmol/L (22-30); Chloride 107 mmol/L (98-107); Estimated CRCL calculation 44 ml/min; Estimated Glomerular Filt Rate > 60; Glucose 100 mg/dL (65-110); Sodium 137 mmol/L (137-145); Total Protein 7.0 g/dL (6.3-8.2)
[2025-05-16 06:22] LABS: Potassium 4.0 mmol/L (3.4-5.0)
[2025-05-16] MEDS: LEVOTHYROXINE SODIUM 125 MCG TABLET PO (06:42)
[2025-05-16] MEDS: LOSARTAN POTASSIUM 12.5 MG TABLET PO (09:01)
[2025-05-16] MEDS: FUROSEMIDE 20 MG TABLET PO (09:01)
[2025-05-16] MEDS: DIVALPROEX SODIUM ER 250 MG TAB.24H PO (09:01)
[2025-05-16] MEDS: PREGABALIN (*CRX) 75 MG CAPSULE PO ×2 (09:01→16:23)
[2025-05-16] MEDS: MIRABEGRON 50 MG ER TABLET PO (09:01)
[2025-05-16] MEDS: ASPIRIN 325 MG TABLET PO (09:02)
[2025-05-16] MEDS: ROSUVASTATIN 20 MG TABLET PO (09:02)
[2025-05-16] MEDS: ENOXAPARIN 40 MG/0.4 ML SYRINGE SUB-Q (09:02)
[2025-05-16] MEDS: MULTIVITS W-FE,MIN CHEWABLE TABLET 1 TABLET PO (09:02)
--- NOTE | 2025-05-16 10:54 | PCNWS ---
Weekly nutritional screen. Patient is tolerating current diet with adequate intake. No weight loss reported. No nutritional needs at this time.
[2025-05-16 14:00] VITALS: BP 112/98; PULSE 73; RESP 16; TEMP 36.4; O2SAT 94
--- NOTE | 2025-05-16 14:35 | PM.IMPN2 ---
Assessment and Plan Assessment and Plan (1) Paranoid delusion: Code(s): F22 - Delusional disorders Status: Acute Assessment and Plan: -Patient here with new delusions. Upon arrival to the emergency department reported that his with significant dementia had tried to poison him. -Per chart review, patient typically oversees his on medications, however family does monitor his pillbox. May only take his medication 30-40% of the time. -No focal findings on exam concerning for stroke. No findings concerning for infection causing metabolic encephalopathy -Chronic trigeminal neuralgia, followed by neuro Dr. Morrow last seen on 04/11 with recent increase to pregabalin and carbamazepine - check viral PCR negative, B12, B1, and Folic acid pending - UDS negative - No acute findings on head CT. - neurology consulted Reduce dose of pregabalin to 75 mg twice a day Stop carbamazepine and Remeron Started on Depakote low dose of 250 mg daily, may be increased if necessary. Remains AOx3 on assessment. PT/OT consulted, recommending SNF placement Care coordination working on placement stable - no acute events (2) Trigeminal neuralgia of right side of face: Code(s): G50.0 - Trigeminal neuralgia Status: Chronic Assessment and Plan: -History of chronic trigeminal neuralgia of the right face. -Followed by neurology Dr. Morrow last seen on 04/11 with recent increase to pregabalin and carbamazepine -Previously referred to neurosurgeon at [facility] where he was offered an option for surgery but the patient declined -Neurology consulted Reduce dose of pregabalin to 75 mg twice a day Stop carbamazepine and Remeron Started on Depakote low dose of 250 mg daily, may be increased if necessary. Patient denies any facial/eye pain at this time. (3) Hypothyroidism: Qualifiers: Hypothyroidism type: acquired Qualified Code(s): E03.9 - Hypothyroidism, unspecified Code(s): E03.9 - Hypothyroidism, unspecified Status: Chronic Assessment and Plan: TSH elevated at 12, however T4 and T3 WNL. Will resume home Synthroid dose as per patient family patient has not been regularly taking medications. - continue Synthroid 125 mcg daily (4) Essential (primary) hypertension: Code(s): I10 - Essential (primary) hypertension Status: Chronic Assessment and Plan: - chronic - several episodes of soft BP on current home dose of 25 mg losartan, will decrease to 12.5 mg daily and continue to monitor Plan Diet: heart healthy Bowel regimen: miralax daily DVT Prophylaxis: SCDs, lovenox Lines/Tubes: PIV Code Status: DNR Medical Record Review I have reviewed the following patient records and this information was taken into consideration when formulating the assessment and plan.: previous labs and previous hospitalizations Time Spent With Patient Time with patient: 25 - 35 minutes Subjective Date/time seen: 05/16/25 14:35 Interval history: 84 y/o M with PMH of trigeminal neuralgia (R side), CVA, expressive aphasia, diastolic dysfunction, anemia, prostate cancer s/p prostatectomy, hypertension, hyperlipidemia, and hypothyroidism presents here with altered mental status/delusions. Patient is pleasant sitting up comfortably in his chair, eyes closed. He remains alert and oriented x3 at time of assessment.It greatly fluctuates though. He has no complaints denying chest pain, shortness a breath, palpitations, nausea/vomiting, abdominal pain, and dizziness/lightheadedness with ambulation. Placement is the only thing keeping him here. Review of Systems Review of Systems: ROS obtained however unsure how accurate given mental status. All systems reviewed & are unremarkable except as noted in HPI and below ROS unobtainable: Yes unobtainable due to mental status (severely limited, altered) Exam Narrative: General: male in no acute respiratory distress who is nontoxic appearing, sitting up on in chair visiting with HEENT: Normocephalic. Atraumatic. Extraocular movement intact. Sclera clear and anicteric. No facial asymmetry. Chest: Lungs are clear to auscultation bilaterally. No wheezes or crackles. CV: Heart was regular rate and rhythm. Abd: Abdomen was soft. Nontender. Nondistended. Positive bowel sounds. Ext: No clubbing, cyanosis, or edema. DP pulses bilaterally. Neuro: Patient is alert and oriented x3, following commands. Strength is 5/5 in both upper and lower extremities. Speech is clear. Const: General: comfortable and no acute distress Other: , male, nontoxic appearance, elderly HENMT: Face/Nose/Sinus: Normal nares present Mouth: Yes moist mucous membranes Eyes: General: appearance normal, both eyes and all related structures Sclera: sclerae normal Pupils: Equal, round and reactive pupils present EOM: EOMs intact bilaterally Resp: Effort & Inspection: normal respiratory effort Auscultation: clear to auscultation bilaterally Cardio: Rate: regular rate Rhythm: regular rhythm Other: S1-S2 present without murmur, rub, ectopy GI: Other: Abdomen soft, nondistended, nontender. Normoactive bowel sounds in all quadrants. Skin: General skin exam: normal color and no rashes or lesions noted Wounds: no wounds Neuro: Cranial nerves: Yes Equal, round and reactive pupils present Speech: normal speech Motor exam (neuro): 5/5 motor strength present throughout Sensory Exam: normal sensation Other: A&O to self, year, and is aware he is at the hospital but not sure which. Not able to provide situational history. Extrem: General: normal to inspection Psych: Other: poor insight and judgement at present. +paranoid delusions. no agitation on exam. Objective Data Vital Signs Vital Signs: Vital Signs - 24 hr 05/15/25 20:29 05/16/25 06:00 05/16/25 14:00 Temperature 97.1 F L 97.0 F L 97.5 F L Pulse Rate 92 70 73 Respiratory Rate 16 18 16 Blood Pressure 148/73 H 119/66 112/98 H Pulse Oximetry 98 97 94 Intake/Output Intake/Output: Intake & Output 05/13/25 05/14/25 05/15/25 05/16/25 23:59 23:59 23:59 23:59 Intake Total 2019 1420 1970 840 Balance 20190 1970 840 Meds/Results Medications: Active Medications Generic Name Dose Route Start Last Admin Trade Name Freq PRN Reason Stop Dose Admin Acetaminophen 650 mg 05/09/25 20:03 05/15/25 02:00 Acetaminophen 325 Mg Tablet PO 650 mg Q4H PRN Administration Mild Pain (1-3) or Fever Aspirin 325 mg 05/10/25 08:00 05/16/25 09:02 Aspirin 325 Mg Tablet PO 325 mg DAILY@0800 [facility] Administration Divalproex Sodium 250 mg 05/11/25 08:00 05/16/25 09:01 Divalproex Sodium Er 250 Mg Tab.24h PO 250 mg DAILY@0800 [facility] Administration Enoxaparin Sodium 40 mg 05/12/25 09:00 05/16/25 09:02 Enoxaparin 40 Mg/0.4 Ml Syringe SUB-Q 40 mg DAILY EZEQUIEL Administration Furosemide 20 mg 05/10/25 09:00 05/16/25 09:01 Furosemide 20 Mg Tablet PO 20 mg QAM EZEQUIEL Administration Lactulose 10 gm 05/09/25 22:07 Lactulose 20 Gm/30 Ml Udc PO DAILY PRN Constipation Levothyroxine Sodium 125 mcg 05/10/25 06:30 05/16/25 06:42 Levothyroxine Sodium 125 Mcg Tablet PO 125 mcg DAILY@0630 EZEQUIEL Administration Losartan Potassium 12.5 mg 05/16/25 09:00 05/16/25 09:01 Losartan Potassium 12.5 Mg Tablet PO 12.5 mg DAILY EZEQUIEL Administration Mirabegron 50 mg 05/10/25 09:00 05/16/25 09:01 Mirabegron 50 Mg Er Tablet PO 50 mg DAILY EZEQUIEL Administration Multivitamins/Minerals 1 tablet 05/10/25 09:00 05/16/25 09:02 Multivits W-Fe,Min Chewable Tablet PO 1 tablet DAILY EZEQUIEL Administration Ondansetron HCl 4 mg 05/09/25 20:03 Ondansetron Inj 4 Mg/2 Ml Vial IV PUSH Q6H PRN Nausea And Vomiting Polyethylene Glycol 17 gm 05/13/25 09:00 05/16/25 09:02 Polyethylene Glycol 3350 17 Gm Powd.Pack PO 17 gm QAM EZEQUIEL Administration Pregabalin 75 mg 05/10/25 17:00 05/16/25 09:01 Pregabalin (*Crx) 75 Mg Capsule PO 75 mg BID EZEQUIEL Administration Rosuvastatin Calcium 20 mg 05/10/25 09:00 05/16/25 09:02 Rosuvastatin 20 Mg Tablet PO 20 mg DAILY EZEQUIEL Administration Tamsulosin HCl 0.8 mg 05/09/25 22:10 05/15/25 20:14 Tamsulosin Hcl 0.4 Mg Capsule PO 0.8 mg HS EZEQUIEL Administration Radiology Results: ITS Impressions Head CT 05/09/25 17:38 IMPRESSION: 1. Limited noncontrast CT head shows no acute intracranial lesions. Chronic changes as described above. Labs Labs: Laboratory Results - last 24 hr 05/16/25 05:35 WBC 5.9 RBC 4.30 L Hgb 14.0 Hct 42.6 MCV 99.1 MCH 32.6 MCHC 32.9 RDW 13.3 Plt Count 245 MPV 10.3 Sodium 137 Potassium 4.0 Chloride 107 Carbon Dioxide 26 Anion Gap 4 BUN 27 H Creatinine 1.14 Estim Creat Clear Calc 44 Estimated GFR > 60 Glucose 100 Calcium 9.6 Total Bilirubin 0.4 AST 34 ALT 26 Alkaline Phosphatase 92 Total Protein 7.0 Albumin 4.3 Quality VTE Prophylaxis VTE prophylaxis: pharmacologic ordered
[2025-05-16 20:00] VITALS: PULSE 73; RESP 16; O2SAT 94
[2025-05-16 20:37] VITALS: BP 130/73; PULSE 76; RESP 16; TEMP 36.1; O2SAT 99
[2025-05-16] MEDS: TAMSULOSIN HCL 0.4 MG CAPSULE 0.8 MG PO (20:41)
[2025-05-17 05:30] VITALS: BP 124/81; PULSE 78; RESP 17; TEMP 36.4; O2SAT 99
[2025-05-17] MEDS: LEVOTHYROXINE SODIUM 125 MCG TABLET PO (05:42)
[2025-05-17] MEDS: DIVALPROEX SODIUM ER 250 MG TAB.24H PO (08:15)
[2025-05-17] MEDS: ROSUVASTATIN 20 MG TABLET PO (08:15)
[2025-05-17] MEDS: ENOXAPARIN 40 MG/0.4 ML SYRINGE SUB-Q (08:16)
[2025-05-17] MEDS: MULTIVITS W-FE,MIN CHEWABLE TABLET 1 TABLET PO (08:16)
[2025-05-17] MEDS: FUROSEMIDE 20 MG TABLET PO (08:16)
[2025-05-17] MEDS: ASPIRIN 325 MG TABLET PO (08:16)
[2025-05-17] MEDS: PREGABALIN (*CRX) 75 MG CAPSULE PO ×2 (08:16→16:03)
[2025-05-17] MEDS: MIRABEGRON 50 MG ER TABLET PO (08:16)
[2025-05-17] MEDS: LOSARTAN POTASSIUM 12.5 MG TABLET PO (08:16)
[2025-05-17] MEDS: ACETAMINOPHEN 325 MG TABLET 650 MG PO ×2 (08:19→21:17)
--- NOTE | 2025-05-17 13:38 | P.PNIM_ITS ---
Assessment and Plan Assessment and Plan (1) Paranoid delusion: Code(s): F22 - Delusional disorders Status: Acute Assessment and Plan: -Patient here with new delusions. Upon arrival to the emergency department reported that his with significant dementia had tried to poison him. -Per chart review, patient typically oversees his on medications, however family does monitor his pillbox. May only take his medication 30-40% of the time. -No focal findings on exam concerning for stroke. No findings concerning for infection causing metabolic encephalopathy -Chronic trigeminal neuralgia, followed by neuro Dr. Morrow last seen on 04/11 with recent increase to pregabalin and carbamazepine - check viral PCR negative, B12, B1, and Folic acid pending - UDS negative - No acute findings on head CT. - neurology consulted Reduce dose of pregabalin to 75 mg twice a day Stop carbamazepine and Remeron Started on Depakote low dose of 250 mg daily, may be increased if necessary. Remains AOx3 on assessment. PT/OT consulted, recommending SNF placement Care coordination working on placement stable - no acute events (2) Trigeminal neuralgia of right side of face: Code(s): G50.0 - Trigeminal neuralgia Status: Chronic Assessment and Plan: -History of chronic trigeminal neuralgia of the right face. -Followed by neurology Dr. Morrow last seen on 04/11 with recent increase to pregabalin and carbamazepine -Previously referred to neurosurgeon at [facility] where he was offered an option for surgery but the patient declined -Neurology consulted Reduce dose of pregabalin to 75 mg twice a day Stop carbamazepine and Remeron Started on Depakote low dose of 250 mg daily, may be increased if necessary. Patient denies any facial/eye pain at this time. 12/4 some discomfort today but better after tylenol (3) Hypothyroidism: Qualifiers: Hypothyroidism type: acquired Qualified Code(s): E03.9 - Hypothyroidism, unspecified Code(s): E03.9 - Hypothyroidism, unspecified Status: Chronic Assessment and Plan: TSH elevated at 12, however T4 and T3 WNL. Will resume home Synthroid dose as per patient family patient has not been regularly taking medications. - continue Synthroid 125 mcg daily (4) Essential (primary) hypertension: Code(s): I10 - Essential (primary) hypertension Status: Chronic Assessment and Plan: - chronic - several episodes of soft BP on current home dose of 25 mg losartan, will decrease to 12.5 mg daily and continue to monitor Plan Diet: heart healthy Bowel regimen: miralax daily DVT Prophylaxis: SCDs, lovenox Lines/Tubes: PIV Code Status: DNR Medical Record Review I have reviewed the following patient records and this information was taken into consideration when formulating the assessment and plan.: previous labs Time Spent With Patient Time with patient: 25 - 35 minutes Subjective Date/time seen: 05/17/25 13:38 Interval history: 84 y/o M with PMH of trigeminal neuralgia (R side), CVA, expressive aphasia, diastolic dysfunction, anemia, prostate cancer s/p prostatectomy, hypertension, hyperlipidemia, and hypothyroidism presents here with altered mental status/delusions. Patient is pleasant sitting up comfortably in his chair, eyes closed. He remains alert and oriented x3 at time of assessment.It greatly fluctuates though. He has no complaints denying chest pain, shortness a breath, palpitations, nausea/vomiting, abdominal pain, and dizziness/lightheadedness with ambulation. Placement is the only thing keeping him here. Pt is working iwth pt/ot and doing ok, mentlly he is better overall but till needs redirecting, impulsive at times and still weak. Would benefit from SNF rehab as not safe to be home alone as his recently went to rehab. Peer to peer was requested at [phone] option 5, Review of Systems Review of Systems: ROS obtained however unsure how accurate given mental status. All systems reviewed & are unremarkable except as noted in HPI and below ROS unobtainable: Yes unobtainable due to mental status (severely limited, altered) Exam Narrative: General: male in no acute respiratory distress who is nontoxic appearing, sitting up on in chair visiting with HEENT: Normocephalic. Atraumatic. Extraocular movement intact. Sclera clear and anicteric. No facial asymmetry. Chest: Lungs are clear to auscultation bilaterally. No wheezes or crackles. CV: Heart was regular rate and rhythm. Abd: Abdomen was soft. Nontender. Nondistended. Positive bowel sounds. Ext: No clubbing, cyanosis, or edema. DP pulses bilaterally. Neuro: Patient is alert and oriented x3, following commands. Strength is 5/5 in both upper and lower extremities. Speech is clear. Const: General: comfortable and no acute distress Other: , male, nontoxic appearance, elderly HENMT: Face/Nose/Sinus: Normal nares present Mouth: Yes moist mucous membranes Eyes: General: appearance normal, both eyes and all related structures Sclera: sclerae normal Pupils: Equal, round and reactive pupils present EOM: EOMs intact bilaterally Resp: Effort & Inspection: normal respiratory effort Auscultation: clear to auscultation bilaterally Cardio: Rate: regular rate Rhythm: regular rhythm Other: S1-S2 present without murmur, rub, ectopy GI: Other: Abdomen soft, nondistended, nontender. Normoactive bowel sounds in all quadrants. Skin: General skin exam: normal color and no rashes or lesions noted Wound s: no wounds Neuro: Cranial nerves: Yes Equal, round and reactive pupils present Speech: normal speech Motor exam (neuro): 5/5 motor strength present throughout Sensory Exam: normal sensation Other: A&O to self, year, and is aware he is at the hospital but not sure which. Not able to provide situational history. Extrem: General: normal to inspection Psych: Other: poor insight and judgement at present. +paranoid delusions. no agitation on exam. Objective Data Vital Signs Vital Signs: Vital Signs - 24 hr 05/16/25 14:00 05/16/25 20:00 05/16/25 20:37 Temperature 97.5 F L 97.0 F L Pulse Rate 73 73 76 Respiratory Rate 16 16 16 Blood Pressure 112/98 H 130/73 Pulse Oximetry 94 94 99 Oxygen Delivery Room Air 05/17/25 05:30 Temperature 97.5 F L Pulse Rate 78 Respiratory Rate 17 Blood Pressure 124/81 Pulse Oximetry 99 Oxygen Delivery Intake/Output Intake/Output: Intake & Output 05/14/25 05/15/25 05/16/25 05/17/25 23:59 23:59 23:59 23:59 Intake Total 1420 19690 540 Balance 1420 1969 2570 540 Meds/Results Medications: Active Medications Generic Name Dose Route Start Last Admin Trade Name Freq PRN Reason Stop Dose Admin Acetaminophen 650 mg 05/09/25 20:03 05/17/25 08:19 Acetaminophen 325 Mg Tablet PO 650 mg Q4H PRN Administration Mild Pain (1-3) or Fever Aspirin 325 mg 11/27/25 08:00 05/17/25 08:16 Aspirin 325 Mg Tablet PO 325 mg DAILY@0800 [facility] Administration Divalproex Sodium 500 mg 05/18/25 08:00 Divalproex Sodium Er 500 Mg Tab.24h PO DAILY@0800 [facility] Enoxaparin Sodium 40 mg 05/12/25 09:00 05/17/25 08:16 Enoxaparin 40 Mg/0.4 Ml Syringe SUB-Q 40 mg DAILY [facility] Administration Furosemide 20 mg 05/10/25 09:00 05/17/25 08:16 Furosemide 20 Mg Tablet PO 20 mg QAM [facility] Administration Lactulose 10 gm 05/09/25 22:07 Lactulose 20 Gm/30 Ml Udc PO DAILY PRN Constipation Levothyroxine Sodium 125 mcg 05/10/25 06:30 05/17/25 05:42 Levothyroxine Sodium 125 Mcg Tablet PO 125 mcg DAILY@0630 [facility] Administration Losartan Potassium 12.5 mg 05/16/25 09:00 05/17/25 08:16 Losartan Potassium 12.5 Mg Tablet PO 12.5 mg DAILY [facility] Administration Mirabegron 50 mg 05/10/25 09:00 05/17/25 08:16 Mirabegron 50 Mg Er Tablet PO 50 mg DAILY [facility] Administration Multivitamins/Minerals 1 tablet 05/10/25 09:00 05/17/25 08:16 Multivits W-Fe,Min Chewable Tablet PO 1 tablet DAILY [facility] Administration Ondansetron HCl 4 mg 05/09/25 20:03 Ondansetron Inj 4 Mg/2 Ml Vial IV PUSH Q6H PRN Nausea And Vomiting Polyethylene Glycol 17 gm 05/13/25 09:00 05/17/25 08:16 Polyethylene Glycol 3350 17 Gm Powd.Pack PO 17 gm QAM [facility] Administration Pregabalin 75 mg 05/10/25 17:00 05/17/25 08:16 Pregabalin (*Crx) 75 Mg Capsule PO 75 mg BID [facility] Administration Rosuvastatin Calcium 20 mg 05/10/25 09:00 05/17/25 08:15 Rosuvastatin 20 Mg Tablet PO 20 mg DAILY [facility] Administration Tamsulosin HCl 0.8 mg 05/09/25 22:10 05/16/25 20:41 Tamsulosin Hcl 0.4 Mg Capsule PO 0.8 mg HS [facility] Administration Radiology Results: ITS Impressions Head CT 05/09/25 17:38 IMPRESSION: 1. Limited noncontrast CT head shows no acute intracranial lesions. Chronic changes as described above. Quality VTE Prophylaxis VTE prophylaxis: pharmacologic ordered
[2025-05-17 14:00] VITALS: BP 115/76; PULSE 102; RESP 18; TEMP 36.6; O2SAT 92
[2025-05-17 18:08] LABS: Vit. B1, Whole Blood 111.6 nmol/L (66.5-200.0)
[2025-05-17 20:00] VITALS: PULSE 102; RESP 18; O2SAT 92
[2025-05-17] MEDS: TAMSULOSIN HCL 0.4 MG CAPSULE 0.8 MG PO (21:17)
[2025-05-17 22:00] VITALS: BP 134/67; PULSE 94; RESP 20; TEMP 36.5; O2SAT 94
[2025-05-18] MEDS: LEVOTHYROXINE SODIUM 125 MCG TABLET PO (05:38)
[2025-05-18 06:00] VITALS: BP 124/60; PULSE 85; RESP 16; TEMP 36.3; O2SAT 95
[2025-05-18] MEDS: ENOXAPARIN 40 MG/0.4 ML SYRINGE SUB-Q (08:16)
[2025-05-18] MEDS: PREGABALIN (*CRX) 75 MG CAPSULE PO (08:17)
[2025-05-18] MEDS: MIRABEGRON 50 MG ER TABLET PO (08:17)
[2025-05-18] MEDS: FUROSEMIDE 20 MG TABLET PO (08:17)
[2025-05-18] MEDS: ROSUVASTATIN 20 MG TABLET PO (08:17)
[2025-05-18] MEDS: DIVALPROEX SODIUM ER 500 MG TAB.24H PO (08:17)
[2025-05-18] MEDS: ASPIRIN 325 MG TABLET PO (08:17)
[2025-05-18] MEDS: LOSARTAN POTASSIUM 12.5 MG TABLET PO (08:17)
[2025-05-18] MEDS: MULTIVITS W-FE,MIN CHEWABLE TABLET 1 TABLET PO (08:18)
--- NOTE | 2025-05-18 09:47 | P.DS_ITS ---
DS: Admitting Diagnosis Discharge Date 05/18 Admitting Diagnosis AMS DS: Discharge Diagnosis Discharge Diagnosis (1) Paranoid delusion: Code(s): F22 - Delusional disorders Status: Acute (2) Trigeminal neuralgia of right side of face: Code(s): G50.0 - Trigeminal neuralgia Status: Chronic (3) Hypothyroidism: Qualifiers: Hypothyroidism type: acquired Qualified Code(s): E03.9 - Hypothyroidism, unspecified Code(s): E03.9 - Hypothyroidism, unspecified Status: Chronic (4) Essential (primary) hypertension: Code(s): I10 - Essential (primary) hypertension Status: Chronic DS: Summary Hospital Course Hospital Course: 84 y/o M with PMH of trigeminal neuralgia (R side), CVA, expressive aphasia, diastolic dysfunction, anemia, prostate cancer s/p prostatectomy, hypertension, hyperlipidemia, and hypothyroidism presents here with altered mental status/delusions. Primary Diagnosis: - Paranoid delusion Secondary Diagnoses: - Trigeminal neuralgia of the right side of the face (G50.0) - Acquired hypothyroidism (E03.9) - Essential (primary) hypertension (I10) Hospital Course: The patient was admitted for management of paranoid delusions and right-sided trigeminal neuralgia. During hospitalization, the patient's psychiatric symptoms were evaluated and medication adjustments were made to address delusional thinking. Neurology consultation was obtained for evaluation and management of right-sided trigeminal neuralgia, with specific recommendations provided below. The patient's hypothyroidism and hypertension remained stable throughout the hospitalization with continuation of home medications. Consultations: Neurology was consulted for evaluation of right-sided trigeminal neuralgia. Recommendations included : With regard to the pain in the right eye I have advised him to have an examination by the eye doctor since there is some redness around the inner canthus of the right eye. However he has a longstanding history of pain in the right face but now this is localized more in the right eye. He did have an MRI of the brain in February and CT scan of the brain this on this admission which did not show any significant abnormal finding specifically nothing around the right eye or optic globe. He is currently on Depakote ER 250 mg once a day and pregabalin 75 mg twice a day. We will reduce the dose of the pregabalin and be of take him off carbamazepine. I would s uggest increase the dose of Depakote ER to 500 mg at bedtime and I shall be glad to follow him in my office in 6-8 weeks time. 2. With regard to the paranoid delusion he may require some follow-up since the could be underlying dementia which may manifest eventually and I shall follow it up in my office. Currently seems to be stable I noted that his TSH was slightly high at 12.0 but his serum B12 folic acid level were normal. 1. Residential Facility Placement: Patient requires placement in a group home facility for continued management of psychiatric symptoms, medication monitoring, and assistance with activities of daily living. 2. Neurology Follow-Up: Follow-up with neurology in 2-3 weeks for continued management of trigeminal neuralgia per java consultant recommendations. 3. Primary Care Follow-Up: Recommend follow-up with primary care provider within 1-2 weeks for management of hypothyroidism and hypertension, including monitoring of thyroid function tests and blood pressure. Status at Discharge Functional status at discharge: uses cane/walker Overall status at discharge: patient is progressing back to baseline Time Spent with Patient Time attestation: Total time spent providing and/or coordinating discharge services: Time spent: Greater than 30 minutes Exam Narrative: General: male in no acute respiratory distress who is nontoxic appearing, calm and alert today HEENT: Normocephalic. Atraumatic. Extraocular movement intact. Sclera clear and anicteric. No facial asymmetry. Chest: Lungs are clear to auscultation bilaterally. No wheezes or crackles. CV: Heart was regular rate and rhythm. Abd: Abdomen was soft. Nontender. Nondistended. Positive bowel sounds. Ext: No clubbing, cyanosis, or edema. DP pulses bilaterally. Neuro: Patient is alert and oriented x3, following commands. Strength is 5/5 in both upper and lower extremities. Speech is clear. Const: General: comfortable and no acute distress Other: , male, nontoxic appearance, elderly HENMT: Face/Nose/Sinus: Normal nares present Mouth: Yes moist mucous membranes Eyes: General: appearance normal, both eyes and all related structures Sclera: sclerae normal Pupils: Equal, round and reactive pupils present EOM: EOMs intact bilaterally Resp: Effort & Inspection: normal respiratory effort Auscultation: clear to auscultation bilaterally Cardio: Rate: regular rate Rhythm: regular rhythm Other: S1-S2 present without murmur, rub, ectopy GI: Other: Abdomen soft, nondistended, nontender. Normoactive bowel sounds in all quadrants. Skin: General skin exam: normal color and no rashes or lesions noted Wounds: no wounds Neuro: Cranial nerves: Yes Equal, round and reactive pupils present Speech: normal speech Motor exam (neuro): 5/5 motor strength present throughout Sensory Exam: normal sensation Other: A&O to self, year, and is aware he is at the hospital but not sure which. Not able to provide situational history. Extrem: General: normal to inspection Psych: Other: poor insight and judgement at present. +paranoid delusions. no agitation on exam. DS: Data Data Completed and Pending Labs on day of discharge: Labs from last 24 hours 05/10/25 04:34 Whole Bld Vitamin B1 111.6 Discharge Plan Discharge Attending physician on discharge: Romie Medina Consulting providers: Christ Santo; Marimar Jimenez Discharging Clinician: Stephania Ramirez Patient Disposition: SNF Activity: october shower Diet: regular Discharge Instructions: kendrick f/u with neurology ameena 1-2 weeks Patient Instructions: Antibiotic Form Patient Language: Filipino Stand Alone Forms: General Discharge Information Follow-up/Referrals: Jessica Morrow MD [Physician, Neurology] - 2 Weeks Gio Nguyễn MD [Primary Care Provider, Family Practice] - 1 Week Discharge Medications: New divalproex [Depakote ER] 500 mg Tablet Extended Release 24 Hr 500 mg PO DAILY@0800 Qty: 12 0RF olanzapine 5 mg Tablet 5 mg PO Q8HR PRN (Reason: Agitation) Qty: 12 0RF pregabalin [Lyrica] 75 mg Capsule 75 mg PO BID Qty: 12 0RF losartan 25 mg tablet 12.5 mg PO DAILY Qty: 12 0RF Continued mirabegron 50 mg tablet extended release 24 hr 50 mg PO DAILY furosemide [Lasix] 20 mg tablet 20 mg PO QAM Qty: 90 1RF Centrum Adult 50 Plus 80 mcg tablet,chewable 1 tablet PO DAILY aspirin 325 mg tablet 325 mg PO DAILY lactulose [Constulose] 10 gram/15 mL solution 15 ml PO DAILY PRN (Reason: constipation) tamsulosin 0.4 mg capsule See Rx Instructions .ROUTE .COMPLEX Rx Instructions: TAKE 2 CAPSULE BY MOUTH HS rosuvastatin [Crestor] 20 mg tablet 20 mg PO DAILY Qty: 90 3RF levothyroxine [Synthroid] 125 mcg tablet 125 mcg PO DAILY@0630 Qty: 90 1RF Rx Instructions: Take first thing in AM on empty stomach. Wait atleast 30 min before taking other medications or eating/drinking mirtazapine [Remeron] 15 mg tablet 15 mg PO QHS Qty: 90 1RF Discontinued pregabalin 75 mg capsule 75 mg PO Q8H Qty: 90 5RF carbamazepine [Carbatrol] 200 mg capsule, ER multiphase 12 hr 200 mg PO TID losartan 25 mg tablet 25 mg PO DAILY Qty: 90 1RF Date of admission: 05/09/25 18:57 Primary Care Provider: Gio Nguyễn Admitting Provider: James Louis Attending physician on admission: James Louis Condition: Stable Quality VTE Prophylaxis VTE prophylaxis: pharmacologic ordered Hospitalist MIPS Heart Failure (Exclusion) Patient has history of Heart Transplant or Left Ventricular Assistive Device?: No IF YES, STOP HERE Heart Failure (Qualifier) Patient has current or prior documentation of LVEF less than or equal to 40%, or mod/servere depressed LVSF?: No IF NO, STOP HERE
[2025-05-18 11:46] LABS: SARS-CoV-2 RNA PCR Negative (Negative)
[2025-05-18 14:00] VITALS: BP 117/64; PULSE 66; RESP 20; TEMP 36.4; O2SAT 97
[2025-05-18] MEDS: ACETAMINOPHEN 325 MG TABLET 650 MG PO (14:37)
== END 2025-05-18 16:35 ==
LOC: ANHED 18:47 → ANH3MED 05-10 06:52 → ANH3MEDSUR 05-21 07:55
PROVIDERS: Emergency Medicine; Nurse Practitioner; Student in an Organized Health Care Education/Training Program; Admitting Provider Internal Medicine; Emergency Provider Emergency Medicine; PCP Family Medicine; Visit Provider Family Medicine
DX: F22 Delusional disorders (principal); G50.0 Trigeminal neuralgia; G44.049 Chronic paroxysmal hemicrania, not intractable; R76.89 Other specified abnormal immunological findings in serum; R29.6 Repeated falls; I11.0 Hypertensive heart disease with heart failure; I44.7 Left bundle-branch block, unspecified; R94.31 Abnormal electrocardiogram [ECG] [EKG]; R47.01 Aphasia; D64.9 Anemia, unspecified; M15.9 Polyosteoarthritis, unspecified; E78.2 Mixed hyperlipidemia; E03.9 Hypothyroidism, unspecified; I35.0 Nonrheumatic aortic (valve) stenosis; I50.30 Unspecified diastolic (congestive) heart failure; M54.50 Low back pain, unspecified; Z20.822 Contact with and (suspected) exposure to COVID-19; Z79.82 Long term (current) use of aspirin; Z86.73 Personal history of transient ischemic attack (TIA), and cerebral infarction without residual deficits; Z85.46 Personal history of malignant neoplasm of prostate; Z87.891 Personal history of nicotine dependence; Z82.49 Family history of ischemic heart disease and other diseases of the circulatory system; Z80.42 Family history of malignant neoplasm of prostate; Z80.1 Family history of malignant neoplasm of trachea, bronchus and lung
CPT/HCPCS: 36415; 70450; 80048; 80053; 80156; 80307; 81003; 82607; 82746; 84425; 84439; 84443; 84480; 85025; 85027; 85610; 85730; 87635; 87637; 93005; 96360; 96361; 96372; 97110; 97116; 97161; 97166; 97530; 97535; 99285; A9270; G0378; J1650; J7120